=== PATIENT | male | born 1930 | race Caucasian/White ===

== ENCOUNTER 2016-06-25 12:04 | Outpatient (CLI) | payer OTHER ==
[2016-06-25 11:35] LABS: % IMMATURE GRANULOCYTES 6.5 % (0.0-1.1); ABSOLUTE IMMATURE GRANULOCYTES 0.32 10^3/uL (0-0.10); HEMATOCRIT 16.9 % (40.0-51.0); HEMOGLOBIN 5.6 g/dL (13.7-17.5); MEAN CELL HEMOGLOBIN 31.6 pg (27.9-34.1); MEAN CELL HEMOGLOBIN CONC. 33.1 g/dL (32.4-36.7); MEAN CELL VOLUME 95.5 fL (81.5-99.8); MEAN PLATELET VOLUME 8.8 fL (8.7-11.7); RED BLOOD CELL COUNT 1.77 10^6/uL (4.40-6.38); RED CELL DISTRIBUTION WIDTH 17.2 % (11.5-15.2)
[2016-06-25] MEDS ORDERED: ACETAMINOPHEN 325 MG TAB PO ONE (16:00)
== END 2016-06-25 22:05 | disposition home or self-care (01) ==
LOC: FOBOP 12:04
PROVIDERS: ATTEND Internal Medicine Hematology & Oncology
PROC: 30233N1 Transfusion of Nonautologous Red Blood Cells into Peripheral Vein, Percutaneous Approach (ICD-10-PCS; principal; 2016-06-25)
DX: C64.9 Malignant neoplasm of unspecified kidney, except renal pelvis (principal); N18.6 End stage renal disease
CPT/HCPCS: 36430; P9040

== ENCOUNTER → 2016-06-29 | Outpatient (CLI) | payer OTHER ==
--- NOTE | 2016-06-29 14:13 | DX ---
Chest, PA and Lateral History: R09.02, hypoxemia, dyspnea Comparison: June 06, 2016 Findings: Bibasilar consolidation has increased right middle lobe greater than left lower lobe. Bronc hial wall thickening and moderately prominent lung findings remain suggesting underlying COPD. There is new costophrenic gutter blunting, right greater than left.. Impression: Progressive bilateral pneumonia with pleural effusions. Results called to Dr. Hdz at 2:10 PM. A Document Only message has been documented for Christiano Hdz in the [facility] Result system on 06/29/2016 14:10, Message ID [id number].
== END ==
LOC: FIMAGING 11:29
PROVIDERS: ATTEND Family Medicine
DX: J18.9 Pneumonia, unspecified organism (principal); J90 Pleural effusion, not elsewhere classified

== ENCOUNTER → 2016-06-30 | Outpatient (CLI) | payer OTHER ==
--- NOTE | 2016-06-30 17:49 | DX ---
Chest, Two Views at 1021 hours History: Congestive heart failure, pneumonia, hypoxemia. Comparison: June 29, 2016 Findings: Cardiac silhouette is within normal range. Atherosclerotic thoracic aorta. Bilateral lower lobe alveolar opacities consistent with pneumonia again noted. Right middle lobe alveolar opacity als o consistent with pneumonia. Small right pleural effusion. Atherosclerotic aorta. No pneumothorax. IMPRESSION: No significant change in bilateral lower lobe and right middle lobe pneumonia with small right pleural effusion.
== END ==
LOC: FIMAGING 10:22 → EDSTATUS 10:23
PROVIDERS: ATTEND Family Medicine
DX: J18.9 Pneumonia, unspecified organism (principal); J90 Pleural effusion, not elsewhere classified; I50.31 Acute diastolic (congestive) heart failure; R09.02 Hypoxemia

== ENCOUNTER → 2016-07-07 | Outpatient (CLI) | payer OTHER ==
[~2016-07-07] MED LIST: ACETAMINOPHEN 325 MG TAB PO ONE
== END ==
LOC: RMCCLAB 10:26 → EDSTATUS 13:50 → FIMAGING 13:51
PROVIDERS: ATTEND Internal Medicine Hematology & Oncology
PROC: 30233N1 Transfusion of Nonautologous Red Blood Cells into Peripheral Vein, Percutaneous Approach (ICD-10-PCS; principal; 2016-07-07)
DX: D64.9 Anemia, unspecified (principal); C64.9 Malignant neoplasm of unspecified kidney, except renal pelvis
CPT/HCPCS: 36430; P9040

== ENCOUNTER → 2016-07-16 | Outpatient (CLI) | payer OTHER | LOC: RMCCLAB 09:06 → EDSTATUS 16:17 → FOBOP 16:18 | PROVIDERS: ATTEND Internal Medicine Hematology & Oncology | PROC: 30233N1 Transfusion of Nonautologous Red Blood Cells into Peripheral Vein, Percutaneous Approach (ICD-10-PCS; principal; 2016-07-16) | DX: C64.1 Malignant neoplasm of right kidney, except renal pelvis (principal); D63.8 Anemia in other chronic diseases classified elsewhere | CPT/HCPCS: 36430; P9040 ==

== ENCOUNTER 2016-07-21 14:10 | Outpatient (CLI) | payer OTHER ==
[2016-07-21 10:29] LABS: % IMMATURE GRANULOCYTES 3.1 % (0.0-1.1); ABSOLUTE IMMATURE GRANULOCYTES 0.16 10^3/uL (0-0.10); HEMOGLOBIN 6.9 g/dL (13.7-17.5); MEAN CELL HEMOGLOBIN 31.1 pg (27.9-34.1); MEAN CELL HEMOGLOBIN CONC. 32.9 g/dL (32.4-36.7); MEAN CELL VOLUME 94.6 fL (81.5-99.8); MEAN PLATELET VOLUME 8.8 fL (8.7-11.7); RED BLOOD CELL COUNT 2.22 10^6/uL (4.40-6.38); RED CELL DISTRIBUTION WIDTH 19.9 % (11.5-15.2)
[2016-07-21] MEDS ORDERED: ACETAMINOPHEN 325 MG TAB PO ONE (15:00)
== END 2016-07-21 18:30 | disposition home or self-care (01) ==
LOC: FOBOP 14:10
PROVIDERS: ATTEND Internal Medicine Hematology & Oncology
DX: C64.9 Malignant neoplasm of unspecified kidney, except renal pelvis (principal); D63.1 Anemia in chronic kidney disease
CPT/HCPCS: 36430; P9016

== ENCOUNTER → 2016-07-29 | Outpatient (CLI) | payer OTHER | LOC: FIMAGING 11:20 | PROVIDERS: ATTEND Family Medicine | DX: J98.4 Other disorders of lung (principal); I50.31 Acute diastolic (congestive) heart failure ==

== ENCOUNTER 2016-08-04 14:12 | Outpatient (CLI) | payer OTHER ==
[2016-08-04 10:46] LABS: % IMMATURE GRANULOCYTES 2.8 % (0.0-1.1); ABSOLUTE IMMATURE GRANULOCYTES 0.11 10^3/uL (0-0.10); HEMATOCRIT 22.1 % (40.0-51.0); HEMOGLOBIN 7.3 g/dL (13.7-17.5); MEAN CELL HEMOGLOBIN 32.4 pg (27.9-34.1); MEAN CELL VOLUME 98.2 fL (81.5-99.8); MEAN PLATELET VOLUME 9.3 fL (8.7-11.7); RED BLOOD CELL COUNT 2.25 10^6/uL (4.40-6.38); RED CELL DISTRIBUTION WIDTH 19.7 % (11.5-15.2)
[2016-08-04] MEDS ORDERED: ACETAMINOPHEN 325 MG TAB PO ONE (15:00)
== END 2016-08-04 18:09 | disposition home or self-care (01) ==
LOC: FOBOP 14:12
PROVIDERS: ATTEND Internal Medicine Hematology & Oncology
PROC: 30233N1 Transfusion of Nonautologous Red Blood Cells into Peripheral Vein, Percutaneous Approach (ICD-10-PCS; principal; 2016-08-04)
DX: C64.1 Malignant neoplasm of right kidney, except renal pelvis (principal)
CPT/HCPCS: 36430; P9016

== ENCOUNTER 2016-08-30 11:06 | Emergency (ER) | payer OTHER ==
--- NOTE | 2016-08-30 11:44 | CPEKG ---
Heart Rate: 82 RR Interval: 732 P-R Interval: 172 QRSD Interval: 108 QT Interval: 424 QTC Interval: 496 P Clinton: 63 QRS Clinton: 75 T Wave Clinton: 6 EKG Severity - ABNORMAL ECG - EKG Impression: SINUS RHYTHM EKG Impression: NONSPECIFIC REPOL ABNORMALITY, DIFFUSE LEADS EKG Impression: BORDERLINE PROLONGED QT INTERVAL Electronically Signed By: Nora Manuel 30-Aug-2016 16:50:24
[2016-08-30 12:01] LABS: % IMMATURE GRANULYOCYTES 2.7 % (0.0-1.1); ABSOLUTE IMMATURE GRANULOCYTES 0.19 10^3/uL (0.00-0.10); ADD DIFF? NO; ADD MORPH? NO; ADD SCAN? NO; ATYPICAL LYMPHOCYTE FLAG 20 (0-99); FRAGMENT RBC FLAG 0 (0-99); HEMATOCRIT 22.8 % (40.0-51.0); HEMOGLOBIN 7.5 g/dL (13.7-17.5); LEFT SHIFT FLG 20 (0-99); LIPEMIA HEMOLYSIS FLAG 80 (0-99); MEAN CELL HEMOGLOBIN 32.2 pg (27.9-34.1); MEAN CELL HEMOGLOBIN CONCENTR. 32.9 g/dL (32.4-36.7); MEAN CELL VOLUME 97.9 fL (81.5-99.8); MEAN PLATELET VOLUME 9.1 fL (8.7-11.7); PLATELET CLUMPS FLAG 10 (0-99); PLATELET COUNT 171 10^3/uL (150-400); RED BLOOD CELL COUNT 2.33 10^6/uL (4.40-6.38); RED CELL DISTRIBUTION WIDTH 19.5 % (11.5-15.2)
[2016-08-30 12:26] LABS: ANION GAP 13 mEq/L (8-16); CALCIUM 8.7 mg/dL (8.5-10.4); CARBON DIOXIDE 27 mEq/l (22-31); CHLORIDE 96 mEq/L (97-110); CREATININE 1.9 mg/dL (0.7-1.3); GLOMERULAR FILTRATION RATE 34; GLUCOSE 92 mg/dL (70-100); POTASSIUM 3.8 mEq/L (3.5-5.2); SODIUM 136 mEq/L (134-144)
[2016-08-30] MEDS ORDERED: ACETAMINOPHEN 325 MG TAB PO ONE (15:45)
--- NOTE | 2016-08-30 15:50 | EDPHY ---
H & P Stated Complaint: Low sats at dialysis-sent on 6L O2- [facility] Dr Granado Time Seen by Provider: 08/30/16 11:33 HPI/ROS: CHIEF COMPLAINT: Short of breath HISTORY OF PRESENT ILLNESS: This is an 86-year-old male with history of renal cell carcinoma and end-stage renal disease who is on thrice weekly dialysis. Today at dialysis the nurses were concerned that he was weaker than usual and seemed short of breath. He wears 6 L of nasal cannula oxygen at all times. Pulse oximetry at dialysis was 87%. His oxygen per nasal cannula was increased. He had blood drawn by his oncologist on August 20, at which time his hemoglobin was 7.8. He spoke with his oncology office today and it was recommended that he come to the emergency department, likely for a blood transfusion. He and his family drove to the emergency department after he completed his dialysis session today. He is not currently feeling short of breath. He is not experiencing chest pain. He has had a chronic dry cough that has not recently changed. REVIEW OF SYSTEMS: A ten point review of systems was performed and is negative with the exception of the items mentioned in the HPI. Source: Patient, Family Exam Limitations: No limitations - Personal History Current Tetanus/Diphtheria Vaccine: Yes Tetanus Vaccine Date: 2010 - Medical/Surgical History Hx Asthma: No Hx Chronic Respiratory Disease: No Hx Diabetes: Yes Hx Cardiac Disease: Yes Hx Renal Disease: Yes Hx Cirrhosis: No Hx Alcoholism: No Hx HIV/AIDS: No Hx Splenectomy or Spleen Trauma: No Other PMH: prostate CA, renal CA, right kidney removed, R knee replacement, L hip replacement, left forearm fistula, skin ulcer, cholecystectomy, Gout, peripheral neuropathy, anemia, esrd, ppm, cad, on dialysis, bliateral cataract repair, small bowel resection - Social History Smoking Status: Never smoked Additional Social History: He is here with his and [id number]. Non-smoker. No alcohol. - Physical Exam Exam: General Appearance: Alert. Vital signs reviewed. blood pressure 145 over 98 , pulse ox on 6 L nasal cannula is 95%. Eyes: Pupils equal and round, no conjunctival injection, no discharge. Anicteric. ENT, Mouth: Mucous membranes are slightly dry, no oropharyngeal erythema or edema. Neck: No lymphadenopathy, supple. Respiratory: Lungs with distant breath sounds, no wheezes or rales. Cardiovascular: Regular rate and rhythm; no murmur, rub, or gallop. Gastrointestinal: Abdomen is soft and nontender, no masses or organomegaly, bowel sounds normal. Skin: Warm and dry, no rashes on exposed skin, normal color. Back: Nontender to palpation over the thoracolumbar spine. No CVAT. Extremities: No lower extremity edema, no calf tenderness or swelling. Neurological: Alert and oriented. Moving all four extremities easily and equally. Psychiatric: Normal affect. Constitutional: Initial Vital Signs Temperature (C) 36.3 C 08/30/16 11:13 Heart Rate 95 08/30/16 11:13 Respiratory Rate 18 08/30/16 11:13 Blood Pressure 145/38 H 08/30/16 11:13 O2 Sat (%) 97 08/30/16 11:13 O2 Delivery Mode Nasal Cannula O2 (L/minute) 5 Allergies/Adverse Reactions: pseudoephedrine Allergy (Unknown, Verified 08/30/16 11:18) Swelling sudafed Allergy (Uncoded 10/28/15 11:20) Home Medications: Medication Instructions Recorded Latanoprost 0.005% [Xalatan 0.005% 1 drop EACHEYE HS 01/25/14 (*)] Multivitamins [Multivitamin (*)] 1 each PO DAILY 01/25/14 Allopurinol [Allopurinol 300 MG 150 mg PO DAILY #30 tab 04/16/14 (RX)] Tamsulosin HCl [Flomax 0.4 MG (*)] 0.4 mg PO DAILY #30 cap 04/16/14 Acetaminophen [Tylenol 325mg (*)] 650 mg PO Q6 PRN 05/27/16 Herbals/Supplements -Info Only 1 ea PO DAILY 05/27/16 Aspirin EC [Aspirin EC 81 mg (*)] 81 mg PO DAILY #0 tab 06/02/16 Medical Decision Making - Diagnostics Imaging: Two-view chest x-ray reviewed by me. There are signs of chronic congestive heart failure. He has bilateral pleural effusions. Interstitial lung disease. ED Course/Re-evaluation: CBC today shows hemoglobin of 7.5. I spoke with Oncology who recommended transfusion of 1 unit packed red blood cells. Transfusion will be administered in the emergency department (for lack of other place to transfuse at this time of day without having had previous arrangements made). I anticipate that he will be able to return home after the blood has infused. Differential Diagnosis: Considered a differential diagnosis that includes but is not limited to worsening anemia, pulmonary edema, pneumonia or other infectious process, pneumothorax, pulmonary embolus, and cardiac etiology of dyspnea. - Data Points Laboratory Results: Laboratory Results 08/30/16 11:46 08/30/16 11:46 Medications Given: Discontinued Medications Acetaminophen (Tylenol) 650 mg PO EDNOW ONE Stop: 08/30/16 15:46 Last Admin: 08/30/16 16:05 Dose: 650 mg Departure - Departure Disposition: Home, Routine, Self-Care Clinical Impression: Anemia Qualifiers: Anemia type: other cause Other causes of anemia: chronic disease, kidney Qualified Code(s): N18.9 - Chronic kidney disease, unspecified; D63.1 - Anemia in chronic kidney disease Condition: Good Instructions: Anemia (ED) Additional Instructions: He received a blood transfusion today. Please follow up with Dr. Alyssia Pinon. Call her office tomorrow to schedule an appointment for this week. If you develop new or worsening symptoms such as chest pain, shortness of breath --please return to the emergency department for another evaluation. Referrals: Christiano Hdz [Primary Care Provider] - As per Instructions
[2016-08-30 20:11] VITALS: PULSE 72; RESP 16
[2016-08-30 20:33] VITALS: BP 147/61; TEMP 97.7; O2SAT 95
== END 2016-08-30 20:31 | disposition home or self-care (01) ==
PROC: 30233N1 Transfusion of Nonautologous Red Blood Cells into Peripheral Vein, Percutaneous Approach (ICD-10-PCS; principal; 2016-08-30)
DX: N18.6 End stage renal disease (principal); D63.1 Anemia in chronic kidney disease; E11.9 Type 2 diabetes mellitus without complications; I25.10 Atherosclerotic heart disease of native coronary artery without angina pectoris; Z79.82 Long term (current) use of aspirin; Z85.46 Personal history of malignant neoplasm of prostate; Z80.51 Family history of malignant neoplasm of kidney
CPT/HCPCS: 71020; 93005; 99285; P9021

== ENCOUNTER → 2016-08-31 | Outpatient (CLI) | payer OTHER | LOC: FIMAGING 15:50 | PROVIDERS: ATTEND Family Medicine | DX: J18.1 Lobar pneumonia, unspecified organism (principal); I70.0 Atherosclerosis of aorta ==

== ENCOUNTER → 2016-09-30 | Outpatient (CLI) | payer OTHER | LOC: FIMAGING 10:45 | PROVIDERS: ATTEND Internal Medicine Nephrology | DX: R05 Cough (principal); J90 Pleural effusion, not elsewhere classified; R91.8 Other nonspecific abnormal finding of lung field ==

== ENCOUNTER 2017-02-21 14:39 | Inpatient (IN) | payer OTHER ==
--- NOTE | 2017-02-21 15:08 | EDPHY ---
H & P Stated Complaint: O2 level "low" before and during dialysis;increasesd THORNE Source: Patient, Family Exam Limitations: Clinical condition - Personal History Current Tetanus Diphtheria and Acellular Pertussis (TDAP): Yes Tetanus Vaccine Date: 2010 - Medical/Surgical History Hx Asthma: No Hx Chronic Respiratory Disease: No Hx Diabetes: Yes Hx Cardiac Disease: Yes Hx Renal Disease: Yes Hx Cirrhosis: No Hx Alcoholism: No Hx HIV/AIDS: No Hx Splenectomy or Spleen Trauma: No Other PMH: prostate CA, renal CA, right kidney removed, R knee replacement, L hip replacement, left forearm fistula, skin ulcer, cholecystectomy, Gout, peripheral neuropathy, anemia, esrd, ppm, cad, on dialysis, bliateral cataract repair, small bowel resection - Social History Smoking Status: Never smoked Time Seen by Provider: 02/21/17 15:04 HPI/ROS: HPI: This is an 86-year-old male who presents with Chief Complaint: Dyspnea Location: Chest Quality: Dyspnea Duration: Today Signs and Symptoms: No fever, no chills, + fatigue, + nonproductive cough, no swelling in lower extremities, no myalgias, no chest pain, no palpitations Timing: Acute on chronic Severity: Moderate Context: Patient has a history of end-stage renal disease on hemodialysis, scheduled Tuesday, he completed full session of dialysis today. Daughter noticed this morning use requiring more oxygen to maintain his O2 sats greater 92% than his normal 2-3 L nasal cannula continuous. He completed dialysis and hypoxia and dyspnea did not improve. Daughter reports that he has more fatigued today and a cough for the last 1-2 days. She is concerned that he may be developing pneumonia. He reports that he does not make urine. Modifying Factors: Comment: ROS: Constitutional: No fever, no chills, no weight loss Eyes: No blurred vision Respiratory: No shortness of breath, no cough Cardiovascular: No chest pain Gastrointestinal: No nausea, no vomiting no diarrhea Genitourinary: No dysuria Extremities: No myalgias Neurologic: No weakness, no numbness Skin: No rashes Hematologic: No bruising, no bleeding MEDICAL/SURGICAL/SOCIAL HISTORY: End-stage renal disease, hemodialysis, gout, decompensated diastolic heart failure, chronic hypoxic respiratory failure, supplemental oxygen dependent, history of prostate cancer status post radical prostatectomy, history of renal cell carcinoma with incomplete resection, status post bilateral nephrectomies. (Candida Bhatia) - Physical Exam Exam: CONSTITUTIONAL: Chronically ill-appearing pleasant elderly white male, multiple family members at bedside, awake and alert, no obvious distress HEENT: Atraumatic and normocephalic, PERRL, EOMI. Tympanic membranes clear. Oropharynx clear, no exudate and moist pink mucosa. Airway patent. No lymphadenopathy. No meningismus. Cardiovascular: Normal S1/S2, regular rate, regular rhythm, without murmur rub or gallop. PULMONARY/CHEST: Symmetrical and nontender. Clear to auscultation bilaterally with diminished bases. Good air movement. No accessory muscle usage. ABDOMEN: Soft, nondistended, nontender, no rebound, no guarding, no peritoneal signs, no masses or organomegaly. No CVAT. EXTREMITIES: 2/2 pulses, no deformities, no clubbing, no cyanosis or edema. NEUROLOGICAL: no focal neuro deficits. GCS 15. SKIN: Warm and dry, no erythema. no rash. Good capillary refill. (Candida Bhatia) Constitutional: Initial Vital Signs Temperature (C) 36.9 C 02/21/17 14:45 Heart Rate 88 02/21/17 14:45 Respiratory Rate 18 02/21/17 14:45 Blood Pressure 92/62 L 02/21/17 14:45 O2 Sat (%) 91 L 02/21/17 14:45 O2 Delivery Mode Nasal Cannula O2 (L/minute) 5 Allergies/Adverse Reactions: pseudoephedrine Allergy (Unknown, Verified 02/21/17 14:50) Swelling sudafed Allergy (Uncoded 10/28/15 11:20) Home Medications: Medication Instructions Recorded Latanoprost 0.005% [Xalatan 0.005% 1 drop EACHEYE HS 01/25/14 (*)] Multivitamins [Multivitamin (*)] 1 each PO DAILY 01/25/14 Allopurinol [Allopurinol 300 MG 150 mg PO DAILY #30 tab 04/16/14 (RX)] Tamsulosin HCl [Flomax 0.4 MG (*)] 0.4 mg PO DAILY #30 cap 04/16/14 Acetaminophen [Tylenol 325mg (*)] 650 mg PO Q6 PRN 05/27/16 Herbals/Supplements -Info Only 1 ea PO DAILY 05/27/16 Calcium Carbonate [Tums 500MG (*)] 1,000 mg PO PC 02/21/17 Calcium Carbonate [Tums 500MG (*)] 500 mg PO TID PRN 02/21/17 Medical Decision Making - Diagnostics EKG Interpretation: 12 lead EKG: Indication: dyspnea Rhythm: sinus rhythm, rate 81 bpm [place]:normal [place]: normal QRS: normal ST segments: nonspecific changes INTERPRETATION: no acute ischemic changes The 12 lead EKG was interpreted by myself. (Candida Bhatia) Imaging Results: Imaging Impressions Chest X-Ray 02/21/17 15:03 Impression: Increased bibasilar interstitial and airspace opacities may represent interstitial lung disease with a superimposed pneumonia. ED Course/Re-evaluation: Will evaluate for pneumonia and congestive heart failure including labs, chest x -ray, blood culture, respiratory panel. ProBNP significantly elevated Mild leukocytosis noted Chest x-ray my read shows increased interstitial markings; will go ahead and cover for community-acquired pneumonia with IV Levaquin. Creatinine is 3.1 and Potassium 4.7 Anemia is noted near baseline; etiology chronic kidney disease 1610: ED decision to consult for admission, spoke with hospitalist, Dr. Ramos , who got only agrees to admit patient for further care. Dr. Jeong spoke with Nephrology. (Candida Bhatia) Differential Diagnosis: Shortness of breath including but not limited to pulmonary infectious process, COPD, asthma, pulmonary embolus and congestive heart failure. (Candida Bhatia) Other Provider: Independent physician examination I evaluated and participated in the management of the patient. I also evaluated the patient independently. My co-signature indicates that I have reviewed this chart and I agree with the findings and plan of care as documented. My personal H&P findings include: Patient presents to the ED from the dialysis clinic with complaints of increasing hypoxemia, increasing acute cough and dyspnea. The patient is currently a half a kg a from baseline weight. The patient's symptoms have developed over the past day. Physical exam: General Appearance: Alert, no distress Eyes: Pupils equal and round no pallor or injection ENT, Mouth: Mucous membranes moist Respiratory: Tachypnea, rhonchorous breath sounds bilaterally, rales at the lung bases Cardiovascular: Regular rate and rhythm Gastrointestinal: Abdomen is soft and nontender, no masses, bowel sounds normal Neurological: A&O, normal motor function, normal sensory exam, normal cranial nerves Skin: Warm and dry, no rashes Musculoskeletal: Neck is supple nontender Extremities: symmetrical, full range of motion Psychiatric: Patient is oriented X 3, there is no agitation The patient's oral temperature was 38 degrees on my check. Patient's chest x- ray does demonstrate bibasilar infiltrate versus atelectasis. The patient is noted to have a elevated proBNP level. The patient does have mild tachypnea and increasing acute hypoxia which corrects with nasal cannula oxygen. The patient will be brought into the hospital for further evaluation and management of his condition. Consultation is made with the hospitalist service. Nephrology has also been notified of patient's admission. (Arik Jeong) - Data Points Laboratory Results: Laboratory Results 02/21/17 15:10 02/21/17 15:10 02/21/17 02/21/17 02/21/17 15:10 15:10 15:10 WBC 11.33 10^3/uL H 10^3/uL (3.80-9.50) RBC 2.72 10^6/uL L 10^6/uL (4.40-6.38) Hgb 9.0 g/dL L g/dL (13.7-17.5) Hct 27.5 % L % (40.0-51.0) MCV 101.1 fL H fL (81.5-99.8) MCH 33.1 pg pg (27.9-34.1) MCHC 32.7 g/dL g/dL (32.4-36.7) RDW 16.7 % H % (11.5-15.2) Plt Count 203 10^3/uL 10^3/uL (150-400) MPV 9.7 fL fL (8.7-11.7) Neut % (Auto) 90.4 % H % (39.3-74.2) Lymph % (Auto) 2.7 % L % (15.0-45.0) [place] % (Auto) 5.6 % % (4.5-13.0) Eos % (Auto) 0.0 % L % (0.6-7.6) Baso % (Auto) 0.2 % L % (0.3-1.7) Nucleat RBC Rel Count 0.0 % % (0.0-0.2) Absolute Neuts (auto) 10.23 10^3/uL H 10^3/uL (1.70-6.50) Absolute Lymphs (auto) 0.31 10^3/uL L 10^3/uL (1.00-3.00) Absolute Monos (auto) 0.64 10^3/uL 10^3/uL (0.30-0.80) Absolute Eos (auto) 0.00 10^3/uL L 10^3/uL (0.03-0.40) Absolute Basos (auto) 0.02 10^3/uL 10^3/uL (0.02-0.10) Absolute Nucleated RBC 0.00 10^3/uL 10^3/uL (0-0.01) Immature Gran % 1.1 % % (0.0-1.1) Immature Gran # 0.13 10^3/uL H 10^3/uL (0.00-0.10) VBG Lactic Acid Sodium 136 mEq/L mEq/L (134-144) Potassium 4.7 mEq/L mEq/L (3.5-5.2) Chloride 94 mEq/L L mEq/L (97-110) Carbon Dioxide 26 mEq/l mEq/l (22-31) Anion Gap 16 mEq/L mEq/L (8-16) BUN 25 mg/dL H mg/dL (7-23) Creatinine 3.1 mg/dL H mg/dL (0.7-1.3) Estimated GFR 19 Glucose 148 mg/dL H mg/dL (70-100) Calcium 9.3 mg/dL mg/dL (8.5-10.4) Troponin I 0.021 ng/mL ng/mL (0.000-0.034) NT-Pro-B Natriuret Pep 35375 pg/mL H pg/mL (0-450) Procalcitonin 0.64 ng/mL H ng/mL (0.02-0.10) 02/21/17 15:10 WBC RBC Hgb Hct MCV MCH MCHC RDW Plt Count MPV Neut % (Auto) Lymph % (Auto) [place] % (Auto) Eos % (Auto) Baso % (Auto) Nucleat RBC Rel Count Absolute Neuts (auto) Absolute Lymphs (auto) Absolute Monos (auto) Absolute Eos (auto) Absolute Basos (auto) Absolute Nucleated RBC Immature Gran % Immature Gran # VBG Lactic Acid 1.9 mmol/L mmol/L (0.7-2.1) Sodium Potassium Chloride Carbon Dioxide Anion Gap BUN Creatinine Estimated GFR Glucose Calcium Troponin I NT-Pro-B Natriuret Pep Procalcitonin Medications Given: Levofloxacin/Dextrose (Levaquin 750 Mg (Premix)) 150 mls @ 100 mls/hr IV EDNOW ONE PRN Reason: Protocol Stop: 02/21/17 17:54 Last Admin: 02/21/17 16:47 Dose: 150 mls Departure - Departure Disposition: [facility] Inpatient Acute Clinical Impression: Hypoxia, Heart failure, diastolic, with acute decompensation, End stage renal disease on dialysis, Acute and chronic respiratory failure with hypoxia Community acquired pneumonia Qualifiers: Laterality: unspecified laterality Qualified Code(s): J18.9 - Pneumonia, unspecified organism
--- NOTE | 2017-02-21 15:24 | CPEKG ---
Heart Rate: 81 RR Interval: 741 P-R Interval: 188 QRSD Interval: 110 QT Interval: 396 QTC Interval: 460 P Anderson: 59 QRS Anderson: 82 T Wave Anderson: 50 EKG Severity - ABNORMAL ECG - EKG Impression: SINUS RHYTHM EKG Impression: NONSPECIFIC INTRAVENTRICULAR CONDUCTION DELAY EKG Impression: BORDERLINE ST DEPRESSION, LATERAL LEADS Electronically Signed By: Adrian Mueller 23-Feb-2017 06:53:24
[2017-02-21 15:29] LABS: % IMMATURE GRANULYOCYTES 1.1 % (0.0-1.1); ABSOLUTE IMMATURE GRANULOCYTES 0.13 10^3/uL (0.00-0.10); ADD DIFF? NO; ADD MORPH? NO; ADD SCAN? NO; ATYPICAL LYMPHOCYTE FLAG 0 (0-99); FRAGMENT RBC FLAG 0 (0-99); HEMATOCRIT 27.5 % (40.0-51.0); LEFT SHIFT FLG 30 (0-99); LIPEMIA HEMOLYSIS FLAG 80 (0-99); MEAN CELL HEMOGLOBIN 33.1 pg (27.9-34.1); MEAN CELL HEMOGLOBIN CONCENTR. 32.7 g/dL (32.4-36.7); MEAN CELL VOLUME 101.1 fL (81.5-99.8); MEAN PLATELET VOLUME 9.7 fL (8.7-11.7); PLATELET CLUMPS FLAG 40 (0-99); PLATELET COUNT 203 10^3/uL (150-400); RED BLOOD CELL COUNT 2.72 10^6/uL (4.40-6.38); RED CELL DISTRIBUTION WIDTH 16.7 % (11.5-15.2)
[2017-02-21 15:46] LABS: TROPONIN I 0.021 ng/mL (0.000-0.034)
[2017-02-21 15:57] LABS: ANION GAP 16 mEq/L (8-16); CALCIUM 9.3 mg/dL (8.5-10.4); CARBON DIOXIDE 26 mEq/l (22-31); CHLORIDE 94 mEq/L (97-110); CREATININE 3.1 mg/dL (0.7-1.3); GLOMERULAR FILTRATION RATE 19; GLUCOSE 148 mg/dL (70-100); POTASSIUM 4.7 mEq/L (3.5-5.2); SODIUM 136 mEq/L (134-144)
[2017-02-21] MEDS ORDERED: ONDANSETRON DISINTEGRATING 4 MG TAB PO PRN (17:35)
[2017-02-21] MEDS ORDERED: ACETAMINOPHEN 325 MG TAB PO PRN (17:35)
[2017-02-21] MEDS ORDERED: IPRATROPIUM/ALBUTEROL 3 ML DEYVIAL IH PRN (17:35)
[2017-02-21] MEDS ORDERED: ONDANSETRON 4 MG/2 ML VIAL IVP PRN (17:35)
[2017-02-21] MEDS ORDERED: CALCIUM CARBONATE 500 MG CHEWABLE TAB PO PRN (17:38)
--- NOTE | 2017-02-21 18:40 | GHP ---
[f rep st] HISTORY AND PHYSICAL DATE OF ADMISSION: 02/21/2017 CHIEF COMPLAINT: Worsening hypoxemia, shortness of breath and cough. HISTORY OF PRESENT ILLNESS: The patient is an 86-year-old male with a history of end-stage renal disease who is dialysis dependent and requires 2 to 3 L of oxygen at baseline at home. He also has a history of diastolic heart failure. He presents to the emergency department with increasing oxygen requirements. He is followed by Dr. Granado at [facility] and receives dialysis on a Tuesday, Tuesday, Tuesday schedule. He endorses development of a wet cough today. He also is noted to be requiring a bit more oxygen than usual. During his dialysis session, he had an episode of cyanosis and required 15 L of oxygen. He was brought to the emergency department, where his saturations are 91% on 4 L. He states his dry weight is 76 kg and he was dialyzed to 76.5 kg today. He denies any chest pain. He vaguely endorses some shortness of breath. He denies orthopnea, paroxysmal nocturnal dyspnea or increasing edema. He has no significant upper respiratory symptoms other than development of worsening cough today combined with increased oxygen needs. He was noted to have a temperature of 38 degree Celsius in the emergency department. He otherwise denies headache, vision changes, abdominal pain, nausea, vomiting, or diarrhea. In the emergency department, a chest x-ray revealed bibasilar opacities. He was given a dose of Levaquin. He is admitted to the hospital for further management. PAST MEDICAL HISTORY: 1. History of diastolic heart failure. His last echo was in May 2016, at which time he had an ejection fraction of 505 to 55% with Doppler evidence for diastolic dysfunction and left basal mid inferior inferoseptal akinesis. 2. Moderate mitral regurgitation. 3. Mild aortic stenosis. 4. End-stage renal disease, on dialysis Tuesday, Tuesday, Tuesday, followed by Dr. Granado. 5. Chronic hypoxemic respiratory failure, using 2 to 3 L of oxygen at baseline. 6. History of coronary artery disease. Left heart catheterization in May 2016 showed 100% occlusion of the right coronary artery, not amenable to intervention, managed medically. 7. History of prostate cancer, status post radical prostatectomy. 8. History of renal cell carcinoma, status post bilateral nephrectomy with incomplete resection. 9. Anemia of chronic kidney disease. 10. Gout. MEDICATIONS: Please see [facility] for complete updated outpatient medication list. FAMILY HISTORY: Positive for kidney disease. SOCIAL HISTORY: The patient is , lives independently with his , who is present at the bedside along with his daughter. He has a history of tobacco use but is currently a nonsmoker. He denies alcohol or other drug use. REVIEW OF SYSTEMS: A 10-point review of systems was performed and is negative except as per HPI. OBJECTIVE: VITAL SIGNS: Temperature is 37 degrees, blood pressure 113/48, heart rate 85, respiratory rate 18, he is 95% on 5 L of oxygen by nasal cannula. GENERAL: The patient is awake, alert, oriented, in no acute distress. HEENT: Head is atraumatic, normocephalic. Pupils equal, round, react to light. Extraocular movements intact. Oropharynx is clear. Mucous membranes are moist. NECK: Supple. There is no significant JVD. HEART: Regular rate and rhythm with a 2/6 systolic ejection murmur. LUNGS: Faint scattered bibasilar crackles with expiratory rales. ABDOMEN: Soft, nondistended, nontender with normoactive bowel sounds. EXTREMITIES: Without cyanosis, clubbing, or edema. NEUROLOGIC: Grossly nonfocal. LABORATORY DATA: CBC reveals a white blood cell count of 11.3 with 90% neutrophils. Hemoglobin is 9. Lactic acid is 1.9. Metabolic panel reveals a BUN of 25, creatinine 3.1, glucose 148. Troponin is negative. NT-proBNP is 10, 300 and is chronically elevated in the setting of end-stage renal disease. Procalcitonin is 0.64. Chest x-ray is personally reviewed and interpreted, and reveals bibasilar opacities which are increased from his prior exam, possibly suggestive of pneumonia versus interstitial lung disease. EKG shows normal sinus rhythm. There is ST depression noted in the lateral leads, though this was present on his prior EKG and is overall unchanged. ASSESSMENT AND PLAN: The patient is an 86-year-old male with a history of end- stage renal disease, diastolic heart failure and chronic hypoxemic respiratory failure. He is admitted to the hospital with increasing dyspnea. 1. Acute on chronic hypoxemic respiratory failure. His oxygen requirement has increased to 5 L from his baseline of 2 to 3 L per minute. Consideration is given to a heart failure exacerbation though he does not appear significantly volume overloaded. His dry weight is 76 kg. His weight on presentation is 76.5 kg. His elevated BNP is noted, although this is chronically elevated in the setting of end-stage renal disease. It is possible he developed some mild pulmonary edema during dialysis given his valvular heart disease, though his valve disease is not severe. I am most suspicious for an infectious etiology given his mild leukocytosis with neutrophilia and low-grade fever on presentation with chest x-ray findings suspicious for possible pneumonia or a viral syndrome. His procalcitonin is elevated at 0.64. I think it is reasonable to treat him and he has already been given a dose of Levaquin in the emergency department. We will continue this at 500 mg q.48 hours for renal dosing. We will give DuoNebs and guaifenesin. A respiratory pathogen PCR panel is pending. I will continue supportive care and wean oxygen as able. 2. End-stage renal disease. As above, he is just 0.5 kg over his dry weight. He presents from dialysis. Nephrology has been contacted by the emergency department physician and will see the patient. He has no urgent dialysis needs tonight. 3. History of diastolic heart failure. I reviewed his prior echo as described above. Again, he is not far from his dry weight. I will defer further fluid removal to the renal service. 4. History of coronary artery disease. The patient is chest pain free. He has a negative troponin and his EKG is unchanged. We will continue him on a baby aspirin. 5. Anemia of chronic kidney disease. His hemoglobin is 9, which is stable. We will continue to monitor. 6. History of prostate cancer, status post radical prostatectomy. 7. History of renal cell carcinoma, status post bilateral nephrectomy with incomplete resection. 8. Deep venous thrombosis prophylaxis: Heparin. CODE STATUS: I did discuss code status with the patient. He wishes to be DNR. This will be honored. His family was present for this discussion. DISPOSITION: The patient is admitted to inpatient status as I suspect he will require greater than 48 hours' hospitalization for ongoing management of his hypoxemia in the setting of end-stage renal disease. /[id number]/MODL MTDD
[2017-02-21] MEDS: guaiFENesin 600 MG TAB.ER PO SCH ×2 (21:12→21:48)
[2017-02-21] MEDS: CALCIUM CARBONATE 500 MG CHEWABLE TAB PO SCH (21:13)
[2017-02-21] MEDS: HEPARIN 5,000 UNIT/0.5 ML SYR SC SCH (21:14)
[2017-02-21] MEDS: LATANOPROST 0.005% 2.5 ML OPHT DROPS EACHEYE SCH (21:15)
[2017-02-22 04:45] LABS: % IMMATURE GRANULYOCYTES 0.9 % (0.0-1.1); ABSOLUTE IMMATURE GRANULOCYTES 0.08 10^3/uL (0.00-0.10); ADD DIFF? NO; ADD MORPH? NO; ADD SCAN? NO; ATYPICAL LYMPHOCYTE FLAG 0 (0-99); FRAGMENT RBC FLAG 0 (0-99); HEMATOCRIT 25.1 % (40.0-51.0); HEMOGLOBIN 8.2 g/dL (13.7-17.5); LEFT SHIFT FLG 30 (0-99); LIPEMIA HEMOLYSIS FLAG 80 (0-99); MEAN CELL HEMOGLOBIN 33.3 pg (27.9-34.1); MEAN CELL HEMOGLOBIN CONCENTR. 32.7 g/dL (32.4-36.7); MEAN PLATELET VOLUME 9.9 fL (8.7-11.7); PLATELET CLUMPS FLAG 0 (0-99); PLATELET COUNT 173 10^3/uL (150-400); RED BLOOD CELL COUNT 2.46 10^6/uL (4.40-6.38); RED CELL DISTRIBUTION WIDTH 17.1 % (11.5-15.2)
[2017-02-22 04:58] LABS: ANION GAP 17 mEq/L (8-16); CALCIUM 9.3 mg/dL (8.5-10.4); CARBON DIOXIDE 26 mEq/l (22-31); CHLORIDE 92 mEq/L (97-110); CREATININE 4.4 mg/dL (0.7-1.3); GLOMERULAR FILTRATION RATE 13; GLUCOSE 102 mg/dL (70-100); POTASSIUM 4.8 mEq/L (3.5-5.2); SODIUM 135 mEq/L (134-144)
[2017-02-22] MEDS: HEPARIN 5,000 UNIT/0.5 ML SYR SC SCH ×3 (06:42→21:21)
--- NOTE | 2017-02-22 08:11 | SOAPPROG ---
SOAP Progress Note Assessment/Plan: Assessment:Plan: ESRD-s/p Hd Tuesday with 3 liters UF -had hypoxia on admission to dialysis unit that became worse after dialysis treatment completed -CXR reviewed -will plan on Hd Tuesday -typically on MWF at [facility] Access-L FA AVF stable Pulmonary-possible pneumonia -on abx Anemia-may need prbc's -on heparin SQ -cbc in am -type and screen 02/22/17 08:08 Subjective: up in chair, still with dyspnea, cough Objective: Vital Signs Temp Pulse Resp BP Pulse Ox 36.3 C 76 19 100/52 L 95 02/22/17 04:08 02/22/17 04:08 02/22/17 04:08 02/22/17 04:08 02/22/17 04:08 Laboratory Results 02/22/17 03:56 02/22/17 03:56 02/21/17 02/22/17 02/23/17 05:59 05:59 05:59 Intake Total 150 Balance 150 Physical Exam - Physical Exam General Appearance: alert, no apparent distress, thin EENT: normal ENT inspection Neck: normal inspection Respiratory: decreased breath sounds, rales Cardiac/Chest: regular rate, rhythm, systolic murmur, No diastolic murmur Abdomen: normal bowel sounds, non-tender Skin: normal color, warm/dry Extremities: No swelling Neuro/Psych: no motor/sensory deficits, alert, normal mood/affect ICD10 Worksheet Patient Problems: Problems Problem Status Onset Acute and chronic respiratory failure with hypoxia Acute Community acquired pneumonia Acute End stage renal disease on dialysis Acute Heart failure, diastolic, with acute decompensation Acute Hypoxia Acute Anemia Acute Chronic Disease Mgmt/Transitional Care Acute Chronic renal failure Acute Diabetes mellitus Acute Pleural effusion Acute Pulmonary edema Acute UTI (urinary tract infection) Acute Weakness generalized Acute Anemia Chronic Osteoarthritis of hip Chronic Renal failure syndrome Chronic
[2017-02-22] MEDS: CALCIUM CARBONATE 500 MG CHEWABLE TAB PO SCH ×3 (08:12→17:40)
[2017-02-22] MEDS: ALLOPURINOL 300 MG TAB PO SCH (08:12)
[2017-02-22] MEDS: ASPIRIN 81 MG CHEWABLE TAB PO SCH (08:13)
[2017-02-22] MEDS: guaiFENesin 600 MG TAB.ER PO SCH ×2 (08:13→21:20)
[2017-02-22] MEDS: TAMSULOSIN HCL 0.4 MG CAP PO SCH (08:14)
--- NOTE | 2017-02-22 11:36 | HOSPPROG ---
Hospitalist Progress Note Assessment/Plan: #Acute on chronic hypoxic resp failure: likely due to PNA with opacity (CXR personally reviewed) and elevated procalcitonin. Not significant volume overload -LQ QOD #ESRD: HD tomorrow #Leukocytosis: likely due to PNA. Flu neg. Resolved. LQ #CAD: 100% occlusion RCA last cath. Medical management. #Anemia of renal disease: repeat CBC in AM #Diet: renal #Disp: DC tomorrow after HD if clinically stable Subjective: nonproductive cough. Feels good Objective: Vital Signs Temp Pulse Resp BP Pulse Ox 36.6 C 79 17 114/60 93 02/22/17 08:00 02/22/17 08:00 02/22/17 08:00 02/22/17 08:00 02/22/17 10:05 Laboratory Results 02/22/17 03:56 02/22/17 03:56 02/21/17 02/22/17 02/23/17 05:59 05:59 05:59 Intake Total 150 Balance 150 - Physical Exam Constitutional: no apparent distress Eyes: PERRL Ears, Nose, Mouth, Throat: moist mucous membranes, hearing normal Cardiovascular: regular rate and rhythym Respiratory: no respiratory distress, rhonchi Gastrointestinal: normoactive bowel sounds, soft, non-tender abdomen Genitourinary: no bladder fullness Skin: warm Musculoskeletal: full muscle strength Neurologic: AAOx3, CN II-XII Intact Psychiatric: interacting appropriately ICD10 Worksheet Patient Problems: Problems Problem Status Onset Acute and chronic respiratory failure with hypoxia Acute Community acquired pneumonia Acute End stage renal disease on dialysis Acute Heart failure, diastolic, with acute decompensation Acute Hypoxia Acute Anemia Acute Chronic Disease Mgmt/Transitional Care Acute Chronic renal failure Acute Diabetes mellitus Acute Pleural effusion Acute Pulmonary edema Acute UTI (urinary tract infection) Acute Weakness generalized Acute Anemia Chronic Osteoarthritis of hip Chronic Renal failure syndrome Chronic
--- NOTE | 2017-02-22 15:12 | ECHO ---
[id number] + + [address] : : [place] [address] : : [phone] + + Adult Echocardiographic Report + ----+ :Name: LIBAN BORREGO EStudy Date: 02/22/2017 10:55 AM : : Hospital Admission Number: [id number] Location: 211: :: 1930 Gender: Male Height: 69 in : :Age: 86 yrs Race: WH Weight: 168 lb : :Reason For Study: Eval LV Fx : : BSA: 1.9 meters2 : :History: Worsening hypoxemia : + ----+ MMode/2D Measurements & Calculations IVSd: 0.81 cm LVIDd: 5.0 cm FS: 47.7 % Ao root diam: 3.4 cm LVPWd: 0.97 cm LVIDs: 2.6 cm EDV(Teich): 120.0 ml ACS: 0.74 cm ESV(Teich): 25.3 ml LA dimension: 4.0 cm EF(Teich): 78.9 % LVOT diam: 2.1 cm LVOT area: 3.5 cm2 Normal Measurement Values: + + :LVIDd (3.5-5.7cm) IVSd (0.6-1.1cm) LVPWd (0.6-1.1cm) Aortic Root (2.0-3.7cm)Left Atrium (1.5-4.0cm): :LV Vol(d) (76-115ml) LV Vol(s) (29-48ml) Ejec Fraction (50-65%)PV Roni (0.6- 1.2m/s) TV Roni (0.4-1.0m/s) : :MV E Roni (0.8-1.0m/s)MV A Roni (0.3-1.0m/s)LVOT Roni (0.7-1.2m/s) Asc Ao Roni ( 0.9-1.8m/s) : + + Doppler Measurements & Calculations MV E max roni: Ao V2 max: LV V1 max: MR max roni: 97.2 cm/sec 350.2 cm/sec 100.7 cm/sec 287.8 cm/sec MV A max roni: Ao max PG: LV V1 max PG: MR max P.7 cm/sec 49.1 mmHg 4.1 mmHg 33.1 mmHg MV E/A: 0.72 Ao mean PG: LV V1 mean P.2 mmHg 2.3 mmHg Ao V2 mean: LV V1 mean: 264.8 cm/sec 68.3 cm/sec Ao V2 VTI: 86.7 cm LV V1 VTI: 28.9 cm CARI(I,D): 1.2 cm2 CARI(V,D): 1.00 cm2 SV(LVOT): 100.0 ml PA V2 max: 141.2 cm/sec PA max P.0 mmHg Left Ventricle The left ventricle is normal in size. There is normal left ventricular wall thickness. The left ventricular ejection fraction is normal. There is Doppler evidence for diastolic dysfunction. Ejection Fraction = 79%. The left ventricular wall motion is normal. Right Ventricle The right ventricle is normal in size and function. Atria The left atrial size is normal. Right atrial size is normal. Mitral Valve There is mild mitral annular calcification. There is no mitral valve stenosis. There is trace mitral regurgitation. Tricuspid Valve Normal tricuspid valve. There is trace to mild tricuspid regurgitation. Aortic Valve There is moderate to severe aortic valve calcification. The Ao V2 max is 3.5 m/s with a Ao mean PG 31mmHg. Moderate valvular aortic stenosis. Pulmonic Valve The pulmonic valve is normal in structure and function. There is no pulmonic valvular regurgitation. Great Vessels The aortic root is normal size. Pericardium/Pleural There is no pericardial effusion. Conclusion A complete two-dimensional transthoracic echocardiogram was performed (2D, M-mode, Doppler and color flow Doppler). Compared to the previous exam of 05/27/16 the Aortic stenosis has increased from mild to moderate aortic stenosis. The left ventricular ejection fraction is normal. There is Doppler evidence for diastolic dysfunction. Ejection Fraction = 79%. The left ventricular wall motion is normal. The right ventricle is normal in size and function. There is mild mitral annular calcification. There is trace mitral regurgitation. There is trace to mild tricuspid regurgitation. There is moderate to severe aortic valve calcification. The Ao V2 max is 3.5 m/s with a Ao mean PG 31mmHg Moderate valvular aortic stenosis. There is no pericardial effusion. Compared to the previous exam of 05/27/16 the Aortic stenosis has increased from mild to moderate aortic stenosis. Final Reading Physician: Ilene Valadez signed on 02/22/2017 03:11 PM Ordering Physician: Nikki Ramos Performed By: Sav Joseph, QASIMCS
[2017-02-22] MEDS: LATANOPROST 0.005% 2.5 ML OPHT DROPS EACHEYE SCH (21:21)
[2017-02-23 05:28] LABS: % IMMATURE GRANULYOCYTES 1.3 % (0.0-1.1); ABSOLUTE IMMATURE GRANULOCYTES 0.09 10^3/uL (0.00-0.10); ADD DIFF? NO; ADD MORPH? NO; ADD SCAN? NO; ATYPICAL LYMPHOCYTE FLAG 10 (0-99); FRAGMENT RBC FLAG 0 (0-99); HEMATOCRIT 22.5 % (40.0-51.0); HEMOGLOBIN 7.3 g/dL (13.7-17.5); LEFT SHIFT FLG 10 (0-99); LIPEMIA HEMOLYSIS FLAG 80 (0-99); MEAN CELL HEMOGLOBIN 33.3 pg (27.9-34.1); MEAN CELL HEMOGLOBIN CONCENTR. 32.4 g/dL (32.4-36.7); MEAN CELL VOLUME 102.7 fL (81.5-99.8); MEAN PLATELET VOLUME 10.3 fL (8.7-11.7); PLATELET CLUMPS FLAG 0 (0-99); PLATELET COUNT 163 10^3/uL (150-400); RED BLOOD CELL COUNT 2.19 10^6/uL (4.40-6.38); RED CELL DISTRIBUTION WIDTH 17.2 % (11.5-15.2)
[2017-02-23 05:44] LABS: ALBUMIN 3.4 g/dL (3.5-5.0); ANION GAP 16 mEq/L (8-16); CALCIUM 9.2 mg/dL (8.5-10.4); CARBON DIOXIDE 24 mEq/l (22-31); CHLORIDE 92 mEq/L (97-110); CREATININE 6.6 mg/dL (0.7-1.3); GLOMERULAR FILTRATION RATE 8; GLUCOSE 95 mg/dL (70-100); POTASSIUM 4.8 mEq/L (3.5-5.2); SODIUM 132 mEq/L (134-144)
[2017-02-23] MEDS: HEPARIN 5,000 UNIT/0.5 ML SYR SC SCH (05:55)
[2017-02-23] MEDS: CALCIUM CARBONATE 500 MG CHEWABLE TAB PO SCH ×2 (08:08→12:57)
--- NOTE | 2017-02-23 09:25 | SOAPPROG ---
SOAP Progress Note Assessment/Plan: Assessment: 1. ESRD. Dialysis going well today. Continue on MWF schedule. 2. Pneumonia? Seems to be improving on abx. Continue levaquin. Uf 2.3 L on dialysis today. 3. Anemia. Hgb down today. Denies blood in stools. Usually runs ~8.5 per pt. May be spurious level. Regardless prefers to avoid tx. Give dose of procrit. Plan: 02/23/17 09:23 02/23/17 09:24 02/23/17 09:25 Subjective: Seen and examined on dialysis. Breathing better. Not coughing much. Fells better overall. O2 needs down. Objective: Vital Signs Temp Pulse Resp BP Pulse Ox 36.6 C 71 18 122/57 H 94 02/23/17 04:00 02/23/17 04:00 02/23/17 04:00 02/23/17 04:00 02/23/17 04:00 Laboratory Results 02/23/17 04:02 02/23/17 04:02 02/22/17 02/23/17 02/24/17 05:59 05:59 05:59 Intake Total 150 1250 Output Total 250 Balance 150 1000 Comfortable elderly wm on dialysis UF goal 2.8 L RRR, radiated bruit from avf L basilar inspiratory wheezes Abdom soft, nt No edema L arm AVF ICD10 Worksheet Patient Problems: Problems Problem Status Onset Renal failure syndrome Chronic Osteoarthritis of hip Chronic Anemia Chronic Weakness generalized Acute Hypoxia Acute UTI (urinary tract infection) Acute Pleural effusion Acute Diabetes mellitus Acute Pulmonary edema Acute Chronic renal failure Acute Chronic Disease Mgmt/Transitional Care Acute Anemia Acute Heart failure, diastolic, with acute decompensation Acute End stage renal disease on dialysis Acute Acute and chronic respiratory failure with hypoxia Acute Community acquired pneumonia Acute
[2017-02-23] MEDS ORDERED: EPOETIN ALFA 10,000 UNIT/ML VIAL SC SCH (09:30)
[2017-02-23] MEDS: ALLOPURINOL 300 MG TAB PO SCH (11:14)
[2017-02-23] MEDS: guaiFENesin 600 MG TAB.ER PO SCH (11:14)
[2017-02-23] MEDS: ASPIRIN 81 MG CHEWABLE TAB PO SCH ×2 (11:14→11:21)
[2017-02-23] MEDS: TAMSULOSIN HCL 0.4 MG CAP PO SCH (11:14)
[2017-02-23 11:18] VITALS: BP 112/49; PULSE 85; RESP 16; TEMP 96.5; O2SAT 91
--- NOTE | 2017-02-23 14:46 | ASMTCMCOM ---
CM Note CM Note Notes: Pt dc'd home w/family. He still did not feel like he needed home care services. Date Signed: 02/23/2017 02:45 PM Electronically Signed By:Hanny Chavez RN
--- NOTE | 2017-02-23 14:57 | ASDISCHSUM ---
Discharge Information Plan Status:Home with No Needs Medically Cleared to Leave: Discharge Date:02/23/2017 01:00 PM CM D/C Disposition:Home, Routine, Self-Care ADT D/C Disposition:Home, Routine, Self-Care Projected Discharge Date:02/23/2017 01:00 PM Transportation at D/C: Discharge Delay Reason: Follow-Up Date:02/23/2017 01:00 PM Discharge Slot: Final Diagnosis: Placement Information Patient Contact Information Contact Name:ES Relationship: Address:[address] Work Phone: [facility] Phone: [facility]/Zip Code:[place] [address] Email: Financial Information Financial Class: Primary Plan Desc:MEDICARE INPATIENT Primary Plan Number:[id number] Secondary Plan Desc:[facility] Secondary Plan Number:[id number] Assessment Information [facility] Progress Note CM Note CM Note Notes: Pt lives at home w/. They have son and dtr nearby who are very supportive. Reviewed chart and spoke w/RN. Met w/pt, , dtr and discussed option of HHC; pt does not feel he needs this since he goes to dialysis 3X/week and he said they assess him there. CM avail if pt changes his mind and would like to have HHC. CM will also try to f/u w/PT as rec was not clear. Date Signed: 02/22/2017 04:24 PM Electronically Signed By:Hanny Chavez RN [facility] CM Progress Note CM Note CM Note Notes: Pt dc'd home w/family. He still did not feel like he needed home care services. Date Signed: 02/23/2017 02:45 PM Electronically Signed By:Hanny Chavez RN Intervention Information
--- NOTE | 2017-02-24 03:38 | GDS ---
[f rep st] DISCHARGE SUMMARY DISCHARGE DIAGNOSES: 1. Acute on chronic hypoxemic respiratory failure secondary to pneumonia. 2. Pneumonia. 3. End-stage renal disease. 4. Leukocytosis. 5. Coronary artery disease. 6. Anemia of renal disease. HISTORY OF PRESENT ILLNESS: An 86-year-old male with history of end-stage renal disease on dialysis, diastolic heart failure, coronary artery disease and chronic hypoxemic respiratory failure, presented with increased oxygen requirements. Endorsed a wet cough and increased oxygen need at home. During his dialysis session, he had an episode of cyanosis and required 15 L of oxygen and was brought to the emergency room. He denies any chest pain. He vaguely endorses some shortness of breath. No pillow orthopnea, PND, or lower extremity edema. He was noted to have a temperature of 38 degrees in the emergency room. HOSPITAL COURSE: 1. Acute on chronic hypoxic respiratory failure: due to PNA. Not volume overloaded.Improved with treatment of pneumonia; 3L oxygen at baseline.. 2. Pneumonia: Procalcitonin is mildly elevated. Treat with Levaquin, renally dosed for a total of 7 days. 3. End-stage renal disease. Nephrology consult. Patient received dialysis here. 4. Leukocytosis, resolved with antibiotics. Flu was negative. 5. Coronary artery disease, 100% occlusion, RCA catheterization, but could not be intervened on medical management. 6. Anemia of renal disease. Hemoglobin 7.3 today. The patient declined blood transfusion. DISPOSITION: Patient is stable for discharge. FOLLOWUP: Nephrology for hemodialysis. PHYSICAL EXAMINATION: VITAL SIGNS: On discharge, temperature 36.6, blood pressure 112/57, heart rate in the 70s, respirations 18, 94% on room air. GENERAL: Well-appearing, brighter today. HEENT: PERRLA. Moist mucous membranes. CV: Regular rate and rhythm. No murmurs, gallops, rubs. LUNGS: Rhonchorous, but moving good air. ABDOMEN: Soft, nontender, nondistended. Positive bowel sounds. : No suprapubic tenderness. MUSCULOSKELETAL: 5/5 upper and lower extremity strength. NEURO: 2 through 12 intact. PSYCH: Alert and oriented x3. /[id number]/MODL MTDD
== END 2017-02-23 13:00 | disposition home or self-care (01) | DRG 193 ==
LOC: F2W 18:25
PROVIDERS: ADMIT Hospitalist; ATTEND Hospitalist
PROC: 5A1D00Z (ICD-10-PCS; principal; 2017-02-23)
DX: J18.9 Pneumonia, unspecified organism (principal); J96.21 Acute and chronic respiratory failure with hypoxia; N18.6 End stage renal disease; I25.10 Atherosclerotic heart disease of native coronary artery without angina pectoris; D63.1 Anemia in chronic kidney disease; E11.9 Type 2 diabetes mellitus without complications; Z79.82 Long term (current) use of aspirin; Z85.46 Personal history of malignant neoplasm of prostate; Z80.51 Family history of malignant neoplasm of kidney; Z96.651 Presence of right artificial knee joint; Z96.642 Presence of left artificial hip joint; Z99.2 Dependence on renal dialysis
CPT/HCPCS: 96365; 97161-GP; G8978-GP-CI; G8979-GP-CI; J0885; J1956

== ENCOUNTER 2017-04-22 15:21 | Outpatient (CLI) | payer OTHER ==
[2017-04-22] MEDS ORDERED: ACETAMINOPHEN 325 MG TAB PO ONE (15:45)
== END 2017-04-22 19:23 | disposition home or self-care (01) ==
LOC: FOBOP 15:21
PROVIDERS: ATTEND Internal Medicine Hematology & Oncology
PROC: 30233N1 Transfusion of Nonautologous Red Blood Cells into Peripheral Vein, Percutaneous Approach (ICD-10-PCS; principal; 2017-04-22)
DX: C64.9 Malignant neoplasm of unspecified kidney, except renal pelvis (principal)
CPT/HCPCS: 36430; P9016

== ENCOUNTER 2017-05-02 20:22 | Inpatient (IN) | payer OTHER ==
--- NOTE | 2017-05-02 20:53 | EDPHY ---
H & P Stated Complaint: hypoxia despite O2 admin increase since this am Time Seen by Provider: 05/02/17 20:53 - Personal History Current Tetanus/Diphtheria Vaccine: Yes Tetanus Vaccine Date: 2010 - Medical/Surgical History Hx Asthma: No Hx Chronic Respiratory Disease: No Hx Diabetes: Yes Hx Cardiac Disease: Yes Hx Renal Disease: Yes Hx Cirrhosis: No Hx Alcoholism: No Hx HIV/AIDS: No Hx Splenectomy or Spleen Trauma: No Other PMH: prostate CA, renal CA, right kidney removed, R knee replacement, L & R hip replacement, left forearm fistula, cholecystectomy, Gout, peripheral neuropathy, anemia, esrd, ppm, cad, on dialysis, bliateral cataract repair, small bowel resection - Social History Smoking Status: Never smoked Constitutional: Initial Vital Signs Temperature (C) 36.6 C 05/02/17 20:26 Heart Rate 83 05/02/17 20:26 Respiratory Rate 20 05/02/17 20:26 Blood Pressure 99/60 L 05/02/17 20:26 O2 Sat (%) 90 L 05/02/17 20:26 O2 Delivery Mode Oxymizer O2 (L/minute) 6 Allergies/Adverse Reactions: pseudoephedrine Allergy (Unknown, Verified 04/22/17 16:50) Swelling sudafed Allergy (Uncoded 04/22/17 16:50) Home Medications: Medication Instructions Recorded Latanoprost 0.005% [Xalatan 0.005% 1 drop EACHEYE HS 01/25/14 (*)] Multivitamins [Multivitamin (*)] 1 each PO DAILY 01/25/14 Allopurinol [Allopurinol 300 MG 150 mg PO DAILY #30 tab 04/16/14 (RX)] Tamsulosin HCl [Flomax 0.4 MG (*)] 0.4 mg PO DAILY #30 cap 04/16/14 Acetaminophen [Tylenol 325mg (*)] 650 mg PO Q6 PRN 05/27/16 Herbals/Supplements -Info Only 1 ea PO DAILY 05/27/16 Calcium Carbonate [Tums 500MG (*)] 1,000 mg PO PC 02/21/17 Calcium Carbonate [Tums 500MG (*)] 500 mg PO TID PRN 02/21/17 Medical Decision Making - Diagnostics Imaging: Discussed imaging studies w/ weight caller Radiologist, I viewed and interpreted images myself ED Course/Re-evaluation: CHIEF COMPLAINT: Shortness of breath, cough HISTORY OF PRESENT ILLNESS: The patient is an 87-year-old male with history of renal cell carcinoma, on dialysis three times per week. The patient has baseline hgb 8. After last blood transfusion hemoglobin increased to 9. He was at a family gathering yesterday and walked more than usual. This morning when his daughter picked him up for dialysis the patient was disoriented and short of breath. He is usually on 2-3 L of O2 but has been requiring 6L today. The patient has an acute cough that started today. It is nonproductive. REVIEW OF SYSTEMS: A 10 point review of systems was performed and is negative with the exception of the elements mentioned in the history of present illness. PHYSICAL EXAM: HR, BP, O2 Sat, RR. Temp noted General Appearance: Alert, well hydrated, appropriate, and non-toxic appearing. Head: Atraumatic without scalp tenderness or obvious injury Eyes: Pupils equal, round, reactive to light and accommodation, EOMI, no trauma , no injection. Ears: Clear bilaterally, no perforation, normal landmarks Nose: Atraumatic, no rhinorrhea, clear. Throat: There is no erythema or exudates, no lesions, normal tonsils, mucus membranes moist. Neck: Supple, 2+ carotid upstroke, nontender, no lymphadenopathy. Respiratory: Coarse rhonchi, decreased breath sounds on the left. Cardiovascular: Regular rate and rhythm, no murmurs, rubs, or gallops. Bilateral carotid, radial, dorsalis pedis, and posterior tibial pulses intact. Good capillary refill all extremities. Gastrointestinal: Abdomen is soft, nontender, non-distended, no masses, no rebound, no guarding, no peritoneal signs. Musculoskeletal: Normal active ROM of all extremities, atraumatic. Neurological: Alert, appropriate, and interactive. The patient has normal DTRs and non-focal cranial nerves, motor, sensory, and cerebellar exam. Skin: No rashes, good turgor, no nodules on palpation. Past medical history:prostate CA, renal CA on dialysis, left forearm fistula, Gout, peripheral neuropathy, anemia, esrd, ppm, CAD. Past surgical history: Cholecystectomy, Bowel resection, Bilateral cataract repair, right kidney removed, right knee replacement, L &R hip replacement Family history: Noncontributory. Social history: Daughter at bedside. Lives at home alone. DIAGNOSTICS/PROCEDURES/CRITICAL CARE TIME: Chest x-ray shows interstitial lung disease and superimposed right sided pneumonia. DIFFERENTIAL DIAGNOSIS: The differential diagnosis for the patient's chest pain included but was not limited to pneumonia, myocardial ischemia, pulmonary embolus, chest wall pain, pleural inflammation, and pulmonary infectious causes. MEDICAL DECISION MAKING: Patient with renal cell carcinoma, on dialysis, presents with shortness of breath and acute cough. Patient is usually on 2-3L O2 but is requiring 6L here. On examination he has course rhonchi and diminished breath sounds throughout. His blood pressure is slightly low. Plan for lab work and chest x-ray to rule out pneumonia. Lab work shows elevated lactic acid of 2.2. His hemoglobin remains at 9, hematocrit is 26. Patient has elevated creatinine as expected with a dialysis patient. I am not giving fluid bolus because he is a dialysis patient. We are waiting for the chest x-ray. Flu swab was sent. Chest x-ray shows interstitial lung disease and superimposed right sided pneumonia. Plan to start patient on Levaquin. The patient does not meet sepsis criteria. The patient is mentating well. He was treated appropriately with antibiotics. I spoke to the hospitalist team, Dr. Brand accepts the patient for admission. - Data Points Laboratory Results: Laboratory Results 05/02/17 20:45 05/02/17 20:45 05/02/17 05/02/17 05/02/17 21:11 21:00 20:45 WBC RBC Hgb Hct MCV MCH MCHC RDW Plt Count MPV Neut % (Auto) Lymph % (Auto) Eagle % (Auto) Eos % (Auto) Baso % (Auto) Nucleat RBC Rel Count Absolute Neuts (auto) Absolute Lymphs (auto) Absolute Monos (auto) Absolute Eos (auto) Absolute Basos (auto) Absolute Nucleated RBC Immature Gran % Immature Gran # PT 16.5 SEC H SEC (12.0-15.0) INR 1.33 H (0.83-1.16) APTT 38.7 SEC H SEC (23.0-38.0) VBG Lactic Acid 2.2 mmol/L H mmol/L (0.7-2.1) Sodium 136 mEq/L mEq/L (134-144) Potassium 4.2 mEq/L mEq/L (3.5-5.2) Chloride 94 mEq/L L mEq/L (97-110) Carbon Dioxide 26 mEq/l mEq/l (22-31) Anion Gap 16 mEq/L mEq/L (8-16) BUN 40 mg/dL H mg/dL (7-23) Creatinine 3.9 mg/dL H mg/dL (0.7-1.3) Estimated GFR 15 Glucose 160 mg/dL H mg/dL (70-100) Calcium 8.8 mg/dL mg/dL (8.5-10.4) Total Bilirubin 0.7 mg/dL mg/dL (0.1-1.4) 05/02/17 20:45 WBC 9.79 10^3/uL H 10^3/uL (3.80-9.50) RBC 2.61 10^6/uL L 10^6/uL (4.40-6.38) Hgb 9.0 g/dL L g/dL (13.7-17.5) Hct 26.3 % L % (40.0-51.0) MCV 100.8 fL H fL (81.5-99.8) MCH 34.5 pg H pg (27.9-34.1) MCHC 34.2 g/dL g/dL (32.4-36.7) RDW 17.8 % H % (11.5-15.2) Plt Count 204 10^3/uL 10^3/uL (150-400) MPV 10.0 fL fL (8.7-11.7) Neut % (Auto) 87.4 % H % (39.3-74.2) Lymph % (Auto) 4.7 % L % (15.0-45.0) Eagle % (Auto) 6.2 % % (4.5-13.0) Eos % (Auto) 0.2 % L % (0.6-7.6) Baso % (Auto) 0.2 % L % (0.3-1.7) Nucleat RBC Rel Count 0.0 % % (0.0-0.2) Absolute Neuts (auto) 8.55 10^3/uL H 10^3/uL (1.70-6.50) Absolute Lymphs (auto) 0.46 10^3/uL L 10^3/uL (1.00-3.00) Absolute Monos (auto) 0.61 10^3/uL 10^3/uL (0.30-0.80) Absolute Eos (auto) 0.02 10^3/uL L 10^3/uL (0.03-0.40) Absolute Basos (auto) 0.02 10^3/uL 10^3/uL (0.02-0.10) Absolute Nucleated RBC 0.00 10^3/uL 10^3/uL (0-0.01) Immature Gran % 1.3 % H % (0.0-1.1) Immature Gran # 0.13 10^3/uL H 10^3/uL (0.00-0.10) PT INR APTT VBG Lactic Acid Sodium Potassium Chloride Carbon Dioxide Anion Gap BUN Creatinine Estimated GFR Glucose Calcium Total Bilirubin Medications Given: Levofloxacin/Dextrose (Levaquin 750 Mg (Premix)) 150 mls @ 100 mls/hr IV EDNOW ONE PRN Reason: Protocol Stop: 05/02/17 23:19 Last Admin: 05/02/17 21:58 Dose: 150 mls Departure - Departure Disposition: Home, Routine, Self-Care Clinical Impression: Hypoxemia Pneumonia Qualifiers: Pneumonia type: due to unspecified organism Laterality: right Lung location: unspecified part of lung Qualified Code(s): J18.9 - Pneumonia, unspecified organism Condition: Fair
[2017-05-02 21:04] LABS: % IMMATURE GRANULYOCYTES 1.3 % (0.0-1.1); ABSOLUTE IMMATURE GRANULOCYTES 0.13 10^3/uL (0.00-0.10); ADD DIFF? NO; ADD MORPH? NO; ADD SCAN? NO; ATYPICAL LYMPHOCYTE FLAG 0 (0-99); FRAGMENT RBC FLAG 0 (0-99); HEMATOCRIT 26.3 % (40.0-51.0); LEFT SHIFT FLG 10 (0-99); LIPEMIA HEMOLYSIS FLAG 90 (0-99); MEAN CELL HEMOGLOBIN 34.5 pg (27.9-34.1); MEAN CELL HEMOGLOBIN CONCENTR. 34.2 g/dL (32.4-36.7); MEAN CELL VOLUME 100.8 fL (81.5-99.8); PLATELET CLUMPS FLAG 10 (0-99); PLATELET COUNT 204 10^3/uL (150-400); RED BLOOD CELL COUNT 2.61 10^6/uL (4.40-6.38); RED CELL DISTRIBUTION WIDTH 17.8 % (11.5-15.2)
[2017-05-02 21:12] LABS: ANION GAP 16 mEq/L (8-16); CALCIUM 8.8 mg/dL (8.5-10.4); CARBON DIOXIDE 26 mEq/l (22-31); CHLORIDE 94 mEq/L (97-110); CREATININE 3.9 mg/dL (0.7-1.3); GLOMERULAR FILTRATION RATE 15; GLUCOSE 160 mg/dL (70-100); POTASSIUM 4.2 mEq/L (3.5-5.2); SODIUM 136 mEq/L (134-144)
[2017-05-02 21:26] LABS: APTT 38.7 SEC (23.0-38.0); INR 1.33 (0.83-1.16); PROTIME(PATIENT) 16.5 SEC (12.0-15.0)
[2017-05-02 21:51] LABS: BILIRUBIN,TOTAL 0.7 mg/dL (0.1-1.4)
[2017-05-02 22:11] LABS: LACGHOST ORDER
[2017-05-02] MEDS ORDERED: ONDANSETRON 4 MG/2 ML VIAL IVP PRN (23:45)
[2017-05-02] MEDS ORDERED: ACETAMINOPHEN 325 MG TAB PO PRN (23:45)
--- NOTE | 2017-05-03 05:09 | GHP ---
[f rep st] HISTORY AND PHYSICAL DATE OF ADMISSION: 05/02/2017 SOURCE: Patient provides history, appears reliable. His EMR was reviewed. Case discussed with ED provider before patient arrived to the floor. CHIEF COMPLAINT: Shortness of breath, cough. HISTORY OF PRESENT ILLNESS: This is a very pleasant 87-year-old gentleman with past medical history significant for end-stage renal disease, on dialysis Tuesday , Tuesday, Tuesday, diabetes type 2, diastolic CHF, chronic respiratory failure on 2-3 L of supplemental oxygen, history of renal cell carcinoma, status post nephrectomy, and anemia of chronic disease, who presents to the emergency department today with complaints of sudden onset shortness of breath and cough. Patient reports that he woke up approximately 3:30 this morning and developed a nonproductive cough. He reports that approximately somewhere assisted during his dialysis session on date of admission that he started to develop some shortness of breath. He denies any known sick contacts. Generally tries to avoid large groups of people. He denies any fevers, chills. Patient's daughter also was concerned as patient appeared to be a little bit disoriented. Evaluation in the emergency department revealed that patient was hypoxic to 88% on his usual 2-3 L supplemental oxygen. Chest x-ray was concerning for any worsening left lower lobe pneumonia. Patient denies any production in his cough until he got to the floor where he had expectorated a small amount of thick green-brown colored sputum. Patient reports he is up to date on his flu and pneumonia vaccines. REVIEW OF SYSTEMS: GENERAL: Patient denies any fevers, chills, but has had progressive weakness over the last year, nothing acute. SKIN: Patient denies any rashes or sores. ENT: Patient denies any rhinorrhea or sore throat. EYES : Patient currently wears his reading glasses. He denies any acute changes. CV: Patient denies any chest pain or palpitations. RESPIRATORY: See HPI. GI : Patient denies any nausea, vomiting, diarrhea. No melena or hematochezia. : Patient reports that he continues to make a small amount of urine daily. Denies any flank pain. MUSCULOSKELETAL: Patient denies any joint pain or myalgias. NEURO: Patient denies any headache. No numbness, tingling. PSYCH: denies any anxiety or depression. Remainder ROS negative except as noted above. ALLERGIES: Sudafed. HOME MEDICATIONS: Tamsulosin 0.5 mg p.o. daily; multivitamin p.o. daily; latanoprost 0.005% in each eye at h.s.; Tums 1000 mg p.o. daily and 500 mg p.o. t.i.d. p.r.n.; allopurinol 150 mg p.o. daily; Tylenol 650 mg p.o. q.6 hours p.r.n. PAST MEDICAL HISTORY: End-stage renal disease, on dialysis Tuesday, Tuesday, Tuesday; diabetes type 2; history of pulmonary edema; diastolic CHF; chronic hypoxic respiratory failure with requirement of 2-3 L/minute continuous oxygen via nasal cannula; coronary artery disease; gout; peripheral neuropathy; history of renal cell carcinoma, status post nephrectomy on the right; history of small bowel obstruction; BPH; glaucoma. PAST SURGICAL HISTORY: Significant for bilateral cataract extraction with lens placement, right nephrectomy, right total knee arthroplasty, bilateral total hip arthroplasty, left AV fistula, and a cholecystectomy. FAMILY HISTORY: Patient denies any history of diabetes, hypertension, CAD, heart failure. He has 2 adult children, who are healthy. SOCIAL HISTORY: Patient lives with his of 68 years. He does not smoke, drink, or do drugs. CODE STATUS: Discussed with the patient. He does have advanced directives in place. He believes his and daughter are MDPOA. He desires to be a DNR/ DNI. PHYSICAL EXAMINATION: VITAL SIGNS: From the emergency department, blood pressure 99/60, heart rate 83, respiratory rate 20, O2 saturation 90% on 6 L by nasal cannula. ER provider reported to me that the patient was saturating 88% on his home supplemental oxygen 2-3 L. Vital signs currently available: Blood pressure 95/73 with a repeat SBP of 102, heart rate 80, respiratory rate 18, O2 saturation 95% on 6 L by nasal cannula, temperature 36.4. GENERAL: No acute distress, very pleasant, elderly, frail-appearing gentleman, who is lying quietly in bed asleep. He wakes easily to name and is pleasant and cooperative. HEAD: Normocephalic, atraumatic. EYES: Extraocular muscles are intact. Pupils equal, round. Slightly decreased reactivity to light bilaterally, but symmetric. No scleral icterus or conjunctival injection. Lens reflexes appreciated in bilateral pupils. ENT: Mucous membranes appear slightly dry. No oropharyngeal erythema or exudates. Dentures in place, upper and lower. NECK: Supple. Trachea midline. CV: Regular rate and rhythm in the 70s. There is a 3/6 systolic murmur present. No rubs or gallops. RESPIRATORY: Unlabored breathing with patient resting quietly in bed. He does appear to have some mild increased work of breathing when he is asked to move. Patient with a few crackles on the right base. Lung sounds are diminished compared to the right at the mid to lower lung shepherd, but there are no wheezing or rhonchi appreciated. ABDOMEN: Positive bowel sounds, soft, nontender to palpation. No rebound, guarding, or masses appreciated. : No suprapubic tenderness to palpation. EXTREMITIES: AV fistula in the left arm. Moves all extremities. Generalized deconditioning and weakness. 4/5 strength, upper and lower extremities. NEURO: Grossly nonfocal. No facial drooping. Moves all extremities. Awake, alert, oriented x4. PSYCH: Patient's thought process, content, and questions are all appropriate. He does not appear anxious. LABORATORY DATA: 1. Showed WBCs 9.79, H and H 9.0 and 26.3, MCV is 100.8, platelet count is 204 , and neutrophil percent 87.4%, granulocytes 1.3. 2. PT 16.5, INR 1.33, PTT is 38.7. 3. Lactic acid initially in the ER was 2.2 and repeat is 1.4. 4. Sodium is 136, potassium 4.2, chloride 94, CO2 is 26, anion gap 16, BUN 40, creatinine 2.9, GFR 15, glucose is 160, calcium 8.8, total bilirubin is 0.7. IMAGING DATA: Chest x-ray: Image report reviewed by me, is significant for a worsened left lower lobe infiltrate. Patient does have mild consolidation in the right lung that is similar to previous x-rays earlier this year. ASSESSMENT AND PLAN: This is a very pleasant 87-year-old gentleman, who presents with complaints of sudden onset cough and shortness of breath. 1. Right lower lobe pneumonia. Patient has been started on Levaquin from the emergency department at this time. Will plan to continue dosing based on renal function. Patient was able to expectorate a small amount of sputum at this time. Will plan to send that for a sputum culture. Patient reports being up to date on the influenza and Pneumovax. Respiratory PCR is pending. Patient does not qualify for sepsis or systemic inflammatory response syndrome. His lactate was just minimally elevated above threshold at 2.1, repeated was 1.6. Heart rate remains accurate. Patient's blood pressure he reports at baseline is 90s to low 100s, and he received dialysis today. 2. Acute on chronic right hypoxic respiratory failure related to patient's acute new left lower lobe pneumonia. Continue to titrate oxygen down as tolerated. Patient denies any history of chronic obstructive pulmonary disease or asthma, and there is no wheezing on exam. 3. Elevated lactate. Resolved without any intervention. 4. Hypotension. Patient reports close to baseline. He is asymptomatic. Again , no evidence of sepsis. Will not give any IV fluids with history of end-stage renal disease. 5. End-stage renal disease with dialysis Tuesday, Tuesday, and Tuesday. Nephrology was consulted and assistance appreciated. 6. Diabetes type 2. Patient not currently on any medications. Blood sugar 160. Will monitor with a.m. labs. Renal diet has been ordered. 7. Anemia of likely chronic kidney disease above baseline. Patient with previous history of requirement for transfusion. Will not add any anticoagulation at this time unless as recommended by Nephrology. 8. Diastolic congestive heart failure, chronic, compensated, on dialysis. Does not appear fluid overloaded. 9. History of renal cell carcinoma, status post nephrectomy. 10. Peripheral neuropathy secondary to patient's history of diabetes. Patient without any current complaints. Continue with supportive care. 11. Fluids, electrolytes, and nutrition. Saline lock IV. Renal diet has been ordered. Electrolytes will be replaced as appropriate. 12. Code status is DNR/DNI. Discussed with the patient. He believes that his and daughter are listed as MDPOA on his advance directive. DISPOSITION: Patient admitted to inpatient status on the medical floor. Given patient's multiple chronic comorbidities, debility, and persistent hypoxia, anticipate that he will require at least a 2-midnight stay. Consults - nephrology called. They will see patient in AM. /[id number]/MODL MTDD
[2017-05-03 05:35] LABS: % IMMATURE GRANULYOCYTES 1.5 % (0.0-1.1); ABSOLUTE IMMATURE GRANULOCYTES 0.12 10^3/uL (0.00-0.10); ADD DIFF? NO; ADD MORPH? NO; ADD SCAN? NO; ATYPICAL LYMPHOCYTE FLAG 0 (0-99); FRAGMENT RBC FLAG 0 (0-99); HEMATOCRIT 23.8 % (40.0-51.0); HEMOGLOBIN 7.7 g/dL (13.7-17.5); LEFT SHIFT FLG 20 (0-99); LIPEMIA HEMOLYSIS FLAG 80 (0-99); MEAN CELL HEMOGLOBIN CONCENTR. 32.4 g/dL (32.4-36.7); MEAN CELL VOLUME 102.1 fL (81.5-99.8); MEAN PLATELET VOLUME 9.8 fL (8.7-11.7); PLATELET CLUMPS FLAG 10 (0-99); PLATELET COUNT 168 10^3/uL (150-400); RED BLOOD CELL COUNT 2.33 10^6/uL (4.40-6.38)
[2017-05-03 05:45] LABS: ANION GAP 14 mEq/L (8-16); CALCIUM 8.3 mg/dL (8.5-10.4); CARBON DIOXIDE 28 mEq/l (22-31); CHLORIDE 96 mEq/L (97-110); CREATININE 4.5 mg/dL (0.7-1.3); GLOMERULAR FILTRATION RATE 12; GLUCOSE 93 mg/dL (70-100); MAGNESIUM 1.8 mg/dL (1.6-2.3); POTASSIUM 4.2 mEq/L (3.5-5.2); SODIUM 138 mEq/L (134-144)
--- NOTE | 2017-05-03 08:50 | SOAPPROG ---
SOAP Progress Note Assessment/Plan: Assessment:Plan: Consult Dictated Consents obtained for dialysis and blood transfusion. Orders written Plan on Hd today for fluid removal and to allow transfusion Next Hd on Tuesday to keep on outpatient MWF schedule Labs ordered Regular diet with K restriction to permit widest choice of food, aid in him taking in enough nutrition. 05/03/17 08:48 Objective: Vital Signs Temp Pulse Resp BP Pulse Ox 36.6 C 72 20 124/59 H 93 05/03/17 07:47 05/03/17 07:47 05/03/17 07:47 05/03/17 07:47 05/03/17 07:47 Laboratory Results 05/03/17 04:41 05/03/17 04:41 05/02/17 05/03/17 05/04/17 05:59 05:59 05:59 Intake Total 590 Balance 590 PT 16.5 SEC (12.0-15.0) H 05/02/17 21:00 INR 1.33 (0.83-1.16) H 05/02/17 21:00 ICD10 Worksheet Patient Problems: Problems Problem Status Onset Hypoxemia Acute Pneumonia Acute Acute and chronic respiratory failure with hypoxia Acute Anemia Acute Chronic Disease Mgmt/Transitional Care Acute Chronic renal failure Acute Community acquired pneumonia Acute Diabetes mellitus Acute End stage renal disease on dialysis Acute Heart failure, diastolic, with acute decompensation Acute Hypoxia Acute Pleural effusion Acute Pulmonary edema Acute UTI (urinary tract infection) Acute Weakness generalized Acute Anemia Chronic Osteoarthritis of hip Chronic Renal failure syndrome Chronic
[2017-05-03] MEDS ORDERED: Herbals/Supplements -Info Only PO SCH (09:00)
[2017-05-03] MEDS: TAMSULOSIN HCL 0.4 MG CAP PO SCH ×2 (09:31→09:32)
[2017-05-03] MEDS: MULTIVITAMINS 1 EACH TAB PO SCH (09:32)
[2017-05-03] MEDS: ALLOPURINOL 300 MG TAB PO SCH (09:32)
--- NOTE | 2017-05-03 09:54 | GCON ---
[f rep st] CONSULTATION NEPHROLOGY CONSULTATION REASON FOR ADMISSION: Shortness of breath, cough, pulmonary infiltrate, consistent with pneumonia. ASSESSMENT: 1. Recurrent pneumonia, hypoxemia, anemia, end-stage renal disease on dialysis Tuesday, Tuesday, Fr curran at [facility] under the care of Dr. Granado. 2. History of recent transfusion. 3. Coronary artery disease on medical management. 4. History of renal cell carcinoma status post right nephrectomy. PLAN: 1. Dialysis today. 2. Regular diet with potassium restriction to aid in the patient's food choices to try to promote be tter nutrition. 3. Transfuse on dialysis. 4. Continue present management of antibiotics. 5. Fluid removal with dialysis. 6. Plan for next dialysis today followed by dialysis again on Tuesday. 7. Avoid IVs, blood pressures, blood draws in the patient's left arm. HISTORY: The patient is a very pleasant, 87-year-old gentleman I have been asked to consult on by Dr Lisa Brand. He was admitted last night due to symptoms of cough and shortness of breath. He cam e into the emergency room for further evaluation and treatment. In the emergency room, he had a ches t x-ray that revealed mild worsening of left lower lobe infiltrate, suspicious for worsening pneumoni a. There were no masses and no pleural effusion noted on this exam. He was hypoxemic, requiring up to 6 L of nasal cannula oxygen. This is up from his typical baseline of 2-3 L. He was cultured and placed on broad-spectrum antibiotics in the form of Levaquin. The patient continues to have shortness of breath. He states he had fluid removal with dialysis on . He also reports having had a recent blood transfusion with his hemoglobin coming up to a leve l above 8 with this transfusion. Here in the hospital, his admission hemoglobin of 9 has gone down t o 7.7 this morning. There are no obvious signs of blood loss since admission. The patient has end-stage renal disease. He initiated dialysis March of 2014. He had reduced quentin l function due to a combination of factors, most notably high blood pressure. He was found to have a right renal mass when he presented 05/13/2012 with a small-bowel obstruction. Resection of that mas s and kidney resulted in reduced residual function. He eventually progressed to end-stage renal dise ase. This was precipitated at the time of an orthopedic surgery. He initially dialyzed through a tu nneled dialysis catheter and has since then been dialyzing through a left forearm AV fistula. He jose lyzes Tuesday, Tuesday, Tuesday at the [facility] under the care of Dr. Granado. The patient had a recent hospitalization on 02/21/2017 with hypoxia, shortness of breath and pneumoni a. The patient states he does not feel like he effectively cleared that infection. PAST MEDICAL HISTORY: The patient has a history of pleural effusion, hypoxia on chronic oxygen at 2- 3 L, prostate cancer, gout, splenomegaly, iron deficiency, ventral hernia, degenerative joint disease , cholecystitis, glaucoma, cataracts, end-stage renal disease on dialysis, renal cell carcinoma and c oronary artery disease. He has evidence of CHF with diastolic dysfunction. He has had bowel obstruc tion as described, BPH and peripheral neuropathy. PAST SURGICAL HISTORY: Bilateral cataract surgery, prostatectomy, cholecystectomy, left total hip re placement 08/2010, right total hip replacement 06/2011, right total knee replacement 03/05/2014 and a left forearm AV fistula 03/27/2014. He has had a prior tunneled dialysis catheter. SOCIAL HISTORY: He is retired. He is . He lives with his . He does not smoke or drink or do drugs. He is a former smoker, having quit in 1982. He worked at the [employer], work ing on [employer]. He has a supportive family. OUTPATIENT MEDICATIONS: Documented in the chart. He is on tamsulosin daily, multivitamin daily, peggy soprazole eye drops 0.005% each eye at bedtime, Tums 1000 mg 3 times a day with meals, allopurinol 15 0 mg daily, Tylenol 650 mg daily. He also takes a multivitamin and herbal supplement. ALLERGIES: Sudafed. REVIEW OF SYSTEMS: Negative except for that included in history of present illness. He has had a co ugh with productive sputum. The remainder of the 10-point review of systems is unremarkable. PHYSICAL EXAMINATION: VITAL SIGNS: His temperature is 36.6, pulse 72, respirations 20, saturating 9 3% on 6 L nasal cannula oxygen. Blood pressure 124/59, weight is 78.2 kg. APPEARANCE: Thin, elderl y male in mild distress with cough, mild dyspnea. HEENT: Atraumatic, normocephalic. NECK: Unremar kable with a 2 to 3/6 murmur. LUNGS: Rales at the left base, up approximately 1/3. Decreased breat h sounds at the right base. ABDOMEN: Remarkable for a ventral hernia. He is soft, nontender withou t rebound or guarding. No hepatosplenomegaly or masses. EXTREMITIES: Free of edema. Left forearm AV fistula unremarkable. Skin with chronic changes. NEUROLOGICAL: Grossly intact. MUSCULOSKELETAL : Unremarkable. There is no evidence of hepatosplenomegaly on exam although he does have history of splenomegaly per the chart. ASSESSMENT: End-stage renal disease. The patient typically dialyzes Tuesday, Tuesday, Tuesday at [facility]. We will put him on the schedule today to allow for additional fluid re moval as well as transfusion of packed red blood cells. His hematocrit has dropped since admission. The patient has received periodic transfusions in the past most recently for a hemoglobin that was l ess than 8. It sounds like with the current pneumonia he is having decreased production and increase d destruction of red blood cells. He certainly is going to need blood products during this admission and we might as well do that now. Transfusion orders were written. The consent was obtained. The plan will be to transfuse him with dialysis. He is on broad-spectrum antibiotics. We will see how he responds to the current Levaquin. He has ab normal lungs with underlying COPD. He has been seen by Dr. Justin in the past. He used to have prob lems with pleural effusions. That seems to be under pretty good control with his current fluid manag ement on dialysis. He has a left forearm AV fistula. Care should be taken to avoid traumatizing that connection. No IV s, blood pressures or blood draws should be done on his left arm. Nutritionally, we should try and optimize his nutrition. I will switch him from a renal diet to a re gular diet with simply adding potassium restrictions. This should allow increased number of food cho ices to promote good consumption of the meals that he is able to receive. Copy requested to: [facility] /[id number]/MODL
--- NOTE | 2017-05-03 10:49 | SOAPPROG ---
SOAP Progress Note Assessment/Plan: Assessment:Plan: Stable at onset of dialysis Orders reviewed with RN Patient with antibody that can interfere with his crossmatch, which may prevent with him getting blood on dialysis if the units cannot be prepared quickly. If the PRBC's are not available, would wait until Tuesday to transfuse with next Hd to prevent issues with volume overload K balance okay. 05/03/17 10:47 Objective: Vital Signs Temp Pulse Resp BP Pulse Ox 36.6 C 72 20 124/59 H 93 05/03/17 07:47 05/03/17 07:47 05/03/17 07:47 05/03/17 07:47 05/03/17 07:47 Laboratory Results 05/03/17 04:41 05/03/17 04:41 05/02/17 05/03/17 05/04/17 05:59 05:59 05:59 Intake Total 590 Balance 590 PT 16.5 SEC (12.0-15.0) H 05/02/17 21:00 INR 1.33 (0.83-1.16) H 05/02/17 21:00 ICD10 Worksheet Patient Problems: Problems Problem Status Onset Hypoxemia Acute Pneumonia Acute Acute and chronic respiratory failure with hypoxia Acute Anemia Acute Chronic Disease Mgmt/Transitional Care Acute Chronic renal failure Acute Community acquired pneumonia Acute Diabetes mellitus Acute End stage renal disease on dialysis Acute Heart failure, diastolic, with acute decompensation Acute Hypoxia Acute Pleural effusion Acute Pulmonary edema Acute UTI (urinary tract infection) Acute Weakness generalized Acute Anemia Chronic Osteoarthritis of hip Chronic Renal failure syndrome Chronic
--- NOTE | 2017-05-03 11:11 | ASMTCASEMG ---
Living Arrangements What is your living Answers: With Spouse arrangement? Who do you live with? Type Of Residence What kind of residence do Answers: House you live in? Discharge Plan Comments Coordination Status Comments Notes: P is a 87 y/o man admitted for hypoxemia and pneumonia. Pt is getting dialysis today. Anticipates that pt will discharge independent when medically stable. CM available for d/c needs. Date Signed: 05/03/2017 11:10 AM Electronically Signed By:MARCELLA Mata
--- NOTE | 2017-05-03 12:32 | PDMN ---
Medical Necessity Medical necessity: est los>2mn for RLL PNA, w/ related acute on chronic hypoxic resp falure, admit for IV abx , O2 titration; multiple comorbid conditions, including ESRD, DM, CHF, hx renal CA s/p nephrectomy, and debility; per order and H&P 05/02/17
[2017-05-03] MEDS: CALCIUM CARBONATE 500 MG CHEWABLE TAB PO SCH ×2 (14:39→18:01)
--- NOTE | 2017-05-03 18:05 | HOSPPROG ---
Hospitalist Progress Note Assessment/Plan: Prolonged service in addition to the time originally spent on history and physical by Dr. Lynda Brand, direct patient care, [id number] with patient for 33 minutes, from 2:10 p.m. until 2:43 p.m., addressing the following issues: -the patient is presenting with acute on chronic hypoxic respiratory failure as evidenced by an SpO2 of 89% on 4 L nasal cannula with objective tachypnea respiratory rate of 26, labored breathing, requiring up to 6 L high-flow oxygen from his baseline 3 L, secondary to left lower lobe pneumonia present on admission -physical exam reveals faint expiratory wheeze, as well as inspiratory rhonchi in the left base, heart rhythm is regular, 2/6 systolic murmur at the sternum, trace bilateral lower extremity edema, alert awake oriented x3 -discussed with Dr. Ervin Gómez, we both agree that the most likely cause of his presentation is his pneumonia with resultant respiratory failure, although he does have major comorbid conditions including end-stage renal disease and chronic diastolic congestive heart failure, will remove volume during hemodialysis today, transfuse blood products as his hemoglobin is 7.7 for anemia of chronic kidney disease -he also had acute metabolic acidosis as evidenced by lactic acid 2.2 on presentation, secondary to hypovolemia, received some IV fluids and had resulted in lactic of 1.4 -respiratory viral panel is notably negative, he is currently being treated for bacterial cause of pneumonia with q.4h hours Levaquin -his next hemodialysis session will be on Tuesday -will treat his mildly reactive airways with scheduled duo nebs, Mucinex, reassessed to determine whether steroids are required -will engage with physical and occupational therapy determine disposition requirements Objective: Vital Signs Temp Pulse Resp BP Pulse Ox 36.5 C 73 18 127/65 H 82 L 05/03/17 15:06 05/03/17 15:06 05/03/17 15:06 05/03/17 15:06 05/03/17 16:00 Microbiology 05/03/17 04:30 - Final Sputum, Expectorated Laboratory Results 05/03/17 04:41 05/03/17 04:41 05/02/17 05/03/17 05/04/17 05:59 05:59 05:59 Intake Total 590 300 Balance 590 300 PT 16.5 SEC (12.0-15.0) H 05/02/17 21:00 INR 1.33 (0.83-1.16) H 05/02/17 21:00 ICD10 Worksheet Patient Problems: Problems Problem Status Onset Hypoxemia Acute Pneumonia Acute Acute and chronic respiratory failure with hypoxia Acute Anemia Acute Chronic Disease Mgmt/Transitional Care Acute Chronic renal failure Acute Community acquired pneumonia Acute Diabetes mellitus Acute End stage renal disease on dialysis Acute Heart failure, diastolic, with acute decompensation Acute Hypoxia Acute Pleural effusion Acute Pulmonary edema Acute UTI (urinary tract infection) Acute Weakness generalized Acute Anemia Chronic Osteoarthritis of hip Chronic Renal failure syndrome Chronic
[2017-05-03] MEDS: IPRATROPIUM/ALBUTEROL 3 ML DEYVIAL IH SCH (18:19)
[2017-05-03] MEDS: guaiFENesin 600 MG TAB.ER PO SCH (20:41)
[2017-05-03] MEDS: LATANOPROST 0.005% 2.5 ML OPHT DROPS EACHEYE SCH (20:42)
[2017-05-03] MEDS ORDERED: LATANOPROST 0.005% 2.5 ML OPHT DROPS EACHEYE SCH (21:00)
[2017-05-04] MEDS: IPRATROPIUM/ALBUTEROL 3 ML DEYVIAL IH SCH ×4 (00:10→16:04)
[2017-05-04 05:06] LABS: HEMATOCRIT 28.6 % (40.0-51.0); HEMOGLOBIN 9.4 g/dL (13.7-17.5); MEAN CELL HEMOGLOBIN 31.8 pg (27.9-34.1); MEAN CELL HEMOGLOBIN CONCENTR. 32.9 g/dL (32.4-36.7); MEAN CELL VOLUME 96.6 fL (81.5-99.8); RED BLOOD CELL COUNT 2.96 10^6/uL (4.40-6.38); RED CELL DISTRIBUTION WIDTH 18.9 % (11.5-15.2)
[2017-05-04] MEDS: ALLOPURINOL 300 MG TAB PO SCH (07:58)
[2017-05-04] MEDS: guaiFENesin 600 MG TAB.ER PO SCH ×2 (07:58→20:11)
[2017-05-04] MEDS: TAMSULOSIN HCL 0.4 MG CAP PO SCH (07:58)
[2017-05-04] MEDS: CALCIUM CARBONATE 500 MG CHEWABLE TAB PO SCH ×3 (07:58→17:42)
[2017-05-04] MEDS: MULTIVITAMINS 1 EACH TAB PO SCH (07:58)
--- NOTE | 2017-05-04 08:42 | SOAPPROG ---
SOAP Progress Note Assessment/Plan: Assessment:Plan: ESRD-plan for Hd Tuesday -sooner if K or volume status necessitates earlier treatment Pneumonia-on abx -looks better Anemia-s/p PRBC's yesterday -follow Hypoxia-probe on Left hand, side of AVF -this could affect readings Nutrition-regular diet with K restriction only 05/04/17 08:40 Subjective: stable overnite Breathing no worse Objective: Vital Signs Temp Pulse Resp BP Pulse Ox 36.6 C 83 20 117/52 L 90 L 05/04/17 07:39 05/04/17 07:39 05/04/17 07:39 05/04/17 07:39 05/04/17 07:39 Microbiology 05/03/17 04:30 - Final Sputum, Expectorated Laboratory Results 05/04/17 04:50 05/03/17 04:41 05/03/17 05/04/17 05/05/17 05:59 05:59 05:59 Intake Total 590 700 Balance 590 700 PT 16.5 SEC (12.0-15.0) H 05/02/17 21:00 INR 1.33 (0.83-1.16) H 05/02/17 21:00 Physical Exam - Physical Exam General Appearance: alert, no apparent distress, thin EENT: normal ENT inspection Neck: normal inspection Respiratory: decreased breath sounds (1/2 bilaterally) Cardiac/Chest: regular rate, rhythm, systolic murmur Abdomen: normal bowel sounds, No hepatomegaly, No splenomegaly Back: Normal inspection Skin: normal color, warm/dry Extremities: other (AVF patent), No swelling Neuro/Psych: no motor/sensory deficits ICD10 Worksheet Patient Problems: Problems Problem Status Onset Hypoxemia Acute Pneumonia Acute Acute and chronic respiratory failure with hypoxia Acute Anemia Acute Chronic Disease Mgmt/Transitional Care Acute Chronic renal failure Acute Community acquired pneumonia Acute Diabetes mellitus Acute End stage renal disease on dialysis Acute Heart failure, diastolic, with acute decompensation Acute Hypoxia Acute Pleural effusion Acute Pulmonary edema Acute UTI (urinary tract infection) Acute Weakness generalized Acute Anemia Chronic Osteoarthritis of hip Chronic Renal failure syndrome Chronic
--- NOTE | 2017-05-04 18:29 | HOSPPROG ---
Hospitalist Progress Note Assessment/Plan: Assessment: 87 yo M presenting with acute on chronic hypoxic respiratory failure 2/2 LLL PNA Plan: # Acute on chronic hypoxic resp failure: as evidenced by an SpO2 of 89% on 4 L nasal cannula with objective tachypnea respiratory rate of 26, labored breathing , requiring up to 6 L high-flow oxygen from his baseline 3 L, secondary to left lower lobe pneumonia - cont attempts to wean o2 to baseline - counseled patient and family that this is likely multi-factorial, in setting of LLL PNA + acute reactive airway exacerbation + ESRD # LLL PNA: present on admission, faint infiltrate on CXR when hypovolemic - low yield in repeating imaging (w/ CT) at this juncture, but would rec outpt CXR in 4-6 weeks to determine if that LLL haziness resolves, and, if not, rec chest CT at that time - cont levofloxacin q48hrs renal dose - counseled family that RVP negative, currently treating as if he has bacterial cause, sputum 1+ GPC # Acute reactive airway exacerbation: evidenced by exp wheezes on 05/03 exam, improved w/ schedule duonebs, no steroids required - adjust nebs to PRN - cont mucinex/tessalon/guaif cod # Metabolic acidosis: acute, 2/2 lactic acid in setting of hypovolemia, responded to IVF # ESRD: chronic, LUE fistula, 900ml volume removed 05/03, planning on repeat session for volume removal on 05/06 if patient requires ongoing hospitalization , otherwise should have this performed at outpt center # Anemia of ESRD: s/p transfusion w/ HD on 05/03, cont to monitor Hgb # Chronic diastolic CHF: no e/o acute exacerbation Diet: Reg PPx: High risk, hep SC Code: DNR Dispo: ADD 05/05 vs. 05/06, depending on clinical improvement of resp status, patient wants home, likely home care Subjective: feels weak, legs heavy w/ PT work, counseled patient about sx of hypoxia Objective: Vital Signs Temp Pulse Resp BP Pulse Ox 36.7 C 78 18 120/54 L 93 05/04/17 15:45 05/04/17 15:45 05/04/17 15:45 05/04/17 15:45 05/04/17 15:45 Microbiology 05/03/17 04:30 - Final Sputum, Expectorated Laboratory Results 05/04/17 04:50 05/03/17 04:41 05/03/17 05/04/17 05/05/17 05:59 05:59 05:59 Intake Total 590 700 700 Balance 590 700 700 PT 16.5 SEC (12.0-15.0) H 05/02/17 21:00 INR 1.33 (0.83-1.16) H 05/02/17 21:00 - Time Spent With Patient Time Spent with Patient: greater than 35 minutes Time Spent with Patient: Greater than 35 minutes spent on this patients care, greater than 50% of time spent counseling, educating, and coordinating care regarding the above mentioned plan. - Pending Discharge Pending Discharge Within 48 Hours: Yes Pending Discharge Date: 05/06/17 Pending Discharge Time: 11:00 - Physical Exam Constitutional: no apparent distress, not in pain, chronically ill appearing, No uncomfortable Cardiovascular: systolic murmur (II/ at sternum), edema (trace bilat LE), No irregularly irregular, No tachycardia Respiratory: rhonchi (on insp L base), No reduced air movement, No expiratory wheeze, No bronchial breath sounds, No respiratory distress Gastrointestinal: normoactive bowel sounds, soft, non-tender abdomen, no palpable masses Neurologic: AAOx3 Psychiatric: interacting appropriately, not anxious, not encephalopathic, thought process linear ICD10 Worksheet Patient Problems: Problems Problem Status Onset Hypoxemia Acute Pneumonia Acute Acute and chronic respiratory failure with hypoxia Acute Anemia Acute Chronic Disease Mgmt/Transitional Care Acute Chronic renal failure Acute Community acquired pneumonia Acute Diabetes mellitus Acute End stage renal disease on dialysis Acute Heart failure, diastolic, with acute decompensation Acute Hypoxia Acute Pleural effusion Acute Pulmonary edema Acute UTI (urinary tract infection) Acute Weakness generalized Acute Anemia Chronic Osteoarthritis of hip Chronic Renal failure syndrome Chronic
[2017-05-04] MEDS: HEPARIN 5,000 UNIT/0.5 ML SYR SC SCH (20:11)
[2017-05-04] MEDS: LATANOPROST 0.005% 2.5 ML OPHT DROPS EACHEYE SCH (21:58)
[2017-05-05] MEDS: IPRATROPIUM/ALBUTEROL 3 ML DEYVIAL IH SCH ×2 (00:28→06:36)
[2017-05-05] MEDS: LATANOPROST 0.005% 2.5 ML OPHT DROPS EACHEYE SCH ×2 (04:08→20:14)
[2017-05-05 04:54] LABS: ADD DIFF? YES; ADD MORPH? NO; ADD SCAN? NO; ATYPICAL LYMPHOCYTE FLAG 0 (0-99); FRAGMENT RBC FLAG 0 (0-99); HEMATOCRIT 27.7 % (40.0-51.0); HEMOGLOBIN 9.4 g/dL (13.7-17.5); LEFT SHIFT FLG 30 (0-99); LIPEMIA HEMOLYSIS FLAG 90 (0-99); MEAN CELL HEMOGLOBIN 32.9 pg (27.9-34.1); MEAN CELL HEMOGLOBIN CONCENTR. 33.9 g/dL (32.4-36.7); MEAN CELL VOLUME 96.9 fL (81.5-99.8); MEAN PLATELET VOLUME 9.7 fL (8.7-11.7); PLATELET CLUMPS FLAG 0 (0-99); PLATELET COUNT 153 10^3/uL (150-400); RED BLOOD CELL COUNT 2.86 10^6/uL (4.40-6.38); RED CELL DISTRIBUTION WIDTH 18.6 % (11.5-15.2)
[2017-05-05 05:14] LABS: ALBUMIN 3.2 g/dL (3.5-5.0); ANION GAP 18 mEq/L (8-16); CALCIUM 8.8 mg/dL (8.5-10.4); CARBON DIOXIDE 23 mEq/l (22-31); CHLORIDE 98 mEq/L (97-110); CREATININE 6.1 mg/dL (0.7-1.3); GLOMERULAR FILTRATION RATE 9; GLUCOSE 85 mg/dL (70-100); POTASSIUM 4.3 mEq/L (3.5-5.2); SODIUM 139 mEq/L (134-144)
[2017-05-05 05:22] LABS: MACROCYTES 1+; PLATELET ESTIMATE DECREASED (ADEQ); POLYCHROMASIA 1+
[2017-05-05] MEDS: HEPARIN 5,000 UNIT/0.5 ML SYR SC SCH ×3 (05:53→20:20)
[2017-05-05] MEDS ORDERED: IPRATROPIUM/ALBUTEROL 3 ML DEYVIAL IH PRN (06:51)
[2017-05-05] MEDS: guaiFENesin 600 MG TAB.ER PO SCH ×2 (07:54→20:14)
[2017-05-05] MEDS: CALCIUM CARBONATE 500 MG CHEWABLE TAB PO SCH ×3 (07:54→16:48)
[2017-05-05] MEDS: ALLOPURINOL 300 MG TAB PO SCH (07:55)
[2017-05-05] MEDS: TAMSULOSIN HCL 0.4 MG CAP PO SCH (07:55)
[2017-05-05] MEDS: MULTIVITAMINS 1 EACH TAB PO SCH (07:55)
--- NOTE | 2017-05-05 11:56 | ASMTCMCOM ---
CM Note CM Note Notes: MD note from yesterday states Pt. may need homecare at d/c. Transitional care is following. CM to follow for d/c POC needs. Date Signed: 05/05/2017 11:55 AM Electronically Signed By:Monalisa Nielson LCSW
--- NOTE | 2017-05-05 12:33 | SOAPPROG ---
SOAP Progress Note Assessment/Plan: Assessment: 1. ESRD. HD done Tuesday, again tomorrow per holiday schedule. Potassium/volume fine today. 2. Pneumonia. Gradually improving on abx. O2 turned down today. 3. Anemia. S/p PRBC tx. H/h stable. Continue MONAE as outpatient. Plan: 05/05/17 12:31 Subjective: Overall feeling better. O2 turned down to 3.5 L today. Objective: Vital Signs Temp Pulse Resp BP Pulse Ox 36.5 C 74 18 135/64 H 94 05/05/17 11:55 05/05/17 11:55 05/05/17 11:55 05/05/17 11:55 05/05/17 11:55 Microbiology 05/03/17 04:30 - Final Sputum, Expectorated Sputum Culture - Final Laboratory Results 05/05/17 04:35 05/05/17 04:35 05/04/17 05/05/17 05/06/17 05:59 05:59 05:59 Intake Total 700 1150 Balance 700 1150 PT 16.5 SEC (12.0-15.0) H 05/02/17 21:00 INR 1.33 (0.83-1.16) H 05/02/17 21:00 In chair, comfortable. Nl respiration RRR, II/ DIEUDONNE Bibasilar coarse crackles Abdom soft, nontender L fabricio avf with good thrill No LE edema; PT 1+ bilat ICD10 Worksheet Patient Problems: Problems Problem Status Onset Renal failure syndrome Chronic Osteoarthritis of hip Chronic Anemia Chronic Weakness generalized Acute Hypoxia Acute UTI (urinary tract infection) Acute Pleural effusion Acute Diabetes mellitus Acute Pulmonary edema Acute Chronic renal failure Acute Chronic Disease Mgmt/Transitional Care Acute Anemia Acute Heart failure, diastolic, with acute decompensation Acute End stage renal disease on dialysis Acute Acute and chronic respiratory failure with hypoxia Acute Community acquired pneumonia Acute Hypoxemia Acute Pneumonia Acute
--- NOTE | 2017-05-05 12:48 | HOSPPROG ---
Hospitalist Progress Note Assessment/Plan: 87 yo M presenting with acute on chronic hypoxic respiratory failure 2/2 LLL PNA. This is my first encounter, chart reviewed. Plan: # Acute on chronic hypoxic resp failure: SpO2 of 92% on 4 L nasal cannula baseline 3 L secondary to left lower lobe pneumonia cont attempts to wean o2 to baseline likely multi-factorial, in setting of LLL PNA + acute reactive airway exacerbation + ESRD # LLL PNA: present on admission, faint infiltrate on CXR when hypovolemic but would rec outpt CXR in 4-6 weeks to determine if that LLL haziness resolves , and, if not, rec chest CT at that time cont levofloxacin q48hrs renal dose # Acute reactive airway exacerbation: improved w/ PRN duonebs, no steroids required cont mucinex/tessalon/guaif cod # Metabolic acidosis: acute, 2/2 lactic acid in setting of hypovolemia, responded to IVF # ESRD: chronic, LUE fistula, 900ml volume removed 05/03, planning on repeat session for volume removal on 05/06 # Anemia of ESRD: s/p transfusion w/ HD on 05/03, cont to monitor Hgb # Chronic diastolic CHF: no e/o acute exacerbation Diet: Reg PPx: High risk, hep SC Code: DNR Dispo: ADD 05/06, depending on clinical improvement of resp status, patient wants home, likely home care Subjective: Up in chair. Feeling well. Wants to go home. Still having cough. Objective: Vital Signs Temp Pulse Resp BP Pulse Ox 36.5 C 74 18 135/64 H 94 05/05/17 11:55 05/05/17 11:55 05/05/17 11:55 05/05/17 11:55 05/05/17 11:55 Microbiology 05/03/17 04:30 - Final Sputum, Expectorated Sputum Culture - Final Laboratory Results 05/05/17 04:35 05/05/17 04:35 05/04/17 05/05/17 05/06/17 05:59 05:59 05:59 Intake Total 700 1150 Balance 700 1150 PT 16.5 SEC (12.0-15.0) H 05/02/17 21:00 INR 1.33 (0.83-1.16) H 05/02/17 21:00 - Physical Exam Constitutional: appears nourished, not in pain, chronically ill appearing Eyes: PERRL, anicteric sclera, EOMI Ears, Nose, Mouth, Throat: moist mucous membranes, hearing normal, ears appear normal Cardiovascular: regular rate and rhythym, No JVD, No edema Respiratory: no respiratory distress, no rales or rhonchi, reduced air movement Gastrointestinal: normoactive bowel sounds, No tenderness, No ascites Skin: warm, normal color, No erythema Musculoskeletal: normal joint ROM, no joint effusions, generalized weakness Neurologic: AAOx3 Psychiatric: interacting appropriately, not anxious, not encephalopathic, thought process linear ICD10 Worksheet Patient Problems: Problems Problem Status Onset Renal failure syndrome Chronic Osteoarthritis of hip Chronic Anemia Chronic Weakness generalized Acute Hypoxia Acute UTI (urinary tract infection) Acute Pleural effusion Acute Diabetes mellitus Acute Pulmonary edema Acute Chronic renal failure Acute Chronic Disease Mgmt/Transitional Care Acute Anemia Acute Heart failure, diastolic, with acute decompensation Acute End stage renal disease on dialysis Acute Acute and chronic respiratory failure with hypoxia Acute Community acquired pneumonia Acute Hypoxemia Acute Pneumonia Acute
[2017-05-05] MEDS: guaiFENesin/CODEINE PHOS 10 ML UDCUP PO PRN (20:34)
[2017-05-06] MEDS: guaiFENesin/CODEINE PHOS 10 ML UDCUP PO PRN (04:49)
[2017-05-06] MEDS: HEPARIN 5,000 UNIT/0.5 ML SYR SC SCH ×3 (04:50→21:08)
[2017-05-06 05:00] LABS: ALBUMIN 3.1 g/dL (3.5-5.0); ANION GAP 15 mEq/L (8-16); CALCIUM 8.9 mg/dL (8.5-10.4); CARBON DIOXIDE 24 mEq/l (22-31); CHLORIDE 99 mEq/L (97-110); CREATININE 7.5 mg/dL (0.7-1.3); GLOMERULAR FILTRATION RATE 7; GLUCOSE 109 mg/dL (70-100); POTASSIUM 4.9 mEq/L (3.5-5.2); SODIUM 138 mEq/L (134-144)
[2017-05-06] MEDS: TAMSULOSIN HCL 0.4 MG CAP PO SCH (07:44)
[2017-05-06] MEDS: ALLOPURINOL 300 MG TAB PO SCH (07:45)
[2017-05-06] MEDS: guaiFENesin 600 MG TAB.ER PO SCH ×2 (07:48→21:08)
[2017-05-06] MEDS: CALCIUM CARBONATE 500 MG CHEWABLE TAB PO SCH ×3 (07:48→17:08)
[2017-05-06] MEDS: MULTIVITAMINS 1 EACH TAB PO SCH (07:48)
[2017-05-06] MEDS: BENZONATATE 100 MG CAP PO PRN ×2 (10:04)
--- NOTE | 2017-05-06 11:38 | ASMTCMCOM ---
CM Note CM Note Notes: CM spoke w/ Alis, daughter on the phone and discussed d/c POC. OT and PT are recommedning HC. Alis will discuss this w/ pt either today or tomorrow and will inform CM of d/c plan. Alis reports that pt is usually able to get around pretty well while using a cane. CM to follow. Date Signed: 05/06/2017 11:37 AM Electronically Signed By:MARCELLA Mata
--- NOTE | 2017-05-06 12:23 | HOSPPROG ---
Hospitalist Progress Note Assessment/Plan: 87 yo M presenting with acute on chronic hypoxic respiratory failure 2/2 LLL PNA. # Acute on chronic hypoxic resp failure: SpO2 of 92% on 4 L nasal cannula baseline 3 L secondary to left lower lobe pneumonia cont attempts to wean o2 to baseline likely multi-factorial, in setting of LLL PNA + acute reactive airway exacerbation + ESRD # LLL PNA: present on admission, faint infiltrate on CXR when hypovolemic but would rec outpt CXR in 4-6 weeks to determine if that LLL haziness resolves , and, if not, rec chest CT at that time cont levofloxacin q48hrs renal dose # Acute reactive airway exacerbation: improved w/ PRN duonebs, no steroids required cont mucinex/tessalon/guaif cod # Metabolic acidosis: acute, 2/2 lactic acid in setting of hypovolemia, responded to IVF # ESRD: chronic, LUE fistula, 900ml volume removed 05/03, planning on repeat session for volume removal today # 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 Eager to go home. No pain. Wet cough today. Objective: Vital Signs Temp Pulse Resp BP Pulse Ox 36.4 C 72 16 127/60 H 91 L 05/06/17 10:57 05/06/17 10:57 05/06/17 10:57 05/06/17 10:57 05/06/17 10:57 Microbiology 05/03/17 04:30 - Final Sputum, Expectorated Sputum Culture - Final Laboratory Results 05/05/17 04:35 05/06/17 04:30 05/05/17 05/06/17 05/07/17 05:59 05:59 05:59 Intake Total 1150 550 Balance 1150 550 PT 16.5 SEC (12.0-15.0) H 05/02/17 21:00 INR 1.33 (0.83-1.16) H 05/02/17 21:00 - Physical Exam Constitutional: appears nourished, not in pain, chronically ill appearing Eyes: PERRL, anicteric sclera, EOMI Ears, Nose, Mouth, Throat: moist mucous membranes, hearing normal, ears appear normal Cardiovascular: regular rate and rhythym, edema, No JVD Respiratory: no respiratory distress, no rales or rhonchi, reduced air movement Gastrointestinal: normoactive bowel sounds, No tenderness, No ascites Skin: warm, normal color, No erythema Musculoskeletal: normal joint ROM, no joint effusions Neurologic: AAOx3 Psychiatric: interacting appropriately, not anxious, not encephalopathic, thought process linear ICD10 Worksheet Patient Problems: Problems Problem Status Onset Renal failure syndrome Chronic Osteoarthritis of hip Chronic Anemia Chronic Weakness generalized Acute Hypoxia Acute UTI (urinary tract infection) Acute Pleural effusion Acute Diabetes mellitus Acute Pulmonary edema Acute Chronic renal failure Acute Chronic Disease Mgmt/Transitional Care Acute Anemia Acute Heart failure, diastolic, with acute decompensation Acute End stage renal disease on dialysis Acute Acute and chronic respiratory failure with hypoxia Acute Community acquired pneumonia Acute Hypoxemia Acute Pneumonia Acute
--- NOTE | 2017-05-06 14:00 | SOAPPROG ---
SOAP Progress Note Assessment/Plan: Assessment: 1. ESRD. HD done Tuesday, again today per holiday schedule. Back to [facility] schedule next week. 2. Pneumonia. Gradually improving on abx. 3. Anemia. S/p PRBC tx. H/h stable. Continue MONAE as outpatient. Plan: 05/05/17 12:31 05/06/17 14:00 Subjective: On dialysis. Sleeping/watching football game. Feels like he is getting better. Objective: Vital Signs Temp Pulse Resp BP Pulse Ox 36.4 C 72 16 127/60 H 91 L 05/06/17 10:57 05/06/17 10:57 05/06/17 10:57 05/06/17 10:57 05/06/17 10:57 Microbiology 05/03/17 04:30 - Final Sputum, Expectorated Sputum Culture - Final Laboratory Results 05/05/17 04:35 05/06/17 04:30 05/05/17 05/06/17 05/07/17 05:59 05:59 05:59 Intake Total 1150 550 Balance 1150 550 PT 16.5 SEC (12.0-15.0) H 05/02/17 21:00 INR 1.33 (0.83-1.16) H 05/02/17 21:00 On dialysis Qb 350; 3K 2.5 Ca bath UF goal 3 L SBP low 100s RRR, no m/g/r, distant heart sounds CTA but with cough Abdom soft, nt Trace-1+ LE pitting edema L fabricio AVF ICD10 Worksheet Patient Problems: Problems Problem Status Onset Renal failure syndrome Chronic Osteoarthritis of hip Chronic Anemia Chronic Weakness generalized Acute Hypoxia Acute UTI (urinary tract infection) Acute Pleural effusion Acute Diabetes mellitus Acute Pulmonary edema Acute Chronic renal failure Acute Chronic Disease Mgmt/Transitional Care Acute Anemia Acute Heart failure, diastolic, with acute decompensation Acute End stage renal disease on dialysis Acute Acute and chronic respiratory failure with hypoxia Acute Community acquired pneumonia Acute Hypoxemia Acute Pneumonia Acute
[2017-05-06] MEDS ORDERED: levOFLOXACIN 500 MG/DEXTROSE 100 ML IV SCH (21:00)
[2017-05-06] MEDS: LATANOPROST 0.005% 2.5 ML OPHT DROPS EACHEYE SCH (22:14)
[2017-05-07 04:49] LABS: HEMATOCRIT 30.4 % (40.0-51.0); HEMOGLOBIN 9.9 g/dL (13.7-17.5); MEAN CELL HEMOGLOBIN 31.8 pg (27.9-34.1); MEAN CELL HEMOGLOBIN CONCENTR. 32.6 g/dL (32.4-36.7); MEAN CELL VOLUME 97.7 fL (81.5-99.8); RED BLOOD CELL COUNT 3.11 10^6/uL (4.40-6.38); RED CELL DISTRIBUTION WIDTH 18.3 % (11.5-15.2)
[2017-05-07 05:14] LABS: ANION GAP 16 mEq/L (8-16); CALCIUM 8.8 mg/dL (8.5-10.4); CARBON DIOXIDE 23 mEq/l (22-31); CHLORIDE 100 mEq/L (97-110); GLOMERULAR FILTRATION RATE 11; GLUCOSE 101 mg/dL (70-100); POTASSIUM 4.7 mEq/L (3.5-5.2); SODIUM 139 mEq/L (134-144)
[2017-05-07] MEDS: HEPARIN 5,000 UNIT/0.5 ML SYR SC SCH ×3 (05:16→21:17)
--- NOTE | 2017-05-07 08:31 | SOAPPROG ---
SOAP Progress Note Assessment/Plan: Assessment: 1. ESRD Stable HD yesterday. Good access function. Labs ok. Next on Tuesday. 2. Pneumonia/Hypoxemia BL O2 req 2L, now on -6. He looks good otherwise. Need to make sure his sats are stable with activity prior to DC. 3. Anemia Better after transfusion. Plan: 05/07/17 08:29 Subjective: In good spirits. Looks good Objective: Vital Signs Temp Pulse Resp BP Pulse Ox 36.4 C 76 19 118/64 78 L 05/07/17 07:19 05/07/17 07:19 05/07/17 07:19 05/07/17 07:19 05/07/17 07:19 Laboratory Results 05/07/17 04:40 05/07/17 04:40 05/06/17 05/07/17 05/08/17 05:59 05:59 05:59 Intake Total 550 436 Balance 550 436 PT 16.5 SEC (12.0-15.0) H 05/02/17 21:00 INR 1.33 (0.83-1.16) H 05/02/17 21:00 Physical Exam - Physical Exam General Appearance: no apparent distress Respiratory: decreased breath sounds Cardiac/Chest: regular rate, rhythm Extremities: pedal edema (1+) Neuro/Psych: oriented x 3 ICD10 Worksheet Patient Problems: Problems Problem Status Onset Hypoxemia Acute Pneumonia Acute Acute and chronic respiratory failure with hypoxia Acute Anemia Acute Chronic Disease Mgmt/Transitional Care Acute Chronic renal failure Acute Community acquired pneumonia Acute Diabetes mellitus Acute End stage renal disease on dialysis Acute Heart failure, diastolic, with acute decompensation Acute Hypoxia Acute Pleural effusion Acute Pulmonary edema Acute UTI (urinary tract infection) Acute Weakness generalized Acute Anemia Chronic Osteoarthritis of hip Chronic Renal failure syndrome Chronic
[2017-05-07] MEDS: ALLOPURINOL 300 MG TAB PO SCH (08:40)
[2017-05-07] MEDS: CALCIUM CARBONATE 500 MG CHEWABLE TAB PO SCH ×3 (08:40→19:34)
[2017-05-07] MEDS: MULTIVITAMINS 1 EACH TAB PO SCH (08:41)
[2017-05-07] MEDS: guaiFENesin 600 MG TAB.ER PO SCH ×2 (08:41→21:16)
[2017-05-07] MEDS: predniSONE 20 MG TAB PO SCH (10:58)
--- NOTE | 2017-05-07 11:57 | HOSPPROG ---
Hospitalist Progress Note Assessment/Plan: 87 yo M presenting with acute on chronic hypoxic respiratory failure 2/2 LLL PNA. # Acute on chronic hypoxic resp failure: SpO2 of 92% on 4 L nasal cannula baseline 3 L secondary to left lower lobe pneumonia cont attempts to wean o2 to baseline cxr unchanged, will add prednisone likely multi-factorial, in setting of LLL PNA + acute reactive airway exacerbation + ESRD send viral resp panel # LLL PNA: present on admission, faint infiltrate on CXR when hypovolemic but would rec outpt CXR in 4-6 weeks to determine if that LLL haziness resolves , and, if not, rec chest CT at that time cont levofloxacin q48hrs renal dose # Acute reactive airway exacerbation: improved w/ PRN duonebs, add prednisone watch BG closely cont mucinex/tessalon/guaif cod # Metabolic acidosis: acute, 2/2 lactic acid in setting of hypovolemia, responded to IVF # ESRD: chronic, LUE fistula, 900ml volume removed 05/03, planning on repeat session for volume removal today # Anemia of ESRD: s/p transfusion w/ HD on 05/03, cont to monitor Hgb check labs in am # Chronic diastolic CHF: watch for acute exacerbation CXR no signs of overload Diet: Reg PPx: High risk, hep SC Code: DNR Dispo: depending on clinical improvement of resp status, patient wants home, likely home care Subjective: Up in chair. Feels well. No pain. Eager to go home. Objective: Vital Signs Temp Pulse Resp BP Pulse Ox 36.5 C 78 19 106/50 L 94 05/07/17 11:36 05/07/17 11:36 05/07/17 11:36 05/07/17 11:36 05/07/17 11:36 Laboratory Results 05/07/17 04:40 05/07/17 04:40 05/06/17 05/07/17 05/08/17 05:59 05:59 05:59 Intake Total 550 436 Balance 550 436 PT 16.5 SEC (12.0-15.0) H 05/02/17 21:00 INR 1.33 (0.83-1.16) H 05/02/17 21:00 - Physical Exam Constitutional: appears nourished, not in pain, chronically ill appearing Eyes: PERRL, anicteric sclera, EOMI Ears, Nose, Mouth, Throat: moist mucous membranes, hearing normal, ears appear normal Cardiovascular: regular rate and rhythym, No JVD, No edema Respiratory: no respiratory distress, no rales or rhonchi, reduced air movement Gastrointestinal: No tenderness, No ascites, No guarding Skin: warm, normal color, No erythema Musculoskeletal: normal joint ROM, no joint effusions, generalized weakness Neurologic: AAOx3 Psychiatric: not anxious, not encephalopathic, thought process linear ICD10 Worksheet Patient Problems: Problems Problem Status Onset Renal failure syndrome Chronic Osteoarthritis of hip Chronic Anemia Chronic Weakness generalized Acute Hypoxia Acute UTI (urinary tract infection) Acute Pleural effusion Acute Diabetes mellitus Acute Pulmonary edema Acute Chronic renal failure Acute Chronic Disease Mgmt/Transitional Care Acute Anemia Acute Heart failure, diastolic, with acute decompensation Acute End stage renal disease on dialysis Acute Acute and chronic respiratory failure with hypoxia Acute Community acquired pneumonia Acute Hypoxemia Acute Pneumonia Acute
--- NOTE | 2017-05-07 14:32 | ASMTCMCOM ---
CM Note CM Note Notes: CM met w/ pt and pts family for dispo planning. Pt and family reports that they will not have any needs at time of d/c. CM available for d/c needs. Date Signed: 05/07/2017 02:31 PM Electronically Signed By:MARCELLA Mata
[2017-05-07] MEDS ORDERED: SODIUM CL NASAL 45 ML BTL EACHNARE PRN (18:29)
[2017-05-07] MEDS ORDERED: INSULIN REGULAR HUMAN 100 UNIT/ML SC ONE ×2 (19:13→21:37)
[2017-05-07] MEDS: LATANOPROST 0.005% 2.5 ML OPHT DROPS EACHEYE SCH (21:17)
[2017-05-07] MEDS ORDERED: D50W 25 GM/50 ML SYR IVP PRN (21:36)
[2017-05-07] MEDS ORDERED: PARAMETERS MISC PRN (21:40)
[2017-05-07] MEDS ORDERED: D50W 25 GM/50 ML VIAL IVP PRN (21:40)
[2017-05-07] MEDS: INSULIN REGULAR HUMAN 100 UNIT/ML SC SCH (21:47)
[2017-05-08 04:14] VITALS: RESP 18
[2017-05-08] MEDS: HEPARIN 5,000 UNIT/0.5 ML SYR SC SCH (05:18)
[2017-05-08] MEDS: INSULIN REGULAR HUMAN 100 UNIT/ML SC SCH (07:52)
[2017-05-08 08:08] VITALS: BP 146/86; PULSE 81; TEMP 97.1; O2SAT 90
[2017-05-08] MEDS: predniSONE 20 MG TAB PO SCH (08:32)
[2017-05-08] MEDS: TAMSULOSIN HCL 0.4 MG CAP PO SCH (08:32)
[2017-05-08] MEDS: MULTIVITAMINS 1 EACH TAB PO SCH (08:32)
[2017-05-08] MEDS: guaiFENesin 600 MG TAB.ER PO SCH (08:32)
[2017-05-08] MEDS: CALCIUM CARBONATE 500 MG CHEWABLE TAB PO SCH (08:32)
[2017-05-08] MEDS: ALLOPURINOL 300 MG TAB PO SCH (08:32)
--- NOTE | 2017-05-08 09:30 | SOAPPROG ---
SOAP Progress Note Assessment/Plan: Assessment: 1. ESRD Next HD as an outpatient on Tuesday 2. Pneumonia/Hypoxemia O2 requirements better. 3. Anemia Better after transfusion. He appears ready for DC today. Plan: 05/07/17 08:29 05/08/17 09:29 Subjective: In good spirits. Objective: Vital Signs Temp Pulse Resp BP Pulse Ox 36.2 C 81 18 146/86 H 90 L 05/08/17 08:00 05/08/17 08:00 05/08/17 08:00 05/08/17 08:00 05/08/17 08:00 Microbiology 05/07/17 12:10 Respiratory Panel (PCR) - Final Nasal, Sinus - Swab No Organism Detected Laboratory Results 05/07/17 04:40 05/07/17 04:40 05/07/17 05/08/17 05/09/17 05:59 05:59 05:59 Intake Total 436 1200 Output Total 300 Balance 436 900 PT 16.5 SEC (12.0-15.0) H 05/02/17 21:00 INR 1.33 (0.83-1.16) H 05/02/17 21:00 Physical Exam - Physical Exam General Appearance: no apparent distress, cachetic Respiratory: decreased breath sounds Cardiac/Chest: regular rate, rhythm Extremities: pedal edema Neuro/Psych: normal mood/affect, oriented x 3 ICD10 Worksheet Patient Problems: Problems Problem Status Onset Hypoxemia Acute Pneumonia Acute Acute and chronic respiratory failure with hypoxia Acute Anemia Acute Chronic Disease Mgmt/Transitional Care Acute Chronic renal failure Acute Community acquired pneumonia Acute Diabetes mellitus Acute End stage renal disease on dialysis Acute Heart failure, diastolic, with acute decompensation Acute Hypoxia Acute Pleural effusion Acute Pulmonary edema Acute UTI (urinary tract infection) Acute Weakness generalized Acute Anemia Chronic Osteoarthritis of hip Chronic Renal failure syndrome Chronic
--- NOTE | 2017-05-08 11:29 | ASDISCHSUM ---
Discharge Information Plan Status:Home with No Needs Medically Cleared to Leave: Discharge Date:05/08/2017 11:25 AM CM D/C Disposition:Home, Routine, Self-Care ADT D/C Disposition:Home, Routine, Self-Care Projected Discharge Date:05/08/2017 12:00 AM Transportation at D/C:Family Discharge Delay Reason: Follow-Up Date:05/08/2017 12:00 AM Discharge Slot: Final Diagnosis: Placement Information Patient Contact Information Contact Name:ES Relationship: Address:[address] Work Phone: [facility] Phone: [facility]/Zip Code:[place] [address] Email: Financial Information Financial Class: Primary Plan Desc:MEDICARE INPATIENT Primary Plan Number:[id number] Secondary Plan Desc:[facility] Secondary Plan Number:[id number] Assessment Information [facility] Initial CM Assessment Living Arrangements What is your living Answers: With Spouse arrangement? Who do you live with? Type Of Residence What kind of residence do Answers: House you live in? Discharge Plan Comments Coordination Status Comments Notes: P is a 87 y/o man admitted for hypoxemia and pneumonia. Pt is getting dialysis today. Anticipates that pt will discharge independent when medically stable. CM available for d/c needs. Date Signed: 05/03/2017 11:10 AM Electronically Signed By:MARCELLA Mata [facility] CM Progress Note CM Note CM Note Notes: note from yesterday states Pt. may need homecare at d/c. Transitional care is following. CM to follow for d/c POC needs. Date Signed: 05/05/2017 11:55 AM Electronically Signed By:Monalisa Nielson LCSW [facility] CM Progress Note CM Note CM Note Notes: CM spoke w/ Alis, daughter on the phone and discussed d/c POC. OT and PT are recommedning . Alis will discuss this w/ pt either today or tomorrow and will inform CM of d/c plan. Alis reports that pt is usually able to get around pretty well while using a cane. CM to follow. Date Signed: 05/06/2017 11:37 AM Electronically Signed By:MARCELLA Mata [facility] CM Progress Note CM Note CM Note Notes: CM met w/ pt and pts family for dispo planning. Pt and family reports that they will not have any needs at time of d/c. CM available for d/c needs. Date Signed: 05/07/2017 02:31 PM Electronically Signed By:MARCELLA Mata Case Management Discharge Plan Note Case Management Discharge Discharge Order Complete? Answers: Yes Patient to Obtain Answers: via Family Medications Transportation Arranged Answers: Family/Friends Family Notified Answers: Yes [facility] CM Progress Note CM Note CM Note Notes: Patient dcd to home. Family did not want home care. Cm available shoud needs arise. Date Signed: 05/08/2017 11:28 AM Electronically Signed By:Yanira Pruitt RN Intervention Information
--- NOTE | 2017-05-08 13:41 | GDS ---
[f rep st] DISCHARGE SUMMARY DISCHARGE DIAGNOSES: 1. Left lower lobe community-acquired pneumonia. 2. [id number]-[id number] hypoxemic respiratory failure. 3. Acute reactive airway exacerbation. 4. Metabolic acidosis. 5. End-stage renal disease. 6. Anemia. 7. Chronic diastolic congestive heart failure. CONSULTATIONS: Nephrology. STUDIES AND PROCEDURES: Hemodialysis. PHYSICAL EXAM: GENERAL: The patient is alert. VITAL SIGNS: Afebrile 36.2, pulse is 81, respirator y rate is 18, blood pressure is 146/86, he is saturating 90% on 2 L. I have seen and evaluated the p atient on the day of discharge. HOSPITAL COURSE: The patient is an 87-year-old male who presented to the emergency room with complai nts of shortness of breath. He was evaluated and diagnosed with. 1. Qvgun-fi-efxkwyh hypoxemic respiratory failure. This is in the setting of community-acquired pne [facility]. His acute hypoxemic respiratory has resolved prior to disposition and he has returned to his baseline 2-3 L oxygen requirement. 2. Left lower lobe pneumonia. He was treated during this hospitalization with antibiotic therapy. It was recommended he follow up with a chest x-ray in the next 7-10 days as well as potentially a CT scan of his chest in the future and pulmonology care establishment in the outpatient setting. The izaiah gresham and family are in agreement with this plan. 3. Acute reactive airway exacerbation. This has responded well to low-dose steroids. 4. Metabolic acidosis. This has resolved in the setting of hypovolemia. 5. End-stage renal disease. The patient has a left upper extremity fistula. He receives dialysis M , Wednesdays and Fridays. This is stable. 6. Anemia of end-stage renal disease. The patient did receive a transfusion of 2 units of packed re d blood cells. He has responded well to this. His hemoglobin and hematocrit are stable prior to dis position. 7. Chronic diastolic congestive heart failure. He did not have any signs of acute exacerbation duri ng this hospital course. DISPOSITION: The patient will be discharged home with his family. There are no pending studies. FOLLOW UP: Followup will be with his primary care physician, Dr. Christiano Hdz in 10 days. He will al so follow up with scheduled hemodialysis on Mondays, Wednesdays and Fridays. Of note, the patient's pulse oximetry is unable to be measured on his extremities. The accurate puls e oximetry is found on the patient's forehead and should be measured there in the future. I have edu cated the patient as well as his family regarding this in followup appointments and outpatient care. They are in agreement and understanding of this condition. DISCHARGE MEDICATIONS: Prednisone 10 mg have been provided for the patient as well as 1 more day of Levaquin 500 mg p.o. I spent greater than 35 minutes in the care, coordination, and management of the patient's disposbereketo nLisa /[id number]/MODL
== END 2017-05-08 11:25 | disposition home or self-care (01) | DRG 193 ==
LOC: F3E 23:04
PROVIDERS: ADMIT Family Medicine; ATTEND Family Medicine
DX: J18.9 Pneumonia, unspecified organism (principal); J45.901 Unspecified asthma with (acute) exacerbation; J96.21 Acute and chronic respiratory failure with hypoxia; I50.30 Unspecified diastolic (congestive) heart failure; D63.1 Anemia in chronic kidney disease; E11.22 Type 2 diabetes mellitus with diabetic chronic kidney disease; N18.6 End stage renal disease; E87.2 Acidosis; M10.9 Gout, unspecified; Z99.2 Dependence on renal dialysis; Z96.643 Presence of artificial hip joint, bilateral; Z96.651 Presence of right artificial knee joint; Z85.528 Personal history of other malignant neoplasm of kidney; Z85.46 Personal history of malignant neoplasm of prostate; Z99.81 Dependence on supplemental oxygen; Z87.891 Personal history of nicotine dependence; Z90.5 Acquired absence of kidney; Z66 Do not resuscitate
CPT/HCPCS: 96365; 96366; 97110-GP; 97116-GP; 97162-GP; 97165-GO; 97535-GO; G8978-GP-CK; G8979-GP-CI; G8987-GO-CI; G8988-GO-CI; J1815; J1956; P9016

== ENCOUNTER → 2017-05-16 | Outpatient (CLI) | payer OTHER | LOC: FIMAGING 10:25 | PROVIDERS: ATTEND Family Medicine | DX: J40 Bronchitis, not specified as acute or chronic (principal) ==

== ENCOUNTER → 2017-06-07 | Outpatient (CLI) | payer OTHER | LOC: FIMAGING 13:43 | PROVIDERS: ATTEND Family Medicine | DX: J18.1 Lobar pneumonia, unspecified organism (principal); J98.09 Other diseases of bronchus, not elsewhere classified; I70.0 Atherosclerosis of aorta; I25.10 Atherosclerotic heart disease of native coronary artery without angina pectoris ==

== ENCOUNTER → 2017-07-09 | Outpatient (CLI) | payer OTHER | LOC: FOBOP 11:03 | PROVIDERS: ATTEND Internal Medicine Hematology & Oncology | PROC: 30233N1 Transfusion of Nonautologous Red Blood Cells into Peripheral Vein, Percutaneous Approach (ICD-10-PCS; principal; 2017-07-09) | DX: N18.9 Chronic kidney disease, unspecified (principal); D63.1 Anemia in chronic kidney disease | CPT/HCPCS: 36430; P9016 ==

== ENCOUNTER → 2017-07-29 | Outpatient (CLI) | payer OTHER | LOC: FOBOP 14:16 | PROVIDERS: ATTEND Internal Medicine Hematology & Oncology | PROC: 30233N1 Transfusion of Nonautologous Red Blood Cells into Peripheral Vein, Percutaneous Approach (ICD-10-PCS; principal; 2017-07-29) | DX: N18.9 Chronic kidney disease, unspecified (principal); D63.1 Anemia in chronic kidney disease | CPT/HCPCS: 36430; P9016 ==

== ENCOUNTER → 2017-08-11 | Outpatient (CLI) | payer OTHER | LOC: CIMAGING 10:16 | PROVIDERS: ATTEND Internal Medicine Pulmonary Disease | DX: R06.00 Dyspnea, unspecified (principal); J90 Pleural effusion, not elsewhere classified; J98.11 Atelectasis; J15.9 Unspecified bacterial pneumonia; R59.0 Localized enlarged lymph nodes; R16.1 Splenomegaly, not elsewhere classified; I25.10 Atherosclerotic heart disease of native coronary artery without angina pectoris | CPT/HCPCS: 71250-PO ==

== ENCOUNTER → 2017-08-11 | Outpatient (CLI) | payer OTHER | LOC: FOBOP 12:54 | PROVIDERS: ATTEND Internal Medicine Hematology & Oncology | PROC: 30233N1 Transfusion of Nonautologous Red Blood Cells into Peripheral Vein, Percutaneous Approach (ICD-10-PCS; principal; 2017-08-11) | DX: C64.9 Malignant neoplasm of unspecified kidney, except renal pelvis (principal); D63.1 Anemia in chronic kidney disease | CPT/HCPCS: 36430; P9016; 86905-90 ==

== ENCOUNTER 2017-08-25 08:58 | Outpatient (CLI) | payer OTHER ==
[2017-08-25] MEDS ORDERED: ACETAMINOPHEN 325 MG TAB PO ONE (09:30)
== END 2017-08-25 12:28 | disposition home or self-care (01) ==
LOC: FOBOP 08:58
PROVIDERS: ATTEND Internal Medicine Hematology & Oncology
PROC: 30233N1 Transfusion of Nonautologous Red Blood Cells into Peripheral Vein, Percutaneous Approach (ICD-10-PCS; principal; 2017-08-25)
DX: C64.9 Malignant neoplasm of unspecified kidney, except renal pelvis (principal); D63.1 Anemia in chronic kidney disease
CPT/HCPCS: 36430; P9016

== ENCOUNTER 2017-09-05 08:17 | Inpatient (IN) | payer OTHER ==
--- NOTE | 2017-09-05 08:30 | EDPHY ---
H & P Stated Complaint: Acute left hip pain and black stool since Tuesday. Time Seen by Provider: 09/05/17 08:29 HPI/ROS: CHIEF COMPLAINT: Loose black stool, left hip pain HISTORY OF PRESENT ILLNESS: This is an 87-year-old male with a history of type 2 diabetes and renal cell carcinoma, status post nephrectomy who is on thrice weekly dialysis for his end-stage renal disease. He has a history of anemia of chronic disease. In addition he has chronic respiratory failure on home oxygen , diastolic heart failure, He presents this morning with his family. He is here concerned about loose black stool. He has been having loose stool on off since Tuesday, 3 days ago. He was up last night with 2 loose bowel movements, both of them dark in color. He was started on a pill at dialysis last week that he believes might be iron but he is not sure. He did not have any loose stool yesterday but did have loose and more frequent stooling the day before. He has not seen any blood in his stool. He denies recent cough or fever. He is not experiencing chest pain or abdominal pain. In addition he is complaining left hip pain. He has had bilateral hip replacements. 3 years ago he tells me that he developed an infection in the left hip and that this required drainage--this appears to have been a left psoas abscess. His hip pain began this morning. It feels like the pain that he experienced 3 years ago. His pain is on and off and is not exacerbated by movement. He has not had recent trauma. He denies fever or chills. REVIEW OF SYSTEMS: A ten point review of systems was performed and is negative with the exception of the items mentioned in the HPI. Past medical history: 1. Renal cell carcinoma status post nephrectomy 2. End-stage renal disease on dialysis 3. Diabetes mellitus type 2 4. Diastolic heart failure 5. Coronary artery disease 6. Gout 7. BPH 8. History of small-bowel obstruction 9. Glaucoma 10. Anemia of chronic disease Past surgical history: 1. Nephrectomy 2. Right total knee replacement 3. Bilateral hip replacements 4. Cholecystectomy 5. Av fistula left arm 6. Cataract extraction Social history: He is hears with his . He does not use tobacco or alcohol. General Appearance: Alert. Vital signs reviewed. Blood pressure 121/49, pulse ox 86% on 4 L. Eyes: Pupils equal and round, no conjunctival injection, no discharge. Anicteric. ENT, Mouth: Mucous membranes are slightly dry, no oropharyngeal erythema or edema. Neck: No lymphadenopathy, supple. Trachea midline. Jugular venous distention is present. Respiratory: Lungs with bibasilar rales. Cardiovascular: Regular rate and rhythm; 3/6 systolic murmur present. This is heard best over the aorta. Gastrointestinal: Abdomen is soft and nontender, no masses or organomegaly, bowel sounds normal. There is a midline easily reducible hernia, above the umbilicus, associated with a surgical incision. Skin: Warm and dry, no rashes on exposed skin, normal color. No warmth or erythema of the skin overlying the left hip. Pulses: 2+ left femoral pulse and 2+ bilateral dorsalis pedis pulses. Back: Nontender to palpation over the thoracolumbar spine. No CVAT. Extremities: No lower extremity edema, no calf tenderness or swelling. No pain with active and passive range of motion of his left hip. No pain with palpation of the left hip. Rectal: Nontender. Brown stool on the examining glove. Neurological: Alert and oriented. Moving all four extremities easily and equally. Sensation is intact to light touch over both lower extremities. Psychiatric: Normal affect. - Personal History Current Tetanus Diphtheria and Acellular Pertussis (TDAP): Yes Tetanus Vaccine Date: 2010 - Medical/Surgical History Hx Asthma: No Hx Chronic Respiratory Disease: No Hx Diabetes: Yes Hx Cardiac Disease: Yes Hx Renal Disease: Yes Hx Cirrhosis: No Hx Alcoholism: No Hx HIV/AIDS: No Hx Splenectomy or Spleen Trauma: No Other PMH: prostate CA, renal CA, right kidney removed, R knee replacement, L&R hip replacement, left forearm fistula, cholecystectomy, hx of gout, peripheral neuropathy, anemia, esrd, ppm, cad, on dialysis, bliateral cataract repair, small bowel resection - Social History Smoking Status: Former smoker Constitutional: Initial Vital Signs Temperature (C) 36.8 C 09/05/17 08:18 Heart Rate 77 09/05/17 08:18 Respiratory Rate 18 09/05/17 08:18 Blood Pressure 121/49 H 09/05/17 08:18 O2 Sat (%) 86 L 09/05/17 08:18 O2 Delivery Mode Simple Mask O2 (L/minute) 8 Allergies/Adverse Reactions: pseudoephedrine Allergy (Unknown, Verified 04/22/17 16:50) Swelling sudafed Allergy (Uncoded 04/22/17 16:50) Home Medications: Medication Instructions Recorded Latanoprost 0.005% [Xalatan 0.005% 1 drop EACHEYE HS 01/25/14 (*)] Multivitamins [Multivitamin (*)] 1 each PO DAILY 01/25/14 Herbals/Supplements -Info Only 1 ea PO DAILY 05/27/16 Calcium Carbonate [Tums 500MG (*)] 1,000 mg PO TIDMEAL 02/21/17 Acetaminophen [Tylenol 325mg (*)] 650 mg PO Q4HRS PRN tab 05/08/17 predniSONE 10 mg PO DAILY PRN 08/11/17 Allopurinol [Allopurinol 300 MG 150 mg PO HS 09/05/17 (RX)] Tamsulosin HCl [Flomax 0.4 MG (*)] 0.4 mg PO HS 09/05/17 Umeclidinium Brm/Vilanterol Tr 1 each IH DAILY10 09/05/17 [Anoro Ellipta 62.5-25 Mcg INH] Medical Decision Making ED Course/Re-evaluation: 87-year-old male with end-stage renal disease, diabetes, coronary artery disease and diastolic heart failure who presents with dark stool and fatigue. He has had an increased oxygen requirement over the last few days areas in the emergency department he is requiring 8 L to maintain oxygenation in the low 90s. He is awake and alert with normal mentation. Chest x-ray, per my interpretation, suggests fluid overload. He is due for dialysis today. He has a history of diastolic heart failure. On exam he has by basilar rales. Radiologist's report indicates that there is a right-sided pneumonia. The patient does not have other signs or symptoms of pneumonia and at this point in time I have not treated him with antibiotics. Hemoglobin and hematocrit hemoglobin is 5.8 today, down from 7.6 last week. His stool is guaiac-positive although it is brown in color. 2 units packed red blood cells have been ordered for transfusion. He will need to be watched carefully for signs of ongoing GI bleeding. He was hemodynamically stable in the emergency department. I have spoken with Nephrology about this patient's hospitalization. Plans are made for dialysis today. He reports left hip pain. A left hip x-ray was obtained and does not show any abnormalities that would account for his pain. I do not feel fluctuance and there is no warmth or erythema that would suggest cellulitis. He has no pain with range of motion. However, he has a history of a left psoas abscess secondary to E coli and he has had a hip replacement. This will need to be carefully watched with perhaps further radiographic evaluation to assess for fluid collection. Differential Diagnosis: Lower GI bleeding including but not limited to diverticulosis, tumor, AVM, hemorrhoid and anal fissure. Upper GI bleeding including but not limited to ulcer disease, gastritis, Jaida-Scruggs tear, and esophageal varices. - Data Points Laboratory Results: Laboratory Results 09/05/17 08:40 09/05/17 08:40 09/05/17 09/05/17 09/05/17 09:00 08:40 08:40 WBC RBC Hgb Hct MCV MCH MCHC RDW Plt Count MPV Neut % (Auto) Lymph % (Auto) [place] % (Auto) Eos % (Auto) Baso % (Auto) Nucleat RBC Rel Count Absolute Neuts (auto) Absolute Lymphs (auto) Absolute Monos (auto) Absolute Eos (auto) Absolute Basos (auto) Absolute Nucleated RBC Immature Gran % Immature Gran # Platelet Estimate Polychromasia Tear Drop Cells Oval Macrocytes Elliptocytes Smear Review By PT INR APTT Sodium 138 mEq/L mEq/L (135-145) Potassium 4.7 mEq/L mEq/L (3.5-5.2) Chloride 96 mEq/L L mEq/L (97-110) Carbon Dioxide 22 mEq/l mEq/l (22-31) Anion Gap 20 mEq/L H mEq/L (8-16) BUN 83 mg/dL H mg/dL (7-23) Creatinine 6.8 mg/dL H mg/dL (0.7-1.3) Estimated GFR 8 Glucose 118 mg/dL H mg/dL (70-100) Calcium 8.6 mg/dL mg/dL (8.5-10.4) Total Bilirubin 0.7 mg/dL mg/dL (0.1-1.4) AST 22 IU/L IU/L (17-59) ALT 36 IU/L IU/L (21-72) Alkaline Phosphatase 69 IU/L IU/L (38-126) Total Protein 6.0 g/dL L g/dL (6.3-8.2) Albumin 3.5 g/dL g/dL (3.5-5.0) Stool Occult Bld Scrn POSITIVE H (NEGATIVE) Patient ABO/Rh O POSITIVE Antibody Screen POSITIVE Antibody Identification Anti-K Enhanced Crossmatch See Detail 09/05/17 09/05/17 08:40 08:40 WBC 8.60 10^3/uL 10^3/uL (3.80-9.50) RBC 1.71 10^6/uL L 10^6/uL (4.40-6.38) Hgb 5.8 g/dL L* g/dL (13.7-17.5) Hct 18.3 % L % (40.0-51.0) MCV 107.0 fL H fL (81.5-99.8) MCH 33.9 pg pg (27.9-34.1) MCHC 31.7 g/dL L g/dL (32.4-36.7) RDW 20.7 % H % (11.5-15.2) Plt Count 171 10^3/uL 10^3/uL (150-400) MPV 9.8 fL fL (8.7-11.7) Neut % (Auto) 84.1 % H % (39.3-74.2) Lymph % (Auto) 7.6 % L % (15.0-45.0) [place] % (Auto) 5.1 % % (4.5-13.0) Eos % (Auto) 0.6 % % (0.6-7.6) Baso % (Auto) 0.2 % L % (0.3-1.7) Nucleat RBC Rel Count 0.0 % % (0.0-0.2) Absolute Neuts (auto) 7.23 10^3/uL H 10^3/uL (1.70-6.50) Absolute Lymphs (auto) 0.65 10^3/uL L 10^3/uL (1.00-3.00) Absolute Monos (auto) 0.44 10^3/uL 10^3/uL (0.30-0.80) Absolute Eos (auto) 0.05 10^3/uL 10^3/uL (0.03-0.40) Absolute Basos (auto) 0.02 10^3/uL 10^3/uL (0.02-0.10) Absolute Nucleated RBC 0.00 10^3/uL 10^3/uL (0-0.01) Immature Gran % 2.4 % H % (0.0-1.1) Immature Gran # 0.21 10^3/uL H 10^3/uL (0.00-0.10) Platelet Estimate ADEQUATE (ADEQ) Polychromasia 1+ H Tear Drop Cells 1+ H Oval Macrocytes 2+ H Elliptocytes 2+ H Smear Review By Rasheed ZAMAN MD PT 15.8 SEC H SEC (12.0-15.0) INR 1.24 H (0.83-1.16) APTT 34.8 SEC SEC (23.0-38.0) Sodium Potassium Chloride Carbon Dioxide Anion Gap BUN Creatinine Estimated GFR Glucose Calcium Total Bilirubin AST ALT Alkaline Phosphatase Total Protein Albumin Stool Occult Bld Scrn Patient ABO/Rh Antibody Screen Antibody Identification Enhanced Crossmatch Medications Given: Pantoprazole Sodium (Protonix) 40 mg IVP DAILY YAW Stop: 03/04/18 12:29 Last Admin: 09/05/17 13:15 Dose: 40 mg Departure - Departure Disposition: [facility] Clinical Impression: End stage renal disease on dialysis, Acute and chronic respiratory failure with hypoxia Anemia Qualifiers: Anemia type: due to chronic kidney disease Chronic kidney disease stage: on chronic dialysis Qualified Code(s): N18.6 - End stage renal disease; D63.1 - Anemia in chronic kidney disease; D63.1 - Anemia in chronic kidney disease; Z99.2 - Dependence on renal dialysis; Z99.2 - Dependence on renal dialysis; Z99.2 - Dependence on renal dialysis; Z99.2 - Dependence on renal dialysis Condition: Fair
[2017-09-05 08:59] LABS: PLATELET COUNT 171 10^3/uL (150-400)
[2017-09-05 09:11] LABS: INR 1.24 (0.83-1.16); PROTIME(PATIENT) 15.8 SEC (12.0-15.0)
[2017-09-05] MEDS ORDERED: ONDANSETRON DISINTEGRATING 4 MG TAB PO PRN (09:35)
[2017-09-05] MEDS ORDERED: ACETAMINOPHEN 325 MG TAB PO PRN (09:35)
[2017-09-05] MEDS ORDERED: ONDANSETRON 4 MG/2 ML VIAL IVP PRN (09:35)
--- NOTE | 2017-09-05 11:22 | PDCONSULT ---
[employer] Note: Assessment/Plan: ESRD: on HD MWF. - Will dialyze today per routine. Anemia: Hgb acutely down from 7.6 last Tuesday to 5.8 today, concern for possible GI bleed with dark stools. - Pt will get one unit PRBCs now and a second unit on HD. - Will continue to monitor. - Last dose of Aranesp was on 09/02/17. CURLY: will check phos with am labs. Thank you for the interesting consult. Nephrology will continue to follow, please call if you have any additional questions or concerns. H & P Stated Complaint: Acute left hip pain and black stool since Tuesday. Time Seen by Provider: 09/05/17 08:29 HPI/ROS: HPI: Mr. Wolff is an 87 yo M with ESRD on HD MWF at [facility] under Dr. Granado. He presents today with concerns for L hip pain, states that in 2012 he had it drained and had an E. coli infection in it, wanted to be sure that wasn't the problem. Pt states that pushing on his anterior L hip would help the pain, does not have any pain currently. However, he was noted to have hgb down to 5.8 , states that he has been having dark stools since Tuesday, noted to have brown stool in ED but positive hemoccult. Pt states he had a colonoscopy done last year, does not remember exact results but states it was "clean" and notes he did not have to return for another one. He had Hgb checked last in dialysis unit on 08/31 and it was 7.6. He last got Aranesp on 09/02. ROS: Positive per HPI, rest of 10-point ROS negative - Personal History Current Tetanus Diphtheria and Acellular Pertussis (TDAP): Yes Tetanus Vaccine Date: 2010 - Medical/Surgical History Hx Asthma: No Hx Chronic Respiratory Disease: No Hx Diabetes: Yes Hx Cardiac Disease: Yes Hx Renal Disease: Yes Hx Cirrhosis: No Hx Alcoholism: No Hx HIV/AIDS: No Hx Splenectomy or Spleen Trauma: No Other PMH: prostate CA, renal CA, right kidney removed, R knee replacement, L&R hip replacement, left forearm fistula, cholecystectomy, hx of gout, peripheral neuropathy, anemia, esrd, ppm, cad, on dialysis, bliateral cataract repair, small bowel resection - Family History Significant Family History: No pertinent family hx - Social History Smoking Status: Former smoker - Physical Exam Exam: General: alert and oriented, no acute distress Eyes; EOMI, PERRL OP: Clear, MMM Neck: supple, no thyromegaly CV: RRR, +2/4 radial and dorsalis pedis pulses, no peripheral edema Resp: CTA bilat, nonlabored respirations on oxymask Abd: Soft, NT/ND Neuro: CN II-XII grossly intact, no asterixis Psych: cooperative, appropriate mood and affect Skin: C/D/I, no rash Access: LUE AVF with thrill and bruit appreciated Constitutional: Initial Vital Signs Temperature (C) 36.8 C 09/05/17 08:18 Heart Rate 77 09/05/17 08:18 Respiratory Rate 18 09/05/17 08:18 Blood Pressure 121/49 H 09/05/17 08:18 O2 Sat (%) 86 L 09/05/17 08:18 O2 Delivery Mode Simple Mask O2 (L/minute) 8 Allergies/Adverse Reactions: pseudoephedrine Allergy (Unknown, Verified 04/22/17 16:50) Swelling sudafed Allergy (Uncoded 04/22/17 16:50) Home Medications: Medication Instructions Recorded Latanoprost 0.005% [Xalatan 0.005% 1 drop EACHEYE HS 01/25/14 (*)] Multivitamins [Multivitamin (*)] 1 each PO DAILY 01/25/14 Herbals/Supplements -Info Only 1 ea PO DAILY 05/27/16 Calcium Carbonate [Tums 500MG (*)] 1,000 mg PO TIDMEAL 02/21/17 Acetaminophen [Tylenol 325mg (*)] 650 mg PO Q4HRS PRN tab 05/08/17 predniSONE 10 mg PO DAILY PRN 08/11/17 Allopurinol [Allopurinol 300 MG 150 mg PO HS 09/05/17 (RX)] Tamsulosin HCl [Flomax 0.4 MG (*)] 0.4 mg PO HS 09/05/17 Umeclidinium Brm/Vilanterol Tr 1 each IH DAILY10 09/05/17 [Anoro Ellipta 62.5-25 Mcg INH] Lab and Imaging 09/05/17 08:40 09/05/17 08:40 WBC 8.60 10^3/uL (3.80-9.50) 09/05/17 08:40 RBC 1.71 10^6/uL (4.40-6.38) L 09/05/17 08:40 Hgb 5.8 g/dL (13.7-17.5) L* 09/05/17 08:40 Hct 18.3 % (40.0-51.0) L 09/05/17 08:40 MCV 107.0 fL (81.5-99.8) H 09/05/17 08:40 MCH 33.9 pg (27.9-34.1) 09/05/17 08:40 MCHC 31.7 g/dL (32.4-36.7) L 09/05/17 08:40 RDW 20.7 % (11.5-15.2) H 09/05/17 08:40 Plt Count 171 10^3/uL (150-400) 09/05/17 08:40 MPV 9.8 fL (8.7-11.7) 09/05/17 08:40 Neut % (Auto) 84.1 % (39.3-74.2) H 09/05/17 08:40 Lymph % (Auto) 7.6 % (15.0-45.0) L 09/05/17 08:40 [place] % (Auto) 5.1 % (4.5-13.0) 09/05/17 08:40 Eos % (Auto) 0.6 % (0.6-7.6) 09/05/17 08:40 Baso % (Auto) 0.2 % (0.3-1.7) L 09/05/17 08:40 Nucleat RBC Rel Count 0.0 % (0.0-0.2) 09/05/17 08:40 Absolute Neuts (auto) 7.23 10^3/uL (1.70-6.50) H 09/05/17 08:40 Absolute Lymphs (auto) 0.65 10^3/uL (1.00-3.00) L 09/05/17 08:40 Absolute Monos (auto) 0.44 10^3/uL (0.30-0.80) 09/05/17 08:40 Absolute Eos (auto) 0.05 10^3/uL (0.03-0.40) 09/05/17 08:40 Absolute Basos (auto) 0.02 10^3/uL (0.02-0.10) 09/05/17 08:40 Absolute Nucleated RBC 0.00 10^3/uL (0-0.01) 09/05/17 08:40 Immature Gran % 2.4 % (0.0-1.1) H 09/05/17 08:40 Immature Gran # 0.21 10^3/uL (0.00-0.10) H 09/05/17 08:40 Platelet Estimate ADEQUATE (ADEQ) 09/05/17 08:40 Polychromasia 1+ H 09/05/17 08:40 Tear Drop Cells 1+ H 09/05/17 08:40 Oval Macrocytes 2+ H 09/05/17 08:40 Elliptocytes 2+ H 09/05/17 08:40 PT 15.8 SEC (12.0-15.0) H 09/05/17 08:40 INR 1.24 (0.83-1.16) H 09/05/17 08:40 APTT 34.8 SEC (23.0-38.0) 09/05/17 08:40 Sodium 138 mEq/L (135-145) 09/05/17 08:40 Potassium 4.7 mEq/L (3.5-5.2) 09/05/17 08:40 Chloride 96 mEq/L (97-110) L 09/05/17 08:40 Carbon Dioxide 22 mEq/l (22-31) 09/05/17 08:40 Anion Gap 20 mEq/L (8-16) H 09/05/17 08:40 BUN 83 mg/dL (7-23) H 09/05/17 08:40 Creatinine 6.8 mg/dL (0.7-1.3) H 09/05/17 08:40 Estimated GFR 8 09/05/17 08:40 Glucose 118 mg/dL (70-100) H 09/05/17 08:40 Calcium 8.6 mg/dL (8.5-10.4) 09/05/17 08:40 Total Bilirubin 0.7 mg/dL (0.1-1.4) 09/05/17 08:40 AST 22 IU/L (17-59) 09/05/17 08:40 ALT 36 IU/L (21-72) 09/05/17 08:40 Alkaline Phosphatase 69 IU/L (38-126) 09/05/17 08:40 Total Protein 6.0 g/dL (6.3-8.2) L 09/05/17 08:40 Albumin 3.5 g/dL (3.5-5.0) 09/05/17 08:40 Stool Occult Bld Scrn POSITIVE (NEGATIVE) H 09/05/17 09:00 Patient ABO/Rh O POSITIVE 09/05/17 08:40 Antibody Screen POSITIVE 09/05/17 08:40 Antibody Identification Anti-K 09/05/17 08:40 Enhanced Crossmatch See Detail 09/05/17 08:40
[2017-09-05] MEDS ORDERED: D50W 25 GM/50 ML SYR IVP PRN (12:17)
[2017-09-05] MEDS: PANTOPRAZOLE SODIUM 40 MG VIAL IVP SCH (13:15)
--- NOTE | 2017-09-05 13:18 | GHP ---
[f rep st] HISTORY AND PHYSICAL DATE OF ADMISSION: 09/05/2017 CHIEF COMPLAINT: Fatigue, shortness of breath, dark stool and left groin pain. HISTORY OF PRESENT ILLNESS: The patient is an 87-year-old male with a history of end-stage renal disease on dialysis, chronic hypoxemic respiratory failure requiring 2-3 L/minute of oxygen at home, diastolic heart failure, coronary artery disease and history of renal cell carcinoma status post nephrectomy, who presents to the emergency department reporting left hip pain, dark stools and shortness of breath. He has a history of a left psoas abscess which required incision and drainage in August of 2014. This grew E coli. He notes the left groin pain returned a couple of days ago. It is better when he pushes on it. He denies fevers or chills. He has no pain with flexion of his hip or active range of motion. In addition, he describes some loose stools. These were reportedly dark and possibly black watery. Per history from the emergency department, he had a brown stool in the ED, which was heme positive. He has had no nausea, vomiting, or abdominal pain. He also reports increased shortness of breath. He has a history of chronic diastolic heart failure as well as chronic hypoxemic respiratory failure and uses 2 L/minute of oxygen at home. In the emergency department, he is requiring oxygen at 8 L/minute. Laboratory workup revealed a hemoglobin of 5.8. He is orthopneic. Nephrology is consulted. 2 units of blood are ordered, which will hopefully be given on dialysis. The patient is admitted to the PCU for further management. PAST MEDICAL AND SURGICAL HISTORY: 1. Renal cell carcinoma status post nephrectomy. 2. End-stage renal disease, on Tuesday, Tuesday, Tuesday dialysis. 3. Type 2 diabetes mellitus. 4. Chronic diastolic heart failure. 5. Chronic hypoxemic respiratory failure on 2-3 L/minute of oxygen at home. 6. Coronary artery disease. 7. Gout. 8. Peripheral neuropathy. 9. History of small bowel obstruction. 10. BPH. 11. Glaucoma. 12. Cataract extraction. 13. Right total knee replacement. 14. Bilateral total hip arthroplasty. 15. Left AV fistula. 16. Cholecystectomy. MEDICATIONS: Please see jaeyos for completed outpatient medication list. ALLERGIES: Sudafed. FAMILY HISTORY: Reviewed and noncontributory. SOCIAL HISTORY: The patient is . His is at the bedside. He denies tobacco, alcohol or drug use. REVIEW OF SYSTEMS: A 10-point review of systems was performed and is negative as per HPI. OBJECTIVE: VITAL SIGNS: Temperature is 35.8, blood pressure 134/51, heart rate 71, respiratory rate 16, O2 saturations 96% on 8 L by Oxymask. GENERAL: The patient is awake, alert, and oriented. He appears pale and chronically ill. HEENT: Head is atraumatic, normocephalic. Pupils equal, round, react to light. Extraocular muscles intact. Oropharynx clear. Mucous members are moist. NECK: Supple. He has 8 cm of elevated jugular venous pressure. HEART : Has a regular rate and rhythm with 3/6 systolic ejection murmur. LUNGS: Reveal decreased breath sounds with bibasilar crackles. ABDOMEN: Soft, nondistended, nontender. Normoactive bowel sounds. EXTREMITIES: He has no significant tenderness to palpation of the left groin. No pain with passive range of motion. His extremities are otherwise warm and well perfused with slightly increased edema on the left compared to the right. NEUROLOGIC: Grossly nonfocal. LABORATORY DATA: CBC is remarkable for a hemoglobin of 5.8, hematocrit 18.3, platelet count is 171. INR is 1.24. Complete metabolic panel is remarkable for a CO2 of 96, BUN 83, creatinine 6.8, CO2 is 22, blood sugar 118. LFTs are normal. Total protein is low at 6. Hemoccult is positive. IMAGING: Chest x-ray performed in the emergency department shows cardiomegaly with slightly increased interstitial markings. Some question of pneumonia per radiology report. Left hip x-ray shows bilateral total hip replacements are stable and in excellent position. No evidence of loosening or infection. ASSESSMENT AND PLAN: The patient is an 87-year-old male with history of end- stage renal disease, chronic hypoxemic respiratory failure, coronary artery disease, and renal cell carcinoma status post nephrectomy, who presents to the emergency department with weakness, loose stools, shortness of breath, and left hip pain. He is found to be markedly anemic and is admitted to the hospital for further management. 1. Acute on chronic anemia. His hemoglobin last week was 7.6 and is 5.8 on presentation, suggesting there has been some acute blood loss. He reportedly had some black loose stools, though it sounds as though these have resolved. His last colonoscopy was approximately 2 years ago and was reportedly clear. He otherwise has no focal abdominal pain and no vomiting. The patient will receive 2 units of packed red blood cells and we will recheck his H and H this afternoon and continue to trend q.6 hours. He has known anemia of chronic kidney disease and recently received Aranesp in the outpatient setting per Nephrology. He is hemodynamically stable. If he has any further evidence of active GI bleeding we will consult GI. IV PPI for now. 2. Acute on chronic hypoxemic respiratory failure likely secondary to volume overload with a history of chronic diastolic heart failure. His baseline O2 requirement is 2-3 L/minute. He presents requiring 8 L/minute. I reviewed his chest x-ray which looks volume up. He has no cough or fever suggestive of pneumonia. Fluid removal is planned through dialysis per Nephrology team. Attempt to wean oxygen back to baseline. I reviewed his last echo from February of 2017, which showed evidence of diastolic dysfunction and ejection fraction of 79% and no wall motion abnormality. He does have a moderate aortic stenosis which may be contributing to heart failure. 3. End-stage renal disease, suspect secondary to diabetic nephropathy, though he is also status post nephrectomy due to renal cell carcinoma. Will continue Tuesday, Tuesday, Tuesday dialysis with plans to dialyze today during his blood transfusion. Appreciate Renal involvement. 4. Left hip pain. H/O KAREN and psoas abscess in 2014. He has no fevers or leukocytosis to suggest recurrent abscess. However, given his history and pain localizing to this area will obtain an ultrasound to evaluate for fluid collection as well as rule out proximal DVT. His x-ray is negative. PT OT consults are requested. 5. Coronary artery disease. He is chest pain-free. This appears stable. We will aim for hemoglobin of 7 to 8. 6. Gout. Continue allopurinol. 7. Benign prostatic hypertrophy. Continue Flomax. 8. Deep venous thrombosis prophylaxis. Pharmacologic agents are contraindicated given his low hemoglobin and concern for possible GI bleeding. We will place SCDs. 9. Code status. I did discuss code status with the patient, his and son. The patient wishes to be DNR. This will be honored. 10. Disposition. Patient admitted to inpatient status. I anticipate greater than 48 hours hospitalization for ongoing management of his acute on chronic anemia and acute on chronic hypoxemia. /[id number]/MODL CHRISTOPHER
--- NOTE | 2017-09-05 13:47 | PDMN ---
Medical Necessity Medical necessity: Pt meets IP criteria per MD; est los >2 mn for eval/tx of acute on chronic anemia, dark/loose stools, weakness, left hip pain & acute on chronic hypoxemia likely r/t fluid volume overload; admit for further workup/ monitoring, GI/Nephrology consult & therapies; comorbid advanced age, ESRD on dialysis, CAD, CHF, renal cell carcinoma s/p nephrectomy, diabetes; per H&P & order 09/05/17
[2017-09-05] MEDS: INSULIN LISPRO 100 UNIT/ML SC SCH (18:30)
[2017-09-05] MEDS: CALCIUM CARBONATE 500 MG CHEWABLE TAB PO SCH (18:34)
[2017-09-05] MEDS: ALLOPURINOL 300 MG TAB PO SCH (21:05)
[2017-09-05] MEDS: TAMSULOSIN HCL 0.4 MG CAP PO SCH (21:06)
[2017-09-05] MEDS: LATANOPROST 0.005% 2.5 ML OPHT DROPS EACHEYE SCH (21:11)
[2017-09-06 04:37] LABS: PLATELET COUNT 144 10^3/uL (150-400)
[2017-09-06] MEDS: INSULIN LISPRO 100 UNIT/ML SC SCH ×3 (08:09→18:47)
--- NOTE | 2017-09-06 08:53 | HOSPPROG ---
Hospitalist Progress Note Assessment/Plan: Acute on chronic anemia in setting of ESRD - s/p 2 units prbc's for hgb 5.8 on admission. Hgb 6.6 this am. No e/o ongoing GI bleeding. Had a couple of black stools after starting iron supplement. This has not persisted. Last dose of Aranesp 09/02. -will give another 2 units prbc's on dialysis, discussed with renal -trend h&h -consider GI evaluation if hgb continues to drop or e/o active bleeding -cont PPI ESRD - he is at his dry weight, though suspect he may still be a bit volume up -HD per renal, appreciate assistance Acute on chronic hypoxemic respiratory failure - on 2-3 LPM at baseline, 7-8 LPM here. CXR yesterday more suspicious for volume overload than PNA. He has not significant cough or fever. Clinically, presentation not c/w PNA -PA/lateral CXR today to re-evaluate -attempt volume removal with HD per renal today -wean O2 as able CAD - no CP, aim for hgb >8 Left hip pain - better today. No DVT on u/s. 2.7 cm fat replaced lymph node could be source of pain. No fevers or signs of infection, but has h/o psoas abscess and notes pain is similar. He may have poor BM response and may not mount a typical response to infection. -ID consulted for opinion regarding indication for additional imaging such as CT or MRI Gout - cont allopurinol BPH - cont flomax DNR DVT PPLX - defer pharm with low hgb, SCD's Dispo - cont inpt Subjective: Pt feels better. Denies CP or SOB, though requiring 8 LPM O2. Denies orthopnea or PND. No fevers. Denies cough. Says hip pain is better today. Objective: Vital Signs Temp Pulse Resp BP Pulse Ox 36.7 C 68 18 109/66 93 09/06/17 07:02 09/06/17 07:02 09/06/17 07:02 09/06/17 07:02 09/06/17 07:02 Laboratory Results 09/06/17 03:34 09/06/17 03:34 09/05/17 09/06/17 09/07/17 05:59 05:59 05:59 Intake Total 620 120 Balance 620 120 PT 15.8 SEC (12.0-15.0) H 09/05/17 08:40 INR 1.24 (0.83-1.16) H 09/05/17 08:40 - Physical Exam Constitutional: no apparent distress Eyes: PERRL Ears, Nose, Mouth, Throat: moist mucous membranes Cardiovascular: regular rate and rhythym Respiratory: no respiratory distress, inspiratory crackles Gastrointestinal: normoactive bowel sounds, soft, non-tender abdomen Skin: warm Musculoskeletal: full muscle strength Neurologic: AAOx3 Psychiatric: interacting appropriately ICD10 Worksheet Patient Problems: Problems Problem Status Onset Acute and chronic respiratory failure with hypoxia Acute Anemia Acute End stage renal disease on dialysis Acute Chronic Disease Mgmt/Transitional Care Acute Chronic renal failure Acute Community acquired pneumonia Acute Diabetes mellitus Acute Heart failure, diastolic, with acute decompensation Acute Hypoxemia Acute Hypoxia Acute Pleural effusion Acute Pneumonia Acute Pulmonary edema Acute UTI (urinary tract infection) Acute Weakness generalized Acute Anemia Chronic Osteoarthritis of hip Chronic Renal failure syndrome Chronic
[2017-09-06] MEDS: Umeclidinium Brm/Vilanterol Tr [Anoro Ellipta 62.5-25 Mcg Inh] IH SCH (09:21)
--- NOTE | 2017-09-06 09:24 | SOAPPROG ---
SOAP Progress Note Assessment/Plan: Assessment: 1. ESRD MWF at [facility] with Dr. Granado. Dialysis has been going ok. It sounds as if he has been eating ok, and BP drops at end of run. Thus, I am not sure that he is much off of his true dry weight. 2. Hypoxemia CXR query PNA. Doesn't really look like this clinically. Will try some gentle UF today. 3. Anemia Pt has Hx GI bleeding, also BM failure. Will transfuse additionally, check stool HO. 4. Hip Pain Persists. Given history, do not want to miss infection. Would consider Ortho or ID consults Plan: 09/06/17 09:19 Subjective: Appears about baseline. Objective: Vital Signs Temp Pulse Resp BP Pulse Ox 36.7 C 68 18 109/66 93 09/06/17 07:02 09/06/17 07:02 09/06/17 07:02 09/06/17 07:02 09/06/17 07:02 Laboratory Results 09/06/17 03:34 09/06/17 03:34 09/05/17 09/06/17 09/07/17 05:59 05:59 05:59 Intake Total 620 120 Balance 620 120 PT 15.8 SEC (12.0-15.0) H 09/05/17 08:40 INR 1.24 (0.83-1.16) H 09/05/17 08:40 Physical Exam - Physical Exam General Appearance: cachetic Respiratory: lungs clear (diminishes, L > R) Cardiac/Chest: regular rate, rhythm, systolic murmur Extremities: pedal edema (1+ B) Neuro/Psych: normal mood/affect, oriented x 3 ICD10 Worksheet Patient Problems: Problems Problem Status Onset Acute and chronic respiratory failure with hypoxia Acute Anemia Acute End stage renal disease on dialysis Acute Chronic Disease Mgmt/Transitional Care Acute Chronic renal failure Acute Community acquired pneumonia Acute Diabetes mellitus Acute Heart failure, diastolic, with acute decompensation Acute Hypoxemia Acute Hypoxia Acute Pleural effusion Acute Pneumonia Acute Pulmonary edema Acute UTI (urinary tract infection) Acute Weakness generalized Acute Anemia Chronic Osteoarthritis of hip Chronic Renal failure syndrome Chronic
[2017-09-06] MEDS: CALCIUM CARBONATE 500 MG CHEWABLE TAB PO SCH ×4 (09:40→18:48)
[2017-09-06] MEDS: PANTOPRAZOLE SODIUM 40 MG VIAL IVP SCH (09:43)
[2017-09-06] MEDS ORDERED: LIDOCAINE 1% *Not for Epidural 20 ML MDV ONE (14:05)
--- NOTE | 2017-09-06 15:00 | ASMTCMCOM ---
CM Note CM Note Notes: Patient admitted for fatigue, SOB, dark stool, and L groin pain. He has a fairly extensive PMH including ESRD for which he is on a MWF schedule at the [facility] with Dr Granado. We received a call from patient's home health agency, [facility], who recommended a palliative care consult. This has been ordered. Patient lives with his . Case Management will follow. Date Signed: 09/06/2017 03:00 PM Electronically Signed By:Virgie Silver RN
[2017-09-06] MEDS ORDERED: IOPAMIDOL (ISOVUE-300) 100 ML BTL ONE (17:15)
--- NOTE | 2017-09-06 19:05 | GCON ---
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 PHYSICIAN REQUESTING CONSULTATION: Randy España MD HISTORY OF PRESENT ILLNESS: An 87-year-old male with end-stage renal disease, on hemodialysis Tuesday /Tuesday/Tuesday, who presents for concerns of left hip and groin pain, that is similar to his sympt oms back in 2014 when he had E coli bacteremia and psoas abscess. Upon presentation, patient was fou nd to be profoundly anemic with a hemoglobin of 5.8, as well as complaining of dark stools; therefore , he was admitted for ongoing management. He denied any fevers, chills, or night sweats. He says hi s left groin pain and hip pain 2 days. It is not worse with walking, it comes and goes randomly, and has no precipitants. He describes the pain as a dull pain and cannot characterize it as to if it is more or less severe compared to symptoms back in August 2014. REVIEW OF SYSTEMS: A complete 10-point review of systems was performed and is negative except as men tioned in the HPI. PAST MEDICAL HISTORY: Positive for diabetes, prostate cancer, renal cell carcinoma, right nephrectom y, right total knee arthroplasty, left forearm fistula placement, cholecystectomy, gout, peripheral n europathy, anemia, end-stage renal disease (on hemodialysis, dialyzed at [place] under Dr. Granado), coronary artery disease, cataract repair, small bowel resection, and E coli bacteremia with psoas abs cess, status post drain. Patient received 6 weeks of levofloxacin and had a followup CT 09/24/2014 t hat showed dramatic improvement in the scan and had a followup MRI 04/2015 that showed no residual ps oas abscess. FAMILY HISTORY: Reviewed and noncontributory. SOCIAL HISTORY: Patient is . Former smoker. No alcohol. ALLERGIES: Pseudoephedrine. MEDICATIONS: Include allopurinol 150 mg daily, Tums 1000 mg 3 times daily with meals, insulin, latan oprost eyedrops, Zofran as needed, Protonix, and Flomax 0.5 mg at q.h.s. PHYSICAL EXAMINATION: VITAL SIGNS: Blood pressure 132/60, heart rate 75, respiratory rate 16, satur ation 98% on oxygen 6-10 L, temperature of 36.6; he has been afebrile throughout his hospital course. GENERAL: A nontoxic-appearing elderly male, breathing easy on facial mask. No respiratory distress . HEENT: Fair dentition. Dry mucous membranes. NECK: Supple. CARDIOVASCULAR: Regular rate with a 2/6 systolic murmur loudest at the left sternal border. ABDOMEN: Soft, nontender. His left groi n with no palpable lymphadenopathy. Nontender. EXTREMITIES: He was moving all 4 extremities equall y. No lower extremity edema. No rashes. He has a fistula left arm with a thrill and bruit present. No erythema. LABORATORY: White count 5.9, hematocrit 20, platelets of 144, 78% neutrophils, 10% lymphocytes. Cre atinine on dialysis 3.7, AST 22, ALT 36, alk phos 69, albumin 2.8, sodium 140. No microbiology. No imaging. ASSESSMENT AND PLAN: This is an 87-year-old male who presents with similar left hip symptoms as prio r Escherichia coli bacteremia and psoas abscess in 2014. Patient received prolonged antibiotic thera py and had imaging that demonstrated resolution of infections; therefore, doubt recurrent infection, but the patient's primary symptom is his left hip pain. Reasonable to obtain repeat blood cultures a nd intraabdominal imaging to completely exclude a recurrent psoas abscess. Patient and family apprec iative of aggressive management to completely exclude recurrent infection. Would continue off antibi otics and await for additional results. /[id number]/MODL
[2017-09-06] MEDS: ALLOPURINOL 300 MG TAB PO SCH (20:04)
[2017-09-06] MEDS: TAMSULOSIN HCL 0.4 MG CAP PO SCH (20:04)
[2017-09-07] MEDS: LATANOPROST 0.005% 2.5 ML OPHT DROPS EACHEYE SCH ×2 (00:49→20:46)
[2017-09-07 04:20] LABS: PLATELET COUNT 140 10^3/uL (150-400)
[2017-09-07] MEDS: CALCIUM CARBONATE 500 MG CHEWABLE TAB PO SCH ×3 (09:34→18:40)
[2017-09-07] MEDS: PANTOPRAZOLE SODIUM 40 MG VIAL IVP SCH (09:34)
[2017-09-07] MEDS: INSULIN LISPRO 100 UNIT/ML SC SCH ×3 (09:34→18:18)
[2017-09-07] MEDS: Umeclidinium Brm/Vilanterol Tr [Anoro Ellipta 62.5-25 Mcg Inh] IH SCH (09:35)
--- NOTE | 2017-09-07 09:39 | SOAPPROG ---
SOAP Progress Note Assessment/Plan: Assessment: 1. Anemia, hemoccult +. Hgb still drifting down. I consulted Dr. Roca with GI. Unfortunately pt just had breakfast. Will make NPO now. May also have pilar resistance related to other issues (RCC). 2. Hypoxemia. No edema but has small effusions on CT scan. UF as tolerated on dialysis. Had mod on echo 02/27. No clinic e/o pneumonia or known COPD. Has multivessel CAD, last cath 2+ yrs ago. Consider repeat echo/stress test 3. Left hip pain. Unclear etiology. CT did not show psoas abscess. Venous dopplers negative but did show L ing node in area of pain. 4. L renal mass. Appears to be recurrence of his RCC. Poor surgical candidate. Can consider whether a laparoscopic approach might be feasible. Plan: 09/07/17 09:41 09/07/17 09:44 09/07/17 09:45 09/07/17 09:47 Subjective: Has mild cough. Hungry. No problems with hip pain today. Has had in left groin in recent days. Had CT scan last night. Recalls he had R NTX ~2012. Denies melena. RN has not seen melena in last day. Objective: Vital Signs Temp Pulse Resp BP Pulse Ox 36.8 C 72 16 101/52 L 94 09/07/17 03:31 09/07/17 03:31 09/07/17 03:31 09/07/17 03:31 09/07/17 03:31 Laboratory Results 09/07/17 03:26 09/06/17 03:34 09/06/17 09/07/17 09/08/17 05:59 05:59 05:59 Intake Total 620 820 Balance 620 820 PT 15.8 SEC (12.0-15.0) H 09/05/17 08:40 INR 1.24 (0.83-1.16) H 09/05/17 08:40 Older male on dialysis, in good spirits Wearing O2 via face mask, 6 L RRR, II/ sys murmur. Decreased breath sounds in bases Abdomen soft, nontender. +splenomegaly and palpable L kidney No edema L hip - no pain with int/ext rotation/flexion ICD10 Worksheet Patient Problems: Problems Problem Status Onset Renal failure syndrome Chronic Osteoarthritis of hip Chronic Anemia Chronic Weakness generalized Acute Hypoxia Acute UTI (urinary tract infection) Acute Pleural effusion Acute Diabetes mellitus Acute Pulmonary edema Acute Chronic renal failure Acute Chronic Disease Mgmt/Transitional Care Acute Anemia Acute Heart failure, diastolic, with acute decompensation Acute End stage renal disease on dialysis Acute Acute and chronic respiratory failure with hypoxia Acute Community acquired pneumonia Acute Hypoxemia Acute Pneumonia Acute
[2017-09-07] MEDS ORDERED: LIDOCAINE 1% *Not for Epidural 20 ML MDV ONE (13:29)
--- NOTE | 2017-09-07 14:16 | HOSPPROG ---
Hospitalist Progress Note Assessment/Plan: Acute on chronic anemia in setting of ESRD - s/p 3 units prbc's for hgb 5.8 on admission. Last dose of Aranesp 09/02. Hgb continues to down-trend with report of black stool last night -GI consulted, NPO at midnight for colonoscopy / EGD in am -cont to trend h&h, transfuse as indicated -cont PPI ESRD - he is at his dry weight, though suspect he may still be a bit volume up -HD per renal, appreciate assistance Acute on chronic hypoxemic respiratory failure - on 2-3 LPM at baseline, 6-8 LPM here. No cough or fever. Clinically, presentation not c/w PNA. New moderate right sided effusion noted on CT (pers reviewed/interp), may be contributory. -discussed diagnostic/therapeutic thoracentesis, pt agrees- send fluid for GS /Cx, light's criteria and cytology -cont volume removal with HD per renal (M,W,F) -consider lexiscan prior to discharge -wean O2 as able CAD - no CP, aim for hgb >8 -stress test prior to d/c as above Left hip pain - +h/o psoas abscess, no e/o abscess on abd CT. No DVT on u/s. 2.7 cm fat replaced lymph node could be source of pain. H/O RCC - left renal mass on CT concerning for recurrence. -Oncology consulted, primary oncologist is Dr. Pinon Gout - cont allopurinol BPH - cont flomax DNR DVT PPLX - defer pharm with low hgb, SCD's Dispo - cont inpt Subjective: Pt continues to feel "fine". Denies CP, SOB or cough. No fevers. Hip pain is reportedly better today. He does not recall further black stools, but RN reported black stool last night. He thinks that started after he began an iron supplement, which he is not currently taking. Objective: Vital Signs Temp Pulse Resp BP Pulse Ox 36.5 C 83 18 97/48 L 88 L 09/07/17 11:43 09/07/17 11:43 09/07/17 11:43 09/07/17 11:43 09/07/17 11:43 Laboratory Results 09/07/17 03:26 09/06/17 03:34 09/06/17 09/07/1718 05:59 05:59 05:59 Intake Total 620 820 300 Balance 620 820 300 PT 15.8 SEC (12.0-15.0) H 09/05/17 08:40 INR 1.24 (0.83-1.16) H 09/05/17 08:40 - Physical Exam Constitutional: no apparent distress Eyes: PERRL Ears, Nose, Mouth, Throat: moist mucous membranes Cardiovascular: regular rate and rhythym Respiratory: no respiratory distress, reduced air movement, other (diminished at bases, R>L) Gastrointestinal: normoactive bowel sounds, soft, non-tender abdomen Skin: warm Musculoskeletal: full muscle strength Neurologic: AAOx3 Psychiatric: interacting appropriately ICD10 Worksheet Patient Problems: Problems Problem Status Onset Acute and chronic respiratory failure with hypoxia Acute Anemia Acute End stage renal disease on dialysis Acute Chronic Disease Mgmt/Transitional Care Acute Chronic renal failure Acute Community acquired pneumonia Acute Diabetes mellitus Acute Heart failure, diastolic, with acute decompensation Acute Hypoxemia Acute Hypoxia Acute Pleural effusion Acute Pneumonia Acute Pulmonary edema Acute UTI (urinary tract infection) Acute Weakness generalized Acute Anemia Chronic Osteoarthritis of hip Chronic Renal failure syndrome Chronic
[2017-09-07] MEDS ORDERED: LIDOCAINE 1% 300 MG/30 ML SDV ONE (15:57)
[2017-09-07 16:32] LABS: INR 1.19 (0.83-1.16); PROTIME(PATIENT) 15.3 SEC (12.0-15.0)
--- NOTE | 2017-09-07 17:24 | GCON ---
[f rep st] CONSULTATION MEDICAL ONCOLOGY CONSULTATION REFERRING PHYSICIAN: Nikki Ramos MD The patient is an 87-year-old male who presents this admission with left hip pain, dark stools, and s hortness of breath. He has had a history of anemia, presumably related to renal failure, for which fazal hernandez is on end-stage dialysis and has been receiving erythropoietin at [facility]. Ho wever, it is noted that he has had declining hemoglobin and hematocrit and an increasing transfusion requirement. On admission, he was noted to have a hemoglobin of 5.8 and some hypoxemia. He was shukla sfused and, in the process of his evaluation, a CT scan of the abdomen and pelvis was obtained which showed mild splenomegaly. Of particular significance were the findings in the left kidney which show ed a lobulated 8.1 x 5.6 cm soft tissue density mass, projecting from the medial inferior left kidney , which measured 3 x 3 cm on a study from 2014. There was an exophytic 3.5 cm structure projecting f rom the superior pole of the left kidney, and there was a 4.7 cm structure projecting from the latera l left kidney, both of which had slightly increased in size since 2015. A chest x-ray showed bilater al pleural effusions, right greater than left. Currently, he is in Radiology getting a right thorace ntesis. Of note, in 2011, he presented with a developing small bowel obstruction, was found to have a solitar y mass in his right kidney which was causing obstruction of the small bowel. He was taken to surgery by Dr. Cee and Dr. Nirav Hernández, with an exploratory laparotomy, radical right nephrectomy, small bowel resection, and omental pedicle flap. He has since been followed without obvious evidence of r ecurrence. PAST MEDICAL HISTORY: Significant for renal cell carcinoma status post nephrectomy, end-stage renal disease, type 2 diabetes, chronic diastolic heart failure, chronic hypoxemic respiratory failure on 2 -3 L/minute of oxygen at home, coronary artery disease, gout, peripheral neuropathy, BPH, glaucoma, c ataract surgery, right total knee replacement, bilateral total hip arthroplasty, left AV fistula, and a cholecystectomy. FAMILY HISTORY: Not obtained at this time. SOCIAL HISTORY: He is . REVIEW OF SYSTEMS: Not obtained at this time. PHYSICAL EXAMINATION: CURRENT VITAL SIGNS: Blood pressure 97/40, O2 saturation 87% on 6 L. He is a febrile. LABORATORY DATA: Today's white count is 6.82, hemoglobin 7.7, hematocrit 23.5, platelets are 140,000 . IMPRESSION: Patient with a previous history of a right renal cell carcinoma and now changes consiste nt with an evolving left renal cell carcinoma. There is no obvious evidence of metastasis, although I think he should probably have a dedicated chest CT scan at some point. I think we need to sort out his issues with gastrointestinal bleeding and hypoxemia. He is probably a high risk surgical candid ate, but it is conceivable that his overall condition might improve. I have asked his urologist Dr. Poli Cee to review his films. We will review the cytology from his thoracentesis, although I note i t has been present intermittently in the past, and I suspect it is related to a benign etiology. I w megganld like to thank Dr. Ramos for the opportunity to see this very pleasant patient in consultation. /[id number]/MODL
[2017-09-07] MEDS: TAMSULOSIN HCL 0.4 MG CAP PO SCH (20:43)
[2017-09-07] MEDS: ALLOPURINOL 300 MG TAB PO SCH (20:43)
[2017-09-08 03:54] LABS: PLATELET COUNT 143 10^3/uL (150-400)
--- NOTE | 2017-09-08 07:57 | PDANEPAE ---
ANE History of Present Illness anemia ANE Past Medical History - Cardiovascular History Hx Hypertension: No Hx Arrhythmias: No Hx Chest Pain: No Hx Coronary Artery / Peripheral Vascular Disease: No Hx CHF / Valvular Disease: Yes Hx Palpitations: No Cardiovascular History Comment: SL HEART MURMUR. CHF IN MAR. W FLUID OVERLOAD, ADM TO HOSP - Pulmonary History Hx COPD: Yes Hx Asthma/Reactive Airway Disease: No Hx Recent Upper Respiratory Infection: No Hx Oxygen in Use at Home: Yes O2 in Use at Home (L/minute): 5 Hx Sleep Apnea: No Sleep Apnea Screening Result - Last Documented: Negative Pulmonary History Comment: LOU TRIGGERS NO DIAGNOSIS. REQUESTED BRING TRAVEL O2 TANK DOS - Neurologic History Hx Cerebrovascular Accident: No Hx Seizures: No Hx Dementia: No Neurologic History Comment: PERIPHERAL NEUROPATHY - Endocrine History Hx Diabetes: Yes Endocrine History Comment: TYPE 2 DM - Renal History Hx Renal Disorders: Yes Renal History Comment: END STAGE RENAL DISEASE ON DIALYSIS. RENAL CA, NEPHRECTOMY R,. LEFT AV FISTULA IN PLACE. - Liver History Hx Hepatic Disorders: No - Neurological & Psychiatric Hx Hx Neurological and Psychiatric Disorders: No - Cancer History Hx Cancer: Yes Cancer History Comment: PROSTATE AND KIDNEY - Congenital Disorder History Hx Congenital Disorders: No - GI History Hx Gastrointestinal Disorders: No - Other Health History Other Health History: GLAUCOMA OU. PERIPHERAL NEUROPATHY. ANEMIA. GOUT OCC. DENTURES FULL SET - Chronic Pain History Chronic Pain: No - Surgical History Prior Surgeries: DRAIN PLACEMENT 08/25, EGD/COLONOSCOPY 07/28, left av fistula placement 03/26/[address] ryder. BOWEL RESECTION WITH RT RADICAL NEPHRECTOMY 05/2012. LT HIP REPLACEMENT 10/2010. MARIA ESTHER. PROSTATECTOMY. BLANCA CATARACT. RT TOTAL KNEE. TONSILLECTOMY. R KAREN 03-05-14 ANE Review of Systems Review of Systems: ANE Patient History - Allergies Allergies/Adverse Reactions: pseudoephedrine Allergy (Unknown, Verified 04/22/17 16:50) Swelling sudafed Allergy (Uncoded 04/22/17 16:50) - Home Medications Home Medications: Latanoprost 0.005% [Xalatan 0.005% (*)] 1 drop EACHEYE HS 01/25/14 [Last Taken 09/04/17] Multivitamins [Multivitamin (*)] 1 each PO DAILY 01/25/14 [Last Taken 09/04/17] Herbals/Supplements -Info Only 1 ea PO DAILY 05/27/16 [Last Taken 08/10/17 21:00 ] Calcium Carbonate [Tums 500MG (*)] 1,000 mg PO TIDMEAL 02/21/17 [Last Taken 18:00] predniSONE 10 mg PO DAILY PRN 08/11/17 [Last Taken Unknown] Allopurinol [Allopurinol 300 MG (RX)] 150 mg PO HS 09/05/17 [Last Taken 09/04/17 ] Tamsulosin HCl [Flomax 0.4 MG (*)] 0.4 mg PO HS 09/05/17 [Last Taken 09/04/17] Umeclidinium Brm/Vilanterol Tr [Anoro Ellipta 62.5-25 Mcg INH] 1 each IH DAILY10 09/05/17 [Last Taken 09/04/17] - NPO status NPO Since - Liquids (Date): 09/08/17 NPO Since - Liquids (Time): 00:00 NPO Since - Solids (Date): 09/08/17 NPO Since - Solids (Time): 00:00 - Smoking Hx Smoking Status: Former smoker - Family Anes Hx Family Hx Anesthesia Complications: NONE ANE Labs/Vital Signs - Labs Result Diagrams: 09/08/17 03:35 09/08/17 03:35 - Vital Signs Blood Pressure: 143/54 Heart Rate: 73 Respiratory Rate: 20 O2 Sat (%): 92 Height: 175.26 cm Weight: 74.9 kg ANE Physical Exam - Airway Neck exam: FROM Mallampati Score: Class 2 Mouth exam: dentures - Pulmonary Pulmonary: reduced air movement, inspiratory crackles - Cardiovascular Cardiovascular: systolic murmur - ASA Status ASA Status: IV ANE Anesthesia Plan Anesthesia Plan: MAC Total IV Anesthesia: Yes
[2017-09-08] MEDS ORDERED: NS 1,000 ML IV ONE (08:05)
[2017-09-08] MEDS ORDERED: PROPOFOL 200 MG/20 ML VIAL ONE (08:08)
[2017-09-08] MEDS ORDERED: NALOXONE HCL 0.4 MG/ML INJ IVP PRN (08:11)
--- NOTE | 2017-09-08 08:37 | POSTANESTH ---
Post Anesthetic Evaluation Cardiovascular Status: Normal, Stable Respiratory Status: Normal, Stable Level of Consciousness/Mental Status: Can Participate in Eval Pain Control: Adequate, Prn Tx Ordered Nausea/Vomiting Control: Adequate, Prn Tx Ordered Complications Possibly Related to Anesthesia: None Noted
[2017-09-08] MEDS: INSULIN LISPRO 100 UNIT/ML SC SCH ×3 (10:00→18:32)
--- NOTE | 2017-09-08 10:22 | SOAPPROG ---
SOAP Progress Note Assessment/Plan: Assessment: 1. Anemia, hemoccult +. Hgb stable from yesterday. s/p EGD with clipping of AVMs. May also have pilar resistance related to other issues (RCC). Give extra dose of procrit today. Can transfuse again on HD tomorrow if hgb drops < 7.5. 2. Hypoxemia. s/p thoracentesis. Looks transudative. UF as tolerated on dialysis. Had mod on echo 02/27. No clinic e/o pneumonia or known COPD. Has multivessel CAD, last cath 2+ yrs ago. Consider repeat echo/stress test. Confer with GI on when OK to resume ASA. 3. Left hip pain. Unclear etiology. CT did not show psoas abscess. Venous dopplers negative but did show L ing node in area of pain. No complaints of this today. 4. L renal mass. Appears to be recurrence of his RCC. Poor surgical candidate. Dr. Morrison's note reviewed. Dr. Cee to review films. Can consider whether a laparoscopic approach might be feasible when more stable. 5. ESRD. HD tomorrow per [facility] schedule. Plan: 09/07/17 09:41 09/07/17 09:44 09/07/17 09:45 09/07/17 09:47 09/08/17 10:18 Subjective: Had 600+ cc R thoracentesis yesterday, breathing improved. Had dialysis with 2 L fluid removal. Had EGD this am. Reportedly had 4 AVMs that were clipped. Denies melena. Hungry. Objective: Vital Signs Temp Pulse Resp BP Pulse Ox 36.6 C 73 36 H 109/43 L 96 09/08/17 09:26 09/08/17 07:57 09/08/17 08:33 09/08/17 08:31 09/08/17 08:33 Microbiology 09/07/17 15:43 Gram Stain - Final Thoracic Fluid - Aspirate Laboratory Results 09/08/17 03:35 09/08/17 03:35 09/07/17 09/08/17 09/09/17 05:59 05:59 05:59 Intake Total 820 890 135 Output Total 2660 0 Balance 820 -1770 135 PT 15.3 SEC (12.0-15.0) H 09/07/17 16:02 INR 1.19 (0.83-1.16) H 09/07/17 16:02 Sitting in bed RRR, II/ sys murmur, no g/r Decr breath sounds with crackles in R base, clear on L Abdom nondistended No edema ICD10 Worksheet Patient Problems: Problems Problem Status Onset Renal failure syndrome Chronic Osteoarthritis of hip Chronic Anemia Chronic Weakness generalized Acute Hypoxia Acute UTI (urinary tract infection) Acute Pleural effusion Acute Diabetes mellitus Acute Pulmonary edema Acute Chronic renal failure Acute Chronic Disease Mgmt/Transitional Care Acute Anemia Acute Heart failure, diastolic, with acute decompensation Acute End stage renal disease on dialysis Acute Acute and chronic respiratory failure with hypoxia Acute Community acquired pneumonia Acute Hypoxemia Acute Pneumonia Acute
[2017-09-08] MEDS: CALCIUM CARBONATE 500 MG CHEWABLE TAB PO SCH ×3 (10:25→18:31)
[2017-09-08] MEDS: Umeclidinium Brm/Vilanterol Tr [Anoro Ellipta 62.5-25 Mcg Inh] IH SCH (10:26)
[2017-09-08] MEDS: PANTOPRAZOLE SODIUM 40 MG VIAL IVP SCH (10:26)
--- NOTE | 2017-09-08 10:42 | GCON ---
[f rep st] CONSULTATION GASTROINTESTINAL CONSULTATION. DATE OF CONSULTATION: 09/07/2017 REFERRING PHYSICIAN: Guy Abraham MD REASON FOR CONSULTATION: Acute on chronic anemia with heme-positive stool. HISTORY OF PRESENT ILLNESS: The patient is an 87-year-old male with multiple medical problems includ ing renal failure on dialysis, hypoxic respiratory failure on chronic O2 at home, diastolic congestiv e heart failure, atherosclerotic cardiovascular disease, status post right nephrectomy for hepatocell ular carcinoma, and type 2 diabetes mellitus, who was admitted to the hospital on 09/05/2017, with in creasing fatigue, shortness of breath, history of a dark stool, and Hemoccult-positive stool with pro found anemia on admission. He did chronically run hemoglobins of mid 7s, though was admitted with a h emoglobin of 5.8. Does have history of He has no prior history of EGD or peptic ulcer disease. He smalls s denied any heartburn or indigestion. He does have a history of a normal colonoscopy 2 years ago. He was admitted for increasing shortness of breath and anemia. HOME MEDICATIONS: Included Xalatan 0.005%, 1 drop each eye at night; calcium carbonate 1 g p.o. t.i. d. with meals; allopurinol 150 mg p.o. at bedtime; prednisone 10 mg p.o. daily; Flomax 0.4 mg p.o. at bedtime. ALLERGIES: Pseudoephedrine which causes swelling. PAST MEDICAL HISTORY: 1. End-stage renal failure, on hemodialysis on Tuesday, Tuesday, and Fridays. 2. Type 2 diabetes mellitus, status post right nephrectomy for renal cell carcinoma. 3. Chronic diastolic congestive heart failure. 4. Chronic hypoxic respiratory failure, on 2-3 L/minute nasal cannula. 5. Atherosclerotic cardiovascular disease. 6. Gout. 7. Peripheral vascular disease. 8. Right total knee replacement. 9. Bilateral total hip replacements. 10. Left AV fistula. 11. Cholecystectomy. 12. History of ventral hernia. FAMILY HISTORY: Negative for peptic ulcer disease or GI malignancies. SOCIAL HISTORY: He is . He and his live in [facility]. He denies any tobacco or alco hol use. REVIEW OF SYSTEMS: Other than complaints of fatigue and shortness of breath, was negative for compre hensive review of systems. PHYSICAL EXAMINATION: VITAL SIGNS: On my examination today, temperature was 36.5 Celsius, pulse 64 r egular, blood pressure 97/48, respiratory rate was 18, O2 saturation 88% on 6 L per nasal cannula. GE NERAL: A well-developed, well-nourished male in no apparent distress. INTEGUMENT: Clear. HEENT: Head: Atraumatic, normocephalic. Pupils equal, round, reactive to light. EOMs intact. Sclerae nonicteric. Nares patent. Mucous membranes moist. Dentition fair. NECK: Supple. Trachea midline. LYMPHATICS: No c ervical or axillary adenopathy palpated. PULMONARY: Lungs were clear to percussion and auscultation. CARDIOVASCULAR: Regular rhythm rate. Grade 2/6 to 3/6 holosystolic ejection murmur. Peripheral pulses decreased bilaterally. GASTROINTESTINAL: Abdomen is slightly distended. Reducible ventral hernia. No liver or spleen tip palpable. No masses or tenderness noted. No fluid wave noted. EXTREMITIES: Witho ut deformity. NEURO: Patient was alert, oriented x3. No focal neurologic deficits. LABS: Hemoglobin on admission 6.6, hemoglobin today 9.2, hematocrit today 27.5, white count 6.82, pl atelets 140,000, ProTime 15.3, INR 1.19, PTT 34.8, glucose 121, albumin 3.3. Abdominal CT scan revealed exophytic mass in the left kidney, suspicious for renal cell carcinoma, mo derate right and trace left pleural effusion, coronary atherosclerosis, surgically absent gallbladder , mild splenomegaly, extensive colon diverticulosis without diverticulitis, ventral supraumbilical he rnia without evidence of obstruction, moderate atherosclerotic changes of the aorta, moderate degener ative joint disease of the spine, and bladder distention and bladder wall thickening. IMPRESSION: 1. Acute on chronic anemia with Hemoccult-positive stool, rule out upper gastrointestinal source of bleeding (colonoscopy 2 years ago showed diverticulosis, albeit history is not consistent with a dive rticular bleed). 2. End-stage renal disease, on hemodialysis. 3. Chronic hypoxemic respiratory failure on chronic O2 at home. 4. Atherosclerotic cardiovascular disease; stable. 5. Type 2 diabetes mellitus. 6. Gout. 7. Ventral hernia. 8. Diverticulosis. RECOMMENDATIONS: 1. N.p.o. after midnight. 2. Esophagogastroduodenoscopy in a.m. with propofol anesthesia due to the patient's high risk for co nscious sedation (the patient is an ASA 4). /[id number]/MODL
--- NOTE | 2017-09-08 13:12 | GPROG ---
[f rep st] PROGRESS NOTE The patient is in his room, alert, on oxygen. Stool hemoccults are positive and he is status post an EGD, and I believe a colonoscopy; we are awaiting results. His left hip pain has resolved. We discussed the findings on his CT scan and my concern regarding a new primary involving the left kidney. I have discussed the case with Dr. Poli Cee, who will review his films. He is certainly not a good surgical candidate at this time, and I think he would probably decline surgery. He has had a right thoracentesis of 660 mL. We will review the fluid chemistries and cytology when available. /[id number]/MODL MTDD
--- NOTE | 2017-09-08 15:10 | HOSPPROG ---
Hospitalist Progress Note Assessment/Plan: 87 yo M with hx of ESRD, chronic resp failure with baseline 2-3L o2, d CHF, pw weakness and dark stools as well as worsening anemia. # Acute on chronic anemia in setting of ESRD - s/p 3 units prbc's for hgb 5.8 on admission. HGb continued to trend down, heme + stools, likely due to acute blood loss anemia as next # acute blood loss anemia: with continued decrease in h/h and + hemoccult, s/p EGD this am with reported finding (report not yet available) of AVMs s/p banding # ESRD - reviewed with renal, will continue current HD schedule # Acute on chronic hypoxemic respiratory failure - on 2-3 LPM at baseline, 5-8 LPM here. No cough or fever. Possibly volume related as well as new moderate right sided effusion noted on personal review of CT. Sp thoracentesis which appears transudative, cx/cytology pending. Continue HD for volume management. # enlarging renal mass: with hx of RCC and concerning for increased mass. Oncology involved and will d/w urology though patient likely poor surgical candidate. # RCC: as above # CAD - no CP, aim for hgb >8 # Left hip pain - resolved, +h/o psoas abscess, no e/o abscess on abd CT. No DVT on u/s. 2.7 cm fat replaced lymph node could be source of pain. Gout - cont allopurinol BPH - cont flomax DNR DVT PPLX - SCDs given acute bleed Subjective: no significant overnight events, patient feels much better, he is eager for discharge home Objective: Vital Signs Temp Pulse Resp BP Pulse Ox 36.7 C 77 18 143/76 H 93 09/08/17 11:07 09/08/17 11:07 09/08/17 11:07 09/08/17 11:07 09/08/17 11:07 Microbiology 09/07/17 15:43 Gram Stain - Final Thoracic Fluid - Aspirate Laboratory Results 09/08/17 03:35 09/08/17 03:35 09/07/17 09/08/17 09/09/17 05:59 05:59 05:59 Intake Total 820 890 135 Output Total 2660 0 Balance 820 -1770 135 PT 15.3 SEC (12.0-15.0) H 03/28/18 16:02 INR 1.19 (0.83-1.16) H 09/07/17 16:02 awake alert nad anicteric op clear rrr cta with dec bs at bases soft nt nd +fistula with thrill trace ble edema oriented appropriate - Time Spent With Patient Time Spent with Patient: greater than 35 minutes Time Spent with Patient: Greater than 35 minutes spent on this patients care, greater than 50% of time spent counseling, educating, and coordinating care regarding the above mentioned plan. ICD10 Worksheet Patient Problems: Problems Problem Status Onset Renal failure syndrome Chronic Osteoarthritis of hip Chronic Anemia Chronic Weakness generalized Acute Hypoxia Acute UTI (urinary tract infection) Acute Pleural effusion Acute Diabetes mellitus Acute Pulmonary edema Acute Chronic renal failure Acute Chronic Disease Mgmt/Transitional Care Acute Anemia Acute Heart failure, diastolic, with acute decompensation Acute End stage renal disease on dialysis Acute Acute and chronic respiratory failure with hypoxia Acute Community acquired pneumonia Acute Hypoxemia Acute Pneumonia Acute
--- NOTE | 2017-09-08 15:46 | SOAPPROG ---
SOAP Progress Note Assessment/Plan: Assessment: Renal mass, left Acute Reviewed CAT scan, hx and overall condition and will consider rx if over all health improves yet doubtful rx is needed at this time Plan: follow peripherally and if overall condition improves would be happy to discuss rx yet doubt needed in this pt at this time 09/08/17 15:43 Subjective: stable Objective: Vital Signs Temp Pulse Resp BP Pulse Ox 36.4 C 72 18 122/59 H 97 09/08/17 15:08 09/08/17 15:08 09/08/17 15:08 09/08/17 15:08 09/08/17 15:08 Microbiology 09/07/17 15:43 Gram Stain - Final Thoracic Fluid - Aspirate Laboratory Results 09/08/17 03:35 09/08/17 03:35 09/07/17 09/08/17 09/09/17 05:59 05:59 05:59 Intake Total 820 890 135 Output Total 2660 0 Balance 820 -1770 135 PT 15.3 SEC (12.0-15.0) H 09/07/17 16:02 INR 1.19 (0.83-1.16) H 09/07/17 16:02 Physical Exam - Physical Exam General Appearance: other (involved with other providers) ICD10 Worksheet Patient Problems: Problems Problem Status Onset Acute and chronic respiratory failure with hypoxia Acute Anemia Acute End stage renal disease on dialysis Acute Renal mass, left Acute Chronic Disease Mgmt/Transitional Care Acute Chronic renal failure Acute Community acquired pneumonia Acute Diabetes mellitus Acute Heart failure, diastolic, with acute decompensation Acute Hypoxemia Acute Hypoxia Acute Pleural effusion Acute Pneumonia Acute Pulmonary edema Acute UTI (urinary tract infection) Acute Weakness generalized Acute Anemia Chronic Osteoarthritis of hip Chronic Renal failure syndrome Chronic - ICD10 Problem Qualifiers (1) Renal mass, left
[2017-09-08] MEDS: ALLOPURINOL 300 MG TAB PO SCH (21:00)
[2017-09-08] MEDS: TAMSULOSIN HCL 0.4 MG CAP PO SCH (21:01)
[2017-09-08] MEDS: LATANOPROST 0.005% 2.5 ML OPHT DROPS EACHEYE SCH (21:48)
[2017-09-09 04:17] LABS: PLATELET COUNT 124 10^3/uL (150-400)
[2017-09-09] MEDS: PANTOPRAZOLE SODIUM 40 MG TAB PO SCH (08:42)
[2017-09-09] MEDS: CALCIUM CARBONATE 500 MG CHEWABLE TAB PO SCH ×3 (08:42→17:20)
--- NOTE | 2017-09-09 10:32 | SOAPPROG ---
SOAP Progress Note Assessment/Plan: Assessment/Plan: ESRD: on HD MWF. - Pt seen on HD today. - Will plan for next HD on Tuesday per routine. Anemia: in setting of GI bleed. Pt s/p EGD with AVMs clipped. Hgb 7.2 today. Noted that he may have more epo resistance. - Will transfuse today on HD. - Will also give additional dose of epo today. - Will continue to monitor. CURLY: Phos at goal with calcium acetate with meals, will continue to monitor. L renal mass: pt h h/o RCC and now has a mass concerning for L sided RCC. Pt states he is not interested in further surgery. Appreciate involvement of oncology as well as urology. Subjective: No acute events overnight. Pt states that he is feeling well, no dyspnea, no chest pain, no dizziness. He is on HD this am and tolerating fine. Objective: Vital Signs Temp Pulse Resp BP Pulse Ox 36.8 C 76 20 102/51 L 89 L 09/09/17 03:34 09/09/17 03:34 09/09/17 03:34 09/09/17 03:34 09/09/17 03:34 Microbiology 09/07/17 15:43 Gram Stain - Final Thoracic Fluid - Aspirate Laboratory Results 09/09/17 03:33 09/09/17 03:33 09/08/17 09/09/17 09/10/17 05:59 05:59 05:59 Intake Total 890 685 Output Total 2660 0 Balance -1770 685 PT 15.3 SEC (12.0-15.0) H 09/07/17 16:02 INR 1.19 (0.83-1.16) H 09/07/17 16:02 General: alert and oriented, no acute distress Eyes: EOMI, PERRL OP: Clear CV: RRR Resp: nonlabored respirations on NC Abd: Soft, NT/ND Ext: +1 edema BLE Neuro: CN II-XII grossly intact, no asterixis Psych: cooperative, appropriate mood and affect Access: LUE AVF cannulated ICD10 Worksheet Patient Problems: Problems Problem Status Onset Acute and chronic respiratory failure with hypoxia Acute Anemia Acute End stage renal disease on dialysis Acute Renal mass, left Acute Chronic Disease Mgmt/Transitional Care Acute Chronic renal failure Acute Community acquired pneumonia Acute Diabetes mellitus Acute Heart failure, diastolic, with acute decompensation Acute Hypoxemia Acute Hypoxia Acute Pleural effusion Acute Pneumonia Acute Pulmonary edema Acute UTI (urinary tract infection) Acute Weakness generalized Acute Anemia Chronic Osteoarthritis of hip Chronic Renal failure syndrome Chronic
[2017-09-09] MEDS ORDERED: EPOETIN ALFA 10,000 UNIT/ML VIAL SC SCH (10:45)
[2017-09-09] MEDS ORDERED: LIDOCAINE 1% *Not for Epidural 20 ML MDV ONE (12:00)
[2017-09-09] MEDS: Umeclidinium Brm/Vilanterol Tr [Anoro Ellipta 62.5-25 Mcg Inh] IH SCH (12:13)
--- NOTE | 2017-09-09 13:12 | ASMTCMCOM ---
CM Note CM Note Notes: Palliative consulted on pt on 09/07/17. Pt and family are not interested in palliative at this time. Pt most likely continue w/ [facility] when medically stable to d/c. CM updated [facility]. CM to follow. Plan: [facility], PT, OT Date Signed: 09/09/2017 01:11 PM Electronically Signed By:MARCELLA Mata
--- NOTE | 2017-09-09 13:21 | SOAPPROG ---
SOAP Progress Note Assessment/Plan: Assessment: 1. 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 2. ERSD. Plan: 1. Renal diet. 2. I will sign off today. Pelon Roca MD 09/09/17 13:18 Subjective: CC: GI bleed with anemia. Interval HPI: EEGD yesterday showed three medium size friable AVM's which I clipped. No melena, tolerating po diet. Objective: Vital Signs Temp Pulse Resp BP Pulse Ox 36.8 C 74 20 102/51 L 88 L 09/09/17 03:34 09/09/17 12:10 09/09/17 12:10 09/09/17 03:34 09/09/17 12:10 Microbiology 09/07/17 15:43 Gram Stain - Final Thoracic Fluid - Aspirate Laboratory Results 09/09/17 03:33 09/09/17 03:33 09/08/17 09/09/17 09/10/17 05:59 05:59 05:59 Intake Total 890 685 Output Total 2660 0 Balance -1770 685 PT 15.3 SEC (12.0-15.0) H 09/07/17 16:02 INR 1.19 (0.83-1.16) H 09/07/17 16:02 Physical Exam - Physical Exam General Appearance: WD/WN, alert, no apparent distress Respiratory: chest non-tender, lungs clear Cardiac/Chest: regular rate, rhythm Abdomen: normal bowel sounds, non-tender, soft Neuro/Psych: alert, normal mood/affect, oriented x 3 ICD10 Worksheet Patient Problems: Problems Problem Status Onset Acute and chronic respiratory failure with hypoxia Acute Anemia Acute End stage renal disease on dialysis Acute Renal mass, left Acute Chronic Disease Mgmt/Transitional Care Acute Chronic renal failure Acute Community acquired pneumonia Acute Diabetes mellitus Acute Heart failure, diastolic, with acute decompensation Acute Hypoxemia Acute Hypoxia Acute Pleural effusion Acute Pneumonia Acute Pulmonary edema Acute UTI (urinary tract infection) Acute Weakness generalized Acute Anemia Chronic Osteoarthritis of hip Chronic Renal failure syndrome Chronic
--- NOTE | 2017-09-09 14:34 | HOSPPROG ---
Hospitalist Progress Note Assessment/Plan: 87 yo M with hx of ESRD, chronic resp failure with baseline 2-3L o2, d CHF, pw weakness and dark stools as well as worsening anemia. # Acute blood loss anemia on chronic anemia in setting of ESRD and upper GI bleed- s/p 3 units prbc's for hgb 5.8 on admission. Trended down again overnight , transfusing another 2 units today # Upper GI bleed: with continued decrease in h/h and + hemoccult, s/p EGD this am with reported finding (report not yet available) of AVMs s/p banding, as above # ESRD - reviewed with renal, will continue current HD schedule--sp HD today, next round planned for Tuesday # Acute on chronic hypoxemic respiratory failure - on 2-3 LPM at baseline, but continues to require 5L here to maintain o2 sats in high 80s. Possibly volume related as well as new moderate right sided effusion noted on personal review of CT. Sp thoracentesis which appears transudative. Continue HD for volume management. # enlarging renal mass: with hx of RCC and concerning for increased mass. Oncology and urology involved, likely will not go for surgical intervention # RCC: as above # CAD - no CP, aim for hgb >8 # Left hip pain - resolved, +h/o psoas abscess, no e/o abscess on abd CT. No DVT on u/s. #Gout - cont allopurinol # BPH - cont flomax DNR DVT PPLX - SCDs given acute bleed Subjective: no significant overnight events, patient eager to be discharged and states he feels well, has gotten 1/2 units of blood planned for today Objective: Vital Signs Temp Pulse Resp BP Pulse Ox 36.4 C 79 15 126/61 H 88 L 09/09/17 14:07 09/09/17 14:07 09/09/17 14:07 09/09/17 14:07 09/09/17 14:07 Microbiology 09/07/17 15:43 Gram Stain - Final Thoracic Fluid - Aspirate Laboratory Results 09/09/17 03:33 09/09/17 03:33 09/08/17 09/09/17 09/10/17 05:59 05:59 05:59 Intake Total 890 685 Output Total 2660 0 Balance -1770 685 PT 15.3 SEC (12.0-15.0) H 09/07/17 16:02 INR 1.19 (0.83-1.16) H 09/07/17 16:02 awake alert nad anicteric op clear rrr cta with dec bs at bases soft nt nd +fistula with thrill trace ble edema oriented appropriate - Time Spent With Patient Time Spent with Patient: greater than 35 minutes Time Spent with Patient: Greater than 35 minutes spent on this patients care, greater than 50% of time spent counseling, educating, and coordinating care regarding the above mentioned plan. ICD10 Worksheet Patient Problems: Problems Problem Status Onset Acute and chronic respiratory failure with hypoxia Acute Anemia Acute End stage renal disease on dialysis Acute Renal mass, left Acute Chronic Disease Mgmt/Transitional Care Acute Chronic renal failure Acute Community acquired pneumonia Acute Diabetes mellitus Acute Heart failure, diastolic, with acute decompensation Acute Hypoxemia Acute Hypoxia Acute Pleural effusion Acute Pneumonia Acute Pulmonary edema Acute UTI (urinary tract infection) Acute Weakness generalized Acute Anemia Chronic Osteoarthritis of hip Chronic Renal failure syndrome Chronic
[2017-09-09] MEDS: TAMSULOSIN HCL 0.4 MG CAP PO SCH (20:23)
[2017-09-09] MEDS: ALLOPURINOL 300 MG TAB PO SCH (20:23)
[2017-09-09] MEDS: LATANOPROST 0.005% 2.5 ML OPHT DROPS EACHEYE SCH (20:23)
[2017-09-10 05:54] LABS: PLATELET COUNT 111 10^3/uL (150-400)
[2017-09-10 07:36] VITALS: BP 136/76
[2017-09-10] MEDS: CALCIUM CARBONATE 500 MG CHEWABLE TAB PO SCH (08:19)
[2017-09-10] MEDS: PANTOPRAZOLE SODIUM 40 MG TAB PO SCH (08:19)
[2017-09-10] MEDS: Umeclidinium Brm/Vilanterol Tr [Anoro Ellipta 62.5-25 Mcg Inh] IH SCH (08:58)
--- NOTE | 2017-09-10 16:18 | ASDISCHSUM ---
Discharge Information Plan Status:Home with Home Health Medically Cleared to Leave: Discharge Date:09/10/2017 11:31 AM CM D/C Disposition:Home Health Service ADT D/C Disposition:Home Health Service Projected Discharge Date:09/10/2017 11:00 AM Transportation at D/C:Family Discharge Delay Reason: Follow-Up Date:09/10/2017 11:00 AM Discharge Slot: Final Diagnosis: Placement Information Referral Type:*Home Health Care Services Referral ID:[id number] Provider Name:[facility] [address] Address 2: City:[place] Selection Factors: State:[place] Patient Contact Information Contact Name:ES Relationship: Address:[address] Work Phone: [facility]:[place] Alternate Phone: [facility]/Zip Code:[place] [address] Email: Financial Information Financial Class:Medicare Primary Plan Desc:MEDICARE INPATIENT Primary Plan Number:[id number] Secondary Plan Desc:[facility] Secondary Plan Number:[id number] Assessment Information [facility] CM Progress Note CM Note CM Note Notes: Patient admitted for fatigue, SOB, dark stool, and L groin pain. He has a fairly extensive PMH including ESRD for which he is on a MWF schedule at the [facility] with Dr Granado. We received a call from patient's home health agency, [facility], who recommended a palliative care consult. This has been ordered. Patient lives with his . Case Management will follow. Date Signed: 09/06/2017 03:00 PM Electronically Signed By:Virgie Silver RN [facility] CM Progress Note CM Note CM Note Notes: Palliative consulted on pt on 09/07/17. Pt and family are not interested in palliative at this time. Pt most likely continue w/ [facility] when medically stable to d/c. CM updated [facility]. CM to follow. Plan: [facility], PT, OT Date Signed: 09/09/2017 01:11 PM Electronically Signed By:MARCELLA Mata Case Management Discharge Plan Note Case Management Discharge Discharge Order Complete? Answers: Yes Patient to Obtain Answers: via Family Medications Transportation Arranged Answers: Family/Friends Discharge Comments Notes: Pt. d/c'ed today resuming his [facility] care - RN, PT, OT. Pt. to also resume dialysis [facility] met w/ Pt. in room. He will work w/ [facility] on scheduling his next visit. Date Signed: 09/10/2017 04:16 PM Electronically Signed By:Monalisa Nielson LCSW Intervention Information
--- NOTE | 2017-09-12 09:58 | PDDCSUM ---
Discharge Summary Discharge Summary: DAtes of service 09/05-09/09/17 Consultations: GI, oncology, urology Procedures: EGD, HD, abd CT, thoracentesis 87 yo M with hx of ESRD, chronic resp failure with baseline 2-3L o2, d CHF, pw weakness and dark stools as well as worsening anemia. # Acute blood loss anemia on chronic anemia in setting of ESRD and upper GI bleed- s/p 3 units prbc's for hgb 5.8 on admission. Trended down again overnight , transfusing another 2 units today # Upper GI bleed: with continued decrease in h/h and + hemoccult, s/p EGD this am with reported finding (report not yet available) of AVMs s/p banding, as above # ESRD - reviewed with renal, will continue current HD schedule--sp HD today, next round planned for Tuesday # Acute on chronic hypoxemic respiratory failure - on 2-3 LPM at baseline, but continues to require 5L here to maintain o2 sats in high 80s. Possibly volume related as well as new moderate right sided effusion noted on personal review of CT. Sp thoracentesis which appears transudative. Continue HD for volume management. # enlarging renal mass: with hx of RCC and concerning for increased mass. Oncology and urology involved, likely will not go for surgical intervention # RCC: as above # CAD - no CP, aim for hgb >8 # Left hip pain - resolved, +h/o psoas abscess, no e/o abscess on abd CT. No DVT on u/s. #Gout - cont allopurinol # BPH - cont flomax DC home with home health f/u with PCP, oncology, urology Items for follow up: monitoring h/h (remained low at time of dc) -ongoing management of ESRD -final decision regarding management of enlarging renal mass > 35 min spent in dc more than half in coordination of care
--- NOTE | 2017-09-12 09:59 | PDIAF ---
- Diagnosis Code Status: Do Not Resuscitate - Medication Management Discharge Medications: Medications to Continue on Transfer Latanoprost 0.005% [Xalatan 0.005% (*)] 1 drop EACHEYE HS 01/25/14 [Last Taken 09/04/17] Multivitamins [Multivitamin (*)] 1 each PO DAILY 01/25/14 [Last Taken 09/04/17] Herbals/Supplements -Info Only 1 ea PO DAILY 05/27/16 [Last Taken 08/10/17 21:00 ] Calcium Carbonate [Tums 500MG (*)] 1,000 mg PO TIDMEAL 02/21/17 [Last Taken 18:00] Acetaminophen [Tylenol 325mg (*)] 650 mg PO Q4HRS PRN tab 05/08/17 [Last Taken 09/05/17 03:00] Allopurinol [Allopurinol 300 MG (RX)] 150 mg PO HS 09/05/17 [Last Taken 09/04/17 ] Tamsulosin HCl [Flomax 0.4 MG (*)] 0.4 mg PO HS 09/05/17 [Last Taken 09/04/17] Umeclidinium Brm/Vilanterol Tr [Anoro Ellipta 62.5-25 Mcg INH] 1 each IH DAILY10 09/05/17 [Last Taken 09/04/17] Epoetin Steven [Procrit 56743 UNIT/ML (*)] 10,000 unit SC Q7D vial 09/10/17 [ Last Taken Unknown] Discharge Medications: Refer to the Discharge Home Medication list for PRN reason. - Orders Services needed: Home Care, Registered Nurse, Physical Therapy, Occupational Therapy Home Care Face to Face: I certify that this patient was under my care and that I had the required [id number] encounter meeting the encounter requirements on the discharge day. My findings support the fact that the patient is homebound as defined in Home Care Face to Face Continued: CMS Chapter 7 Medicare Benefits Manual 30.1.1 , The condition of the patient is such that there exists a normal inability to leave home and consequently, leaving home would require a considerable and taxing effort. Isolation Type: None Diet Recommendation: sodium restricted, potassium restricted - Follow Up Care Current Providers and Referrals: Christiano Hdz [Primary Care Provider] - As per Instructions
--- NOTE | 2017-09-20 08:47 | GIREPORT ---
Formerly [facility], [facility] Surgical Services - Endoscopy Department Patient Name: LIBAN BORREGO Procedure Date: 09/08/2017 7:21 AM Patient Type: Inpatient Attending MD/ ER Physician: Pelon Roca MD Procedure: Upper GI endoscopy Indications: Acute post hemorrhagic anemia, Melena Providers: Pelon Roca MD Medicines: Monitored Anesthesia Care Complications: No immediate complications. Description of Procedure: After obtaining informed consent, the endoscope was passed under direct vision. Throughout the procedure, the patient's blood pressure, pulse, and oxygen saturations were monitored continuously. The Endoscope was intro duced through the mouth, and advanced to the third part of duodenum. The uppe r GI endoscopy was accomplished without difficulty. The patient tolerated th e procedure well. Findings: The examined esophagus was normal. A small hiatal hernia was present. 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 For hemostasis, fi ve hemostatic clips were successfully placed; two clips on each of two AVM 's and one clip on the other AVM. There was no bleeding during, (however t wo AVM's bleed briskly with application of first clips), or at the end, of the procedure. The examined duodenum was normal. Estimated Blood Loss: Estimated blood loss: none. Post Op Diagnosis: - Normal esophagus. - Small hiatal hernia. 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 Clips were placed for obliteration. - Normal examined duodenum. - No specimens collected. Recommendation: - Return patient to [facility] for [facility] care. - Resume previous diet today. Attending Participation: I personally performed the entire procedure. Pelon Roca MD Pelon Roca MD 09/08/2017 8:37:28 AM This report has been signed electronicallyPelon Roca MD Number of Addenda: 0 Note Initiated On: 09/08/2017 7:21 AM [email or web address]
== END 2017-09-10 11:31 | disposition home health service (06) | DRG 377 ==
LOC: F2W 10:43
PROVIDERS: ADMIT Hospitalist; ATTEND Internal Medicine
PROC: 30233N1 Transfusion of Nonautologous Red Blood Cells into Peripheral Vein, Percutaneous Approach (ICD-10-PCS; principal; 2017-09-05)
PROC: 0W993ZZ Drainage of Right Pleural Cavity, Percutaneous Approach (ICD-10-PCS; 2017-09-07)
PROC: 0W3P8ZZ Control Bleeding in Gastrointestinal Tract, Via Natural or Artificial Opening Endoscopic (ICD-10-PCS; 2017-09-08)
PROC: 5A1D70Z Performance of Urinary Filtration, Intermittent, Less than 6 Hours Per Day (ICD-10-PCS; 2017-09-08)
DX: K31.811 Angiodysplasia of stomach and duodenum with bleeding (principal); D62 Acute posthemorrhagic anemia; N18.6 End stage renal disease; J96.21 Acute and chronic respiratory failure with hypoxia; I50.30 Unspecified diastolic (congestive) heart failure; J90 Pleural effusion, not elsewhere classified; D63.1 Anemia in chronic kidney disease; E11.22 Type 2 diabetes mellitus with diabetic chronic kidney disease; N28.89 Other specified disorders of kidney and ureter; I25.10 Atherosclerotic heart disease of native coronary artery without angina pectoris; M25.552 Pain in left hip; M10.9 Gout, unspecified; N40.0 Benign prostatic hyperplasia without lower urinary tract symptoms; Z99.2 Dependence on renal dialysis; Z85.528 Personal history of other malignant neoplasm of kidney; Z99.81 Dependence on supplemental oxygen; Z90.5 Acquired absence of kidney; Z96.651 Presence of right artificial knee joint; Z96.643 Presence of artificial hip joint, bilateral; Z66 Do not resuscitate
CPT/HCPCS: 86905-90; 97116-GP; 97161-GP; 97165-GO; 97530-GO; 97535-GO; G8978-GP-CJ; G8979-GP-CI; G8987-GO-CI; G8988-GO-CI; G8989-GO-CI; J0885; J1815; J2704; P9016; Q9967

== ENCOUNTER 2017-10-09 10:35 | Inpatient (IN) | payer OTHER ==
[2017-10-09 11:18] LABS: PLATELET COUNT 145 10^3/uL (150-400)
[2017-10-09 11:28] LABS: INR 1.15 (0.83-1.16); PROTIME(PATIENT) 14.9 SEC (12.0-15.0)
--- NOTE | 2017-10-09 11:31 | EDPHY ---
H & P Stated Complaint: weakness with fall last night/back pain/low hgb r/t dialysis Time Seen by Provider: 10/09/17 10:52 HPI/ROS: CHIEF COMPLAINT: Generalized weakness HISTORY OF PRESENT ILLNESS: The patient has a history of end-stage renal disease on Tuesday dialysis who presents to the ED with a 1 day history of generalized weakness. The patient did have a fall yesterday. He reportedly fell softly. He did strain a muscle along the right side of his back. He denies any midline back pain. He denies any acute lower extremity numbness or weakness. The patient has a history of hospitalization for acute blood loss anemia or earlier in September secondary to upper GI AVMs which were banded. The patient has continued to have some intermittent melanotic stool. There has been no history of fever, cough or congestion. The patient denies significant weight gain, asymmetric calf pain or swelling or additional complaints. REVIEW OF SYSTEMS: A comprehensive 10 point review of systems is otherwise negative aside from elements mentioned in the history of present illness. Source: Patient Exam Limitations: No limitations - Personal History Current Tetanus/Diphtheria Vaccine: Yes Tetanus Vaccine Date: 2010 - Medical/Surgical History Hx Asthma: No Hx Chronic Respiratory Disease: No Hx Diabetes: Yes Hx Cardiac Disease: Yes Hx Renal Disease: Yes Hx Cirrhosis: No Hx Alcoholism: No Hx HIV/AIDS: No Hx Splenectomy or Spleen Trauma: No Other PMH: prostate CA, renal CA, right kidney removed, R knee replacement, L&R hip replacement, left forearm fistula, cholecystectomy, hx of gout, peripheral neuropathy, anemia, esrd, ppm, cad, on dialysis, bliateral cataract repair, small bowel resection - Family History Significant Family History: No pertinent family hx - Social History Smoking Status: Former smoker - Physical Exam Exam: General Appearance: Elderly male, no acute distress Eyes: Pupils equal and round no pallor or injection ENT, Mouth: Mucous membranes moist Respiratory: There are no retractions, lungs are clear to auscultation Cardiovascular: Regular rate and rhythm, 4/6 systolic ejection murmur Gastrointestinal: Abdomen is soft and nontender, no masses, bowel sounds normal Neurological: 5/5 strength all 4 extremities Skin: Warm and dry, no rashes Musculoskeletal: Neck is supple nontender, tenderness in the right paraspinal muscles Extremities: symmetrical, full range of motion, dialysis fistula left forearm Constitutional: Initial Vital Signs Temperature (C) 36.7 C 10/09/17 10:40 Heart Rate 80 10/09/17 10:40 Respiratory Rate 18 10/09/17 10:40 Blood Pressure 135/62 H 10/09/17 10:40 O2 Sat (%) 84 L 10/09/17 10:40 O2 Delivery Mode Oxymizer O2 (L/minute) 10 Allergies/Adverse Reactions: pseudoephedrine Allergy (Unknown, Verified 10/09/17 10:39) Swelling sudafed Allergy (Uncoded 04/22/17 16:50) Home Medications: Medication Instructions Recorded Latanoprost 0.005% [Xalatan 0.005% 1 drop EACHEYE HS 01/25/14 (*)] Multivitamins [Multivitamin (*)] 1 each PO DAILY 01/25/14 Herbals/Supplements -Info Only 1 ea PO DAILY 05/27/16 Calcium Carbonate [Tums 500MG (*)] 500 mg PO TIDMEAL 02/21/17 Acetaminophen [Tylenol 325mg (*)] 650 mg PO Q4HRS PRN tab 05/08/17 Allopurinol [Allopurinol 300 MG 150 mg PO HS 09/05/17 (RX)] Tamsulosin HCl [Flomax 0.4 MG (*)] 0.4 mg PO HS 09/05/17 Umeclidinium Brm/Vilanterol Tr 1 each IH DAILY10 09/05/17 [Anoro Ellipta 62.5-25 Mcg INH] Medical Decision Making ED Course/Re-evaluation: The patient presents to the ED after a episode of presyncope, a fall which resulted in some right paraspinal muscle pain and newly diagnosed recurrent anemia. The patient was typed and crossed for 2 units of blood. The patient is afebrile and in no acute distress. The patient will require admission to the hospital. Consultation was made with the hospitalist service. I have paged the GI service. I re-evaluated the patient at 1:00 p.m.. He is in no acute distress. He is awaiting 2 units of packed red blood cells. Differential Diagnosis: Differential diagnosis considered includes critical anemia, myofascial strain, hyperkalemia, a arrhythmia, dehydration, hypotension, medication side effect - Data Points Laboratory Results: Laboratory Results 10/09/17 11:05 10/09/17 11:05 10/09/17 10/09/17 10/09/17 11:10 11:05 11:05 WBC RBC Hgb POC Hgb 7.5 gm/dL L gm/dL (13.7-17.5) Hct POC Hct 22 % L % (40-51) MCV MCH MCHC RDW Plt Count MPV Neut % (Auto) Lymph % (Auto) [place] % (Auto) Eos % (Auto) Baso % (Auto) Nucleat RBC Rel Count Absolute Neuts (auto) Absolute Lymphs (auto) Absolute Monos (auto) Absolute Eos (auto) Absolute Basos (auto) Absolute Nucleated RBC Immature Gran % Seg Neutrophils % Band Neutrophils % Lymphocytes % Monocytes % Basophils % Metamyelocytes % Myelocytes % Immature Gran # Absolute Seg Neuts Absolute Band Neuts Absolute Lymphocytes Absolute Monocytes Absolute Basophils Absolute Metamyelocyte Absolute Myelocytes Platelet Estimate Polychromasia Tear Drop Cells Smear Review By PT INR APTT POC Sodium 137 mEq/L mEq/L (135-145) Sodium 137 mEq/L mEq/L (135-145) POC Potassium 4.0 mEq/L mEq/L (3.3-5.0) Potassium 4.2 mEq/L mEq/L (3.5-5.2) POC Chloride 94 mEq/L L mEq/L (97-110) Chloride 93 mEq/L L mEq/L (97-110) Carbon Dioxide 28 mEq/l mEq/l (22-31) Anion Gap 16 mEq/L mEq/L (8-16) POC BUN 52 mg/dL H mg/dL (7-23) BUN 51 mg/dL H mg/dL (7-23) Creatinine 4.7 mg/dL H mg/dL (0.7-1.3) POC Creatinine 5.2 mg/dL H mg/dL (0.7-1.3) Estimated GFR 12 Glucose 152 mg/dL H mg/dL (70-100) POC Glucose 161 mg/dL H mg/dL (70-100) Calcium 9.0 mg/dL mg/dL (8.5-10.4) Patient ABO/Rh Pending Antibody Screen Pending Enhanced Crossmatch See Detail 10/09/17 10/09/17 11:05 11:05 WBC 5.54 10^3/uL 10^3/uL (3.80-9.50) RBC 2.11 10^6/uL L 10^6/uL (4.40-6.38) Hgb 6.9 g/dL L g/dL (13.7-17.5) POC Hgb Hct 21.0 % L % (40.0-51.0) POC Hct MCV 99.5 fL fL (81.5-99.8) MCH 32.7 pg pg (27.9-34.1) MCHC 32.9 g/dL g/dL (32.4-36.7) RDW 19.2 % H % (11.5-15.2) Plt Count 145 10^3/uL L 10^3/uL (150-400) MPV 9.5 fL fL (8.7-11.7) Neut % (Auto) Not Reported Lymph % (Auto) Not Reported [place] % (Auto) Not Reported Eos % (Auto) Not Reported Baso % (Auto) Not Reported Nucleat RBC Rel Count 0.0 % % (0.0-0.2) Absolute Neuts (auto) Not Reported Absolute Lymphs (auto) Not Reported Absolute Monos (auto) Not Reported Absolute Eos (auto) Not Reported Absolute Basos (auto) Not Reported Absolute Nucleated RBC 0.00 10^3/uL 10^3/uL (0-0.01) Immature Gran % Not Reported Seg Neutrophils % 84 % % Band Neutrophils % 1 % % Lymphocytes % 8 % % Monocytes % 2 % % Basophils % 1 % % Metamyelocytes % 3 % % Myelocytes % 1 % % Immature Gran # Not Reported Absolute Seg Neuts 4.65 10^/uL 10^/uL (1.70-6.50) Absolute Band Neuts 0.06 10^3/uL 10^3/uL (0.00-0.70) Absolute Lymphocytes 0.44 10^3/uL L 10^3/uL (1.00-3.00) Absolute Monocytes 0.11 10^3/uL L 10^3/uL (0.30-0.80) Absolute Basophils 0.06 10^3/uL 10^3/uL (0.02-0.10) Absolute Metamyelocyte 0.17 10^3/mL H 10^3/mL (0.00-0.00) Absolute Myelocytes 0.06 10^3/mL H 10^3/mL (0.00-0.00) Platelet Estimate DECREASED L (ADEQ) Polychromasia 1+ H Tear Drop Cells 1+ H Smear Review By Pending PT 14.9 SEC SEC (12.0-15.0) INR 1.15 (0.83-1.16) APTT 34.6 SEC SEC (23.0-38.0) POC Sodium Sodium POC Potassium Potassium POC Chloride Chloride Carbon Dioxide Anion Gap POC BUN BUN Creatinine POC Creatinine Estimated GFR Glucose POC Glucose Calcium Patient ABO/Rh Antibody Screen Enhanced Crossmatch Point of Care Test Results: 10/09/17 11:10 POC Sodium 137 POC Potassium 4.0 POC Chloride 94 L POC BUN 52 H POC Creatinine 5.2 H POC Glucose 161 H Departure - Departure Disposition: [facility] Inpatient Acute Clinical Impression: End stage renal disease on dialysis, Hypoxemia, Anemia, Lumbar strain Condition: Fair
[2017-10-09] MEDS ORDERED: HYDROmorphONE/DILAUDID 1 MG/ML INJ IVP PRN (13:11)
[2017-10-09] MEDS ORDERED: oxyCODONE IR 5 MG TAB PO PRN (13:11)
[2017-10-09] MEDS ORDERED: ONDANSETRON DISINTEGRATING 4 MG TAB PO PRN (13:11)
[2017-10-09] MEDS ORDERED: ACETAMINOPHEN 325 MG TAB PO PRN ×2 (13:11→13:15)
[2017-10-09] MEDS ORDERED: ONDANSETRON 4 MG/2 ML VIAL IVP PRN (13:11)
[2017-10-09] MEDS ORDERED: PROMETHAZINE HCL 25 MG/ML INJ IVP PRN (13:11)
[2017-10-09] MEDS ORDERED: NS 1,000 ML IV SCH (13:15)
[2017-10-09] MEDS ORDERED: HYDROmorphone HCL/NS 0.5 MG/ML SYR IVP PRN (13:27)
--- NOTE | 2017-10-09 14:33 | PDHOSCONS ---
History and Physical - History of Present Illness History Information - Allergies/Home Medication List Allergies/Adverse Reactions: pseudoephedrine Allergy (Unknown, Verified 10/09/17 10:39) Swelling sudafed Allergy (Uncoded 04/22/17 16:50) Home Medications: Latanoprost 0.005% [Xalatan 0.005% (*)] 1 drop EACHEYE HS 01/25/14 [Last Taken 10/08/17] Multivitamins [Multivitamin (*)] 1 each PO DAILY 01/25/14 [Last Taken 09/04/17] Herbals/Supplements -Info Only 1 ea PO DAILY 05/27/16 [Last Taken 08/10/17 21:00 ] Calcium Carbonate [Tums 500MG (*)] 500 mg PO TIDMEAL 02/21/17 [Last Taken 18:00] Allopurinol [Allopurinol 300 MG (RX)] 150 mg PO HS 09/05/17 [Last Taken 09/04/17 ] Tamsulosin HCl [Flomax 0.4 MG (*)] 0.4 mg PO HS 09/05/17 [Last Taken 10/08/17] Umeclidinium Brm/Vilanterol Tr [Anoro Ellipta 62.5-25 Mcg INH] 1 each IH DAILY10 09/05/17 [Last Taken 10/09/17] Past Medical History: ESRD on HD MWF. h/o renal cancer - Surgical History Additional surgical history: Knee replacement. Bilateral hip replacements. AVF creation - Family History Additional family history: noncontributory - Social History Smoking Status: Former smoker Review of Systems Review of Systems: Physical Exam Physical Exam: Temp Pulse Resp BP Pulse Ox 36.7 C 67 16 116/71 93 10/09/17 10:40 10/09/17 12:57 10/09/17 12:57 10/09/17 12:57 10/09/17 12:57 O2 (L/minute) 8 Lab Data & Imaging Review 10/09/17 11:05 10/09/17 11:05 WBC 5.54 10^3/uL (3.80-9.50) 10/09/17 11:05 RBC 2.11 10^6/uL (4.40-6.38) L 10/09/17 11:05 Hgb 6.9 g/dL (13.7-17.5) L 10/09/17 11:05 POC Hgb 7.5 gm/dL (13.7-17.5) L 10/09/17 11:10 Hct 21.0 % (40.0-51.0) L 10/09/17 11:05 POC Hct 22 % (40-51) L 10/09/17 11:10 MCV 99.5 fL (81.5-99.8) 10/09/17 11:05 MCH 32.7 pg (27.9-34.1) 10/09/17 11:05 MCHC 32.9 g/dL (32.4-36.7) 10/09/17 11:05 RDW 19.2 % (11.5-15.2) H 10/09/17 11:05 Plt Count 145 10^3/uL (150-400) L 10/09/17 11:05 MPV 9.5 fL (8.7-11.7) 10/09/17 11:05 Neut % (Auto) Not Reported 10/09/17 11:05 Lymph % (Auto) Not Reported 10/09/17 11:05 [place] % (Auto) Not Reported 10/09/17 11:05 Eos % (Auto) Not Reported 10/09/17 11:05 Baso % (Auto) Not Reported 10/09/17 11:05 Nucleat RBC Rel Count 0.0 % (0.0-0.2) 10/09/17 11:05 Absolute Neuts (auto) Not Reported 10/09/17 11:05 Absolute Lymphs (auto) Not Reported 10/09/17 11:05 Absolute Monos (auto) Not Reported 10/09/17 11:05 Absolute Eos (auto) Not Reported 10/09/17 11:05 Absolute Basos (auto) Not Reported 10/09/17 11:05 Absolute Nucleated RBC 0.00 10^3/uL (0-0.01) 10/09/17 11:05 Immature Gran % Not Reported 10/09/17 11:05 Seg Neutrophils % 84 % 10/09/17 11:05 Band Neutrophils % 1 % 10/09/17 11:05 Lymphocytes % 8 % 10/09/17 11:05 Monocytes % 2 % 10/09/17 11:05 Basophils % 1 % 10/09/17 11:05 Metamyelocytes % 3 % 10/09/17 11:05 Myelocytes % 1 % 10/09/17 11:05 Immature Gran # Not Reported 10/09/17 11:05 Absolute Seg Neuts 4.65 10^/uL (1.70-6.50) 10/09/17 11:05 Absolute Band Neuts 0.06 10^3/uL (0.00-0.70) 10/09/17 11:05 Absolute Lymphocytes 0.44 10^3/uL (1.00-3.00) L 10/09/17 11:05 Absolute Monocytes 0.11 10^3/uL (0.30-0.80) L 10/09/17 11:05 Absolute Basophils 0.06 10^3/uL (0.02-0.10) 10/09/17 11:05 Absolute Metamyelocyte 0.17 10^3/mL (0.00-0.00) H 10/09/17 11:05 Absolute Myelocytes 0.06 10^3/mL (0.00-0.00) H 10/09/17 11:05 Platelet Estimate DECREASED (ADEQ) L 10/09/17 11:05 Polychromasia 1+ H 10/09/17 11:05 Tear Drop Cells 1+ H 10/09/17 11:05 PT 14.9 SEC (12.0-15.0) 10/09/17 11:05 INR 1.15 (0.83-1.16) 10/09/17 11:05 APTT 34.6 SEC (23.0-38.0) 10/09/17 11:05 POC Sodium 137 mEq/L (135-145) 10/09/17 11:10 Sodium 137 mEq/L (135-145) 10/09/17 11:05 POC Potassium 4.0 mEq/L (3.3-5.0) 10/09/17 11:10 Potassium 4.2 mEq/L (3.5-5.2) 10/09/17 11:05 POC Chloride 94 mEq/L (97-110) L 10/09/17 11:10 Chloride 93 mEq/L (97-110) L 10/09/17 11:05 Carbon Dioxide 28 mEq/l (22-31) 10/09/17 11:05 Anion Gap 16 mEq/L (8-16) 10/09/17 11:05 POC BUN 52 mg/dL (7-23) H 10/09/17 11:10 BUN 51 mg/dL (7-23) H 10/09/17 11:05 Creatinine 4.7 mg/dL (0.7-1.3) H 10/09/17 11:05 POC Creatinine 5.2 mg/dL (0.7-1.3) H 10/09/17 11:10 Estimated GFR 12 10/09/17 11:05 Glucose 152 mg/dL (70-100) H 10/09/17 11:05 POC Glucose 161 mg/dL (70-100) H 10/09/17 11:10 Calcium 9.0 mg/dL (8.5-10.4) 10/09/17 11:05 Patient ABO/Rh O POSITIVE 10/09/17 11:05 Antibody Screen POSITIVE 10/09/17 11:05 Antibody Identification Anti-K 10/09/17 11:05 Enhanced Crossmatch See Detail 10/09/17 11:05 Assessment & Plan Assessment: Anemia (Acute) End stage renal disease on dialysis (Acute) Hypoxemia (Acute) Lumbar strain (Acute)
--- NOTE | 2017-10-09 17:12 | PDGENHP ---
History and Physical - Chief Complaint fatigue/fall - History of Present Illness 87 yo M with hx of ESRD , RCC s/p nephrectomy and recent admit for GI bleed 2/2 gastric AVMs admitted with several days of weakness and fall yesterday onto his bottom. He was concerned that he was anemia as he has chronic anemia related to chronic kidney disease as well as chronic GI bleed from AVM and has been requiring transfusion every couple of months. When his blood counts are this low , he tends to feel very weak and fatigued and has fallen or come close to falling. He does have both back and shoulder pain since the fall, the back hurts when he has to transfer and both shoulder have pain. He did not lose consciousness when he fell. He notes intermittent episodes of dark stools since his last admission. History Information - Allergies/Home Medication List Allergies/Adverse Reactions: pseudoephedrine Allergy (Unknown, Verified 10/09/17 10:39) Swelling sudafed Allergy (Uncoded 04/22/17 16:50) Home Medications: Latanoprost 0.005% [Xalatan 0.005% (*)] 1 drop EACHEYE HS 01/25/14 [Last Taken 10/08/17] Multivitamins [Multivitamin (*)] 1 each PO DAILY 01/25/14 [Last Taken 09/04/17] Herbals/Supplements -Info Only 1 ea PO DAILY 05/27/16 [Last Taken 08/10/17 21:00 ] Calcium Carbonate [Tums 500MG (*)] 500 mg PO TIDMEAL 02/21/17 [Last Taken 18:00] Allopurinol [Allopurinol 300 MG (RX)] 150 mg PO HS 09/05/17 [Last Taken 09/04/17 ] Tamsulosin HCl [Flomax 0.4 MG (*)] 0.4 mg PO HS 09/05/17 [Last Taken 10/08/17] Umeclidinium Brm/Vilanterol Tr [Anoro Ellipta 62.5-25 Mcg INH] 1 each IH DAILY10 09/05/17 [Last Taken 10/09/17] I have personally reviewed and updated: family history, medical history, social history, surgical history Past Medical History: ESRD on HD MWF. h/o renal cancer. GI bleed 2/2 gastric AVMs. gout. peripheral neuropathy. BPH. chronic hypoxic respiratory failure. chronic diastolic heart failure - Past Medical History coronary artery disease, cancer (renal cell), diabetes type 2, GI bleed - Surgical History Reports: cholecystectomy Additional surgical history: Knee replacement. Bilateral hip replacements. AVF creation - Family History Positive for: non-pertinent Additional family history: noncontributory - Social History Smoking Status: Former smoker Alcohol Use: None Drug Use: None Additional social history: lives indepenedently with his Review of Systems Review of Systems: ROS: 10pt was reviewed & negative except for what was stated in HPI & below Physical Exam Physical Exam: Temp Pulse Resp BP Pulse Ox 36.8 C 88 18 91/44 L 93 10/09/17 17:03 10/09/17 17:03 10/09/17 17:03 10/09/17 17:03 10/09/17 17:03 O2 (L/minute) 5 Constitutional: no apparent distress, appears nourished Eyes: PERRL Ears, Nose, Mouth, Throat: moist mucous membranes, hearing normal Cardiovascular: regular rate and rhythym, no murmur, rub, or gallop, systolic murmur Respiratory: no respiratory distress, no rales or rhonchi Gastrointestinal: normoactive bowel sounds, soft, non-tender abdomen Genitourinary: no bladder tenderness Skin: warm, normal color Musculoskeletal: full muscle strength Neurologic: AAOx3, sensation intact bilaterally Psychiatric: interacting appropriately, not anxious, not encephalopathic Lab Data & Imaging Review 10/09/17 11:05 10/09/17 11:05 WBC 5.54 10^3/uL (3.80-9.50) 10/09/17 11:05 RBC 2.11 10^6/uL (4.40-6.38) L 10/09/17 11:05 Hgb 6.9 g/dL (13.7-17.5) L 10/09/17 11:05 POC Hgb 7.5 gm/dL (13.7-17.5) L 10/09/17 11:10 Hct 21.0 % (40.0-51.0) L 10/09/17 11:05 POC Hct 22 % (40-51) L 10/09/17 11:10 MCV 99.5 fL (81.5-99.8) 10/09/17 11:05 MCH 32.7 pg (27.9-34.1) 10/09/17 11:05 MCHC 32.9 g/dL (32.4-36.7) 10/09/17 11:05 RDW 19.2 % (11.5-15.2) H 10/09/17 11:05 Plt Count 145 10^3/uL (150-400) L 10/09/17 11:05 MPV 9.5 fL (8.7-11.7) 10/09/17 11:05 Neut % (Auto) Not Reported 10/09/17 11:05 Lymph % (Auto) Not Reported 10/09/17 11:05 [place] % (Auto) Not Reported 10/09/17 11:05 Eos % (Auto) Not Reported 10/09/17 11:05 Baso % (Auto) Not Reported 10/09/17 11:05 Nucleat RBC Rel Count 0.0 % (0.0-0.2) 10/09/17 11:05 Absolute Neuts (auto) Not Reported 10/09/17 11:05 Absolute Lymphs (auto) Not Reported 10/09/17 11:05 Absolute Monos (auto) Not Reported 10/09/17 11:05 Absolute Eos (auto) Not Reported 10/09/17 11:05 Absolute Basos (auto) Not Reported 10/09/17 11:05 Absolute Nucleated RBC 0.00 10^3/uL (0-0.01) 10/09/17 11:05 Immature Gran % Not Reported 10/09/17 11:05 Seg Neutrophils % 84 % 10/09/17 11:05 Band Neutrophils % 1 % 10/09/17 11:05 Lymphocytes % 8 % 10/09/17 11:05 Monocytes % 2 % 10/09/17 11:05 Basophils % 1 % 10/09/17 11:05 Metamyelocytes % 3 % 10/09/17 11:05 Myelocytes % 1 % 10/09/17 11:05 Immature Gran # Not Reported 10/09/17 11:05 Absolute Seg Neuts 4.65 10^/uL (1.70-6.50) 10/09/17 11:05 Absolute Band Neuts 0.06 10^3/uL (0.00-0.70) 10/09/17 11:05 Absolute Lymphocytes 0.44 10^3/uL (1.00-3.00) L 10/09/17 11:05 Absolute Monocytes 0.11 10^3/uL (0.30-0.80) L 10/09/17 11:05 Absolute Basophils 0.06 10^3/uL (0.02-0.10) 10/09/17 11:05 Absolute Metamyelocyte 0.17 10^3/mL (0.00-0.00) H 10/09/17 11:05 Absolute Myelocytes 0.06 10^3/mL (0.00-0.00) H 10/09/17 11:05 Platelet Estimate DECREASED (ADEQ) L 10/09/17 11:05 Polychromasia 1+ H 10/09/17 11:05 Tear Drop Cells 1+ H 10/09/17 11:05 PT 14.9 SEC (12.0-15.0) 10/09/17 11:05 INR 1.15 (0.83-1.16) 10/09/17 11:05 APTT 34.6 SEC (23.0-38.0) 10/09/17 11:05 POC Sodium 137 mEq/L (135-145) 10/09/17 11:10 Sodium 137 mEq/L (135-145) 10/09/17 11:05 POC Potassium 4.0 mEq/L (3.3-5.0) 10/09/17 11:10 Potassium 4.2 mEq/L (3.5-5.2) 10/09/17 11:05 POC Chloride 94 mEq/L (97-110) L 10/09/17 11:10 Chloride 93 mEq/L (97-110) L 10/09/17 11:05 Carbon Dioxide 28 mEq/l (22-31) 10/09/17 11:05 Anion Gap 16 mEq/L (8-16) 10/09/17 11:05 POC BUN 52 mg/dL (7-23) H 10/09/17 11:10 BUN 51 mg/dL (7-23) H 10/09/17 11:05 Creatinine 4.7 mg/dL (0.7-1.3) H 10/09/17 11:05 POC Creatinine 5.2 mg/dL (0.7-1.3) H 10/09/17 11:10 Estimated GFR 12 10/09/17 11:05 Glucose 152 mg/dL (70-100) H 10/09/17 11:05 POC Glucose 161 mg/dL (70-100) H 10/09/17 11:10 Calcium 9.0 mg/dL (8.5-10.4) 10/09/17 11:05 Patient ABO/Rh O POSITIVE 10/09/17 11:05 Antibody Screen POSITIVE 10/09/17 11:05 Antibody Identification Anti-K 10/09/17 11:05 Enhanced Crossmatch See Detail 10/09/17 11:05 Assessment & Plan Assessment: Anemia (Acute) End stage renal disease on dialysis (Acute) Hypoxemia (Acute) Lumbar strain (Acute) 87 yo M with PMH of ESRD on HD as well as GI bleed 2/2 AVMs presenting with acute on chronic anemia, weakness and fall # acute on chronic anemia: in the setting of anemia of chronic kidney disease with also presumed chronic GI losses 2/2 gastric AVMs. Transfusing 2 units prbc # GI bleed: with ongoing melanotic stools and known gastric AVMs, did have EGD and banding recently, patient hoping to avoid any further interventions. GI has been consulted, will monitor post transfusion and if not actively bleeding hope to avoid repeat EGD # fall: with associated back and shoulder pain, will get plain films of lumbar spine and shoulders, will ask pt/ot to evaluate # ESRD: renal consulted, will continue usual HD schedule with plan for HD in house tomorrow # chronic hypoxic respiratory failure: at baseline using 3-4L, has had issues with pulse ox monitoring that it continuously reads as low--this has been an issue on prior hospitalizations as well. Will continue usual o2 and continue to monitor # IP status,given multiple high risk presenting issues and that patient is not safe to dc to home will need > 48 hours stay for eval/mgmt of above Patient new to my care. Old records reviewed and summarized as above. Care plan reviewed with ER doctor and night shift as above.
--- NOTE | 2017-10-09 17:57 | PDMN ---
Medical Necessity Medical necessity: C/M review: est. > 2 MN LOS for eval and TX of acute on chronic anemia, weakness, back and shoulder pain, GI bleed with ongoing melenic stools, patient medically unsafe to discharge home, requiring planned 2 units PRBCs, plain xrays of lumbar spine and shoulders, GI consult, Nephrology consult, hemodialysis inpatient 10/10/2017, ongoing pulse oximetry, supplemental O2, comorbid fall prior to this admission, known lower gastric AVMs, recent EGD with banding, ESRD on hemodialysis Tue. Tue, Tue., history of renal cancer, gout , peripheral neuropathy, BPH, chronic hypoxic respiratory failure and chronic diastolic heart failure per H/P.
--- NOTE | 2017-10-09 18:03 | GCON ---
[f rep st] CONSULTATION DATE OF CONSULTATION: 10/09/2017 REASON FOR CONSULTATION: Opinion regarding end-stage kidney failure. HISTORY OF PRESENT ILLNESS: The patient is a very pleasant 87-year-old gentleman with end-stage kidn ey failure due to decreased nephron mass. The patient was diagnosed with renal cell cancer in his ri ght kidney and that was resected. The contralateral kidney was subsequently also diagnosed with quentin l cell carcinoma, but did not have a resection. The patient is essentially anephric. The patient has been on 3 times weekly hemodialysis in the [facility]. He has had difficulties with anemia of b lood loss, presumed due to gastrointestinal loss. He also has anemia of chronic kidney disease on in travenous iron and erythropoietin as needed, however, is unable to keep up with his gastrointestinal blood loss. The patient is admitted today as he was quite weak at home. He was not having chest neha n, shortness of breath, nausea, vomiting, blurry vision, double vision, headache, orthopnea, paroxysm al nocturnal dyspnea, palpitations, or syncope. He has an occasional black stool, the most recent on e was a couple of days ago. He does not have bright red blood per rectum and does not have gross hem aturia or dysuria. PAST MEDICAL HISTORY: Significant for: 1. End-stage kidney failure. 2. Renal cell cancer. 3. Benign prostate hypertrophy. 4. Gout. 5. Anemia, both of chronic kidney disease as well as blood loss. 6. Secondary hyperparathyroidism. 7. Essentially anephric. ALLERGIES: Sudafed. FAMILY HISTORY: All of his family lives into their 80s and 90s. SOCIAL HISTORY: He is a retired electrical engineering technologist. He is . He has a boy and a girl. He q uit smoking in the 1950s. Does not use alcohol or IV or recreational drugs and he enjoys golf. REVIEW OF SYSTEMS: A complete 12-point review of systems was performed with pertinent positives and negatives as per the previous sections. MEDICATIONS: 1. Allopurinol 150 mg at bedtime. 2. Hydromorphone. 3. Xalatan eye drops. 4. Zofran. 5. Oxycodone. 6. He is getting normal saline 150 cc an hour. 7. Flomax. 8. Phenergan. IMPRESSION: 1. End-stage kidney failure due to being essentially anephric. 2. Anemia of blood loss and chronic kidney disease. 3. Weakness at home. 4. History of recurrent gastrointestinal bleeds. RECOMMENDATION: 1. I agree with transfusion today. 2. We will plan on doing dialysis tomorrow. 3. I would discontinue his IV fluids after 1 L as I do not want to volume overload him. 4. Continue his home medications. 5. Hopefully home soon. The patient assures me that he will be going home after dialysis tomorrow. Thank you for allowing me to participate in the care of your patient. If there are any questions, pl ease do not hesitate to contact us. We will be following along with you. /[id number]/MODL
[2017-10-09] MEDS ORDERED: CANN-EASE 2 GM TUBE TP PRN (22:30)
[2017-10-09] MEDS ORDERED: SODIUM CL NASAL 45 ML BTL EACHNARE PRN (22:30)
--- NOTE | 2017-10-09 22:50 | HOSPPROG ---
Hospitalist Progress Note Assessment/Plan: CRITICAL CARE NOTE: > 35 MINS BEDSIDE CRITICAL CARE TIME Called to see pt this evening for acute onset of wheezing and worsening hypoxemia during a transfusion for anemia w gi bleed, esrd/dialysis pt, and hx of chronic hypoxemic resp failure, though from talking to the patient and looking at his chart I am so far unable to determine why he has hypoxemic respiratory failure or what his actual diagnosis there is. I do know that he was here 2 weeks ago and had thoracentesis for a moderate size right pleural effusion. The patient does not recall having any chest pain cough or fever symptoms with this reaction tonight. The transfusion was stopped and is being assessed. Is described that he was quite wheezy these would certainly wheezing less at this time. At the he normally is on just a couple L nasal cannula oxygen but we had have him up at 15 L by OxyMask during the wheezing episode with his transfusion. He did not drop his blood pressure did not become remarkably tachycardic, though looking through his chart he did have a period of hypotension earlier this afternoon dropping his systolic pressure to 90. He has not had fever this evening My initial exam this evening showed the patient to be wheezing throughout his lungs although this has now abated. He was not given any bronchodilator, and is apparently not use any bronchodilator or other inhaled medicines at home. He has not been diaphoretic, has not been nauseous, he has been in a sinus rhythm. Stat portable chest x-ray done, my interpretation of the films: There is some moderate pulmonary edema and vascular plethora on chest x-ray tonight. Blood bank testing of his blood samples for other potential transfusion abnormalities is pending Impression: * acute hypoxemic respiratory failure, with history of chronic respiratory failure * pulmonary edema as result of transfusion in a patient with end-stage renal disease * acute upper GI bleed is his admitting diagnosis with post hemorrhagic anemia complicating his chronic renal disease related anemia At this point as he is not responded to diuretics in the past does not by care will not give him diuretic. I do not think he needs acute dialysis at this time but if he develops worsening respiratory status could potentially need acute dialysis tonight. He is scheduled for dialysis in the morning. I did review his records here in the last echocardiogram I can find is from February 2017. That study showed excellent ejection fraction, some diastolic dysfunction but no other concerning abnormalities. At this point I will get another echocardiogram to make sure there isn't any change in cardiac function. Objective: Vital Signs Temp Pulse Resp BP Pulse Ox 36.5 C 75 22 H 101/75 92 10/09/17 20:00 10/09/17 20:00 10/09/17 20:00 10/09/17 20:00 10/09/17 20:00 Laboratory Results 10/09/17 21:23 10/08/17 10/09/17 10/10/17 06:59 06:59 06:59 Intake Total 650 Balance 650 PT 14.9 SEC (12.0-15.0) 10/09/17 11:05 INR 1.15 (0.83-1.16) 10/09/17 11:05 ICD10 Worksheet Patient Problems: Problems Problem Status Onset Anemia Acute End stage renal disease on dialysis Acute Hypoxemia Acute Lumbar strain Acute Acute and chronic respiratory failure with hypoxia Acute Chronic Disease Mgmt/Transitional Care Acute Chronic renal failure Acute Community acquired pneumonia Acute Diabetes mellitus Acute Heart failure, diastolic, with acute decompensation Acute Hypoxia Acute Pleural effusion Acute Pneumonia Acute Pulmonary edema Acute Renal mass, left Acute UTI (urinary tract infection) Acute Weakness generalized Acute Anemia Chronic Osteoarthritis of hip Chronic Renal failure syndrome Chronic
[2017-10-09] MEDS: TAMSULOSIN HCL 0.4 MG CAP PO SCH (22:54)
[2017-10-09] MEDS: ALLOPURINOL 300 MG TAB PO SCH (22:54)
[2017-10-09] MEDS: LATANOPROST 0.005% 2.5 ML OPHT DROPS EACHEYE SCH (22:59)
[2017-10-10] MEDS: LATANOPROST 0.005% 2.5 ML OPHT DROPS EACHEYE SCH ×2 (01:56→21:05)
[2017-10-10 04:38] LABS: PLATELET COUNT 146 10^3/uL (150-400)
--- NOTE | 2017-10-10 08:15 | GCON ---
[f rep st] CONSULTATION REFERRING PHYSICIAN: Georgi Naylor MD REASON FOR CONSULTATION: Anemia. CHIEF COMPLAINT: Weakness. HISTORY OF PRESENT ILLNESS: Briefly, the patient is an 87-year-old male, known to our service from a recent evaluation approximately 1 month ago. He has a history of end-stage renal disease secondary to renal cell carcinoma and nephrectomy. He is on 3 times per week hemodialysis chronically related to this. Approximately 1 month ago, he was admitted to the hospital with symptoms of anemia. At rodrigue t time, he underwent upper endoscopy and was noted to have gastric AVMs. These were treated with end oscopic clip placements. He notes, however, that has a longstanding history of anemia, for which he receives frequent blood transfusions. He denies bloody stool or tar-like bowel movements, although a dmits to dark stools, sometimes black stools. By and large; however, he believes his stools are form ed and brown. He reports no hematemesis. He has had a stable appetite. Two days ago, he felt weak and fell. As he continued to feel well yesterday, he presented to the [facility] for evaluation and was noted to have a worse anemia than his usual. Overnight, during transfusion, he had wheezing and some respiratory compromise. His transfusion was aborted. He is due for dialysis today, and will likely receive blood at that session. PAST MEDICAL HISTORY: Includes coronary artery disease, renal cell cancer, type 2 diabetes, and bi abiel AVMs. He also has BPH, chronic respiratory hypoxia, and some diastolic heart failure. HOME MEDICINES: Latanoprost, multivitamins, herbals, calcium carbonate, allopurinol, tamsulosin, and inhalers. ALLERGIES: Just to pseudoephedrine. SURGICAL HISTORY: Includes cholecystectomy, arteriovenous fistula formation, hip replacement, knee r eplacement, nephrectomy. FAMILY HISTORY: Negative for kidney cancer. SOCIAL HISTORY: He is a former smoker. Does not drink or use drugs. Lives independently with his w kirstin. REVIEW OF SYSTEMS: A 14-point review was undertaken with the patient, and the pertinent positives an d negatives are detailed in the history of present illness. PHYSICAL EXAM: This is an elderly male, in no apparent distress. His pupils are equal, round, react mik to light, and accommodation. His sclerae are nonicteric. His oropharynx is clear. His neck is supple without lymphadenopathy. His heart is regular without murmur. His abdomen is soft and nonten tanmay. He has normoactive bowel sounds. His extremities are free of cyanosis, clubbing, and edema. Wanda hernandez has a left arm dialysis fistula. His skin is warm and dry. His psych exam reveals normal mood and affect. LABORATORY TESTING: On admission showed a hemoglobin of 6.9, hematocrit of 21. His baseline hematoc rit over the last 6 months has been anywhere from 20-30, with most of the readings being in the mid t o low 20s. His INR is 1.15. Sodium of 137, potassium of 4.2, chloride of 93, bicarb of 28, BUN of 5 1, creatinine of 16. IMPRESSION AND RECOMMENDATIONS: The patient was admitted to the hospital after a fall. He appeared to have a worse than usual hematocrit, although he has chronically low hemoglobin and hematocrit leve ls. Approximately 1 month ago, he had a similar presentation. At that time, he was noted to have ga stric arteriovenous malformation. These arteriovenous malformations were managed with Endoclip place ments. While they were not bleeding at the time of his endoscopy, they did bleed with clip placement . This maybe suggests that they are fragile and could be a source of chronic blood loss. Despite th is, he reports no bloody stool or dark black stools. At this time, he seems reluctant to proceed wit h an additional endoscopic evaluation. In the absence of hematemesis or bright red blood per rectum and in the setting of stable vital signs, I suspect he is not having an acute life-threatening gastro intestinal bleed, but more likely has some chronic ongoing blood loss. This chronic ongoing blood lo ss may be from recurrent arteriovenous malformation bleeding, despite endoscopic therapy. At this time, I recommend he receive additional supportive care with blood transfusion. He is due fo r hemodialysis today. He is unwilling to proceed with upper endoscopy today. We can reconsider this overnight and into tomorrow based on his clinical symptoms, response to blood transfusion, etc. He may elect for a noninvasive course of supportive care with frequent blood transfusions and hematocrit monitoring. At this time, I will ask him to remain n.p.o. after midnight, in case we proceed with e ndoscopic evaluation tomorrow. If we defer endoscopic evaluation tomorrow, we will advance his diet. /[id number]/MODL
[2017-10-10] MEDS: CALCIUM CARBONATE 500 MG CHEWABLE TAB PO SCH ×3 (08:59→18:42)
--- NOTE | 2017-10-10 09:12 | SOAPPROG ---
SOAP Progress Note Assessment/Plan: Assessment/Plan: 87 y/o M with ESRD on HD who presented with anemia requiring transfusion 2/2 to most likely chronic GIB. ESRD on HD -s/p RCC and nephrectomy -HD today -AVF no issues -will continue MWF schedule while admitted SOB -CXR with pulm edema no evidence of TRALE -UF as below -continue home O2 Hypotension/vol -may be related to anemia -will UF 2-3L while monitoring BP -dry weight reportedly 76kg however may have been below that at one point Anemia -Hb >7 s/p transfusion, will hold for now -checking H/H on HD -GI consult appreciated, endoscopy tomorrow (patient agrees) -PPI BMD -renal diet when eating -check daily phos, not on binder 10/10/17 10:27 Subjective: Patient seen on HD with family at bedside. Reportedly became more SOB last night while getting transfusion. Normally on 2-3L NC now on NRB 4L. Tolerating HD currently. Objective: Vital Signs Temp Pulse Resp BP Pulse Ox 36.6 C 73 19 119/64 96 10/10/17 04:14 10/10/17 04:14 10/10/17 04:14 10/10/17 04:14 10/10/17 04:14 Laboratory Results 10/10/17 04:10 10/09/17 10/10/17 10/11/17 05:59 05:59 05:59 Intake Total 1500 Output Total 150 Balance 1350 PT 14.9 SEC (12.0-15.0) 10/09/17 11:05 INR 1.15 (0.83-1.16) 10/09/17 11:05 Physical Exam - Physical Exam General Appearance: WD/WN, alert, no apparent distress EENT: PERRL/EOMI, normal ENT inspection Neck: non-tender, full range of motion, supple Respiratory: chest non-tender, decreased breath sounds, crackles Cardiac/Chest: normal peripheral pulses, regular rate, rhythm, edema Abdomen: normal bowel sounds, non-tender, soft Skin: normal color, warm/dry Extremities: normal range of motion, non-tender Neuro/Psych: alert, oriented x 3 ICD10 Worksheet Patient Problems: Problems Problem Status Onset Anemia Acute End stage renal disease on dialysis Acute Hypoxemia Acute Lumbar strain Acute Acute and chronic respiratory failure with hypoxia Acute Chronic Disease Mgmt/Transitional Care Acute Chronic renal failure Acute Community acquired pneumonia Acute Diabetes mellitus Acute Heart failure, diastolic, with acute decompensation Acute Hypoxia Acute Pleural effusion Acute Pneumonia Acute Pulmonary edema Acute Renal mass, left Acute UTI (urinary tract infection) Acute Weakness generalized Acute Anemia Chronic Osteoarthritis of hip Chronic Renal failure syndrome Chronic
[2017-10-10] MEDS ORDERED: NON-FORMULARY NEW DRUG (Umeclidinium Brm/Vilanterol Tr [Anoro Ellipta 62.5-25 Mcg Inh] 1 E IH SCH (10:00)
[2017-10-10] MEDS: UMECLIDINIUM BRM IH SCH (11:15)
[2017-10-10] MEDS: VILANTEROL TR IH SCH (11:15)
[2017-10-10] MEDS ORDERED: LIDOCAINE 1% *Not for Epidural 20 ML MDV ONE (12:00)
--- NOTE | 2017-10-10 16:22 | ASMTCMCOM ---
CM Note CM Note Notes: 10/10/2017 Case Management Note Met w/pt to discuss d/c plan. Tiffani [phone] Daughter Alyssia [phone] Son Dwain [phone] Pt was admitted for anemia and weakness. Pt has dialysis [facility] in [place] and is followed by [facility]. Pt drives minimally only when there is no traffic. His daughter takes him to dialysis. She also drives his to the grocery and helps with civil preparedness coordinator. They have hired out lawn care and snow removal. Pt has had home care PT in the past but was uncertain of agency, possibly [facility]. Case Management d/c poc: to be determined pending recommendations from PT and OT. Case Management to follow. Date Signed: 10/10/2017 04:22 PM Electronically Signed By:Laura Plummer RN
--- NOTE | 2017-10-10 18:31 | HOSPPROG ---
Hospitalist Progress Note Assessment/Plan: 87 yo M with PMH of ESRD on HD as well as GI bleed 2/2 AVMs presenting with acute on chronic anemia, weakness and fall # acute on chronic anemia: in the setting of anemia of chronic kidney disease with also presumed chronic GI losses 2/2 gastric AVMs. Transfused 2 units prbc and remains low but stable thus far # GI bleed: with ongoing melanotic stools and known gastric AVMs, did have EGD and banding recently, plan for EGD in am for further evaluation # fall: with associated back and shoulder pain, personally reviewed lumbar spine and shoulder xrays negative for fractures etc, pt/ot to evaluate # ESRD: continue HD on usual schedule # chronic hypoxic respiratory failure: at baseline using 3-4L, has had issues with pulse ox monitoring that it continuously reads as low--this has been an issue on prior hospitalizations as well. Mild pulmonary edema noted on cxr yesterday, patient does not respond to lasix and fluid managed with HD # IP status,given multiple high risk presenting issues and that patient is not safe to dc to home will need > 48 hours stay for eval/mgmt of above Subjective: paitnet seen during HD, feeling a bit btter today, states he is willing to undergo EGD in am Objective: Vital Signs Temp Pulse Resp BP Pulse Ox 36.6 C 75 18 114/56 L 96 10/10/17 15:35 10/10/17 15:35 10/10/17 15:35 10/10/17 15:35 10/10/17 15:35 Laboratory Results 10/10/17 10:20 10/09/17 10/10/17 10/11/17 05:59 05:59 05:59 Intake Total 1500 Output Total 150 Balance 1350 PT 14.9 SEC (12.0-15.0) 10/09/17 11:05 INR 1.15 (0.83-1.16) 10/09/17 11:05 Constitutional: no apparent distress, appears nourished Eyes: PERRL Ears, Nose, Mouth, Throat: moist mucous membranes, hearing normal Cardiovascular: regular rate and rhythym, no murmur, rub, or gallop, systolic murmur Respiratory: no respiratory distress, no rales or rhonchi Gastrointestinal: normoactive bowel sounds, soft, non-tender abdomen Genitourinary: no bladder tenderness Skin: warm, normal color Musculoskeletal: full muscle strength Neurologic: AAOx3, sensation intact bilaterally Psychiatric: interacting appropriately, not anxious, not encephalopathic ICD10 Worksheet Patient Problems: Problems Problem Status Onset Anemia Acute End stage renal disease on dialysis Acute Hypoxemia Acute Lumbar strain Acute Acute and chronic respiratory failure with hypoxia Acute Chronic Disease Mgmt/Transitional Care Acute Chronic renal failure Acute Community acquired pneumonia Acute Diabetes mellitus Acute Heart failure, diastolic, with acute decompensation Acute Hypoxia Acute Pleural effusion Acute Pneumonia Acute Pulmonary edema Acute Renal mass, left Acute UTI (urinary tract infection) Acute Weakness generalized Acute Anemia Chronic Osteoarthritis of hip Chronic Renal failure syndrome Chronic
[2017-10-10] MEDS: TAMSULOSIN HCL 0.4 MG CAP PO SCH (21:04)
[2017-10-10] MEDS: ALLOPURINOL 300 MG TAB PO SCH (21:04)
[2017-10-11 04:27] LABS: PLATELET COUNT 146 10^3/uL (150-400)
--- NOTE | 2017-10-11 08:54 | SOAPPROG ---
SOAP Progress Note Assessment/Plan: Assessment/Plan: 87 y/o M with ESRD on HD who presented with anemia requiring transfusion 2/2 to most likely chronic GIB. ESRD on HD -s/p RCC and nephrectomy -HD tomorrow -AVF no issues -will continue MWF schedule while admitted SOB -CXR with pulm edema no evidence of TRALE -continue to UF on HD -continue home O2 Hypotension/vol -anemia/CAD -may try some midodrine prior to HD tomorrow -dry weight reportedly 76kg however less here, may need to re-establish at outpatient unit Anemia -Hb >7 s/p transfusion x 2, however still dropping slowly -GI consult appreciated, endoscopy today -PPI -will dose EPO on HD 10/11/17 10:08 Subjective: BP's soft on HD yesterday. Patient up to chair this AM. Wants to eat or drink. Family at bedside. Objective: Vital Signs Temp Pulse Resp BP Pulse Ox 36.7 C 65 18 108/54 L 97 10/11/17 07:52 10/11/17 07:52 10/11/17 07:52 10/11/17 07:52 10/11/17 07:52 Laboratory Results 10/11/17 04:00 10/10/17 10/11/17 10/12/17 05:59 05:59 05:59 Intake Total 1500 350 Output Total 150 Balance 1350 350 PT 14.9 SEC (12.0-15.0) 10/09/17 11:05 INR 1.15 (0.83-1.16) 10/09/17 11:05 Physical Exam - Physical Exam General Appearance: WD/WN, alert, mild distress EENT: PERRL/EOMI, normal ENT inspection Neck: non-tender, full range of motion, normal inspection Respiratory: decreased breath sounds, crackles Cardiac/Chest: regular rate, rhythm, systolic murmur Abdomen: normal bowel sounds, non-tender, soft Skin: normal color, warm/dry Neuro/Psych: alert, normal mood/affect, oriented x 3 ICD10 Worksheet Patient Problems: Problems Problem Status Onset Anemia Acute End stage renal disease on dialysis Acute Hypoxemia Acute Lumbar strain Acute Acute and chronic respiratory failure with hypoxia Acute Chronic Disease Mgmt/Transitional Care Acute Chronic renal failure Acute Community acquired pneumonia Acute Diabetes mellitus Acute Heart failure, diastolic, with acute decompensation Acute Hypoxia Acute Pleural effusion Acute Pneumonia Acute Pulmonary edema Acute Renal mass, left Acute UTI (urinary tract infection) Acute Weakness generalized Acute Anemia Chronic Osteoarthritis of hip Chronic Renal failure syndrome Chronic
[2017-10-11] MEDS: CALCIUM CARBONATE 500 MG CHEWABLE TAB PO SCH ×3 (09:39→17:00)
[2017-10-11] MEDS: VILANTEROL TR IH SCH (10:31)
[2017-10-11] MEDS: UMECLIDINIUM BRM IH SCH (10:31)
[2017-10-11] MEDS ORDERED: LR 1,000 ML IV ONE (13:30)
--- NOTE | 2017-10-11 14:08 | PDANEPAE ---
ANE History of Present Illness 87y/o male with CHF, and renal failure for EGD for evaluation of gastric bleed. ANE Past Medical History - Cardiovascular History Hx Hypertension: No Hx Arrhythmias: No Hx Chest Pain: No Hx Coronary Artery / Peripheral Vascular Disease: No Hx CHF / Valvular Disease: Yes Hx Palpitations: No Cardiovascular History Comment: SL HEART MURMUR. CHF IN MAR. W FLUID OVERLOAD, ADM TO HOSP - Pulmonary History Hx COPD: Yes Hx Asthma/Reactive Airway Disease: No Hx Recent Upper Respiratory Infection: No Hx Oxygen in Use at Home: Yes O2 in Use at Home (L/minute): 4 Hx Sleep Apnea: No Sleep Apnea Screening Result - Last Documented: Positive Pulmonary History Comment: LOU TRIGGERS NO DIAGNOSIS. REQUESTED BRING TRAVEL O2 TANK DOS - Neurologic History Hx Cerebrovascular Accident: No Hx Seizures: No Hx Dementia: No Neurologic History Comment: PERIPHERAL NEUROPATHY - Endocrine History Hx Diabetes: Yes Endocrine History Comment: TYPE 2 DM - Renal History Hx Renal Disorders: Yes Renal History Comment: END STAGE RENAL DISEASE ON DIALYSIS. RENAL CA, NEPHRECTOMY R,. LEFT AV FISTULA IN PLACE. - Liver History Hx Hepatic Disorders: No - Neurological & Psychiatric Hx Hx Neurological and Psychiatric Disorders: No - Cancer History Hx Cancer: Yes Cancer History Comment: PROSTATE AND KIDNEY - Congenital Disorder History Hx Congenital Disorders: No - GI History Hx Gastrointestinal Disorders: No - Other Health History Other Health History: GLAUCOMA OU. PERIPHERAL NEUROPATHY. ANEMIA. GOUT OCC. DENTURES FULL SET - Chronic Pain History Chronic Pain: No - Surgical History Prior Surgeries: DRAIN PLACEMENT 08/25, EGD/COLONOSCOPY 07/28, left av fistula placement 03/26/[address] ryder. BOWEL RESECTION WITH RT RADICAL NEPHRECTOMY 05/2012. LT HIP REPLACEMENT 10/2010. MARIA ESTHER. PROSTATECTOMY. BLANCA CATARACT. RT TOTAL KNEE. TONSILLECTOMY. R KAREN 03-05-14 ANE Review of Systems Review of systems is: negative Review of Systems: ANE Patient History - Allergies Allergies/Adverse Reactions: pseudoephedrine Allergy (Unknown, Verified 10/09/17 10:39) Swelling sudafed Allergy (Uncoded 04/22/17 16:50) - Home Medications Home Medications: Latanoprost 0.005% [Xalatan 0.005% (*)] 1 drop EACHEYE HS 01/25/14 [Last Taken 10/08/17] Multivitamins [Multivitamin (*)] 1 each PO DAILY 01/25/14 [Last Taken 09/04/17] Herbals/Supplements -Info Only 1 ea PO DAILY 05/27/16 [Last Taken 08/10/17 21:00 ] Calcium Carbonate [Tums 500MG (*)] 500 mg PO TIDMEAL 02/21/17 [Last Taken 18:00] Allopurinol [Allopurinol 300 MG (RX)] 150 mg PO HS 09/05/17 [Last Taken 09/04/17 ] Tamsulosin HCl [Flomax 0.4 MG (*)] 0.4 mg PO HS 09/05/17 [Last Taken 10/08/17] Umeclidinium Brm/Vilanterol Tr [Anoro Ellipta 62.5-25 Mcg INH] 1 each IH DAILY10 09/05/17 [Last Taken 10/09/17] - NPO status NPO Since - Liquids (Date): 10/11/17 NPO Since - Liquids (Time): 00:01 NPO Since - Solids (Date): 10/11/17 NPO Since - Solids (Time): 00:01 - Smoking Hx Smoking Status: Former smoker - Alcohol Use Alcohol Use: None - Family Anes Hx Family Hx Anesthesia Complications: NONE ANE Labs/Vital Signs - Labs Result Diagrams: 10/11/17 04:00 10/09/17 11:05 - Vital Signs Blood Pressure: 133/65 Heart Rate: 68 Respiratory Rate: 18 O2 Sat (%): 87 Height: 176.53 cm Weight: 72.3 kg ANE Physical Exam - Airway Neck exam: FROM Mallampati Score: Class 2 Mouth exam: dentures - Pulmonary Pulmonary: no respiratory distress - Cardiovascular Cardiovascular: regular rate and rhythym - ASA Status ASA Status: III ANE Anesthesia Plan Anesthesia Plan: MAC
[2017-10-11] MEDS ORDERED: PROPOFOL 200 MG/20 ML VIAL ONE (14:09)
[2017-10-11] MEDS ORDERED: EPINEPHrine 1 MG/10 ML SYR IVP ONE ×3 (14:13→14:38)
[2017-10-11] MEDS ORDERED: fentaNYL 100 MCG/2 ML INJ IVP PRN (14:34)
[2017-10-11] MEDS ORDERED: NALOXONE HCL 0.4 MG/ML INJ IVP PRN (14:34)
--- NOTE | 2017-10-11 14:52 | POSTANESTH ---
Post Anesthetic Evaluation Cardiovascular Status: Normal, Stable Respiratory Status: Normal, Stable Level of Consciousness/Mental Status: Mildly Sleepy, Arousable Pain Control: Adequate, Prn Tx Ordered Nausea/Vomiting Control: Adequate, Prn Tx Ordered Complications Possibly Related to Anesthesia: None Noted
--- NOTE | 2017-10-11 14:53 | GIREPORT ---
[facility] - Endoscopy Department Patient Name: LIBAN BORREGO Procedure Date: 10/11/2017 1:52 PM Patient Type: Inpatient Attending MD/ ER Physician: Xiao Aiken MD Procedure: Upper GI endoscopy Indications: Acute post hemorrhagic anemia, Recent gastrointestinal bleeding, Suspec loretta upper gastrointestinal bleeding Providers: Xiao Aiken MD Medicines: Sedation Administered by an Anesthesia Professional Complications: No immediate complications. Description of Procedure: After obtaining informed consent, the endoscope was passed under direct vision. Throughout the procedure, the patient's blood pressure, pulse, and oxygen saturations were monitored continuously. The Endoscope was intro duced through the mouth, and advanced to the third part of duodenum. The uppe r GI endoscopy was accomplished without difficulty. The patient tolerated th e procedure well. Findings: The lower third of the esophagus was normal. Endoclip were found in the gastric body/fundus (areas of recent treatme nt for AVM bleeding). A single bleeding angioectasia was found in the gastric body. This was at the site of two prior placed clips. The area was successfully injected with 5 mL of a 1:10,000 solution of epinephrine for hemostasis. Coagulation for hemostasis using bipolar probe was successful. To prevent bleeding post-intervention, two additional hemostatic clips were successfully pl aced. There was no bleeding at the end of the procedure. A large non-bleeding diverticulum was found in the second portion of th e duodenum. Estimated Blood Loss: Estimated blood loss: none. Post Op Diagnosis: - Normal lower third of esophagus. - Prior clips were noted in 3 locations. - Low volume, pulsatile, bleeding at the base of the endoclip was noted in one location (two clips there prior). - Epi injection, cautery, and 2 additional clips (4 clips present now) used to staunch the flow of blood from this area. No bleeding from the are a t the end of the exam. - Can consider repeat EGD to evaluate if there is suspicion of rebleedi ng. But endoscopic options may be limited on subsequent exams due to clip placement and interference by clips with applying additional Endo thera py. - Non-bleeding duodenal diverticulum. - No specimens collected. Recommendation: - Return patient to [facility] for ongoing care. - Clear liquid diet. - Observe patient's clinical course. Attending Participation: I personally performed the entire procedure. Xiao Aiken MD Xiao Aiken MD 10/11/2017 2:53:28 PM This report has been signed electronicallyXiao Aiken MD Number of Addenda: 0 Note Initiated On: 10/11/2017 1:52 PM [email or web address]
--- NOTE | 2017-10-11 16:09 | HOSPPROG ---
Hospitalist Progress Note Assessment/Plan: 87 yo M with PMH of ESRD on HD as well as GI bleed 2/2 AVMs presenting with acute on chronic anemia, weakness and fall # acute on chronic anemia: in the setting of anemia of chronic kidney disease with also presumed GI losses 2/2 gastric AVMs as next. Transfused 2 units prbc and remains low but stable, will transfuse again for hgb < 7 # GI bleed: with ongoing melanotic stools and known gastric AVMs, EGD today per GI showing bleeding at base of clips--2 more clips placed, cauterized and epi given which appeared to control bleed. Will monitor overnight, may require further intervention. # fall: with associated back and shoulder pain, personally reviewed lumbar spine and shoulder xrays negative for fractures etc, pt/ot to evaluate # ESRD: continue HD on usual schedule MWF # acute on chronic hypoxic respiratory failure: at baseline using 3-4L, has had issues with pulse ox monitoring that it continuously reads as low--this has been an issue on prior hospitalizations as well. Mild pulmonary edema noted on cxr yesterday, patient does not respond to lasix and fluid managed with HD, volume overload increased post tx # IP status,given multiple high risk presenting issues and that patient is not safe to dc to home will need > 48 hours stay for eval/mgmt of above Care plan reviewed with GI including plan for EGD Subjective: no significant overnight events, patient s/p EGD and doing well Objective: Vital Signs Temp Pulse Resp BP Pulse Ox 36.4 C 73 18 145/67 H 92 10/11/17 15:28 10/11/17 15:28 10/11/17 15:28 10/11/17 15:28 10/11/17 15:28 Laboratory Results 10/11/17 04:00 10/10/17 10/11/17 10/12/17 05:59 05:59 05:59 Intake Total 1500 350 100 Output Total 150 0 Balance 1350 350 100 PT 14.9 SEC (12.0-15.0) 10/09/17 11:05 INR 1.15 (0.83-1.16) 10/09/17 11:05 Constitutional: no apparent distress, appears nourished Eyes: PERRL Ears, Nose, Mouth, Throat: moist mucous membranes, hearing normal Cardiovascular: regular rate and rhythym, systolic murmur, rub, or gallop Respiratory: no respiratory distress, no rales or rhonchi Gastrointestinal: normoactive bowel sounds, soft, non-tender abdomen Genitourinary: no bladder tenderness Skin: warm, normal color Musculoskeletal: full muscle strength Neurologic: AAOx3, sensation intact bilaterally Psychiatric: interacting appropriately, not anxious, not encephalopathic ICD10 Worksheet Patient Problems: Problems Problem Status Onset Anemia Acute End stage renal disease on dialysis Acute Hypoxemia Acute Lumbar strain Acute Acute and chronic respiratory failure with hypoxia Acute Chronic Disease Mgmt/Transitional Care Acute Chronic renal failure Acute Community acquired pneumonia Acute Diabetes mellitus Acute Heart failure, diastolic, with acute decompensation Acute Hypoxia Acute Pleural effusion Acute Pneumonia Acute Pulmonary edema Acute Renal mass, left Acute UTI (urinary tract infection) Acute Weakness generalized Acute Anemia Chronic Osteoarthritis of hip Chronic Renal failure syndrome Chronic
--- NOTE | 2017-10-11 16:53 | ASMTCMCOM ---
CM Note CM Note Notes: 10/11/2017 Case Management Note Met w/pt daughter Alis at pt request to discuss d/c plan. Per Alis, pt has had home PT in the past, possibly through [facility]. Left VM with [facility] to confirm. Discussed benefits of Palliative care with Alis who is in agreement. Requested order from MD. Family plans for [facility] to follow outpatient. Case Management d/c poc: to be determined. Likely [facility] with [facility]. Case Management to follow. Date Signed: 10/11/2017 04:52 PM Electronically Signed By:Laura Plummer RN
[2017-10-11] MEDS: ALLOPURINOL 300 MG TAB PO SCH (19:46)
[2017-10-11] MEDS: TAMSULOSIN HCL 0.4 MG CAP PO SCH (19:46)
[2017-10-11] MEDS: LATANOPROST 0.005% 2.5 ML OPHT DROPS EACHEYE SCH (19:47)
[2017-10-12 04:27] LABS: PLATELET COUNT 126 10^3/uL (150-400)
--- NOTE | 2017-10-12 08:25 | SOAPPROG ---
SOAP Progress Note Assessment/Plan: Assessment: ESRD on HD MWF at [facility] -s/p RCC and nephrectomy -HD today- will give midodrine prior to help with BP -AVF access -will continue MWF schedule while admitted SOB -CXR with pulm edema no evidence of TRALE -continue to UF on HD as BP tolerates -continue home O2 Hypotension/vol -anemia/CAD -dry weight reportedly 76kg however less here, may need to re-establish at outpatient unit -will do trial midodrine with HD-- reviewed with pt and family side effects Anemia CKD and GI losses -Hb >7 s/p transfusion x 2--- will give 1 unit PRBCs again today with HD -GI consult appreciated--EGD with gastric AVMs bleeding s/p clipping 5.18 -PPI -will dose EPO 10,000 units weekly- dose to be given today MBD of CKD -check phos am labs -renal diet I discussed with family and RN Maura Rivero MD [facility] pager [phone] 10/12/17 09:14 Subjective: Feels ok- denies blood in stools ("dark color but no blood"). No sob but still on O2. No cp. Discussed getting PRBCs 1 unit and midodrine with HD in detail with and family. Objective: Vital Signs Temp Pulse Resp BP Pulse Ox 36.6 C 65 14 102/53 L 93 10/12/17 07:47 10/12/17 07:47 10/12/17 07:47 10/12/17 07:47 10/12/17 07:47 Laboratory Results 10/12/17 03:50 10/11/17 10/12/17 10/13/17 05:59 05:59 05:59 Intake Total 350 880 Output Total 0 Balance 350 880 PT 14.9 SEC (12.0-15.0) 10/09/17 11:05 INR 1.15 (0.83-1.16) 10/09/17 11:05 Physical Exam - Physical Exam General Appearance: alert, no apparent distress, other (on O2, sitting on chair) EENT: other (mmm) Neck: supple Respiratory: lungs clear Cardiac/Chest: regular rate, rhythm, other (no rub) Abdomen: normal bowel sounds, non-tender, soft Skin: warm/dry Extremities: other (no edema, LUE AVF +thrill/bruit) Neuro/Psych: alert, oriented x 3 ICD10 Worksheet Patient Problems: Problems Problem Status Onset Anemia Acute End stage renal disease on dialysis Acute Hypoxemia Acute Lumbar strain Acute Acute and chronic respiratory failure with hypoxia Acute Chronic Disease Mgmt/Transitional Care Acute Chronic renal failure Acute Community acquired pneumonia Acute Diabetes mellitus Acute Heart failure, diastolic, with acute decompensation Acute Hypoxia Acute Pleural effusion Acute Pneumonia Acute Pulmonary edema Acute Renal mass, left Acute UTI (urinary tract infection) Acute Weakness generalized Acute Anemia Chronic Osteoarthritis of hip Chronic Renal failure syndrome Chronic
[2017-10-12] MEDS: UMECLIDINIUM BRM IH SCH (08:26)
[2017-10-12] MEDS: VILANTEROL TR IH SCH (08:26)
[2017-10-12] MEDS: CALCIUM CARBONATE 500 MG CHEWABLE TAB PO SCH ×3 (10:51→18:23)
[2017-10-12] MEDS ORDERED: MIDODRINE HCL 5 MG TAB PO ONE (12:00)
[2017-10-12] MEDS ORDERED: EPOETIN ALFA 10,000 UNIT/ML VIAL SC SCH (14:00)
--- NOTE | 2017-10-12 15:24 | HOSPPROG ---
Hospitalist Progress Note Assessment/Plan: 87 yo M with PMH of ESRD on HD as well as GI bleed 2/2 AVMs presenting with acute on chronic anemia, weakness and fall # anemia 2/2 acute blood loss-in the setting of anemia of chronic kidney disease with also presumed GI losses 2/2 gastric AVMs as next. Transfused 2 units prbc and remains low but stable - will transfuse again for hgb < 7 today with HD # GI bleed-with ongoing melanotic stools and known gastric AVMs- s/p EGD per GI showing bleeding at base of clips--2 more clips placed, cauterized & epi - advance to regular diet today # fall: with associated back and shoulder pain, personally reviewed lumbar spine and shoulder xrays negative for fractures etc, pt/ot to evaluate # ESRD: continue HD on usual schedule MWF # acute on chronic hypoxic respiratory failure: at baseline using 3-4L - oxygen saturations 92% on 3L CXR (persoanlly reviewed and interpreted) Mild pulmonary edema - HD today # IP status,given multiple high risk presenting issues and that patient is not safe to dc to home will need > 48 hours stay for eval/mgmt of above I discussed the case with GI we will advance diet today and transfuse in HD Subjective: hungry Objective: Vital Signs Temp Pulse Resp BP Pulse Ox 36.4 C 80 12 102/41 L 92 10/12/17 12:00 10/12/17 12:00 10/12/17 12:00 10/12/17 12:00 10/12/17 12:00 Laboratory Results 10/12/17 03:50 10/12/17 11:16 10/11/17 10/12/17 10/13/17 05:59 05:59 05:59 Intake Total 350 880 Output Total 0 Balance 350 880 PT 14.9 SEC (12.0-15.0) 10/09/17 11:05 INR 1.15 (0.83-1.16) 10/09/17 11:05 - Physical Exam Constitutional: chronically ill appearing Eyes: anicteric sclera Ears, Nose, Mouth, Throat: moist mucous membranes Cardiovascular: regular rate and rhythym Respiratory: no respiratory distress Gastrointestinal: normoactive bowel sounds Genitourinary: no bladder fullness Skin: normal color Musculoskeletal: No asymmetric calves Neurologic: AAOx3 Psychiatric: interacting appropriately Lymph, Heme, Immunologic: no cervical LAD ICD10 Worksheet Patient Problems: Problems Problem Status Onset Anemia Acute End stage renal disease on dialysis Acute Hypoxemia Acute Lumbar strain Acute Acute and chronic respiratory failure with hypoxia Acute Chronic Disease Mgmt/Transitional Care Acute Chronic renal failure Acute Community acquired pneumonia Acute Diabetes mellitus Acute Heart failure, diastolic, with acute decompensation Acute Hypoxia Acute Pleural effusion Acute Pneumonia Acute Pulmonary edema Acute Renal mass, left Acute UTI (urinary tract infection) Acute Weakness generalized Acute Anemia Chronic Osteoarthritis of hip Chronic Renal failure syndrome Chronic
--- NOTE | 2017-10-12 15:35 | ASMTCMCOM ---
CM Note CM Note Notes: 10/12/2017 Case Management Note Called daughter Alis ([phone]) to inform that [facility] does not serve the [facility], only [facility]. Alis to consult with her brother and call Case Management with palliative preference tomorrow morning. Discussed using [facility]. Called [facility] and confirmed they can take pt for PT OT. Case Management d/c poc: home with [facility] RN PT OT with outpatient palliative consult. Case Management to follow. Date Signed: 10/12/2017 03:34 PM Electronically Signed By:Laura Plummer RN
[2017-10-12] MEDS: ALLOPURINOL 300 MG TAB PO SCH (19:55)
[2017-10-12] MEDS: TAMSULOSIN HCL 0.4 MG CAP PO SCH (19:55)
[2017-10-12] MEDS: LATANOPROST 0.005% 2.5 ML OPHT DROPS EACHEYE SCH (19:58)
[2017-10-13 07:14] VITALS: BP 111/51
[2017-10-13] MEDS: CALCIUM CARBONATE 500 MG CHEWABLE TAB PO SCH ×2 (08:46→12:21)
[2017-10-13] MEDS: VILANTEROL TR IH SCH (09:45)
[2017-10-13] MEDS: UMECLIDINIUM BRM IH SCH (09:45)
--- NOTE | 2017-10-13 09:47 | SOAPPROG ---
SOAP Progress Note Assessment/Plan: Assessment/Plan: ESRD: on HD MWF, dialyzed yesterday. - Next HD tomorrow, can be done at outpatient unit if discharged. Anemia: EGD with bleeding gastric AVMs clipped on 10/11. - Pt getting epo. - Pt transfused yesterday with Hgb up to 8.2 today. - Pt will continue to get epo and iron at outpatient dialysis unit. Hypotension: pt may benefit from midodrine as needed during HD treatments. Hypervolemia: will continue to modulate on HD. CURLY: Phos at goal with phos binder, will monitor Subjective: No acute events overnight. Pt got PRBCs transfused yesterday during HD. He got midodrine during HD and that helped with his BP. He states that he feels ok , breathing is ok this am but "comes and goes," no pain. Objective: Vital Signs Temp Pulse Resp BP Pulse Ox 36.7 C 70 24 H 111/51 L 90 L 10/13/17 07:11 10/13/17 07:11 10/13/17 07:11 10/13/17 07:11 10/13/17 07:11 Laboratory Results 10/13/17 04:08 10/13/17 04:08 10/12/17 10/13/17 10/14/17 05:59 05:59 05:59 Intake Total 880 850 Output Total 0 Balance 880 850 PT 14.9 SEC (12.0-15.0) 10/09/17 11:05 INR 1.15 (0.83-1.16) 10/09/17 11:05 General: alert and oriented, no acute distress Eyes; EOMI, PERRL OP: Clear CV: RRR Resp: nonlabored respirations on oxymask Abd: Soft, NT/ND Ext: +trace edema BLE Neuro: CN II-XII grossly intact, no asterixis Psych: cooperative, appropriate mood and affect ICD10 Worksheet Patient Problems: Problems Problem Status Onset Anemia Acute End stage renal disease on dialysis Acute Hypoxemia Acute Lumbar strain Acute Acute and chronic respiratory failure with hypoxia Acute Chronic Disease Mgmt/Transitional Care Acute Chronic renal failure Acute Community acquired pneumonia Acute Diabetes mellitus Acute Heart failure, diastolic, with acute decompensation Acute Hypoxia Acute Pleural effusion Acute Pneumonia Acute Pulmonary edema Acute Renal mass, left Acute UTI (urinary tract infection) Acute Weakness generalized Acute Anemia Chronic Osteoarthritis of hip Chronic Renal failure syndrome Chronic
--- NOTE | 2017-10-13 10:43 | PDIAF ---
- Diagnosis Diagnosis: GIB Code Status: Do Not Resuscitate - Medication Management Discharge Medications: Medications to Continue on Transfer Latanoprost 0.005% [Xalatan 0.005% (*)] 1 drop EACHEYE HS 01/25/14 [Last Taken 10/08/17] Multivitamins [Multivitamin (*)] 1 each PO DAILY 01/25/14 [Last Taken 09/04/17] Herbals/Supplements -Info Only 1 ea PO DAILY 05/27/16 [Last Taken 08/10/17 21:00 ] Calcium Carbonate [Tums 500MG (*)] 500 mg PO TIDMEAL 02/21/17 [Last Taken 18:00] Acetaminophen [Tylenol 325mg (*)] 650 mg PO Q4HRS PRN tab 05/08/17 [Last Taken 09/05/17 03:00] Allopurinol [Allopurinol 300 MG (RX)] 150 mg PO HS 09/05/17 [Last Taken 09/04/17 ] Tamsulosin HCl [Flomax 0.4 MG (*)] 0.4 mg PO HS 09/05/17 [Last Taken 10/08/17] Umeclidinium Brm/Vilanterol Tr [Anoro Ellipta 62.5-25 Mcg INH] 1 each IH DAILY10 09/05/17 [Last Taken 10/09/17] Discharge Medications: Refer to the Discharge Home Medication list for PRN reason. - Orders Services needed: Home Care, Registered Nurse, Physical Therapy, Occupational Therapy Home Care Face to Face: I certify that this patient was under my care and that I had the required urtr-oc-enng encounter meeting the encounter requirements on the discharge day. My findings support the fact that the patient is homebound as defined in Home Care Face to Face Continued: CMS Chapter 7 Medicare Benefits Manual 30.1.1 , The condition of the patient is such that there exists a normal inability to leave home and consequently, leaving home would require a considerable and taxing effort. Isolation Type: None Diet Recommendation: other (renal) Diet Texture: Regular Texture Diet - Follow Up Care Current Providers and Referrals: Christiano Hdz [Primary Care Provider] - As per Instructions
--- NOTE | 2017-10-13 18:50 | GDS ---
[f rep st] DISCHARGE SUMMARY DISCHARGE DIAGNOSES: Include: 1. Acute gastrointestinal bleed, status post esophagogastroduodenoscopy and clipping of arteriovenou s malformation with secondary cauterization and epinephrine injection. 2. Anemia secondary to acute blood loss. 3. End-stage renal disease. 4. Acute on chronic hypoxic respiratory failure. HISTORY OF PRESENT ILLNESS: This is an 87-year-old male, with a history of hemodialysis dependent re nal failure, who presents with acute GI bleed and fall. For details of the patient's initial present ation, please see the history and physical dated 10/09/2017. Consultative services include: 1. Gastroenterology. 2. Nephrology. PROCEDURES: Patient underwent EGD on 10/11/2017 and was found to have acute bleeding under a clip of an AVM. He was treated with cauterization and epinephrine injection. HOSPITAL COURSE BY ISSUE: 1. Acute GI bleed. The patient underwent EGD, had hemostasis established by cauterization and epine phrine injection. His hemoglobin remained stable post procedure. He is tolerating a regular diet. He did receive transfusions for further stabilization of his counts. Patient is not actively bleedin g at the time of this disposition. 2. Anemia secondary to acute blood loss. The patient received 3 units of packed red blood cells dur ing his hospital stay. Hemoglobin on the day of disposition is 8.2. [facility] team. MEDICATIONS AT THE TIME OF DISPOSITION: Please reference the med rec printed on 10/13/2017. APPOINTMENTS: Include: 1. His automatic buffer. 2. With Gastroenterology for long-term management of his chronic GI bleed. TIME SPENT: I spent greater than 30 minutes in the planning and coordination of this discharge. /[id number]/MODL
--- NOTE | 2017-10-14 14:18 | ASDISCHSUM ---
Discharge Information Plan Status:Home with Home Health Medically Cleared to Leave:10/13/2017 Discharge Date:10/13/2017 12:15 PM CM D/C Disposition:Home, Routine, Self-Care ADT D/C Disposition:Home, Routine, Self-Care Projected Discharge Date:10/13/2017 11:00 AM Transportation at D/C:Family Discharge Delay Reason: Follow-Up Date:10/13/2017 11:00 AM Discharge Slot: Final Diagnosis: Placement Information Referral Type:*Home Health Care Services Referral ID:[id number] Provider Name:[facility] Address 1:[address] Address 2: City:[place] Selection Factors: State:[place] Referral Type:Palliative Care Referral ID:[id number] Provider Name: Address 1: Phone Number: Address 2: Fax Number: City: Selection Factors: State: Patient Contact Information Contact Name:ES Relationship: Address:[address] Work Phone: City:[place] Alternate Phone: State/Zip Code:[place] [address] Email: Financial Information Financial Class:Medicare Primary Plan Desc:MEDICARE INPATIENT Primary Plan Number:[id number] Secondary Plan Desc:[facility] Secondary Plan Number:[id number] Assessment Information [facility] CM Progress Note CM Note CM Note Notes: 10/10/2017 Case Management Note Met w/pt to discuss d/c plan. Tiffani [phone] Daughter Alyssia [phone] Son Dwain [phone] Pt was admitted for anemia and weakness. Pt has dialysis M W in [place] and is followed by [facility]. Pt drives minimally only when there is no traffic. His daughter takes him to dialysis. She also drives his to the grocery and helps with environmental science technician. They have hired out lawn care and snow removal. Pt has had home care PT in the past but was uncertain of agency, possibly [facility]. Case Management d/c poc: to be determined pending recommendations from PT and OT. Case Management to follow. Date Signed: 10/10/2017 04:22 PM Electronically Signed By:Laura Plummer RN [facility] CM Progress Note CM Note CM Note Notes: 10/11/2017 Case Management Note Met w/pt daughter Alis at pt request to discuss d/c plan. Per Alis, pt has had home PT in the past, possibly through [facility]. Left VM with [facility] to confirm. Discussed benefits of Palliative care with Alis who is in agreement. Requested order from . Family plans for [facility] to follow outpatient. Case Management d/c poc: to be determined. Likely [facility] with [facility]. Case Management to follow. Date Signed: 10/11/2017 04:52 PM Electronically Signed By:Laura Plummer RN [facility] CM Progress Note CM Note CM Note Notes: 10/12/2017 Case Management Note Called daughter Alis ([phone]) to inform that [facility] does not serve the [place] area, only [facility]. Alis to consult with her brother and call Case Management with palliative preference tomorrow morning. Discussed using [facility]. Called [facility] and confirmed they can take pt for PT OT. Case Management d/c poc: home with [facility] RN PT OT with outpatient palliative consult. Case Management to follow. Date Signed: 10/12/2017 03:34 PM Electronically Signed By:Laura Plummer RN Case Management Discharge Plan Note Case Management Discharge Discharge Order Complete? Answers: Yes Patient to Obtain Answers: via Family Medications Transportation Arranged Answers: Family/Friends EMTALA Complete Answers: No Case Management Transport Answers: No Form Complete Faxed Final Orders Answers: Yes Agency/Facility Transfer Answers: Yes Report Printed & Faxed to Receiving Agency Family Notified Answers: Yes Discharge Comments Notes: Pt is being discharged today. CM spoke w/ Alis on the phone regarding d/c POC. Alis reports that she has spoken to pt and he is not ready for palliative. Alis reports that she will come pick pt up. CM met w/ pt for dispo planning. Pt would like [facility] to start on Tuesday. CM updated [facility] of this and asked that they call pt directly to schedule an appointment. CM provided MARIAM Morris w/ phone number to give report. CM provided pt w/ brochures for [facility]. Plan: [facility], OT, PT, RN Date Signed: 10/13/2017 10:16 AM Electronically Signed By:MARCELLA Mata Intervention Information Intervention Type:*IM-Signed Date of Service:10/13/2017 10:25 AM Patient Type:Inpatient Staff Member:Angela Billings Hours: Discipline: Severity: Comment:
== END 2017-10-13 12:15 | disposition home health service (06) | DRG 377 ==
LOC: OBSVTOIN 12:19 → F1N 13:01 → F2W 22:10
PROVIDERS: ADMIT Internal Medicine; ATTEND Hospitalist
PROC: 30233N1 Transfusion of Nonautologous Red Blood Cells into Peripheral Vein, Percutaneous Approach (ICD-10-PCS; principal; 2017-10-09)
PROC: 5A1D70Z Performance of Urinary Filtration, Intermittent, Less than 6 Hours Per Day (ICD-10-PCS; 2017-10-10)
PROC: 0W3P8ZZ Control Bleeding in Gastrointestinal Tract, Via Natural or Artificial Opening Endoscopic (ICD-10-PCS; 2017-10-11)
DX: K31.811 Angiodysplasia of stomach and duodenum with bleeding (principal); N18.6 End stage renal disease; J96.21 Acute and chronic respiratory failure with hypoxia; C64.2 Malignant neoplasm of left kidney, except renal pelvis; D62 Acute posthemorrhagic anemia; I50.32 Chronic diastolic (congestive) heart failure; N25.81 Secondary hyperparathyroidism of renal origin; E87.71 Transfusion associated circulatory overload; E11.22 Type 2 diabetes mellitus with diabetic chronic kidney disease; D63.1 Anemia in chronic kidney disease; M10.9 Gout, unspecified; G62.9 Polyneuropathy, unspecified; N40.0 Benign prostatic hyperplasia without lower urinary tract symptoms; I25.10 Atherosclerotic heart disease of native coronary artery without angina pectoris; M54.9 Dorsalgia, unspecified; M25.511 Pain in right shoulder; M25.512 Pain in left shoulder; Z99.2 Dependence on renal dialysis; Z90.5 Acquired absence of kidney
CPT/HCPCS: 82947-QW; 97116-GP; 97162-GP; 97165-GO; 97530-GO; 97530-GP; 97535-GO; G8978-GP-CK; G8979-GP-CI; G8980-GP-CJ; G8987-GO-CJ; G8988-GO-CI; J0885; J2704; P9016

== ENCOUNTER 2017-10-19 16:51 | Inpatient (IN) | payer OTHER ==
--- NOTE | 2017-10-19 17:35 | EDPHY ---
H & P Stated Complaint: black tarry stool, hemoglobin dropping, endoscopy 10/11, feeling weak Time Seen by Provider: 10/19/17 17:34 HPI/ROS: CHIEF COMPLAINT: Worsening anemia, presumed recurrent upper GI bleed HISTORY OF PRESENT ILLNESS: The patient presents the ED from dialysis after he was noted to have hemoglobin of 6.9. The patient has a history of multiple hospitalizations is here for anemia and weakness. The patient did undergo upper endoscopy and has had a bleeding AVM ligated and treated with cautery x2 this year. The patient reports he is having no symptoms of fever, cough or congestion. He did have dialysis as scheduled earlier today. The patient denies any acute headache, focal numbness or weakness. REVIEW OF SYSTEMS: A comprehensive 10 point review of systems is otherwise negative aside from elements mentioned in the history of present illness. Source: Patient Exam Limitations: No limitations - Personal History Tetanus Vaccine Date: 2010 - Medical/Surgical History Hx Asthma: No Hx Chronic Respiratory Disease: No Hx Diabetes: Yes Hx Cardiac Disease: Yes Hx Renal Disease: Yes Hx Cirrhosis: No Hx Alcoholism: No Hx HIV/AIDS: No Hx Splenectomy or Spleen Trauma: No Other PMH: prostate CA, renal CA, right kidney removed, R knee replacement, L&R hip replacement, left forearm fistula, cholecystectomy, hx of gout, peripheral neuropathy, anemia, esrd, ppm, cad, on dialysis, bliateral cataract repair, small bowel resection - Social History Smoking Status: Former smoker - Physical Exam Exam: General Appearance: Alert, no distress Eyes: Pupils equal and round no pallor or injection ENT, Mouth: Mucous membranes moist Respiratory: There are no retractions, lungs are clear to auscultation Cardiovascular: Regular rate and rhythm, 4/6 systolic ejection murmur Gastrointestinal: Abdomen is soft and nontender, no masses, bowel sounds normal Neurological: 5/5 strength all 4 extremities Skin: Warm and dry, no rashes Musculoskeletal: Neck is supple nontender Extremities: symmetrical, full range of motion Constitutional: Initial Vital Signs Temperature (C) 36.4 C 10/19/17 16:56 Heart Rate 77 10/19/17 16:56 Respiratory Rate 18 10/19/17 16:56 Blood Pressure 124/51 H 10/19/17 16:56 O2 Sat (%) 89 L 10/19/17 16:56 O2 Delivery Mode Nasal Cannula O2 (L/minute) 4 Allergies/Adverse Reactions: pseudoephedrine Allergy (Unknown, Verified 10/09/17 10:39) Swelling sudafed Allergy (Uncoded 04/22/17 16:50) Home Medications: Medication Instructions Recorded Latanoprost 0.005% [Xalatan 0.005% 1 drop EACHEYE HS 01/25/14 (*)] Multivitamins [Multivitamin (*)] 1 each PO DAILY 01/25/14 Herbals/Supplements -Info Only 1 ea PO DAILY 05/27/16 Calcium Carbonate [Tums 500MG (*)] 500 mg PO TIDMEAL 02/21/17 Acetaminophen [Tylenol 325mg (*)] 650 mg PO Q4HRS PRN tab 05/08/17 Allopurinol [Allopurinol 300 MG 150 mg PO HS 09/05/17 (RX)] Tamsulosin HCl [Flomax 0.4 MG (*)] 0.4 mg PO HS 09/05/17 Umeclidinium Brm/Vilanterol Tr 1 each IH DAILY10 09/05/17 [Anoro Ellipta 62.5-25 Mcg INH] Midodrine HCl 5 mg PO AD PRN 10/19/17 Medical Decision Making ED Course/Re-evaluation: The patient presents the emergency department with mild recurrent anemia in the setting of a known bleeding AVM. The patient is noted to be hemodynamically stable upon arrival. The patient's hemoglobin and hematocrit have decreased slightly from his prior discharge levels. The patient has been developing symptoms consistent with anemia including weakness and dyspnea on exertion. The patient has no evidence of hyperkalemia or a dialysis related emergency. I discussed the case with Dr. Georgi Naylor from the hospitalist service. The patient will be admitted to the hospital for observation this evening in the setting of his recurrent melena. Gastroenterology has been notified of the patient's admission to the hospital. Differential Diagnosis: Differential diagnosis considered includes critical anemia, renal failure, hyperkalemia, dehydration, upper GI bleed, lower GI bleed - Data Points Laboratory Results: Laboratory Results 10/19/17 18:00 10/19/17 18:00 10/19/17 10/19/17 18:00 18:00 WBC 7.39 10^3/uL 10^3/uL (3.80-9.50) RBC 2.31 10^6/uL L 10^6/uL (4.40-6.38) Hgb 7.6 g/dL L g/dL (13.7-17.5) Hct 23.0 % L % (40.0-51.0) MCV 99.6 fL fL (81.5-99.8) MCH 32.9 pg pg (27.9-34.1) MCHC 33.0 g/dL g/dL (32.4-36.7) RDW 19.2 % H % (11.5-15.2) Plt Count 183 10^3/uL 10^3/uL (150-400) MPV 10.0 fL fL (8.7-11.7) Neut % (Auto) Pending Lymph % (Auto) Pending Lassen % (Auto) Pending Eos % (Auto) Pending Baso % (Auto) Pending Nucleat RBC Rel Count 0.0 % % (0.0-0.2) Absolute Neuts (auto) Pending Absolute Lymphs (auto) Pending Absolute Monos (auto) Pending Absolute Eos (auto) Pending Absolute Basos (auto) Pending Absolute Nucleated RBC 0.00 10^3/uL 10^3/uL (0-0.01) Immature Gran % Pending Immature Gran # Pending Platelet Estimate Pending Sodium 136 mEq/L mEq/L (135-145) Potassium 3.7 mEq/L mEq/L (3.5-5.2) Chloride 93 mEq/L L mEq/L (97-110) Carbon Dioxide 31 mEq/l mEq/l (22-31) Anion Gap 12 mEq/L mEq/L (8-16) BUN 22 mg/dL mg/dL (7-23) Creatinine 1.9 mg/dL H mg/dL (0.7-1.3) Estimated GFR 34 Glucose 181 mg/dL H mg/dL (70-100) Calcium 8.8 mg/dL mg/dL (8.5-10.4) Departure - Departure Disposition: [facility] Inpatient Acute Clinical Impression: End stage renal disease on dialysis, Upper GI bleed, Melena Condition: Fair
[2017-10-19 18:24] LABS: PLATELET COUNT 183 10^3/uL (150-400)
[2017-10-19] MEDS ORDERED: ACETAMINOPHEN 325 MG TAB PO PRN ×2 (20:29→20:31)
[2017-10-19] MEDS ORDERED: ONDANSETRON 4 MG/2 ML VIAL IVP PRN (20:29)
[2017-10-19] MEDS ORDERED: oxyCODONE IR 5 MG TAB PO PRN (20:29)
[2017-10-19] MEDS ORDERED: ONDANSETRON DISINTEGRATING 4 MG TAB PO PRN (20:29)
[2017-10-19] MEDS ORDERED: MIDODRINE HCL 5 MG TAB PO PRN (20:31)
--- NOTE | 2017-10-19 21:10 | GHP ---
[f rep st] HISTORY AND PHYSICAL DATE OF ADMISSION: 10/19/2017 CHIEF COMPLAINT: Weakness and dark stools. HISTORY OF PRESENT ILLNESS: This is an 87-year-old man with past medical history of end-stage renal disease, as well as renal cell carcinoma and several recent admits for GI bleed, found to be secondar y to gastric AVMs, who is admitted from dialysis with increased weakness, recurrent dark stools and w orsening anemia. The patient has chronic anemia related both to his chronic kidney disease, as well as recurrent blood loss from gastric AVMs and has had several recent hospitalizations for the same. He was last discharged only several days ago following admission for similar issues at which time he underwent EGD and clipping of AVM with secondary cauterization and epinephrine injection. The patien t states he went home and for several days, had no evidence of dark tarry stools, but for the last 2 days these have recurred. Today while in dialysis, a hemoglobin was checked, and it was 6.9. He had previously been running in the high 7 range. He otherwise notes that he has developed recently a mi ld dry cough, but no fevers or chills. He otherwise, other than feeling weak, states he feels at his usual baseline. PAST MEDICAL HISTORY: Include: 1. End-stage renal disease on chronic hemodialysis. 2. Prostate cancer. 3. Renal cell carcinoma. 4. Gout. 5. Chronic anemia. 6. 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 7. BPH. 8. Chronic hypoxic respiratory failure. 9. Chronic diastolic heart failure. 10. Coronary artery disease. 11. Type 2 diabetes. PAST SURGICAL HISTORY: 1. Cholecystectomy. 2. Knee replacement. 3. Bilateral hip replacement. 4. AVF creation. FAMILY HISTORY: Parents are . SOCIAL HISTORY: Patient is a former smoker. He lives independently with his . He is accompanie d by his children. REVIEW OF SYSTEMS: A 10-point review of systems obtained and negative except as per HPI. HOME MEDICATIONS: 1. Midodrine. 2. Tylenol. 3. Ellipta. 4. Tamsulosin. 5. Multivitamin. 6. Latanoprost. 7. Calcium. 8. Allopurinol. ALLERGIES: Sudafed. PHYSICAL EXAMINATION: VITAL SIGNS: Blood pressure 119/57, heart rate 73, respiratory rate 18, O2 sa turations 89% on room air, temperature 36.4. GENERAL APPEARANCE: This is an elderly male. He is awake and alert. He is in no acute di stress. EYES: Anicteric. HENT: Oropharynx clear. CARDIOVASCULAR: Systolic murmur appreciated. Rate is regular. PULMONARY: Clear to auscultation bi laterally. ABDOMEN: Soft, nontender. Positive bowel sounds. EXTREMITIES: No clubbing, cyanosis, or edema. SKIN: Warm, dry, well perfused. NEURO/PSYCHIATRIC: Oriented, appropriate, pleasant. CLINICAL DATA: Laboratories reviewed. Repeat hemoglobin and hematocrit here are 7.6 and 23. Creati nine 1.9. 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 1. Melena. Concerning for recurrent bleed from his gastric arteriovenous malformation. Again, he w as just discharged from similar diagnosis at which time, Dr. Aiken was able to perform esophagogastr oduodenoscopy with clipping and cauterization. Gastroenterology has been consulted and presumably wi ll perform esophagogastroduodenoscopy in the morning, though they have not yet had a chance to evalua te the patient. The patient will be kept n.p.o. after midnight. 2. Acute on chronic anemia. On repeat hemoglobin and hematocrit here, he is actually closer to his discharge hemoglobin and hematocrit from his last hospitalization. We will recheck in the morning. He does have complaints of melena, as per above. 3. End-stage renal disease. The patient is status post hemodialysis today. Renal will be consulted in case patient remains in-house to where he requires repeat hemodialysis. 4. Disposition: Observation status. Suspect patient will need less than 48-hour stay for evaluatio n and management of above. Patient is new to my care. Old records reviewed, summarized as per HPI and Past Medical History. Ca re plan reviewed with emergency department physician, including plans for GI consultation. Further h istory obtained from patient's children present at bedside. /[id number]/MODL
[2017-10-19] MEDS: ALLOPURINOL 300 MG TAB PO SCH (21:40)
[2017-10-19] MEDS: TAMSULOSIN HCL 0.4 MG CAP PO SCH (21:41)
[2017-10-19] MEDS: LATANOPROST 0.005% 2.5 ML OPHT DROPS EACHEYE SCH (21:58)
[2017-10-19] MEDS: NS 1,000 ML IV SCH (21:58)
[2017-10-20] MEDS: NS 1,000 ML IV SCH (05:41)
[2017-10-20 05:44] LABS: PLATELET COUNT 129 10^3/uL (150-400)
[2017-10-20] MEDS: Umeclidinium Brm/Vilanterol Tr [Anoro Ellipta 62.5-25 Mcg Inh] IH SCH (08:50)
--- NOTE | 2017-10-20 10:23 | GCON ---
[f rep st] CONSULTATION NEPHROLOGY CONSULTATION DATE OF CONSULTATION: 10/20/2017 REASON FOR CONSULTATION: Anemia, GI bleeding. HISTORY OF PRESENT ILLNESS: This is an 87-year-old male with a past medical history significant for multiple issues, including end-stage renal disease, renal cell cancer, prostate cancer, and recurrent GI bleeding secondary to AVMs, who now presents with recurrent bleeding. [facility], at which time he did undergo identification and cauterization of a gastric A VM. The patient returned to dialysis on Tuesday. They were unable to remove fluid effectively as his blood pressure was low. Hemoglobin was checked, and it was down to low levels. Because of this, he was referred for admission. At [facility], his blood pressure has been stable after some IV fluid. An initial hemoglobin was noted to be 7.6; it is down to 6.4 this morning. In general, th e patient is stable, although he has worsening dyspnea on exertion. Dr. Villasenor is seeing the patien t, and preparing to take him for an EGD. Relating to these issues, we are asked by the hospitalist winnie hawkins to assist with his renal diagnosis and management. PAST MEDICAL HISTORY: 1. End-stage renal disease with a history of renal cell carcinoma, status post nephrectomy. 2. Prostate cancer. 3. Gout. 4. Chronic anemia. 5. Recurrent GI bleeding. 6. Benign prostatic hypertrophy. 7. Chronic hypoxic respiratory failure, on home O2. 8. Diastolic heart failure. 9. Coronary artery disease. 10. Type 2 diabetes. PAST SURGICAL HISTORY: 1. Cholecystectomy. 2. Knee replacement. 3. Bilateral hip replacement. 4. AV fistula. FAMILY HISTORY: Noncontributory. SOCIAL HISTORY: The patient was previously a smoker. He lives with his . His 2 children are p resent and they are very supportive. He is not currently smoking cigarettes or drinking alcohol. HOME MEDICATIONS: Midodrine, Tylenol, Ellipta, tamsulosin, multivitamin, latanoprost, calcium, and a llopurinol. ALLERGIES: Sudafed. REVIEW OF SYSTEMS: A 12 system review was obtained. It is negative except for the lack of urine out put, some nonproductive cough, worsening dyspnea on exertion, and evidence of melena. PHYSICAL EXAM: GENERAL: At time of exam, the patient is appropriate and alert. VITAL SIGNS: Temperature 36.8, pulse 67, blood pressure 130/52. HEENT: Eyes: Sclerae clear. Oropharynx clear, edentulous, mucous membranes are moist. NECK: No lymphadenopathy or thyromegaly. LUNGS: Diminished, with some crackles in the bases bilaterally. CARDIOVASCULAR: Regular rate and r hythm, without gallops or rubs. He does have a systolic murmur. ABDOMEN: Nontender. The patient d oes have an umbilical hernia. : Deferred. EXTREMITIES: No lower extremity edema. INTEGUMENT: Generally clear. NEUROLOGIC: No focal findings. LABORATORY STUDIES: White count 5.7, hemoglobin 6.4, platelets 129. Sodium 137, potassium 3.9, bica rb 27, creatinine 2.8. IMPRESSION AND PLAN: 1. Recurrent gastrointestinal bleeding. It seems quite likely the patient has recurrent gastric ble eding via AVMs. His hemoglobin has decreased, and he has worsening dyspnea on exertion. Relating to this, the patient will go for a repeat EGD today. The patient will be transfused 1 unit today, and have another unit on dialysis tomorrow. We will follow the patient's volume status, to make sure he does not develop worsening heart failure with his transfusion. 2. End-stage renal disease. The patient will be dialyzed tomorrow. Again, if volume considerations worsen, he will be dialyzed later today. Thank you for allowing us to participate in this patient's care. We will continue following closely with you. /[id number]/MODL
[2017-10-20] MEDS ORDERED: PROPOFOL 200 MG/20 ML VIAL ONE (10:31)
[2017-10-20] MEDS ORDERED: EPINEPHrine 1 MG/10 ML SYR IVP ONE ×2 (10:36→11:06)
--- NOTE | 2017-10-20 10:44 | PDANEPAE ---
ANE History of Present Illness gi bleed ANE Past Medical History - Cardiovascular History Hx Hypertension: No Hx Arrhythmias: No Hx Chest Pain: No Hx Coronary Artery / Peripheral Vascular Disease: No Hx CHF / Valvular Disease: Yes Hx Palpitations: No Cardiovascular History Comment: SL HEART MURMUR. CHF IN MAR. W FLUID OVERLOAD, ADM TO HOSP - Pulmonary History Hx COPD: Yes Hx Asthma/Reactive Airway Disease: No Hx Recent Upper Respiratory Infection: No Hx Oxygen in Use at Home: Yes O2 in Use at Home (L/minute): 4 Hx Sleep Apnea: No Sleep Apnea Screening Result - Last Documented: Positive Pulmonary History Comment: LOU TRIGGERS NO DIAGNOSIS. REQUESTED BRING TRAVEL O2 TANK DOS - Neurologic History Hx Cerebrovascular Accident: No Hx Seizures: No Hx Dementia: No Neurologic History Comment: PERIPHERAL NEUROPATHY - Endocrine History Hx Diabetes: No Endocrine History Comment: TYPE 2 DM - Renal History Hx Renal Disorders: Yes Renal History Comment: END STAGE RENAL DISEASE ON DIALYSIS. RENAL CA, NEPHRECTOMY R,. LEFT AV FISTULA IN PLACE. - Liver History Hx Hepatic Disorders: No - Neurological & Psychiatric Hx Hx Neurological and Psychiatric Disorders: No - Cancer History Hx Cancer: Yes Cancer History Comment: PROSTATE AND KIDNEY - Congenital Disorder History Hx Congenital Disorders: No - GI History Hx Gastrointestinal Disorders: No - Other Health History Other Health History: GLAUCOMA OU. PERIPHERAL NEUROPATHY. ANEMIA. GOUT OCC. DENTURES FULL SET - Chronic Pain History Chronic Pain: No - Surgical History Prior Surgeries: DRAIN PLACEMENT 08/25, EGD/COLONOSCOPY 07/28, left av fistula placement 03/26/[address] ryder. BOWEL RESECTION WITH RT RADICAL NEPHRECTOMY 05/2012. LT HIP REPLACEMENT 10/2010. MARIA ESTHER. PROSTATECTOMY. BLANCA CATARACT. RT TOTAL KNEE. TONSILLECTOMY. R KAREN 03-05-14 ANE Review of Systems Review of Systems: ANE Patient History - Allergies Allergies/Adverse Reactions: pseudoephedrine Allergy (Unknown, Verified 10/09/17 10:39) Swelling sudafed Allergy (Uncoded 04/22/17 16:50) - Home Medications Home Medications: Latanoprost 0.005% [Xalatan 0.005% (*)] 1 drop EACHEYE HS 01/25/14 [Last Taken 10/18/17] Multivitamins [Multivitamin (*)] 1 each PO DAILY 01/25/14 [Last Taken 10/19/17] Herbals/Supplements -Info Only 1 ea PO DAILY 05/27/16 [Last Taken 10/19/17] Calcium Carbonate [Tums 500MG (*)] 500 mg PO TIDMEAL 02/21/17 [Last Taken 12:00] Allopurinol [Allopurinol 300 MG (RX)] 150 mg PO HS 09/05/17 [Last Taken 10/18/17 ] Tamsulosin HCl [Flomax 0.4 MG (*)] 0.4 mg PO HS 09/05/17 [Last Taken 10/18/17] Umeclidinium Brm/Vilanterol Tr [Anoro Ellipta 62.5-25 Mcg INH] 1 each IH DAILY10 09/05/17 [Last Taken 10/19/17] Midodrine HCl 5 mg PO AD PRN 10/19/17 [Last Taken Unknown] - NPO status NPO Since - Liquids (Date): 10/19/17 NPO Since - Liquids (Time): 00:00 NPO Since - Solids (Date): 10/19/17 NPO Since - Solids (Time): 00:00 - Smoking Hx Smoking Status: Former smoker - Family Anes Hx Family Hx Anesthesia Complications: NONE ANE Labs/Vital Signs - Labs Result Diagrams: 10/20/17 04:43 10/20/17 04:43 - Vital Signs Blood Pressure: 139/64 Heart Rate: 67 Respiratory Rate: 17 O2 Sat (%): 93 Height: 176.53 cm Weight: 76.5 kg ANE Physical Exam - Airway Neck exam: decreased ROM Mallampati Score: Class 2 Mouth exam: dentures - Pulmonary Pulmonary: no respiratory distress - Cardiovascular Cardiovascular: regular rate and rhythym - ASA Status ASA Status: IV ANE Anesthesia Plan Total IV Anesthesia: Yes
[2017-10-20] MEDS ORDERED: NALOXONE HCL 0.4 MG/ML INJ IVP PRN (11:04)
--- NOTE | 2017-10-20 11:23 | GCON ---
[f rep st] CONSULTATION CHIEF COMPLAINT: Melena. HISTORY OF PRESENT ILLNESS: I have been asked to see this 87-year-old gentleman by Georgi Naylor MD, in consultation for melenic stool. Patient has had a history of recurrent gastrointestinal bleeding from gastric AVMs. He has multiple medical issues, including end-stage renal disease, as well as renal -cell cancer and prostate cancer. He has had recurrent GI bleeding. He presented to the emergency department with profound anemia as well as melenic stool. Patient feeling weak, but hemodynamically stable. No significant lightheadedness or dizziness. He is on chronic dialysis and did receive dialysis yesterday. His hemoglobin was 6.4 this morning. He was having some worsening dyspnea on exertion. He had previously undergone upper endoscopy, with findings of gastric AVMs and had endoscopic clips placed. He does have a longstanding history of anemia and has had frequent blood transfusions. Presents to the hospital again with melenic stools and profound anemia. PAST MEDICAL HISTORY: Remarkable for: 1. End-stage renal disease, history of renal cell carcinoma, status post nephrectomy. 2. Prostate cancer. 3. Gout. 4. Chronic anemia. 5. Recurrent GI bleeding. 6. Benign prostatic hypertrophy. 7. Chronic hypoxic respiratory failure on home O2. 8. Diastolic heart failure. 9. Coronary artery disease. 10. Diabetes mellitus. PAST SURGICAL HISTORY: Remarkable for cholecystectomy, knee replacement, bilateral hip replacement, and AV fistula. FAMILY HISTORY: Negative as it pertains to chief complaint. SOCIAL HISTORY: Patient is a previous smoker. Lives with his . Has 2 children. Nonsmoker and nondrinker. HOME MEDICATIONS: Include midodrine, Tylenol, Ellipta, tamsulosin,multivitamins , latanoprost, calcium, and allopurinol. ALLERGIES: Sudafed. REVIEW OF SYSTEMS: Negative for 10 systems other than mentioned in HPI. PHYSICAL EXAMINATION: VITAL SIGNS: 139/64, heart rate 67, respiratory rate 17 , 93% sat on room air, 36.5 Celsius temperature. CONSTITUTIONAL: Elderly, chronically ill-appearing male in no acute distress, lying in bed. HEENT: Normocephalic, atraumatic. EOMI. Neck supple. No cervical adenopathy. No thyromegaly. Mucous membranes moist. Oropharynx is edentulous. LUNGS: Clear. Diminished breath sounds with some crackles in the bases bilaterally. CARDIAC: Normal S1, S2. Has a systolic ejection murmur. ABDOMEN: Soft, nontender. No hepatosplenomegaly. EXTREMITIES: Without clubbing, cyanosis, edema. NEURO: Nonfocal. SKIN: Warm, dry, intact. PSYCH: Alert oriented x3 with normal affect. LABORATORY DATA: Hemoglobin is 6.4, hematocrit 19.6. Serum sodium 137, potassium 3.9, chloride 99, CO2 of 27, and BUN of 31 with a creatinine of 2.8. IMPRESSION: An 87-year-old gentleman with longstanding history recurrent anemia requiring transfusions in the past. He has been noted to have gastric arteriovenous malformations. Has melenic stool and clinical presentation consistent with upper gastrointestinal bleed. 1. Will proceed with urgent upper endoscopy for further evaluation. 2. Transfuse 2 units of packed red blood cells. 3. Serial H and H. 4. Further recommendations pending EGD Thank for allowing me to participate in the care of this patient. /[id number]/MODL MTDD
--- NOTE | 2017-10-20 11:30 | GIREPORT ---
[facility] - Endoscopy Department Patient Name: LIBAN BORREGO Procedure Date: 10/20/2017 10:37 AM Patient Type: Inpatient Attending MD/ ER Physician: Umang Paul MD Procedure: Upper GI endoscopy Indications: Acute post hemorrhagic anemia, Melena, Patient with recent recurrent bleeding from gastric AVM's. Patient admitted about a week ago with UGI bleed from Gastric AVM's. Treated endoscopically with Bicap, Epi and clipping. Presents today with melenal and anemia. Providers: Umang Paul MD Medicines: Sedation Required Anesthesia Staff Assistance Complications: No immediate complications. Description of Procedure: After obtaining informed consent, the endoscope was passed under direct vision. Throughout the procedure, the patient's blood pressure, pulse, and oxygen saturations were monitored continuously. The Endoscope was intro duced through the mouth, and advanced to the second part of duodenum. [facility] GI endoscopy was accomplished without difficulty. The patient tolerated th e procedure well. Findings: The esophagus and gastroesophageal junction were examined with white li ght. There were esophageal mucosal changes consistent with long-segment Jones ett's esophagus. These changes involved the mucosa at the upper extent of the gastric folds (40 cm from the incisors) extending to the Z-line (35 cm from the incisors). [place]-colored mucosa was present. The maximum longitudi nal extent of these esophageal mucosal changes was 5 cm in length. A large hiatal hernia was present. One non-bleeding cratered gastric ulcer with pigmented material was fou nd in the gastric body and on the posterior wall of the gastric body. The les ion was 10 mm in largest dimension. Area was successfully injected with 7 m L of a 1:10,000 solution of epinephrine for hemostasis. In proximal body two areas of prior clipping, One area with one clip an d a second site with two clips c/w prior endoscoic treatment. The duodenal bulb was normal. A large non-bleeding diverticulum was found in the second portion of th e duodenum. Estimated Blood Loss: Estimated blood loss: none. 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 - Large hiatal hernia. - Non-bleeding gastric ulcer with pigmented material. Injected. (prior site of endospcic treatment wiht epi, bicap and clips) - Normal duodenal bulb. - Non-bleeding duodenal diverticulum. - No specimens collected. Recommendation: - Clear liquid diet. - serial H and H - Transfuse 2 units of PRBCs - Use Protonix (pantoprazole) 40 mg PO BID. - Thank you for allowing me to participate in the care of your patient. Attending Participation: I personally performed the entire procedure. Umang Paul MD Umang Paul MD 10/20/2017 11:29:24 AM This report has been signed electronicallyStronald Paul MD Number of Addenda: 0 Note Initiated On: 10/20/2017 10:37 AM [email or web address]
--- NOTE | 2017-10-20 11:59 | GCON ---
[f rep st] CONSULTATION DATE OF CONSULTATION: 10/19/2017 REASON FOR CONSULTATION: Opinion regarding end-stage kidney failure. HISTORY OF PRESENT ILLNESS: The patient is well known to us, he is an 87-year-old gentleman who dial yzes Tuesday, Tuesday, Tuesday at the [facility] under the care of Dr. Jamin Granado. The patient has anemia of chronic kidney disease, but he also has gastrointestinal AVMs that bleed o n occasion, dropping his hemoglobin. Over the course of the past week or so, he has been having bloo d in his stool, his hemoglobin has been dropping, most recently 6.9. He was feeling weak and fatigue d, and was taken to the emergency department at [facility] for further evaluation and managem ent. The patient has not been having fevers, chills, nausea, vomiting, chest pain. He does have naseem e chronic shortness of breath. No cough or sputum production. No hemoptysis, hematemesis, epistaxis , or abdominal discomfort. PAST MEDICAL HISTORY: Significant for: 1. 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 2. Renal cell carcinoma, status post nephrectomy. 3. Recurrent renal cell carcinoma on the contralateral side. 4. Prostate cancer. 5. Gout. 6. Recurrent gastrointestinal hemorrhages. 7. GI AVMs. 8. Prostate hypertrophy. 9. Coronary artery disease. 10. Diabetes mellitus type 2. 11. Status post AV fistula. 12. Status post cholecystectomy. 13. Bilateral total hip arthroplasty. ALLERGIES: Sudafed which caused his eyes and tongue to swell when he was 25 years old. MEDICATIONS: Include: 1. Allopurinol. 2. Midodrine. 3. Tylenol. 4. Calcium. 5. Ellipta. 6. Multiple vitamin. 7. Tamsulosin. FAMILY HISTORY: Negative for renal failure. SOCIAL HISTORY: He is . He lives with his . His family is attentive. He no longer smok es, quit some time ago. No alcohol, IV or recreational drugs. REVIEW OF SYSTEMS: A complete 12-point review of systems was performed with the pertinent positives and negatives as per the previous sections. PHYSICAL EXAMINATION: VITAL SIGNS: Temperature is 36.7 degrees, respirations 18, pulse 79, blood pr essure 98/54. GENERAL: He is awake, alert, sitting on the side of his bed. He is cooperative. DEMARCO NT: Oxygen is in place. Pupils are reactive to light. Mucous membranes are moist. NECK: No lymph adenopathy or thyromegaly. HEART: Regular. Grade 2/6 systolic murmur. LUNGS: No rhonchi or wheez es. ABDOMEN: Bowel sounds are positive. Nontender, nondistended. EXTREMITIES: No edema, cyanosis , or clubbing. NEUROLOGIC: No asterixis. SKIN: No unusual rashes or lesions. LYMPH: No palpable lymphadenopathy or lymphedema. MUSCULOSKELETAL: No effusions or tenderness. LABORATORY DATA: WBC 7.4, hemoglobin 7.6 (was 6.9 in the dialysis unit), hematocrit 23, platelet cou nt 183,000. Serum sodium 136, potassium 3.7, chloride 93, CO2 31, BUN 22, creatinine 1.9, glucose 18 1, calcium 8.8. IMPRESSION: 1. End-stage kidney failure, had dialysis earlier today. 2. Recurrent gastrointestinal bleed due to gastrointestinal arteriovenous malformations. 3. Weakness and fatigue. 4. Shortness of breath. RECOMMENDATIONS: 1. Does not look like he needs a blood transfusion tonight. 2. Continue with his oxygen supplementation. 3. Next dialysis will be on Tuesday. 4. The patient's sister recently , and her memorial service is on Tuesday, he would like to be out of the hospital, so he can attend that. Thank you for allowing me to participate in the care of your patient. If there is any question, plea se do not hesitate to contact us. We will be following along with you. /[id number]/MODL
[2017-10-20] MEDS: CALCIUM CARBONATE 500 MG CHEWABLE TAB PO SCH ×3 (12:58→18:03)
[2017-10-20] MEDS: PANTOPRAZOLE SODIUM 40 MG TAB PO SCH ×2 (12:59→20:31)
[2017-10-20] MEDS: MULTIVITAMINS 1 EACH TAB PO SCH (12:59)
--- NOTE | 2017-10-20 15:29 | HOSPPROG ---
Hospitalist Progress Note Assessment/Plan: #ABLA #GI Bleed #Hx of AVM #ESRD #Acute on chronic respiratory failure -Now on 10 L O2 #Diastolic Heart Failure Plan: the pt is on 10 L which is an increased from baseline. If there is further worsening, he will need dialysis today. Otherwise, he is currently tolerating at 10 liters. His first unit of blood is still transfusing and this may worsen his resp status. Will monitor closely. Renal is following and aware per their note He is receiving one unit of blood now and will receive another unit tomorrow at dialysis s/p endoscopy. which shows non bleeding gastric ulcer and unremarkable duodenum. It also showed Curtis's Esophagus. no biopsies were obtained. No active bleeding was seen serial H/H CLD, Protonix BID, await further GI reccs total critical care time spent on a pt with acute blood loss anemia who is receiving transfusion and has acute resp failure due to increasing volume is 40 minutes. Will follow closely. Subjective: tolerating 10 L of O2. Receiving blood. no cp or cough. some pedal edema. Objective: Vital Signs Temp Pulse Resp BP Pulse Ox 36.3 C 68 16 136/50 H 95 10/20/17 14:15 10/20/17 14:15 10/20/17 14:15 10/20/17 14:15 10/20/17 14:15 Laboratory Results 10/20/17 04:43 10/20/17 04:43 10/19/17 10/20/17 10/21/17 05:59 05:59 05:59 Intake Total 1173 626 Balance 1173 626 - Physical Exam Constitutional: no apparent distress Eyes: PERRL, EOMI Ears, Nose, Mouth, Throat: moist mucous membranes Cardiovascular: regular rate and rhythym, edema (trace) Respiratory: no respiratory distress, reduced air movement Gastrointestinal: normoactive bowel sounds Skin: warm Neurologic: AAOx3 Psychiatric: interacting appropriately, not anxious, not encephalopathic Lymph, Heme, Immunologic: No petechiae ICD10 Worksheet Patient Problems: Problems Problem Status Onset End stage renal disease on dialysis Acute Melena Acute Upper GI bleed Acute Acute and chronic respiratory failure with hypoxia Acute Anemia Acute Chronic Disease Mgmt/Transitional Care Acute Chronic renal failure Acute Community acquired pneumonia Acute Diabetes mellitus Acute Heart failure, diastolic, with acute decompensation Acute Hypoxemia Acute Hypoxia Acute Lumbar strain Acute Pleural effusion Acute Pneumonia Acute Pulmonary edema Acute Renal mass, left Acute UTI (urinary tract infection) Acute Weakness generalized Acute Anemia Chronic Osteoarthritis of hip Chronic Renal failure syndrome Chronic
[2017-10-20] MEDS: TAMSULOSIN HCL 0.4 MG CAP PO SCH (20:31)
[2017-10-20] MEDS: LATANOPROST 0.005% 2.5 ML OPHT DROPS EACHEYE SCH (20:31)
[2017-10-20] MEDS: ALLOPURINOL 300 MG TAB PO SCH (20:31)
--- NOTE | 2017-10-21 08:18 | SOAPPROG ---
SOAP Progress Note Assessment/Plan: Assessment: #ESRD- [facility] MWF -HD today, UF as tolerates (on more O2)-- midodrine as needed to support BP -may need extra treatment Sat am depending on O2 needs (and if pt willing to stay)-reassess after HD this afternoon -AVF access #anemia GI losses and CKD -recurrent AVM bleeding, s/p EGD yesterday-- non-bleeding gastric ulcer noted -PRBCs yesterday and plans to give another unit with HD today -Epo #MBD of CKD -on tums binder -check phos am labs -renal diet when taking po #prior renal cell CA and prostate CA #diastolic CHF #DM2 #gout- i will decrease allopurinol to 100mg po daily given ESRD I discussed with GI, spinning operator (Parker), and family Dr. Granado auto parts professional for weekend Maura Rivero MD [facility] [phone] pager 10/21/17 08:47 Subjective: Pt seen on dialysis- using AVF, 3.5K/2.5Ca bath, goal UF 1 kg. Plans for one unit PRBCs with HD. BP in 120s currently. Denies bleeding, melana. Wants to d/c soon as for sister is tomorrow. I touched base with family. Objective: Vital Signs Temp Pulse Resp BP Pulse Ox 36.6 C 69 14 127/50 H 95 10/21/17 04:28 10/21/17 04:28 10/21/17 04:28 10/21/17 04:28 10/21/17 04:28 Laboratory Results 10/20/17 20:50 10/20/17 04:43 10/20/17 10/21/17 10/22/17 05:59 05:59 05:59 Intake Total 1173 926 Balance 1173 926 Physical Exam - Physical Exam General Appearance: alert, no apparent distress, other (on O2 mask) EENT: other (mmm) Neck: supple Respiratory: lungs clear (ant bilat) Cardiac/Chest: regular rate, rhythm Abdomen: non-tender, soft Extremities: other (+edema bilat, warm) Neuro/Psych: alert, oriented x 3 ICD10 Worksheet Patient Problems: Problems Problem Status Onset End stage renal disease on dialysis Acute Melena Acute Upper GI bleed Acute Acute and chronic respiratory failure with hypoxia Acute Anemia Acute Chronic Disease Mgmt/Transitional Care Acute Chronic renal failure Acute Community acquired pneumonia Acute Diabetes mellitus Acute Heart failure, diastolic, with acute decompensation Acute Hypoxemia Acute Hypoxia Acute Lumbar strain Acute Pleural effusion Acute Pneumonia Acute Pulmonary edema Acute Renal mass, left Acute UTI (urinary tract infection) Acute Weakness generalized Acute Anemia Chronic Osteoarthritis of hip Chronic Renal failure syndrome Chronic
--- NOTE | 2017-10-21 08:53 | SOAPPROG ---
SOAP Progress Note Assessment/Plan: Assessment: Patient receiving his second unit of PRBC's in HD. Feels well, denies pain. Had formed black stool yesterday and one today. EGD yesterday without active bleeding. Had ulceration of the distal body at prior AVM site that was treated with Bicap, epi and clips. No clips present but no stigmata for high risk re-bleeding. Site treated with epi. Patient at low risk ro re-bleeding at that site and recommended PPI and observation. Plan: 1. Regular diet 2. Pantoprazole 40 mg PO BID x 2 weeks then decreae to 40 mg daily indefinitely\ 3. If clinically stable today can d/c home in AM from a GI standpoint 4. Follow up with Dr. Aiken as an out patient in 4 - 6 weeks 10/21/17 08:48 Subjective: CC: Melena, GI bleed Patient feels well. Asymptomatic. No lightheadedness, no abdominal pain. Had formed black stool this morning. Objective: Vital Signs Temp Pulse Resp BP Pulse Ox 36.6 C 69 14 127/50 H 95 10/21/17 04:28 10/21/17 04:28 10/21/17 04:28 10/21/17 04:28 10/21/17 04:28 Laboratory Results 10/20/17 20:50 10/20/17 04:43 10/20/17 10/21/17 10/22/17 05:59 05:59 05:59 Intake Total 1173 926 Balance 1173 926 Generic Name Dose Route Start Last Admin Trade Name Freq PRN Reason Stop Dose Admin Acetaminophen 650 mg 10/19/17 20:31 Tylenol PO 04/17/18 20:30 Q4HRS PRN Pain, Mild/Fever, Can Take PO Allopurinol 100 mg 10/21/17 09:00 Allopurinol PO 04/19/18 08:59 DAILY [facility] Calcium Carbonate 500 mg 10/20/17 08:00 10/20/17 18:03 Tums PO 04/18/18 07:59 Not Given TIDMEAL YAW Epoetin Steven 10,000 unit 10/21/17 10:00 Procrit SC 04/19/18 09:59 Q7D YAW Latanoprost 1 drops 10/19/17 21:00 10/20/17 20:31 Xalatan 0.005% EACHEYE 04/17/18 20:59 1 drop HS YAW Administration Midodrine 5 mg 10/19/17 20:31 Proamatine PO 04/17/18 20:30 AD PRN hypotension with dialysis Miscellaneous Medication 1 each 10/20/17 10:00 10/20/17 08:50 Umeclidinium Brm/Vilanterol Tr [Anoro Ellipta 62.5-25 Mcg Inh] IH 04/18/18 09:59 Not Given DAILY10 YAW Multivitamins 1 each 10/20/17 09:00 10/20/17 12:59 Tab-A-Alma PO 04/18/18 08:59 1 each DAILY YAW Administration Ondansetron HCl 4 mg 10/19/17 20:29 Zofran IVP 04/17/18 20:28 Q4HRS PRN Nausea/Vomiting, Can't Take PO Ondansetron HCl 4 mg 10/19/17 20:29 Zofran Odt PO 04/17/18 20:28 Q4HRS PRN Nausea/Vomiting, Use 1st Oxycodone HCl 5 - 10 mg 10/19/17 20:29 Oxycodone Ir PO 10/29/17 20:28 Q3HRS PRN Pain, Severe Able to Take PO Pantoprazole Sodium 40 mg 10/20/17 11:45 10/20/17 20:31 Protonix PO 04/18/18 11:44 40 mg BID YAW Administration Tamsulosin HCl 0.4 mg 10/19/17 21:00 10/20/17 20:31 Flomax PO 04/17/18 20:59 0.4 mg HS YAW Administration Discontinued Medications Generic Name Dose Route Start Last Admin Trade Name Freq PRN Reason Stop Dose Admin Allopurinol 150 mg 10/19/17 21:00 10/20/17 20:31 Allopurinol PO 04/17/18 20:59 150 mg HS YAW Administration Epinephrine HCl Confirm 10/20/17 10:36 Epinephrine Administered 10/20/17 10:37 Dose 1 mg IVP .STK-MED ONE Epinephrine HCl 0.7 mg 10/20/17 11:06 10/20/17 11:06 Epinephrine IVP 10/20/17 11:07 0.7 mg .STK-MED ONE Administration Sodium Chloride 1,000 mls @ 125 mls/hr 10/19/17 20:30 10/20/17 05:41 Ns IV 04/17/18 20:29 1,000 mls CONT YAW Administration Naloxone HCl 0.1 mg 10/20/17 11:04 Narcan IVP 10/20/17 12:04 Q2M PRN PACU Resp Rate <10/min Propofol Confirm 10/20/17 10:31 Diprivan Administered 10/20/17 10:32 Dose 200 mg .ROUTE .STK-MED ONE Physical Exam - Physical Exam General Appearance: alert, no apparent distress Respiratory: lungs clear, normal breath sounds Cardiac/Chest: regular rate, rhythm Abdomen: normal bowel sounds, non-tender, soft Skin: normal color, warm/dry Neuro/Psych: alert, normal mood/affect, oriented x 3 ICD10 Worksheet Patient Problems: Problems Problem Status Onset End stage renal disease on dialysis Acute Melena Acute Upper GI bleed Acute Acute and chronic respiratory failure with hypoxia Acute Anemia Acute Chronic Disease Mgmt/Transitional Care Acute Chronic renal failure Acute Community acquired pneumonia Acute Diabetes mellitus Acute Heart failure, diastolic, with acute decompensation Acute Hypoxemia Acute Hypoxia Acute Lumbar strain Acute Pleural effusion Acute Pneumonia Acute Pulmonary edema Acute Renal mass, left Acute UTI (urinary tract infection) Acute Weakness generalized Acute Anemia Chronic Osteoarthritis of hip Chronic Renal failure syndrome Chronic
[2017-10-21] MEDS ORDERED: EPOETIN ALFA 10,000 UNIT/ML VIAL SC SCH (10:00)
--- NOTE | 2017-10-21 10:24 | PDMN ---
Medical Necessity Medical necessity: Change to IP, as of 10/20/17, per MD; los >2 mn for ongoing management of acute blood loss anemia, GI bleed & acute respiratory failure ; pt on 10 lpm O2; admit for further monitoring, blood transfusion, dialysis, GI/ Nephrology consults & therapies; hx ESRD on hemodialysis, prostate cancer, CAD, diabetes, diastolic heart failure, anemia, AVM; per progress note & order
[2017-10-21] MEDS: Umeclidinium Brm/Vilanterol Tr [Anoro Ellipta 62.5-25 Mcg Inh] IH SCH (11:16)
[2017-10-21] MEDS ORDERED: HEPARIN 50,000 UNIT/10 ML VIAL ONE (11:46)
[2017-10-21 12:25] LABS: PLATELET COUNT 173 10^3/uL (150-400)
[2017-10-21] MEDS: ALLOPURINOL 100 MG TAB PO SCH (13:20)
[2017-10-21] MEDS: CALCIUM CARBONATE 500 MG CHEWABLE TAB PO SCH ×3 (13:20→17:59)
[2017-10-21] MEDS: PANTOPRAZOLE SODIUM 40 MG TAB PO SCH ×2 (13:20→21:04)
[2017-10-21] MEDS: MULTIVITAMINS 1 EACH TAB PO SCH (13:21)
--- NOTE | 2017-10-21 14:04 | HOSPPROG ---
Hospitalist Progress Note Assessment/Plan: #ABLA #GI Bleed #Hx of AVM #ESRD #Acute on chronic respiratory failure #Diastolic Heart Failure Plan: The pt is s/p 1 units PRBC transfusion yesterday. He will receive another unit during dialysis today. appears to have had a good response to the transfusion. No e/o recurrent bleeding Regular diet Protonix BID Dialysis today If his resp status is better after dialysis then he can d/c today, if not, then monitor overnight and reassess in a.m. with CXR and exam Subjective: no e/o further bleeding. He denies cp or sob. still on 8 L of O2. getting dialysis now. Objective: Vital Signs Temp Pulse Resp BP Pulse Ox 36.3 C 79 18 121/98 H 85 L 10/21/17 11:21 10/21/17 11:21 10/21/17 11:21 10/21/17 11:21 10/21/17 12:15 Laboratory Results 10/21/17 11:45 10/20/17 04:43 10/20/17 10/21/17 10/22/17 05:59 05:59 05:59 Intake Total 1173 926 200 Balance 1173 926 200 - Physical Exam Constitutional: no apparent distress, not in pain Eyes: PERRL, EOMI Ears, Nose, Mouth, Throat: moist mucous membranes, hearing normal Cardiovascular: regular rate and rhythym, No edema Respiratory: no respiratory distress, reduced air movement Gastrointestinal: normoactive bowel sounds, soft, non-tender abdomen Skin: warm Neurologic: AAOx3 Psychiatric: interacting appropriately, not anxious, not encephalopathic Lymph, Heme, Immunologic: No petechiae ICD10 Worksheet Patient Problems: Problems Problem Status Onset End stage renal disease on dialysis Acute Melena Acute Upper GI bleed Acute Acute and chronic respiratory failure with hypoxia Acute Anemia Acute Chronic Disease Mgmt/Transitional Care Acute Chronic renal failure Acute Community acquired pneumonia Acute Diabetes mellitus Acute Heart failure, diastolic, with acute decompensation Acute Hypoxemia Acute Hypoxia Acute Lumbar strain Acute Pleural effusion Acute Pneumonia Acute Pulmonary edema Acute Renal mass, left Acute UTI (urinary tract infection) Acute Weakness generalized Acute Anemia Chronic Osteoarthritis of hip Chronic Renal failure syndrome Chronic
--- NOTE | 2017-10-21 15:18 | ASMTCMCOM ---
CM Note CM Note Notes: Pt readmitted with GI bleed. Pt current with [facility] for PT. RN from pt's PCP office asked CM to speak with pt about adding add'l services. Met with pt and dtr. Pt feels he can shower and do ADL's without help and just wants PT. Pt may be ready to DC tomorrow. Date Signed: 10/21/2017 03:17 PM Electronically Signed By:Betzy Cruz LCSW
[2017-10-21] MEDS: LATANOPROST 0.005% 2.5 ML OPHT DROPS EACHEYE SCH (21:04)
[2017-10-21] MEDS: TAMSULOSIN HCL 0.4 MG CAP PO SCH (21:04)
[2017-10-22 05:12] LABS: PLATELET COUNT 155 10^3/uL (150-400)
[2017-10-22 07:53] VITALS: BP 101/56
[2017-10-22] MEDS: CALCIUM CARBONATE 500 MG CHEWABLE TAB PO SCH (08:07)
[2017-10-22] MEDS: MULTIVITAMINS 1 EACH TAB PO SCH (08:07)
[2017-10-22] MEDS: ALLOPURINOL 100 MG TAB PO SCH (08:07)
[2017-10-22] MEDS: PANTOPRAZOLE SODIUM 40 MG TAB PO SCH (08:07)
[2017-10-22] MEDS: Umeclidinium Brm/Vilanterol Tr [Anoro Ellipta 62.5-25 Mcg Inh] IH SCH (11:19)
--- NOTE | 2017-10-22 12:40 | PDDCSUM ---
Discharge Summary Discharge Summary: The pt is an 87 yo male with hx of AVM who was admitted due to ABLA likely from AVM. He required 2 units PRBC transfusion. He had an endoscopy which showed a gastric ulcer but no e/o active bleeding. He had ulceration of the distal body at prior AVM site that was treated with Bicap, epi and clips. No clips present but no stigmata for high risk re-bleeding. Site treated with epi. Patient at low risk ro re-bleeding at that site and recommended PPI and observation. There is no e/o recurring bleeding He was started on Protonix BID he will need repeat labs on f/u He had worsening resp status due to hypervolemia and had improvement after dialysis on Tuesday. He was kept overnight and is now back to his baseline O2 needs. he will f/u with his PCP in one week and keep his HD appointments. He has a today and he is requesting discharge. Given that he has been cleared by GI, there is no e/o for bleed recurrence, he feels good, he is requesting discharge, no HD today, he will be discharged. Discharge Diagnosis: #ABLA #GI Bleed #Hx of AVM #ESRD #Acute on chronic respiratory failure, now back to baseline 5 LO2. CXR showed today still shows pulm congestion but additional fluid can be removed at dialysis. Per Nephrology there is no indication for repeat dialysis today #Diastolic Heart Failure Exam: VSS on 5L NAD AAOX3 RRR DECREASE LUNG SOUNDS AT BASES, NO INCREASED WORK OF BREATHING S/NT/ND TRACE LE EDEMA MEDS: SEE MED REC. NEW MEDS: PROTONIX BID TOTAL TIME SPENT ON D/C IS 40 MINS.
== END 2017-10-22 11:30 | disposition home or self-care (01) | DRG 377 ==
LOC: OBSVTOIN 18:41 → F1N 20:36
PROVIDERS: ADMIT Internal Medicine; ATTEND Internal Medicine
PROC: 0W3P8ZZ Control Bleeding in Gastrointestinal Tract, Via Natural or Artificial Opening Endoscopic (ICD-10-PCS; 2017-10-20)
PROC: 30233N1 Transfusion of Nonautologous Red Blood Cells into Peripheral Vein, Percutaneous Approach (ICD-10-PCS; 2017-10-20)
PROC: 5A1D70Z Performance of Urinary Filtration, Intermittent, Less than 6 Hours Per Day (ICD-10-PCS; principal; 2017-10-21)
DX: K92.2 Gastrointestinal hemorrhage, unspecified (principal); J96.21 Acute and chronic respiratory failure with hypoxia; N18.6 End stage renal disease; D62 Acute posthemorrhagic anemia; I50.32 Chronic diastolic (congestive) heart failure; K31.819 Angiodysplasia of stomach and duodenum without bleeding; E87.70 Fluid overload, unspecified; K28.9 Gastrojejunal ulcer, unspecified as acute or chronic, without hemorrhage or perforation; E11.9 Type 2 diabetes mellitus without complications; G62.9 Polyneuropathy, unspecified; G47.33 Obstructive sleep apnea (adult) (pediatric); Z99.2 Dependence on renal dialysis; Z85.528 Personal history of other malignant neoplasm of kidney; Z85.46 Personal history of malignant neoplasm of prostate; Z90.5 Acquired absence of kidney; Z96.651 Presence of right artificial knee joint; Z96.643 Presence of artificial hip joint, bilateral
CPT/HCPCS: 97116-GP; 97161-GP; 97166-GO; 97535-GO; G0378; G8978-GP-CJ; G8979-GP-CI; G8987-GO-CJ; G8988-GO-CI; J0885; J1644; J2704; P9016

== ENCOUNTER 2017-11-12 11:39 | Emergency (ER) | payer OTHER ==
--- NOTE | 2017-11-12 12:40 | EDPHY ---
H & P Stated Complaint: Had bleeding from R nares this am;none now;wants to get it checked Time Seen by Provider: 11/12/17 12:32 HPI/ROS: CHIEF COMPLAINT: Resolved epistaxis and dialysis patient HISTORY OF PRESENT ILLNESS: The patient presents to the ED for evaluation of resolved epistaxis. The patient was having bleeding from his right knee are earlier today which resolved with pressure. He had a scant episode of epistaxis yesterday. The patient is on 3 day week dialysis and does have a history of chronic anemia. He denies any lightheadedness or dizziness. He denies any anticoagulant use. REVIEW OF SYSTEMS: A comprehensive 10 point review of systems is otherwise negative aside from elements mentioned in the history of present illness. Source: Patient Exam Limitations: No limitations - Personal History Current Tetanus Diphtheria and Acellular Pertussis (TDAP): Yes Tetanus Vaccine Date: 2010 - Medical/Surgical History Hx Asthma: No Hx Chronic Respiratory Disease: No Hx Diabetes: No Hx Cardiac Disease: Yes Hx Renal Disease: Yes Hx Cirrhosis: No Hx Alcoholism: No Hx HIV/AIDS: No Hx Splenectomy or Spleen Trauma: No Other PMH: prostate CA, renal CA, right kidney removed, R knee replacement, L&R hip replacement, left forearm fistula, cholecystectomy, hx of gout, peripheral neuropathy, anemia, esrd, ppm, cad, on dialysis, bliateral cataract repair, small bowel resection - Social History Smoking Status: Former smoker - Physical Exam Exam: General Appearance: Alert, no distress Eyes: Pupils equal and round no pallor or injection ENT, Mouth: Old excoriation noted to the right anterior septum, currently hemostatic with clot over area Respiratory: There are no retractions, lungs are clear to auscultation Cardiovascular: Regular rate and rhythm Gastrointestinal: Abdomen is soft and nontender, no masses, bowel sounds normal Neurological: 5/5 strength all 4 extremities Skin: Warm and dry, no rashes Musculoskeletal: Neck is supple nontender Extremities: symmetrical, full range of motion Constitutional: Initial Vital Signs Temperature (C) 36.7 C 11/12/17 11:45 Heart Rate 71 11/12/17 11:45 Respiratory Rate 18 11/12/17 11:45 Blood Pressure 121/54 H 11/12/17 11:45 O2 Sat (%) 100 11/12/17 11:45 O2 Delivery Mode Simple Mask O2 (L/minute) 6 Allergies/Adverse Reactions: pseudoephedrine Allergy (Unknown, Verified 10/09/17 10:39) Swelling Home Medications: Medication Instructions Recorded Latanoprost 0.005% [Xalatan 0.005% 1 drop EACHEYE HS 01/25/14 (*)] Multivitamins [Multivitamin (*)] 1 each PO DAILY 01/25/14 Herbals/Supplements -Info Only 1 ea PO DAILY 05/27/16 Calcium Carbonate [Tums 500MG (*)] 500 mg PO TIDMEAL 02/21/17 Acetaminophen [Tylenol 325mg (*)] 650 mg PO Q4HRS PRN tab 05/08/17 Allopurinol [Allopurinol 300 MG 150 mg PO HS 09/05/17 (RX)] Tamsulosin HCl [Flomax 0.4 MG (*)] 0.4 mg PO HS 09/05/17 Umeclidinium Brm/Vilanterol Tr 1 each IH DAILY10 09/05/17 [Anoro Ellipta 62.5-25 Mcg INH] Midodrine HCl 5 mg PO AD PRN 10/19/17 Pantoprazole Sodium [Protonix 40mg 40 mg PO BID #60 tab 10/22/17 (*)] Medical Decision Making ED Course/Re-evaluation: I reviewed the patient's past medical records. The patient's last hemoglobin in our records was 8.7 several weeks ago. The patient is currently hemostatic without evidence of active epistaxis. Hemoglobin is 8.2 on i-STAT testing today. The patient will be discharged home with a nasal clip in instructions to apply direct pressure for 10 min in the event of recurrent epistaxis. The patient will return to the ED for epistaxis which persists despite this intervention. Differential Diagnosis: Differential diagnosis considered includes anterior epistaxis, posterior epistaxis, critical anemia - Data Points Laboratory Results: 11/12/17 12:57 POC Hgb 8.2 gm/dL L gm/dL (13.7-17.5) POC Hct 24 % L % (40-51) POC Sodium 138 mEq/L mEq/L (135-145) POC Potassium 4.2 mEq/L mEq/L (3.3-5.0) POC Chloride 96 mEq/L L mEq/L (97-110) POC BUN 36 mg/dL H mg/dL (7-23) POC Creatinine 4.3 mg/dL H mg/dL (0.7-1.3) POC Glucose 112 mg/dL H mg/dL (70-100) Point of Care Test Results: Chemistry 11/12/17 12:57 POC Sodium 138 mEq/L mEq/L (135-145) POC Potassium 4.2 mEq/L mEq/L (3.3-5.0) POC Chloride 96 mEq/L L mEq/L (97-110) POC BUN 36 mg/dL H mg/dL (7-23) POC Creatinine 4.3 mg/dL H mg/dL (0.7-1.3) POC Glucose 112 mg/dL H mg/dL (70-100) ISTAT H&H 11/12/17 12:57 POC Hgb 8.2 gm/dL L gm/dL (13.7-17.5) POC Hct 24 % L % (40-51) Departure - Departure Disposition: Home, Routine, Self-Care Clinical Impression: Anterior epistaxis, End stage renal disease on dialysis, Anemia Condition: Good Instructions: Nosebleed (ED) Additional Instructions: 1. Nothing inside you nasal cavity. 2. In the event of recurrent bleeding apply nasal clip or direct pressure for 10 min. 3. Return to the ED for bleeding which persists despite direct pressure. Referrals: Christiano Hdz [Primary Care Provider] - As per Instructions
[2017-11-12 13:32] VITALS: BP 160/79
== END 2017-11-12 13:25 | disposition home or self-care (01) ==
DX: R04.0 Epistaxis (principal); N18.6 End stage renal disease; D64.9 Anemia, unspecified; Z85.46 Personal history of malignant neoplasm of prostate; Z85.528 Personal history of other malignant neoplasm of kidney; Z87.891 Personal history of nicotine dependence; Z99.2 Dependence on renal dialysis
CPT/HCPCS: 82435-PO; 82565-PO; 82947-PO; 84132-PO; 84295-PO; 84520-PO; 85014-PO

== ENCOUNTER 2017-11-19 11:06 | Outpatient (CLI) | payer OTHER ==
[2017-11-19 12:09] VITALS: BP 118/58
== END 2017-11-19 14:30 | disposition home or self-care (01) ==
LOC: FOBOP 11:06
PROVIDERS: ATTEND Internal Medicine Hematology & Oncology
PROC: 30233N1 Transfusion of Nonautologous Red Blood Cells into Peripheral Vein, Percutaneous Approach (ICD-10-PCS; principal; 2017-11-19)
DX: C64.9 Malignant neoplasm of unspecified kidney, except renal pelvis (principal)
CPT/HCPCS: 36430; P9016; P9040

== ENCOUNTER 2017-11-22 09:57 | Emergency (ER) | payer OTHER ==
[2017-11-23 07:20] VITALS: BP 112/76
--- NOTE | 2017-11-23 11:28 | CPEKG ---
Heart Rate: 70 RR Interval: 857 P-R Interval: 200 QRSD Interval: 120 QT Interval: 440 QTC Interval: 475 P Lyman: 58 QRS Lyman: 86 T Wave Lyman: -77 EKG Severity - ABNORMAL ECG - EKG Impression: SINUS RHYTHM EKG Impression: NONSPECIFIC INTRAVENTRICULAR CONDUCTION DELAY EKG Impression: BORDERLINE INFERIOR Q WAVES EKG Impression: ST DEPRESSION, CONSIDER ISCHEMIA, ANT-LAT LDS Electronically Signed By: Norberto Ramirez 23-Nov-2017 20:48:58
[2017-11-24 08:21] LABS: INR 1.2 (0.83-1.16); PROTIME(PATIENT) 15.4 SEC (12.0-15.0)
[2017-11-24 09:37] LABS: PLATELET COUNT 145 10^3/uL (150-400)
--- NOTE | 2017-11-24 16:51 | EDPHY ---
H & P Stated Complaint: UNRESPONSIVE EPISODE Time Seen by Provider: 11/22/17 12:45 - Personal History Current Tetanus/Diphtheria Vaccine: Yes Current Tetanus Diphtheria and Acellular Pertussis (TDAP): Yes Tetanus Vaccine Date: 2010 - Medical/Surgical History Hx Asthma: No Hx Chronic Respiratory Disease: No Hx Diabetes: No Hx Cardiac Disease: Yes Hx Renal Disease: Yes Hx Cirrhosis: No Hx Alcoholism: No Hx HIV/AIDS: No Hx Splenectomy or Spleen Trauma: No Other PMH: prostate CA, renal CA, right kidney removed, R knee replacement, L&R hip replacement, left forearm fistula, cholecystectomy, hx of gout, peripheral neuropathy, anemia, esrd, ppm, cad, on dialysis, bliateral cataract repair, small bowel resection - Social History Smoking Status: Former smoker Constitutional: Initial Vital Signs Temperature (C) 36.7 C 11/22/17 12:45 Heart Rate 78 11/22/17 12:45 Respiratory Rate 20 11/22/17 12:45 Blood Pressure 95/52 L 11/22/17 12:45 O2 Sat (%) 89 L 11/22/17 12:45 O2 Delivery Mode Room Air Allergies/Adverse Reactions: pseudoephedrine Allergy (Unknown, Verified 10/09/17 10:39) Swelling Home Medications: Medication Instructions Recorded Latanoprost 0.005% [Xalatan 0.005% 1 drop EACHEYE HS 01/25/14 (*)] Multivitamins [Multivitamin (*)] 1 each PO DAILY 01/25/14 Herbals/Supplements -Info Only 1 ea PO DAILY 05/27/16 Calcium Carbonate [Tums 500MG (*)] 500 mg PO TIDMEAL 02/21/17 Acetaminophen [Tylenol 325mg (*)] 650 mg PO Q4HRS PRN tab 05/08/17 Allopurinol [Allopurinol 300 MG 150 mg PO HS 09/05/17 (RX)] Tamsulosin HCl [Flomax 0.4 MG (*)] 0.4 mg PO HS 09/05/17 Umeclidinium Brm/Vilanterol Tr 1 each IH DAILY10 09/05/17 [Anoro Ellipta 62.5-25 Mcg INH] Midodrine HCl 5 mg PO AD PRN 10/19/17 Pantoprazole Sodium [Protonix 40mg 40 mg PO BID #60 tab 10/22/17 (*)] Medical Decision Making ED Course/Re-evaluation: This note was created during prolonged hospital-wide EHR downtime and may be incomplete or contain inaccuracies to due circumstance limitations. CHIEF COMPLAINT: Near-syncope, vomiting HISTORY OF PRESENT ILLNESS: The patient is an 88 y/o male with end-stage kidney disease arriving via EMS with his family for evaluation following what sounds like a near-syncopal event while getting out of the car this morning. He told his family member he felt poor, asked for assistance, then started to slide to the ground. It's unclear if he was completely unresponsive or not. Family members describe "stiff arms" and reported he was vomiting and gagging on his vomit. He continued to cough for several minutes and seemed confused afterwards to his family. Currently, he feels completely back to normal. He denies chest pain, sywkg-olmm-casdiaki dyspnea, abdominal pain, fever, urinary complaints, recent illness, or recent trauma. His family member notes he was at dialysis yesterday and they were unable to get him down to dry weight; he also received a unit of blood last week. He normally maintains an SpO2 of 88-90% on 6LPM O2 at home due to chronic hypoxemic failure. REVIEW OF SYSTEMS: A 10 point review of systems was performed and is negative with the exception of the elements mentioned in the history of present illness. PHYSICAL EXAM: HR 70, BP 106/50, O2 Sat 90%, RR. Temp noted General Appearance: Alert, well hydrated, appropriate, and non-toxic appearing. Head: Atraumatic without scalp tenderness or obvious injury Eyes: Pupils equal, round, reactive to light and accommodation, EOMI, no trauma , no injection. Nose: Atraumatic, no rhinorrhea, clear. Throat: Mucous membranes moist. Neck: Supple, non-tender, no lymphadenopathy. Respiratory: No retractions, no distress, no wheezes, and no accessory muscle use. Lungs have scattered rhonchi to auscultation bilaterally. Cardiovascular: Regular rate and rhythm, crescendo/decrescendo 3/6 systolic murmur, no rubs or gallops. Good capillary refill all extremities. Gastrointestinal: Abdomen is soft, non-tender, non-distended, no masses, no rebound, no guarding, no peritoneal signs. Musculoskeletal: Normal active ROM of all extremities, atraumatic. Neurological: Alert, appropriate, and interactive. The patient has non-focal cranial nerves, motor, sensory, and cerebellar exam. Skin: No rashes, good turgor, no nodules on palpation. PAST MEDICAL HISTORY: Heart murmur, end-stage kidney failure on dialysis, chronic hypoxemic failure on 6LPM PAST SURGICAL HISTORY: Noncontributory SOCIAL HISTORY: Family at bedside DIAGNOSTICS/PROCEDURES/CRITICAL CARE TIME: The 12 lead EKG was interpreted by myself. Sinus rhythm with anterolateral ST changes compared to prior EKGs 08/30/16 and 02/21/17. See hard copy and/or "tracemaster" electronic copy for interpretation. Chest x-ray: chronic right infiltrate DIFFERENTIAL DIAGNOSIS: The differential diagnosis for the patient's syncope included but was not limited to vasovagal syncope, arrhythmia, dehydration, cardiogenic causes, neurogenic causes, and blood loss. MEDICAL DECISION MAKING: This is an 88 y/o male with end-stage kidney disease and chronic hypoxemia who presents after a near-syncopal event and vomiting this morning. He currently feels "fine." He has scattered rhonchi on auscultation and is maintaining baseline SpO2 around 90-91% on 6LPM here. Plan for IV, labs, EKG, chest x-ray. ISTAT: negative troponin SpO2 has remained at baseline throughout stay. Offered admission for further monitoring, but patient adamantly declines and would like to be discharged home. Discussed risks of leaving and patient accepts these risks. 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 DC vomiting, near syncope This note was created during prolonged hospital-wide EHR downtime and may be incomplete or contain inaccuracies to due circumstance limitations. - Data Points Laboratory Results: Laboratory Results 11/22/17 10:30 11/22/17 10:30 11/22/17 11/22/17 11/22/17 10:30 10:30 10:30 WBC 4.46 10^3/uL 10^3/uL (3.80-9.50) RBC 2.65 10^6/uL L 10^6/uL (4.40-6.38) Hgb 8.7 g/dL L g/dL (13.7-17.5) Hct 26.3 % L % (40.0-51.0) MCV 99.2 fL fL (81.5-99.8) MCH 32.8 pg pg (27.9-34.1) MCHC 33.1 g/dL g/dL (32.4-36.7) RDW 19.3 % H % (11.5-15.2) Plt Count 145 10^3/uL L 10^3/uL (150-400) MPV 10.6 fL fL (8.7-11.7) Neut % (Auto) Not Reported Lymph % (Auto) Not Reported [place] % (Auto) Not Reported Eos % (Auto) Not Reported Baso % (Auto) Not Reported Nucleat RBC Rel Count Not Reported Absolute Neuts (auto) Not Reported Absolute Lymphs (auto) Not Reported Absolute Monos (auto) Not Reported Absolute Eos (auto) Not Reported Absolute Basos (auto) Not Reported Absolute Nucleated RBC Not Reported Immature Gran % Not Reported Seg Neutrophils % 73 % % Band Neutrophils % 1 % % Lymphocytes % 21 % % Monocytes % 3 % % Eosinophils % 2 % % Immature Gran # Not Reported Platelet Estimate DECREASED L (ADEQ) Oval Macrocytes 1+ H PT 15.4 SEC H SEC (12.0-15.0) INR 1.20 H (0.83-1.16) APTT 36.8 SEC SEC (23.0-38.0) Sodium 143 mEq/L mEq/L (135-145) Potassium 4.0 mEq/L mEq/L (3.3-5.0) Chloride 91 mEq/L L mEq/L (97-110) Carbon Dioxide 22 mEq/l mEq/l (22-31) Anion Gap 24 mEq/L H mEq/L (8-16) BUN 33 mg/dL H mg/dL (7-23) Creatinine 3.9 mg/dL H mg/dL (0.7-1.3) Estimated GFR 15 Glucose 294 mg/dL H mg/dL (70-100) Calcium 9.2 mg/dL mg/dL (8.5-10.4) Point of Care Test Results: Chemistry 11/22/17 10:05 POC Troponin I 0.03 ng/mL ng/mL (0.00-0.08) Departure - Departure Disposition: Home, Routine, Self-Care Clinical Impression: Near syncope Vomiting Qualifiers: Vomiting type: unspecified Vomiting Intractability: non-intractable Nausea presence: unspecified Qualified Code(s): R11.10 - Vomiting, unspecified Referrals: Patient,NotPresent [Primary Care Provider] - As per Instructions Report Scribed for: Eric Katz Report Scribed by: Camilla Ladd
== END 2017-11-22 12:45 | disposition home or self-care (01) ==
DX: R55 Syncope and collapse (principal); R11.10 Vomiting, unspecified; I25.10 Atherosclerotic heart disease of native coronary artery without angina pectoris; Z85.46 Personal history of malignant neoplasm of prostate; Z85.528 Personal history of other malignant neoplasm of kidney; Z87.891 Personal history of nicotine dependence
CPT/HCPCS: 84484-PO

== ENCOUNTER → 2017-12-15 | Outpatient (CLI) | payer OTHER | DX: R55 Syncope and collapse (principal); R06.02 Shortness of breath; I25.10 Atherosclerotic heart disease of native coronary artery without angina pectoris; I35.0 Nonrheumatic aortic (valve) stenosis ==

== ENCOUNTER → 2017-12-16 | Outpatient (CLI) | payer OTHER | LOC: FOBOP 16:01 | PROVIDERS: ATTEND Internal Medicine Hematology & Oncology | PROC: 30233N1 Transfusion of Nonautologous Red Blood Cells into Peripheral Vein, Percutaneous Approach (ICD-10-PCS; principal; 2017-12-16) | DX: N18.9 Chronic kidney disease, unspecified (principal); D63.1 Anemia in chronic kidney disease; C64.9 Malignant neoplasm of unspecified kidney, except renal pelvis | CPT/HCPCS: 36430; J1200; P9016 ==

== ENCOUNTER 2018-02-06 05:56 | Inpatient (IN) | payer OTHER ==
[2018-02-06] MEDS ORDERED: diphenhydrAMINE 25 MG CAP PO ONE (06:09)
[2018-02-06] MEDS ORDERED: NS 1,000 ML IV ONE (06:09)
[2018-02-06] MEDS ORDERED: DIAZEPAM 5 MG TAB PO ONE (06:09)
[2018-02-06] MEDS ORDERED: ASPIRIN EC 325 MG TAB PO ONE (06:09)
[2018-02-06] MEDS ORDERED: FAMOTIDINE 20 MG TAB PO ONE (06:09)
--- NOTE | 2018-02-06 06:30 | PDHPUP ---
History & Physical Update H&P update statement: This history and physical update is based on an assessment of the patient which was completed after admission or registration (within 24 hours), but prior to the surgery/procedure. H&P update: H&P reviewed & patient examined, no change in patient's condition since H&P completed
--- NOTE | 2018-02-06 06:30 | PDPROPOC ---
Sedation Plan of Care Sedation Plan of Care: mental status noted, patient educated of risks, benefits , alternatives, patient can tolerate sedation ASA Classification: ASA 3 Planned drugs: other Mallampati Score: Class 2 Mallampati Reference Image: Patient passed 3-3-2 rule?: Yes
[2018-02-06] MEDS ORDERED: IOPAMIDOL (ISOVUE-370) 150 ML BTL IV ONE (06:58)
[2018-02-06] MEDS ORDERED: LIDOCAINE 1% 300 MG/30 ML SDV ONE ×2 (06:58→07:44)
[2018-02-06] MEDS ORDERED: ceFAZolin 2 GM/DEXTROSE 100 ML IV ONE (07:00)
--- NOTE | 2018-02-06 07:15 | PDANEPAE ---
ANE History of Present Illness 87 yo for tavr ANE Past Medical History - Cardiovascular History Hx Hypertension: No Hx Arrhythmias: No Hx Chest Pain: No Hx Coronary Artery / Peripheral Vascular Disease: No Hx CHF / Valvular Disease: Yes Hx Palpitations: No Cardiovascular History Comment: SL HEART MURMUR. CHF IN MAR. W FLUID OVERLOAD, ADM TO HOSP - Pulmonary History Hx COPD: Yes Hx Asthma/Reactive Airway Disease: No Hx Recent Upper Respiratory Infection: No Hx Oxygen in Use at Home: Yes Hx Sleep Apnea: No Pulmonary History Comment: LOU TRIGGERS NO DIAGNOSIS. REQUESTED BRING TRAVEL O2 TANK DOS - Neurologic History Hx Cerebrovascular Accident: No Hx Seizures: No Hx Dementia: No Neurologic History Comment: PERIPHERAL NEUROPATHY - Endocrine History Hx Diabetes: No Endocrine History Comment: TYPE 2 DM - Renal History Hx Renal Disorders: Yes Renal History Comment: END STAGE RENAL DISEASE ON DIALYSIS. RENAL CA, NEPHRECTOMY R,. LEFT AV FISTULA IN PLACE. - Liver History Hx Hepatic Disorders: No - Neurological & Psychiatric Hx Hx Neurological and Psychiatric Disorders: No - Cancer History Hx Cancer: Yes Cancer History Comment: PROSTATE AND KIDNEY - Congenital Disorder History Hx Congenital Disorders: No - GI History Hx Gastrointestinal Disorders: No - Other Health History Other Health History: GLAUCOMA OU. PERIPHERAL NEUROPATHY. ANEMIA. GOUT OCC. DENTURES FULL SET - Chronic Pain History Chronic Pain: No - Surgical History Prior Surgeries: DRAIN PLACEMENT 08/25, EGD/COLONOSCOPY 07/28, left av fistula placement 03/26/[address] ryder. BOWEL RESECTION WITH RT RADICAL NEPHRECTOMY 05/2012. LT HIP REPLACEMENT 10/2010. MARIA ESTHER. PROSTATECTOMY. BLANCA CATARACT. RT TOTAL KNEE. TONSILLECTOMY. R KAREN 03-05-14 ANE Review of Systems Review of Systems: - Exercise capacity METS (RN): 1 METS ANE Patient History - Allergies Allergies/Adverse Reactions: pseudoephedrine Allergy (Unknown, Verified 10/09/17 10:39) Swelling - Home Medications Home Medications: Latanoprost 0.005% [Xalatan 0.005% (*)] 1 drop EACHEYE HS 01/25/14 [Last Taken 1 Day Ago ~02/05/18] Multivitamins [Multivitamin (*)] 1 each PO DAILY 01/25/14 [Last Taken 1 Day Ago ~02/05/18] Herbals/Supplements -Info Only 1 ea PO DAILY 05/27/16 [Last Taken 1 Day Ago ~] Calcium Carbonate [Tums 500MG (*)] 750 mg PO TIDMEAL 02/21/17 [Last Taken 1 Day Ago ~02/05/18] Allopurinol [Allopurinol 300 MG (RX)] 150 mg PO HS 09/05/17 [Last Taken 1 Day Ago ~02/05/18] Tamsulosin HCl [Flomax 0.4 MG (*)] 0.4 mg PO HS 09/05/17 [Last Taken 1 Day Ago ~ 02/05/18] Umeclidinium Brm/Vilanterol Tr [Anoro Ellipta 62.5-25 Mcg INH] 1 each IH DAILY10 09/05/17 [Last Taken 1 Day Ago ~02/05/18] Midodrine HCl 5 mg PO MWF 10/19/17 [Last Taken 1 Day Ago ~02/05/18] Epoetin Steven [Procrit 25391 UNIT/ML (*)] 10,000 unit SQ DAILY14 02/01/18 [Last Taken 1 Day Ago ~02/05/18] Pantoprazole Sodium [Protonix 40mg (*)] 40 mg PO DAILY 02/01/18 [Last Taken 1 Day Ago ~02/05/18] Sodium Chloride [[place] Saline] 1 jonathan NS DAILY PRN 02/01/18 [Last Taken 1 Day Ago ~ 02/05/18] - Smoking Hx Smoking Status: Former smoker - Family Anes Hx Family Hx Anesthesia Complications: NONE ANE Labs/Vital Signs - Vital Signs Height: 5 ft 9 in Weight: 76 kg ANE Physical Exam - Airway Mallampati Score: Class 2 Mouth exam: normal dental/mouth exam, dentures - Pulmonary Pulmonary: reduced air movement - Cardiovascular Cardiovascular: regular rate and rhythym - ASA Status ASA Status: IV ANE Anesthesia Plan Anesthesia Plan: MAC
[2018-02-06] MEDS ORDERED: PROPOFOL/EMULSION 500 MG/50 ML BOTTLE IV ONE (07:25)
[2018-02-06] MEDS ORDERED: fentaNYL 100 MCG/2 ML INJ ONE (07:27)
[2018-02-06] MEDS ORDERED: DEXMEDETOMIDINE HCL 400 MCG in NS 100 ML IV SCH (07:30)
[2018-02-06] MEDS ORDERED: PROTAMINE SULFATE 50 MG/5 ML VIAL IVP ONE (09:06)
[2018-02-06] MEDS ORDERED: LIDO/EPI 1% **for epidural** 30 ML SDV ONE (09:24)
[2018-02-06] MEDS ORDERED: ATROPINE SULFATE 1 MG/10 ML SYR IVP PRN (09:27)
[2018-02-06] MEDS ORDERED: hydrALAZINE 20 MG/ML VIAL IVP PRN (09:27)
[2018-02-06] MEDS ORDERED: oxyCODONE IR 5 MG TAB PO PRN (09:27)
[2018-02-06] MEDS ORDERED: HYDROmorphONE/DILAUDID 1 MG/ML INJ IVP PRN (09:27)
[2018-02-06] MEDS ORDERED: IBUPROFEN 800 MG TAB PO PRN (09:27)
[2018-02-06] MEDS ORDERED: ONDANSETRON 4 MG/2 ML VIAL IVP PRN (09:27)
[2018-02-06] MEDS ORDERED: ONDANSETRON DISINTEGRATING 4 MG TAB PO PRN (09:27)
[2018-02-06] MEDS ORDERED: ACETAMINOPHEN 325 MG TAB PO PRN (09:29)
--- NOTE | 2018-02-06 10:24 | CPIP ---
[f rep st] INVASIVE CARDIAC PROCEDURE DATE OF PROCEDURE: 02/06/2018 INDICATION FOR PROCEDURE: Critical aortic stenosis. CO-SURGEONS: Dr. Bigg Huizar Lori. PROCEDURE: 1. Nonselective right groin sheathogram. 2. 6-Chadian sheath right common vein with temporary pacemaker placed in right ventricle. 3. Aortic root angiography. 4. Balloon aortic valvuloplasty. 5. Placement of Medtronic CoreValve Evolut Pro 29 mm valve by the transfemoral route. HISTORY: This is an 87-year-old male with history of multiple comorbid issues, including coronary ar faiza disease and critical aortic stenosis. Patient had worsening dyspnea on exertion as an outpatien t. At this time, patient consented for transfemoral TAVR after being deemed by [address] surgeon s to be high-risk candidate for open AVR. DESCRIPTION OF PROCEDURE: After informed consent, the patient was brought to [facility] where the patient w as sedated under MAC anesthesia. A 6-Chadian sheath was placed after local lidocaine placed in both g roins. A 6-Chadian sheath placed in the left common femoral artery verified angiographically. A 6-Fr ench sheath in the right femoral artery verified angiographically, upsized to an 8-Chadian sheath. 6- Chadian sheath placed in the right common femoral vein with temporary pacemaker placed in the right ve ntricle with capture being assessed. The 6-Chadian sheath in the left common femoral artery was then upsized to a 16-Chadian sheath after triple Perclose placements. Valve was crossed with AL1 catheter straight stiff Glidewire and switched out for a pigtail catheter. Hemodynamics were then obtained, w [facility] showed a mean gradient difference of nearly 40 mmHg with LVEDP approximately 20 mmHg. The pigta il catheter was then removed for a Confida wire. At this time, patient was administered a total of 7000 heparin IV, followed by additional boluses of 2000 and 3000 heparin IV respectively during the case. The 16-Chadian sheath was then removed and att empts were made initially to place a Medtronic CoreValve Evolute Pro through the Confida wire through the left common femoral artery; however, the valve appeared to be hanging up on the calcified ledge in the left external iliac artery. Despite twisting the valve, itself, it was decided that the safes t way to deliver the valve would be to upsize to a 20-Chadian Pap[place] sheath. The valve was removed and a 20-Chadian sheath was then placed. Through the sheath, the Medtronic CoreValve Evolute Pro 29 mm va lve was delivered successfully. This was then deployed with a pacing rate of 180 beats per minute. Post-deployment, there was trivial to mild paravalvular leak noted with excellent valvular function. A pigtail catheter was placed in the LV. Hemodynamics were then assessed, which then showed no pr esent with equalization of LV and AO systolic pressures. LVEDP was approximately 20 mmHg. Given these findings, the pigtail catheter was removed. The right groin was closed with an 8-Chadian Angio-Seal. The left groin was closed with triple Perclose placement, as well as 8-Chadian Angio-Seal . The right groin femoral sheath, venous sheath was closed with manual pressure. Patient tolerated the procedure well with no complications. IMPRESSION: Successful placement of Medtronic Evolute Pro 29 mm valve via the transfemoral route. PLAN: The patient will have 3 hours bedrest and will have dialysis later today. Further orders foll owing clinical course. /[id number]/MODL
[2018-02-06] MEDS ORDERED: SODIUM CL NASAL 45 ML BTL EACHNARE PRN (10:28)
--- NOTE | 2018-02-06 10:45 | PDMN ---
Medical Necessity Medical necessity: [facility] S1320, Aortic Valve Replacement, Transcatheter: 87 y/o s/ p TAVR, [facility] only
[2018-02-06 11:02] LABS: PLATELET COUNT 107 10^3/uL (150-400)
[2018-02-06] MEDS: Umeclidinium Brm/Vilanterol Tr [Anoro Ellipta 62.5-25 Mcg Inh] 1 E IH SCH (11:06)
--- NOTE | 2018-02-06 11:50 | GCON ---
[f rep st] CONSULTATION NEPHROLOGY CONSULTATION DATE OF CONSULTATION: 02/06/2018 REASON FOR CONSULTATION: Management of end-stage renal disease. HISTORY OF PRESENT ILLNESS: Silvino is well known to our service. 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 Norman. History is obtained from the patient and the [facility] records. Earlier today, the patient underwent a TAVR procedure, which has appeared to go without complication. The patient is comfortable and stable in the ICU following the procedure. The patient is on chronic maintenance hemodialysis at the [facility] under the care o f Dr. Jamin Granado. His last dialysis was Tuesday. The patient's dialysis has been stable. The christopher vega's last hospitalization was earlier this year, when he suffered a GI bleed, and required a transfus ion. He has not recently had evidence of GI bleeding. As noted, the patient is resting comfortably, his blood pressure is stable, and he has no complaints. He is currently receiving a unit of blood. Today is his normal dialysis day. As related to the ab ove issues, we are consulted by Dr. Norman to assist with the patient's renal diagnosis and manageme nt. PAST MEDICAL HISTORY: 1. End-stage renal disease, on hemodialysis. 2. 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 3. 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 4. Diabetes mellitus. 5. Diastolic heart failure. 6. Aortic stenosis. 7. Chronic respiratory failure on home oxygen. 8. Coronary artery disease. 9. Gout. 10. Peripheral neuropathy. 11. BPH. 12. Glaucoma. PAST SURGICAL HISTORY: Includes: 1. Cataract surgery. 2. TAVR as above. 3. Knee arthroplasty. 4. Bilateral hip arthroplasty. 5. Left AV fistula. 6. Cholecystectomy. CURRENT MEDICATIONS: Tylenol, allopurinol, calcium carbonate 750 with meals, Catapres as needed, EPO 10,000 units subcutaneously for 14 days, hydralazine as needed, Dilaudid as needed, Xalatan eye drop s daily, midodrine 5 mg p.o. every Tuesday, Tuesday, and Tuesday prior to dialysis, multivitamin pritesh y, Zofran p.r.n., Protonix 40 mg daily, tamsulosin 0.4 mg at bedtime. FAMILY HISTORY: Noncontributory. SOCIAL HISTORY: The patient is a retired electrical and radio mechanic. He is . He has 2 children. H e quit smoking in the 50s. He does not drink alcohol. REVIEW OF SYSTEMS: A full 12 systems review was obtained. He is denying fevers, headaches, vision c hanges, rhinitis, sore throat. He has some chronic respiratory issues. He denies chest pain or palp itations. He has some occasional diarrhea. He makes very little urine. He has some chronic lower e xtremity edema. He does have lower extremity neuropathy. He has not had skin rashes. He has a hist ory of diabetes. PHYSICAL EXAM: GENERAL: The patient is appropriate, alert. VITAL SIGNS: Temperature 36.8, pulse 5 9, blood pressure 120/48. EYES: Sclerae clear. Oropharynx clear. NECK: No lymphadenopathy or thy romegaly. LUNGS: Clear to auscultation. CARDIOVASCULAR: Regular rate and rhythm without gallops o r rubs. ABDOMEN: Nontender. and RECTAL: Deferred. EXTREMITIES: Trace edema bilaterally. INT EGUMENT: Generally clear. NEURO: Notable for the neuropathy. LABORATORY STUDIES: White count 4.4, hematocrit 26.3, platelets 145. All of his laboratory studies are pending at present. IMPRESSION AND PLAN: 1. End-stage renal disease. The patient's scheduled dialysis is for today. He is currently receivi ng a blood transfusion. He will likely receive some contrast. Relating to this, the patient will un dergo dialysis with his routine time later today. He appears hemodynamically stable. 2. Anemia. The patient does have chronic anemia. He appears to have bone marrow failure. He is be ing transfused. We will recheck his blood counts. 3. Chronic respiratory failure. This appears stable. 4. Status post transcatheter aortic valve replacement for aortic stenosis. The patient appears to h ave tolerated this procedure very well. Thank you for allowing us to participate in this gentleman's care. We will continue following jorge y with you. /[id number]/MODL
[2018-02-06] MEDS ORDERED: ACETAMINOPHEN 325 MG TAB PO SCH (12:00)
--- NOTE | 2018-02-06 12:23 | ECHO ---
[email or web address] [address] Main: [phone] Fax: Transthoracic Echocardiogram Name: LIBAN BORREGO MR#: [id number] Study Date: 02/06/2018 Study Time: 07:05 AM Date of : 1930 Age: 87 year(s) Height: ( ) Weight: ( ) BSA: Gender: Male Examination: Echo Indication: TAVR Image Quality: Adequate Contrast: Requested by: Nicola Norman BP: / Heart Rate: Rhythm: Indication: TAVR Procedure Staff Director Of [employer] Marketing: Tara De La Cruz RDCS Reading Physician: Norberto Ramirez MD Requesting Provider: Conclusions: Normal size left ventricle. Normal global systolic LV function. The ejection fraction is visually estimated to be 60 %. Normal size right ventricle. There is a pacemaker lead noted in the right ventricle. The left atrium is normal in size. The right atrium is normal in size. The mitral valve is normal in appearance and function. Mild to moderate mitral regurgitation. TAVR procedure. Prior to TAVR placement, the patient had a mean gradient of 39 mmhg and a peak velocity of 3.9 m/s. Post TAVR placement, the mean gradient is 8 mmhg and the peak velocity is 1.73 m/s. There is a mild perivalvular leak present and a mild central jet of aortic regurgitation. The tricuspid valve is normal in appearance and function. Mild tricuspid regurgitation is present. The pulmonic valve is normal in appearance and function. No pericardial effusion. Measurements: Chambers Valvular Assessment AV/MV Valvular Assessment TV/PV Normal Normal Normal Name Value Range Name Value Range Name Value Range LVOTd 2.4 cm 2.4 cm mm AV Vmax: 1.73 m/s (1 m/s-1.7 Visual EF: 60 % m/s) AV maxP mmHg ( - ) AV meanP mmHg ( - ) CARI (VTI): 2.1 cm ( - ) Continued Measurements: Patient: LIBAN BORREGO Study Date: 02/06/2018 Page 1 of 2 07:05 AM Findings: Left Ventricle: Normal size left ventricle. Normal global systolic LV function. The ejection fraction is visually estimated to be 60 %. Right Ventricle: Normal size right ventricle. There is a pacemaker lead noted in the right ventricle. Left Atrium: The left atrium is normal in size. Right Atrium: The right atrium is normal in size. Mitral Valve: The mitral valve is normal in appearance and function. Mild to moderate mitral regurgitation. Aortic Valve: TAVR procedure. Prior to TAVR placement, the patient had a mean gradient of 39 mmhg and a peak velocity of 3.9 m/s. Post TAVR placement, the mean gradient is 8 mmhg and the peak velocity is 1.73 m/s. There is a mild perivalvular leak present and a mild central jet of aortic regurgitation. Tricuspid Valve: The tricuspid valve is normal in appearance and function. Mild tricuspid regurgitation is present. Pulmonic Valve: The pulmonic valve is normal in appearance and function. Aorta: The aorta is normal. Pericardium: No pericardial effusion. (No Signature Object) Patient: LIBAN BORREGO Study Date: 02/06/2018 Page 2 of 2 07:05 AM [id number]
[2018-02-06] MEDS: CALCIUM CARBONATE 500 MG CHEWABLE TAB PO SCH ×2 (12:33→19:26)
[2018-02-06] MEDS ORDERED: EPOETIN ALFA 10,000 UNIT/ML VIAL SC SCH (14:00)
[2018-02-06] MEDS: MIDODRINE HCL 5 MG TAB PO SCH (15:19)
--- NOTE | 2018-02-06 15:51 | POSTANESTH ---
Post Anesthetic Evaluation Cardiovascular Status: Normal, Stable Respiratory Status: Similar to Pre-op Cond., Tx Decrease in SpO2 Level of Consciousness/Mental Status: Can Participate in Eval Pain Control: Adequate, Prn Tx Ordered Nausea/Vomiting Control: Adequate, Prn Tx Ordered Complications Possibly Related to Anesthesia: None Noted
--- NOTE | 2018-02-06 15:51 | GOP ---
[f rep st] OPERATIVE REPORT DATE OF OPERATION: 02/06/2018 SURGEON: Bigg Ventura DO MAKING MACHINE OPERATOR: Dr. Ventura, Dr. Sandoval, and Dr. Huizar.. PREOPERATIVE DIAGNOSIS: POSTOPERATIVE DIAGNOSIS: PROCEDURE PERFORMED: FINDINGS: DESCRIPTION OF PROCEDURE: Please see separate dictation by Dr. Norman. I first assisted throughout the procedure, assisting in passing wires into proper position. We then after balloon dilation, mi sofia the Evolute Pro 29 valve across the anulus after confirmation with echo, fluoro, and angiography. We then deployed it to approximately 80%, tested for perivalvular leak and function of the valve. We felt that placement was excellent. We then fully redeployed the entire device and pulled it back through the femoral artery. Subsequent echo confirmed excellent placement with [id number] perival vular leak. Hemodynamic suggested no significant aortic insufficiency. Dr. Norman then closed the groins. Please see separate dictations. SURGEON: Nicola Norman MD /[id number]/[facility] [place]
[2018-02-06] MEDS: LATANOPROST 0.005% 2.5 ML OPHT DROPS EACHEYE SCH (20:30)
[2018-02-06] MEDS: TAMSULOSIN HCL 0.4 MG CAP PO SCH (20:30)
[2018-02-06] MEDS: ALLOPURINOL 300 MG TAB PO SCH (20:30)
[2018-02-07 04:32] LABS: PLATELET COUNT 123 10^3/uL (150-400)
[2018-02-07 04:40] LABS: INR 1.22 (0.83-1.16); PROTIME(PATIENT) 15.6 SEC (12.0-15.0)
--- NOTE | 2018-02-07 08:04 | PDCARPN ---
Cardiology Progress Note Chief Complaint: SOB Assessment/Plan: Assessment: s/p TAVR Plan: 02/07/18 08:03 doing well appreciate renal input continue OOB IS check echo dialysis on 02/08, d/c home after dialysis Subjective: doing well Reviewed/Discussed With: multidisciplinary team Time Spent with Patient: greater than 25 minutes Time Spent with Patient: Greater than 25 minutes spent on this patients care, greater than 50% of time spent counseling, educating, and coordinating care regarding the above mentioned plan. Objective: Vital Signs (8 Hrs) Pulse Resp BP Pulse Ox 02/07/18 06:00 66 16 94 02/07/18 04:00 71 17 124/45 H 93 02/07/18 02:00 67 17 117/51 L 94 Intake/Output (24 Hrs) 02/06/18 02/07/18 02/08/18 05:59 05:59 05:59 Intake Total 1050 Output Total 2100 Balance -1050 Intake: Oral (ml) 1050 Output: Urine (ml) 0 Urinal 0 Dialysis Fluid Removed 2100 Other: Weight 76 kg Number of Stools Urinal 0 Result Diagrams: 02/07/18 04:25 02/07/18 04:25 - Physical Exam Constitutional: no apparent distress Eyes: PERRL Ears, Nose, Mouth, Throat: moist mucous membranes Cardiovascular: regular rate and rhythm Peripheral Pulses: 1+: femoral (R), femoral (L) Respiratory: clear to auscultate bilat Gastrointestinal: normoactive bowel sounds Genitourinary: no suprapubic tenderness Skin: no rashes Musculoskeletal: no muscular tenderness Neurologic: AAOx3 Psychiatric: cooperative ICD10 Worksheet Patient Problems: Problems Problem Status Onset Acute and chronic respiratory failure with hypoxia Acute Anemia Acute Chronic Disease Mgmt/Transitional Care Acute Chronic renal failure Acute Community acquired pneumonia Acute Diabetes mellitus Acute End stage renal disease on dialysis Acute Heart failure, diastolic, with acute decompensation Acute Hypoxemia Acute Hypoxia Acute Lumbar strain Acute Melena Acute Pleural effusion Acute Pneumonia Acute Pulmonary edema Acute Renal mass, left Acute UTI (urinary tract infection) Acute Upper GI bleed Acute Weakness generalized Acute Anemia Chronic Osteoarthritis of hip Chronic Renal failure syndrome Chronic
--- NOTE | 2018-02-07 08:53 | ASMTLACE ---
BAME Acuity / Level of Answers: Yes Care: Did the patient have an inpatient admission? Comorbidities - select Answers: Any tumor (including all that apply lymphoma or leukemia) Chronic pulmonary disease Congestive heart failure Coronary Artery Disease Diabetes (uncontrolled or controlled) Moderate or severe liver or renal disease # of Emergency department Answers: 5-8 visits in the last 6 months Score: 20 Date Signed: 02/07/2018 08:52 AM Electronically Signed By:Angela Billings
[2018-02-07] MEDS: MULTIVITAMINS 1 EACH TAB PO SCH (08:54)
[2018-02-07] MEDS: PANTOPRAZOLE SODIUM 40 MG TAB PO SCH (08:54)
[2018-02-07] MEDS: CALCIUM CARBONATE 500 MG CHEWABLE TAB PO SCH ×3 (08:55→17:58)
[2018-02-07] MEDS ORDERED: Herbals/Supplements -Info Only PO SCH (09:00)
[2018-02-07] MEDS ORDERED: ASPIRIN 81 MG CHEWABLE TAB PO SCH (09:00)
--- NOTE | 2018-02-07 10:59 | ECHO ---
[email or web address] [address] Main: [phone] Fax: Transthoracic Echocardiogram Name: LIBAN BORREGO MR#: [id number] Study Date: 02/07/2018 Study Time: 07:42 AM Date of : 1930 Age: 87 year(s) Height: 175.3 cm (69 in.) Weight: 75.75 kg (167 lb.) BSA: 1.91 m2 Gender: Male Examination: Echo Indication: Post TAVR Image Quality: Adequate Contrast: Requested by: Nicola Norman BP: / Heart Rate: Rhythm: Indication: Post TAVR Procedure Staff Paper Sealer: Tara De La Cruz RDCS Reading Physician: Jordon Hayes MD Requesting Provider: Conclusions: no pericardial effusion. Concentric left ventricular hypertrophy. Bioprosthetic aortic valve with mild perivalvular leak. Mild tricuspid regurgitation with right ventricular systolic pressure of 72 mm of mercury. Right ventricular systolic function remains normal. Measurements: Chambers Valvular Assessment AV/MV Valvular Assessment TV/PV Normal Normal Normal Name Value Range Name Value Range Name Value Range Ao Geno (2D): 2.5 cm (1.4 cm-2.6 AV Vmax: 1.90 m/s (1 m/s-1.7 TR Vmax: 3.95 mm/s ( - ) cm) m/s) TR PGmax: 62 mmHg ( - ) IVSd (2D): 1.3 cm (0.6 cm-1.1 AV maxP mmHg ( - ) syst. PAP: 72 mmHg ( - ) cm) AV meanP mmHg ( - ) PV Vmax: 1.13 m/s (0.6 m/s-0.9 LVDd (2D): 4.5 cm (4.2 cm-5.9 CARI (VTI): 2.5 cm ( - ) m/s) cm) MV E Vmax: 1.03 m/s ( - ) PV PGmax: 5 mmHg ( - ) LVDs (2D): 3.0 cm (2.1 cm-4 MV A Vmax: 1.34 m/s ( - ) cm) MV E/A: 0.77 ( - ) LVPWd (2D): 1.3 cm (0.6 cm-1 cm) MV PHT: 0.087 s ( - ) LVOTd 2.3 cm 2.3 cm mm MVA (PHT): 2.5 s ( - ) LVEF (BP): 66 % (>=55 %) RVDd(2D): 4.3 cm (1.9 cm-3.8 cmmm) Continued Measurements: Chambers Valvular Assessment AV/MV Valvular Assessment TV/PV Name Value Name Value Name Value LADs: 4.1 cm MV DecTime: 282 m/s CVP (est.): 10 mmHg LADs Lon.0 cm MV E' Septal: 0.05 m/s LA Area: 22.6 cm2 MV E/E' Septal: 20.30 Patient: LIBAN BORREGO Study Date: 02/07/2018 Page 1 of 2 07:42 AM LA Volume: 61 ml MV E/E' Lateral: 14.90 LA Volume Index: 31.9 ml/m2 RA Area: 19.0 cm2 Additional Vessels Name Value Ao Ascendin.8 cm Inferior Vena Cava: 1.6 cm Findings: Left Ventricle: Normal size left ventricle. Mild concentric LV hypertrophy. Normal global systolic LV function. EF is 66 %. No regional wall motion abnormality. Unable to assess diastolic dysfunction. Right Ventricle: Normal size right ventricle. Normal RV function. Left Atrium: The left atrium is normal in size. Right Atrium: The right atrium is normal in size. Mitral Valve: The mitral valve is normal in appearance and function. Mild mitral valve leaflet calcification is present. Mild mitral valve regurgitation is present. No mitral stenosis is present. Aortic Valve: The aortic valve is a bioprosthesis. Normal functioning aortic valve prosthesis. The prosthetic aortic valve is normal. The orifice motion of the prosthetic aortic valve is normal. There is mild aortic and perivalvular regurgitation. Tricuspid Valve: The tricuspid valve is normal in appearance and function. Mild tricuspid regurgitation is present. The pulmonary artery pressure is severely increased. Right ventricular systolic pressure measures 72mmHg. Pulmonic Valve: The pulmonic valve is normal in appearance and function. Trivial pulmonic valve regurgitation. Aorta: The aorta is normal. Normal size aortic root measuring 2.5 cm. Normal size ascending aorta measuring 2.8 cm. IVC: The IVC is normal sized. Pericardium: No pericardial effusion. No pleural effusion. (No Signature Object) Patient: LIBAN BORREGO Study Date: 02/07/2018 Page 2 of 2 07:42 AM [id number]
[2018-02-07] MEDS: Umeclidinium Brm/Vilanterol Tr [Anoro Ellipta 62.5-25 Mcg Inh] 1 E IH SCH (11:20)
--- NOTE | 2018-02-07 14:40 | ASMTCASEMG ---
Living Arrangements What is your living Answers: With Spouse arrangement? Who do you live with? Type Of Residence What kind of residence do Answers: House you live in? Discharge Plan Comments Coordination Status Comments Notes: Pt is post op-TAVR. CM met w/ pt, pts and daughter for dispo planning. PT is recommending SNF. Pt is resistant to going to SNF. Would prefer to d/c home w/ HC then start cardiac rehab. CM provided family w/ senior blue book. Family would like referrals sent to [facility]. Pt goes to dialysis [facility] in [place]. Referrals sent. CM to follow. Plan: TBD Date Signed: 02/07/2018 02:39 PM Electronically Signed By:MARCELLA Mata
--- NOTE | 2018-02-07 15:19 | SOAPPROG ---
LINA Progress Note Assessment/Plan: Assessment: 1. esrd: hd tomorrow on typical mwf schedule. Will try to uf a bit more aggressively. 2. : s/p TAVR, doing well. 3. anemia: txfused, stable. Aranesp recently resumed as outpt after being held earlier this year. UGI bleed earlier this year s/p treatment. Plan: 02/07/18 15:17 Subjective: s/p hd yesterday with approx 2L uf. Feeling relatively well, though remains weak. Objective: Vital Signs Temp Pulse Resp BP Pulse Ox 36.7 C 85 12 118/71 93 02/07/18 12:21 02/07/18 12:21 02/07/18 12:21 02/07/18 12:21 02/07/18 13:21 Laboratory Results 02/07/18 04:25 02/07/18 04:25 02/06/18 02/07/18 02/08/18 05:59 05:59 05:59 Intake Total 1050 350 Output Total 2100 Balance -1050 350 PT 15.6 SEC (12.0-15.0) H 02/07/18 04:25 INR 1.22 (0.83-1.16) H 02/07/18 04:25 Physical Exam - Physical Exam General Appearance: no apparent distress, other (frail) Respiratory: crackles (at bases) Cardiac/Chest: regular rate, rhythm Abdomen: non-tender Extremities: pedal edema (none) ICD10 Worksheet Patient Problems: Problems Problem Status Onset Acute and chronic respiratory failure with hypoxia Acute Anemia Acute Chronic Disease Mgmt/Transitional Care Acute Chronic renal failure Acute Community acquired pneumonia Acute Diabetes mellitus Acute End stage renal disease on dialysis Acute Heart failure, diastolic, with acute decompensation Acute Hypoxemia Acute Hypoxia Acute Lumbar strain Acute Melena Acute Pleural effusion Acute Pneumonia Acute Pulmonary edema Acute Renal mass, left Acute UTI (urinary tract infection) Acute Upper GI bleed Acute Weakness generalized Acute Anemia Chronic Osteoarthritis of hip Chronic Renal failure syndrome Chronic
[2018-02-07] MEDS ORDERED: Umeclidinium Brm/Vilanterol Tr [Anoro Ellipta 62.5-25 Mcg Inh] 1 E IH SCH (21:00)
[2018-02-07] MEDS: ALLOPURINOL 300 MG TAB PO SCH (22:26)
[2018-02-07] MEDS: TAMSULOSIN HCL 0.4 MG CAP PO SCH (22:26)
[2018-02-07] MEDS: LATANOPROST 0.005% 2.5 ML OPHT DROPS EACHEYE SCH (22:32)
[2018-02-08 04:20] LABS: PLATELET COUNT 105 10^3/uL (150-400)
[2018-02-08 04:27] LABS: INR 1.28 (0.83-1.16); PROTIME(PATIENT) 16.2 SEC (12.0-15.0)
--- NOTE | 2018-02-08 07:25 | PDCARPN ---
Cardiology Progress Note Chief Complaint: SOB Assessment/Plan: Assessment: s/p TAVR Plan: 02/07/18 08:03 doing well appreciate renal input continue OOB IS check echo dialysis on 02/08, d/c home after dialysis 02/08/18 07:24 doing well Hgb 7.2 O2 requirement still high--will have diuresis via dialysis today transfuse 1 unit during dialysis d/c home today after dialysis Subjective: no new complaints Reviewed/Discussed With: multidisciplinary team Time Spent with Patient: greater than 25 minutes Time Spent with Patient: Greater than 25 minutes spent on this patients care, greater than 50% of time spent counseling, educating, and coordinating care regarding the above mentioned plan. Objective: Vital Signs (8 Hrs) Temp Pulse Resp BP Pulse Ox 02/08/18 04:23 36.3 C 78 17 101/54 L 89 L 02/07/18 23:26 36.6 C 73 17 110/56 L 90 L Intake/Output (24 Hrs) 02/07/18 02/08/18 02/09/18 05:59 05:59 05:59 Intake Total 1050 900 Output Total 2100 Balance -1050 900 Intake: Oral (ml) 1050 900 Output: Urine (ml) 0 Urinal 0 Dialysis Fluid Removed 2100 Other: Weight 76 kg 71.078 kg Intake Quantity Yes Sufficient Number of Voids Urinal 1 Number of Stools Urinal 0 1 Result Diagrams: 02/08/18 03:51 02/07/18 04:25 - Physical Exam Constitutional: no apparent distress Eyes: PERRL Ears, Nose, Mouth, Throat: dry mucous membranes Cardiovascular: regular rate and rhythm Peripheral Pulses: 1+: femoral (R), femoral (L) Gastrointestinal: normoactive bowel sounds Genitourinary: no suprapubic tenderness Skin: no rashes Musculoskeletal: no muscular tenderness Neurologic: AAOx3 ICD10 Worksheet Patient Problems: Problems Problem Status Onset Acute and chronic respiratory failure with hypoxia Acute Anemia Acute Chronic Disease Mgmt/Transitional Care Acute Chronic renal failure Acute Community acquired pneumonia Acute Diabetes mellitus Acute End stage renal disease on dialysis Acute Heart failure, diastolic, with acute decompensation Acute Hypoxemia Acute Hypoxia Acute Lumbar strain Acute Melena Acute Pleural effusion Acute Pneumonia Acute Pulmonary edema Acute Renal mass, left Acute UTI (urinary tract infection) Acute Upper GI bleed Acute Weakness generalized Acute Anemia Chronic Osteoarthritis of hip Chronic Renal failure syndrome Chronic
--- NOTE | 2018-02-08 07:44 | GDS ---
[f rep st] DISCHARGE SUMMARY DISCHARGE DIAGNOSIS: Aortic stenosis. HOSPITAL COURSE: Briefly, this is an 87-year-old male with history of critical aortic stenosis with multiple comorbid issues. The patient was deemed to be an inoperable candidate by CT Surgery. Patimary vega was consented for transfemoral TAVR with conscious sedation, and the patient underwent successful transfemoral TAVR placement of Medtronic CoreValve Evolut PRO 29 mm valve. Patient has a known histo ry of baseline end-stage renal disease and dialysis and baseline anemia in the 7's. Patient did well post procedure. Echocardiogram post procedure shows normal ventricular function with normal-functio arianna TAVR valve with [id number] paravalvular leak. The patient is undergoing dialysis this morn ing and will be transfused 1 unit of PRBCs given his baseline hemoglobin of 7.2. He will be discharg ed home this morning with his home medications, including baby aspirin daily. He will follow up in t he office in 1 week's time. /[id number]/[facility]
[2018-02-08] MEDS: PANTOPRAZOLE SODIUM 40 MG TAB PO SCH (09:05)
[2018-02-08] MEDS: CALCIUM CARBONATE 500 MG CHEWABLE TAB PO SCH ×2 (09:05→12:49)
[2018-02-08] MEDS: MULTIVITAMINS 1 EACH TAB PO SCH (09:06)
[2018-02-08] MEDS: MIDODRINE HCL 5 MG TAB PO SCH (09:06)
--- NOTE | 2018-02-08 11:54 | ASDISCHSUM ---
Discharge Information Plan Status:Home with No Needs Medically Cleared to Leave:02/08/2018 Discharge Date:02/08/2018 CM D/C Disposition: ADT D/C Disposition:Home, Routine, Self-Care Projected Discharge Date:02/08/2018 11:00 AM Transportation at D/C: Discharge Delay Reason: Follow-Up Date:02/08/2018 11:00 AM Discharge Slot: Final Diagnosis: Placement Information Referral Type:*Long-Term/SNF Referral ID:[id number] Provider Name: Address 1: Phone Number: Address 2: Fax Number: City: Selection Factors: State: Patient Contact Information Contact Name:BRITTNYKIMCAROLINACASTILLO Relationship: Address:[address] Work Phone: [facility] Phone: [facility]/Zip Code:[place] [address] Email: Financial Information Financial Class:Medicare Primary Plan Desc:MEDICARE INPATIENT Primary Plan Number:[id number] Secondary Plan Desc:[facility] Secondary Plan Number:[id number] Assessment Information LACE LACE Acuity / Level of Answers: Yes Care: Did the patient have an inpatient admission? Comorbidities - select Answers: Any tumor (including all that apply lymphoma or leukemia) Chronic pulmonary disease Congestive heart failure Coronary Artery Disease Diabetes (uncontrolled or controlled) Moderate or severe liver or renal disease # of Emergency department Answers: 5-8 visits in the last 6 months Score: 20 Date Signed: 02/07/2018 08:52 AM Electronically Signed By:Angela Billings [facility] Initial CM Assessment Living Arrangements What is your living Answers: With Spouse arrangement? Who do you live with? Type Of Residence What kind of residence do Answers: House you live in? Discharge Plan Comments Coordination Status Comments Notes: Pt is post op-TAVR. CM met w/ pt, pts and daughter for dispo planning. PT is recommending SNF. Pt is resistant to going to SNF. Would prefer to d/c home w/ HC then start cardiac rehab. CM provided family w/ senior blue book. Family would like referrals sent to [facility]. Pt goes to dialysis [facility] in [place]. Referrals sent. CM to follow. Plan: TBD Date Signed: 02/07/2018 02:39 PM Electronically Signed By:MARCELLA Mata Case Management Discharge Plan Note Case Management Discharge Discharge Order Complete? Answers: Yes Patient to Obtain Answers: Independently Medications Transportation Arranged Answers: Family/Friends EMTALA Complete Answers: No Case Management Transport Answers: No Form Complete Faxed Final Orders Answers: No Agency/Facility Transfer Answers: No Report Printed & Faxed to Receiving Agency Family Notified Answers: Yes Discharge Comments Notes: CM spoke to MARIANN Chacon regarding d/c POC. Pt is being discharged today. It is recommended that pt follows up w/ outpatient cardiac rehab. No SNF or HC needed at this time. CM communicated this w/ the SNFs. CM available for changes. Plan: Independent Date Signed: 02/08/2018 11:53 AM Electronically Signed By:MARCELLA Mata Intervention Information
[2018-02-08 11:58] VITALS: BP 128/49
[2018-02-13] MEDS ORDERED: EPOETIN ALFA 10,000 UNIT/ML VIAL SC SCH (14:00)
== END 2018-02-08 13:20 | disposition home or self-care (01) | DRG 266 ==
LOC: FCATH 05:56 → F2N 09:50 → F2W 02-07 12:11
PROVIDERS: ADMIT Internal Medicine Cardiovascular Disease; ATTEND Internal Medicine Cardiovascular Disease
PROC: 02RF38Z Replacement of Aortic Valve with Zooplastic Tissue, Percutaneous Approach (ICD-10-PCS; principal; 2018-02-06)
PROC: 5A1D70Z Performance of Urinary Filtration, Intermittent, Less than 6 Hours Per Day (ICD-10-PCS; 2018-02-06)
PROC: 30233N1 Transfusion of Nonautologous Red Blood Cells into Peripheral Vein, Percutaneous Approach (ICD-10-PCS; 2018-02-06)
DX: I35.0 Nonrheumatic aortic (valve) stenosis (principal); Z00.6 Encounter for examination for normal comparison and control in clinical research program; E11.22 Type 2 diabetes mellitus with diabetic chronic kidney disease; N18.6 End stage renal disease; I50.30 Unspecified diastolic (congestive) heart failure; D61.9 Aplastic anemia, unspecified; J96.10 Chronic respiratory failure, unspecified whether with hypoxia or hypercapnia; E11.40 Type 2 diabetes mellitus with diabetic neuropathy, unspecified; N40.0 Benign prostatic hyperplasia without lower urinary tract symptoms; Z99.2 Dependence on renal dialysis
CPT/HCPCS: 97116-GP; 97161-GP; 97530-GP; C1760; C1769; C1894; G8978-GP-CK; G8979-GP-CI; J0690; J0885; J1644; J2704; J2720; J3010; P9016; Q9967

== ENCOUNTER 2018-02-26 18:42 | Emergency (ER) | payer OTHER ==
[2018-02-26] MEDS ORDERED: CALCIUM CHLORIDE 1 GM/10 ML INJ IV ONE ×2 (18:49→18:51)
[2018-02-26] MEDS ORDERED: ATROPINE SULFATE 1 MG/10 ML SYR IVP ONE (18:51)
--- NOTE | 2018-02-26 18:55 | EDPHY ---
HPI/HX/ROS/PE/MDM Narrative: CHIEF COMPLAINT: Cardiac Arrest, CPR in progress HPI: This is an 87 y/o male with reported history of possible recent MO who arrives emergently via EMS in cardiac arrest. He has so far received 50 minutes of CPR after a witnessed collapse at home. Family did CPR for 20 minutes prior to EMS arrival. EMS continued CPR and administered 4 rounds of epinephrine and report PEA throughout their contact. No shocks delivered. REVIEW OF SYSTEMS: Unobtainable. PMH: Possible MO a few days ago? SOCIAL HISTORY: Lives with family. PHYSICAL EXAM: General:Patient is unconscious, unresponsive. ENT: Pupils mid position. Atraumatic. Neck: Bonifacio tube and c-collar in place. Respiratory: Apneic. Cardiovascular: Pulseless, CPR in progress. Abdomen: Soft, atraumatic, large reducible ventral hernia. Back: Deferred. Skin: Ashen, cool. Extremities: Atraumatic. Neuro: Unconscious, unresponsive ED Course: 1841: Met EMS upon arrival and took report. 87 y/o male with 50 minutes of CPR after witnessed collapse at home. He had PEA throughout EMS contact and no shocks were delivered. DNR status unknown. CPR continued upon arrival. 1843: Hold CPR. Pulse check - no pulse. PEA on monitor. Resume CPR. 1845: Hold CPR. Limited bedside cardiac US - no cardiac activity, no pulses, PEA on the monitor. Resume CPR. Pupils: midposition. Dialysis fistula left arm. 184: 1mg IV atropine and 1amp calcium administered. 1848: Hold CPR. Pulse check - no pulse, no cardiac activity on US. Resume CPR. Awaiting ISTAT including BGL results. 184: BGL 442. 1850: Pulse check - no pulse, asystole on monitor, no cardiac activity on US. Resume CPR. 1 amp calcium administered. Bonifacio Airway in place. Easily reducible ventral hernia and no trauma noted. 185: Pulse check - no pulse. Asystole on monitor. Time of called at 18: 52. Reviewed past medical records including admission 02/06/18 for TAVR. Patient has a history of end-stage renal disease on hemodialysis, CAD, aortic stenosis and is 3-weeks post TAVR performed here by Dr. Norman on 02/06/18, renal cell carcinoma, GI bleeding, diabetes, diastolic heart failure, chronic respiratory failure, gout, peripheral neuropathy, BPH, glaucoma, chronic anemia. - Data Points Medications Given: Discontinued Medications Atropine Sulfate (Atropine 1 Mg/10 Ml Syringe) 1 mg IVP EDNOW ONE Stop: 02/26/18 18:52 Last Admin: 02/26/18 18:46 Dose: 1 mg Calcium Chloride (Calcium Chloride) 1 gm IV EDNOW ONE Stop: 02/26/18 18:50 Last Admin: 02/26/18 18:46 Dose: 1 gm Calcium Chloride (Calcium Chloride) 1 gm IV EDNOW ONE Stop: 02/26/18 18:52 Last Admin: 02/26/18 18:50 Dose: 1 gm General Initial Vital Signs: O2 (L/minute) 15 Allergies/Adverse Reactions: pseudoephedrine Allergy (Verified 02/26/18 19:04) Home Medications: Medication Instructions Recorded Unobtainable 02/26/18 Departure - Departure Disposition: Clinical Impression: Cardiac arrest Condition: Critical Referrals: Patient,NotPresent [Unknown] - As per Instructions Report Scribed for: Cuong Louis Report Scribed by: Camilla Ladd Date of Report: 02/26/18 Time of Report: 18:57 Physician Review and Approval Statement: Portions of this note were transcribed by an ED scribe. I personally performed the history, physical exam, and medical decision making; and confirm the accuracy of the information in the transcribed note.
== END 2018-02-26 22:34 | disposition expired ==
LOC: MERGE 18:42 → EDBD 18:42
PROC: 5A12012 Performance of Cardiac Output, Single, Manual (ICD-10-PCS; principal; 2018-02-26)
DX: I46.9 Cardiac arrest, cause unspecified (principal)
CPT/HCPCS: 92950; 99285; J0461